=== PATIENT | female | born 1965 | race Caucasian/White ===

== ENCOUNTER 2022-11-15 10:13 | Outpatient (OUT) | payer BC, MEDICARE, SELFPAY ==
[2022-11-15 11:46] LABS: Estimated Average Glucose 151 mg/dL; Glycohemoglobin A1C 6.9 % (4.5-6.2)
[2022-11-15 11:50] LABS: Alanine Aminotransferase 53 U/L (14-59); Albumin Globulin Ratio 1.1; Albumin Level 3.9 g/dL (3.4-5.0); Alkaline Phosphatase 62 U/L (46-116); Anion Gap 14.8; Aspartate Amino Transferase 26 U/L (15-37); BUN Creatinine Ratio 15.7; Bilirubin Total 0.8 mg/dL (0.2-1.0); Calcium 9.6 mg/dL (8.5-10.1); Carbon Dioxide 29.6 mmol/L (21.0-32.0); Chloride 102 mmol/L (98-107); Estimated GFR (African America >60 (>=60); Estimated GFR (Non-African Ame 55 (>=60); Globulin 3.7 g/dL; Glucose 149 mg/dL (74-106); Potassium 4.4 mmol/L (3.5-5.1); Sodium 142 mmol/L (136-145); Total Protein 7.6 g/dL (6.4-8.2)
[2022-11-16 06:08] LABS: HIV Ab/p24 Ag Screen Non Reactive (Non Reactive)
== END 2022-11-15 10:14 ==
LOC: LAB 10:28
PROVIDERS: PCP Nurse Practitioner Primary Care; Visit Provider Nurse Practitioner Primary Care
DX: E11.9 Type 2 diabetes mellitus without complications (principal)
CPT/HCPCS: 36415; 80053; 83036; 87389

== ENCOUNTER 2022-12-21 13:48 | Outpatient (OUT) | payer BC, MEDICARE, SELFPAY ==
--- NOTE | 2022-12-21 14:04 | XR_ITS ---
The [address] [address] Patient Name: PATEL MEDINA MRN: [id number] date: 1965 Sex: F Assigned Patient Location: [facility] Current Patient Location: Accession/Order Number: [id number] Exam Date: 12/21/2022 14:04 Report Date: 12/22/2022 08:30 At the request of: BRETT MONAE Procedure: XR foot LAUREN min 3V EXAMINATION: XR foot LAUREN min 3V HISTORY: BILATERAL FOOT PAIN COMPARISON: No relevant comparison available. FINDINGS: RIGHT FINDINGS: BONES: Mild narrowing of the first metatarsophalangeal joint space and prominent periarticular osteophytes. Moderate sized calcaneal plantar spur. Mild flattening of the plantar arch. SOFT TISSUES: No visible soft tissue swelling. OTHER: Negative. LEFT FINDINGS: BONES: Mild narrowing of the first metatarsophalangeal joint space. Minimal flattening of the plantar arch. Minimal degenerative enthesopathic spurring of the calcaneus.. SOFT TISSUES: No visible soft tissue swelling. OTHER: Negative. XR/XR foot LAUREN min 3V IMPRESSION: RIGHT CONCLUSION: Moderate degenerative joint disease of the first metatarsophalangeal joint and mild pes planus. LEFT CONCLUSION: Mild degenerative changes of the first metatarsophalangeal joint. Electronically authenticated by: GAVIN ROJAS Date: 12/22/2022 08:30
== END 2022-12-21 13:49 | disposition home or self-care (01) ==
LOC: RAD 13:48
PROVIDERS: PCP Nurse Practitioner Primary Care; Visit Provider Physician Assistant
DX: M79.671 Pain in right foot (principal); M79.672 Pain in left foot; M19.072 Primary osteoarthritis, left ankle and foot; M19.071 Primary osteoarthritis, right ankle and foot; M21.41 Flat foot [pes planus] (acquired), right foot
CPT/HCPCS: 73630

== ENCOUNTER 2023-01-03 20:24 | Outpatient (REF) | payer BC, MEDICARE, SELFPAY ==
[2023-01-07 08:13] LABS: Age Gdln ACOG Testing Note (.); HPV Aptima Negative (Negative); IGP, Aptima HPV, rfx 16/18,45 Note (.)
== END 2023-01-03 20:25 | disposition home or self-care (01) ==
LOC: LAB 20:24
PROVIDERS: PCP Nurse Practitioner Primary Care; Visit Provider Physician Assistant
DX: Z01.419 Encounter for gynecological examination (general) (routine) without abnormal findings (principal); Z11.51 Encounter for screening for human papillomavirus (HPV); Z12.72 Encounter for screening for malignant neoplasm of vagina
CPT/HCPCS: 87624; G0145

== ENCOUNTER 2023-01-06 13:10 | Outpatient (OUT) | payer BC, MEDICARE, SELFPAY ==
[2023-01-06 13:56] LABS: Basophils Absolute Auto 0.1 10^3/uL (0.0-0.1); Eosinophils Absolute Auto 0.5 10^3/uL (0.0-0.7); Eosinophils Percent Auto 6.8 % (0.9-7.0); Hematocrit 38.8 % (36.0-48.0); Hemoglobin 12.6 g/dL (12.0-16.0); Immature Granulocytes Abs Auto 0.04 10^3/uL (0.00-0.03); Immature Granulocytes Pct Auto 0.6 % (0.0-0.5); Mean Corpuscular HGB Conc 32.5 g/dL (29.9-35.2); Mean Corpuscular Hemoglobin 28.4 pg (26.7-34.0); Mean Corpuscular Volume 87.4 fL (81.0-99.0); Mean Platelet Volume 12.2 fL (9.5-13.5); Monocytes Absolute Auto 0.6 10^3/uL (0.3-0.8); Monocytes Percent Auto 8.6 % (1.7-12.0); Neutrophils Absolute Auto 3.7 10^3/uL (1.4-6.5); Platelet Count 217 10^3/uL (150-450); Red Blood Count 4.44 10^6/uL (4.20-5.40); Red Cell Distribution Width 13.1 % (11.0-15.0); White Blood Count 6.9 10^3/uL (4.0-11.0)
[2023-01-06 14:42] LABS: HCG Quantitative 3 mIU/mL; Thyroid Stimulating Hormone 3.275 uIU/mL (0.358-3.740)
[2023-01-07 04:09] LABS: Prolactin 12.9 ng/mL (4.8-23.3)
== END 2023-01-06 13:11 | disposition home or self-care (01) ==
LOC: LAB 13:13
PROVIDERS: Physician Assistant; PCP Nurse Practitioner Primary Care
DX: N91.2 Amenorrhea, unspecified (principal)
CPT/HCPCS: 36415; 84146; 84443; 84702; 85025

== ENCOUNTER 2023-01-10 13:58 | Outpatient (OUT) | payer BC, MEDICARE, SELFPAY ==
--- NOTE | 2023-01-10 14:00 | US_ITS ---
[address] [address] Patient Name: PATEL MEDINA MRN: [id number] date: 1965 Sex: F Assigned Patient Location: [place] Current Patient Location: Accession/Order Number: [id number] Exam Date: 01/10/2023 14:01 Report Date: 01/10/2023 15:42 At the request of: WENCESLAO EMANUEL Procedure: US pelvis w/ transvaginal EXAMINATION: US pelvis w/ transvaginal HISTORY: AMENORRHEA COMPARISON: No relevant comparison available. TECHNIQUE: Transabdominal and/or transvaginal sonographic examination was performed as indicated by examination type. FINDINGS: UTERUS: Rounded heterogeneous masslike area within anterior-left fundal region, 4.8 x 4.0 x 2.5 cm. Uterus size: 7.7 x 5.3 x 7.4 cm ENDOMETRIUM: Thickened but homogeneous. Endometrial thickness: 7 mm RIGHT OVARY: Normal size and appearance. Duplex Doppler demonstrates normal waveform and flow; resistive index 0.6. Ovary size: 2.3 x 1.5 x 2.4 cm LEFT OVARY: Normal size and appearance. Duplex Doppler demonstrates normal waveform and flow; resistive index 0.6. Ovary size: 2.3 x 1.7 x 2.4 cm CUL-DE-SAC: Unremarkable. No significant free fluid. BLADDER: Unremarkable. OTHER: None. US/US pelvis w/ transvaginal IMPRESSION: 1. Uterine fundus 4.8 cm mass suspected represent a leiomyoma. 2. Mild endometrial thickening given the patient's age, 7 mm. 3. Unremarkable ovaries. Electronically authenticated by: GAVIN ROJAS Date: 01/10/2023 15:42
== END 2023-01-10 13:59 | disposition home or self-care (01) ==
LOC: US 13:59
PROVIDERS: PCP Nurse Practitioner Primary Care; Visit Provider Obstetrics & Gynecology
DX: N91.2 Amenorrhea, unspecified (principal)
CPT/HCPCS: 76830; 76856

== ENCOUNTER 2023-01-11 12:41 | Outpatient (OUT) | payer BC, MEDICARE, SELFPAY ==
--- NOTE | 2023-01-11 13:20 | XR_ITS ---
[address] [address] Patient Name: PATEL MEDINA MRN: [id number] date: 1965 Sex: F Assigned Patient Location: [facility] Current Patient Location: Accession/Order Number: [id number] Exam Date: 01/11/2023 12:55 Report Date: 01/11/2023 18:18 At the request of: ZACK CUEVAS Procedure: XR DEXA axial skeleton EXAMINATION: XR DEXA axial skeleton, 01/11/2023 12:55 PM EDT HISTORY: Osteoporosis screening Z13.820 COMPARISON: None. TECHNIQUE: Dual-energy X-ray absorptiometry (DEXA) bone density study performed for the axial skeleton. HISTORY: Osteoporosis screening Z13.820 FINDINGS: Bone mineral density AP spine L1-L4 measures 1.455 g/sq cm. T score 2.3. WHO classification: Normal. Lowest bone mineral density left femoral neck measures 1.219 g/sq cm. T score 1.3. WHO classification: Normal XR/XR DEXA axial skeleton IMPRESSION: Normal bone mineral density. Low fracture risk Electronically authenticated by: MISBAH SHANKS Date: 01/11/2023 18:18
--- NOTE | 2023-01-11 13:20 | MM_ITS ---
Patient: PATEL MEDINA Exam Date: 01/11/2023 : 1965 Gender:F Ordering : CECILIA Hurley . Admission #: [id number] Family : JANUSZ BAUTISTA Order #: [id number] CLICK HERE TO VIEW EXAM RADIOLOGY REPORT PROCEDURE: MM TOMOSYNTHESIS SCREENING BI COMPARISON: MG MAMM LT DIAG W CAD, 06/25/2020. MG MAMM LT DIAG FU, 08/08/2019. MM SCREENING MAMMO BI, 07/18/2019. INDICATIONS: Screening mammogram Z12.31 Calculator Name NCI Breast Cancer Risk Assessment Tool 5 Year Breast Cancer Risk 1.40% Lifetime Breast Cancer Risk 7.40% Personal Breast Cancer No Personal Ovarian Cancer No Treatments None Family Cancers Grandmother-maternal with lung cancer at age 78; Grandfather-paternal with leukemia cancer at age 87. LOCATION: [facility] BREAST COMPOSITION: Scattered areas fibroglandular density. FINDINGS: DIAGNOSTIC CATEGORY 2--BENIGN FINDING: RIGHT BREAST: No significant suspicious finding. Stable benign-appearing calcifications. No significant change has occurred. LEFT BREAST: No significant suspicious finding. Stable, chronic small asymmetries within posterior upper-outer quadrant. No significant change has occurred. RECOMMENDATIONS: ROUTINE MAMMOGRAM AND CLINICAL EVALUATION IN 12 MONTHS. PLEASE NOTE: A NORMAL MAMMOGRAM DOES NOT EXCLUDE THE POSSIBILITY OF BREAST CANCER. A CLINICALLY SUSPICIOUS PALPABLE LUMP SHOULD BE BIOPSIED. Dictated by: Carmelo Mcdowell M.D. on 01/19/2023 at 07:53 Approved by: Carmelo Mcdowell M.D. on 01/19/2023 at 07:57
== END 2023-01-11 12:42 | disposition home or self-care (01) ==
PROVIDERS: PCP Nurse Practitioner Primary Care; Visit Provider Physician Assistant
DX: Z13.820 Encounter for screening for osteoporosis (principal); Z12.31 Encounter for screening mammogram for malignant neoplasm of breast; Z80.1 Family history of malignant neoplasm of trachea, bronchus and lung; Z80.6 Family history of leukemia
CPT/HCPCS: 77063; 77067; 77080

== ENCOUNTER 2023-02-21 06:53 | Outpatient (OUT) | payer BC, MEDICARE, SELFPAY ==
[2023-02-21 07:51] LABS: Estimated Average Glucose 148 mg/dL; Glycohemoglobin A1C 6.8 % (4.5-6.2)
[2023-02-21 08:32] LABS: Alanine Aminotransferase 47 U/L (14-59); Albumin Globulin Ratio 1.1; Albumin Level 3.9 g/dL (3.4-5.0); Alkaline Phosphatase 63 U/L (46-116); Anion Gap 11.2; Aspartate Amino Transferase 24 U/L (15-37); BUN Creatinine Ratio 17.7; Bilirubin Total 0.6 mg/dL (0.2-1.0); Calcium 9.5 mg/dL (8.5-10.1); Carbon Dioxide 28.9 mmol/L (21.0-32.0); Chloride 102 mmol/L (98-107); Estimated GFR (African America 60 (>=60); Estimated GFR (Non-African Ame 49 (>=60); Globulin 3.5 g/dL; Glucose 128 mg/dL (74-106); Potassium 4.1 mmol/L (3.5-5.1); Sodium 138 mmol/L (136-145); Total Protein 7.4 g/dL (6.4-8.2)
== END 2023-02-21 06:54 | disposition home or self-care (01) ==
LOC: LAB 06:57
PROVIDERS: PCP Nurse Practitioner Primary Care; Visit Provider Nurse Practitioner Primary Care
DX: E11.22 Type 2 diabetes mellitus with diabetic chronic kidney disease (principal); N18.31 Chronic kidney disease, stage 3a
CPT/HCPCS: 36415; 80053; 83036

== ENCOUNTER 2023-03-17 07:52 | Outpatient (OUT) | payer BC, MEDICARE, SELFPAY ==
--- NOTE | 2023-03-17 08:00 | ECG_ITS ---
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
== END 2023-03-17 07:53 | disposition home or self-care (01) ==
LOC: PST 07:53
PROVIDERS: PCP Nurse Practitioner Primary Care; Visit Provider Obstetrics & Gynecology
DX: Z01.810 Encounter for preprocedural cardiovascular examination (principal); R10.2 Pelvic and perineal pain; N91.2 Amenorrhea, unspecified
CPT/HCPCS: 93005

== ENCOUNTER 2023-03-24 06:04 | Day surgery (SDC) | payer BC, MEDICARE, SELFPAY ==
[2023-03-17 08:45] VITALS: BP 133/77; PULSE 55; RESP 20; TEMP 36.2; O2SAT 98; BMI 36.9
[2023-03-24] VITALS (10 sets, daily range): BP systolic 86–125; BP diastolic 54–68; PULSE 56–70; RESP 12–20; TEMP 36–36.3; O2SAT 92–99; BMI 36.4
[2023-03-24 06:31] LABS: Basophils Absolute Auto 0.1 10^3/uL (0.0-0.1); Basophils Percent Auto 1.6 % (0.2-2.0); Eosinophils Absolute Auto 0.7 10^3/uL (0.0-0.7); Eosinophils Percent Auto 10.3 % (0.9-7.0); Hematocrit 36.6 % (36.0-48.0); Hemoglobin 11.7 g/dL (12.0-16.0); Immature Granulocytes Abs Auto 0.02 10^3/uL (0.00-0.03); Immature Granulocytes Pct Auto 0.3 % (0.0-0.5); Lymphocytes Absolute Auto 2.9 10^3/uL (1.2-3.8); Lymphocytes Percent Auto 41.5 % (20.5-60.0); Mean Corpuscular Hemoglobin 28.1 pg (26.7-34.0); Mean Corpuscular Volume 87.8 fL (81.0-99.0); Mean Platelet Volume 12.1 fL (9.5-13.5); Monocytes Absolute Auto 0.9 10^3/uL (0.3-0.8); Monocytes Percent Auto 13.1 % (1.7-12.0); Neutrophils Absolute Auto 2.3 10^3/uL (1.4-6.5); Neutrophils Percent Auto 33.2 % (43.0-75.0); Platelet Count 208 10^3/uL (150-450); Red Blood Count 4.17 10^6/uL (4.20-5.40); Red Cell Distribution Width 13.2 % (11.0-15.0); White Blood Count 6.9 10^3/uL (4.0-11.0)
[2023-03-24] MEDS: LACTATED RINGER'S SOLUTION 1,000 ML 50 ML IV (06:50)
[2023-03-24] MEDS: LACTATED RINGER'S SOLUTION 1,000 ML 150 ML IV (07:00)
[2023-03-24] MEDS: SCOPOLAMINE 1 MG/3 DAYS TRANSDERM PATCH 1 PATCH TD (07:02)
--- NOTE | 2023-03-24 08:09 | PM.ONB ---
Brief Operative Note Date of procedure: 03/24/23 Pre-op diagnosis: thickened endometrium Post-op diagnosis: same as pre-op Procedure: NAME OF PROCEDURE: [ D&c hysteroscopy with myosure with polypectomy] PROCEDURE: The patient was taken back to the Operating Room where she was prepped and draped in normal sterile fashion after being placed under general anesthesia without difficulty. She was also placed in the dorsal lithotomy position. A weighted speculum was placed in the patient?s vagina. The anterior lip of the cervix was identified and grasped with a single tooth tenaculum. The patient?s uterus was then sounded roughly to [? 8] cm. The patient was then gently dilated using Hegar dilators. The hysteroscope was passed through the patient?s cervix into the uterus. Both ostia were identified. fluffy appearing endometrium. No gross evidence of malignancy, no gross evidence of polyps or fibroids. The MyoSure was then placed through the scope into the uterus, endometrial sampling in all quadrants was then performed along with removal of uterine polyp. the myosure apparatus was removed along with the hysteroscope from the patient's uterus. At that point, gentle curettage was performed until a gritty texture was noted. The endometrial curettings were sent out to pathology. The single tooth tenaculum was then removed from the patient's anterior lip of the cervix where excellent hemostasis was noted. All instruments were removed from the patient?s vagina. The patient tolerated the procedure well. Sponge, lap and needle counts were correct times two. The patient was taken to the Recovery Room in stable condition.Room in stable condition. Anesthesia: GETA Surgeon: Percy Mariee Estimated blood loss (mL): 5 Pathology: other (endometrial curretting, endometrial polyp) Condition: stable Disposition: PACU
--- NOTE | 2023-03-24 14:58 | RESP.RT ---
done per nursing
== END 2023-03-24 09:31 | disposition home or self-care (01) ==
PROVIDERS: PCP Nurse Practitioner Primary Care; Visit Provider Obstetrics & Gynecology
PROC: (CPT 58558; principal; 2023-03-24 07:30)
DX: N91.2 Amenorrhea, unspecified (principal); R93.89 Abnormal findings on diagnostic imaging of other specified body structures; R10.2 Pelvic and perineal pain; E11.9 Type 2 diabetes mellitus without complications; Z79.84 Long term (current) use of oral hypoglycemic drugs; Z90.49 Acquired absence of other specified parts of digestive tract
CPT/HCPCS: 58558; 36415; 85025; 88305; 94667; J2704

== ENCOUNTER 2023-10-27 06:51 | Outpatient (OUT) | payer BC, MEDICARE, SELFPAY ==
[2023-10-27 07:27] LABS: Estimated Average Glucose 157 mg/dL; Glycohemoglobin A1C 7.1 % (4.5-6.2)
[2023-10-27 07:37] LABS: Basophils Absolute Auto 0.2 10^3/uL (0.0-0.1); Basophils Percent Auto 1.6 % (0.2-2.0); Eosinophils Absolute Auto 0.8 10^3/uL (0.0-0.7); Eosinophils Percent Auto 8.1 % (0.9-7.0); Hematocrit 40.3 % (36.0-48.0); Hemoglobin 13.1 g/dL (12.0-16.0); Immature Granulocytes Abs Auto 0.04 10^3/uL (0.00-0.03); Immature Granulocytes Pct Auto 0.4 % (0.0-0.5); Lymphocytes Absolute Auto 3.4 10^3/uL (1.2-3.8); Lymphocytes Percent Auto 36.4 % (20.5-60.0); Mean Corpuscular HGB Conc 32.5 g/dL (29.9-35.2); Mean Corpuscular Hemoglobin 28.6 pg (26.7-34.0); Mean Platelet Volume 12.7 fL (9.5-13.5); Monocytes Absolute Auto 0.8 10^3/uL (0.3-0.8); Monocytes Percent Auto 8.8 % (1.7-12.0); Neutrophils Absolute Auto 4.1 10^3/uL (1.4-6.5); Neutrophils Percent Auto 44.7 % (43.0-75.0); Platelet Count 231 10^3/uL (150-450); Red Blood Count 4.58 10^6/uL (4.20-5.40); Red Cell Distribution Width 12.9 % (11.0-15.0); White Blood Count 9.2 10^3/uL (4.0-11.0)
[2023-10-27 08:08] LABS: Alanine Aminotransferase 58 U/L (14-59); Albumin Globulin Ratio 1.1; Albumin Level 3.7 g/dL (3.4-5.0); Alkaline Phosphatase 85 U/L (46-116); Anion Gap 17.6; Aspartate Amino Transferase 37 U/L (15-37); BUN Creatinine Ratio 25.6; Bilirubin Total 0.6 mg/dL (0.2-1.0); Calcium 9.4 mg/dL (8.5-10.1); Carbon Dioxide 24.3 mmol/L (21.0-32.0); Chloride 102 mmol/L (98-107); Chol HDL Ratio 2.9; Cholesterol 155 mg/dL (<=200); Estimated GFR (African America 55 (>=60); Estimated GFR (Non-African Ame 45 (>=60); Globulin 3.5 g/dL; Glucose 161 mg/dL (74-106); HDL Cholesterol 53 mg/dL (40-60); Potassium 3.9 mmol/L (3.5-5.1); Sodium 140 mmol/L (136-145); TSH W/ REFLEX FT4 4.523 uIU/mL (0.358-3.740); Total Protein 7.2 g/dL (6.4-8.2); Triglycerides 355 mg/dL (<=150)
[2023-10-27 09:55] LABS: Free T4 0.81 ng/dL (0.76-1.46)
[2023-10-28 07:09] LABS: HCV Ab Non Reactive (Non Reactive); HIV Ab/p24 Ag Screen Non Reactive (Non Reactive)
== END 2023-10-27 06:52 | disposition home or self-care (01) ==
PROVIDERS: PCP Nurse Practitioner Primary Care; Visit Provider Nurse Practitioner Primary Care
DX: Z00.00 Encounter for general adult medical examination without abnormal findings (principal); Z11.59 Encounter for screening for other viral diseases; Z11.4 Encounter for screening for human immunodeficiency virus [HIV]; Z13.6 Encounter for screening for cardiovascular disorders; Z13.29 Encounter for screening for other suspected endocrine disorder; Z13.21 Encounter for screening for nutritional disorder
CPT/HCPCS: 36415; 80053; 80061; 82306; 83036; 84439; 84443; 85025; 86803; 87389

== ENCOUNTER 2024-01-05 17:54 | Outpatient (REF) | payer BC, MEDICARE, SELFPAY | END 2024-01-05 17:55 | disposition home or self-care (01) | LOC: LAB 17:54 | PROVIDERS: PCP Nurse Practitioner Primary Care; Visit Provider Physician Assistant | DX: Z01.419 Encounter for gynecological examination (general) (routine) without abnormal findings (principal) | CPT/HCPCS: 87624; 88175 ==

== ENCOUNTER 2024-01-31 09:32 | Outpatient (OUT) | payer BC, MEDICARE, SELFPAY ==
--- NOTE | 2024-01-31 09:37 | MM_ITS ---
Patient Name: PATEL MEDINA MR#: [id number] : 1965 Exam Date: 01/31/2024 Ordering Doctor: CECILIA Hurley . RADIOLOGY REPORT PROCEDURE: MM TOMOSYNTHESIS SCREENING BI COMPARISON: MG MAMM LT DIAG W CAD, 06/25/2020. MM TOMOSYNTHESIS SCREENING BI, 01/11/2023. INDICATIONS: Screening Calculator Name NCI Breast Cancer Risk Assessment Tool 5 Year Breast Cancer Risk 1.40% Lifetime Breast Cancer Risk 7.20% Personal Breast Cancer No Personal Ovarian Cancer No Treatments None Family Cancers Grandmother-maternal with lung cancer at age 78; Grandfather-paternal with leukemia cancer at age 87. LOCATION: [facility] BREAST COMPOSITION: There are scattered areas of fibroglandular density. FINDINGS: DIAGNOSTIC CATEGORY 2--BENIGN FINDING. NO CHANGE FROM COMPARISON. Scattered benign-appearing nodules are present. Scattered benign-appearing calcifications are present. Scattered benign-appearing lymph nodes are present. RIGHT BREAST: No significant suspicious finding. LEFT BREAST: No significant suspicious finding. RECOMMENDATIONS: ROUTINE MAMMOGRAM AND CLINICAL EVALUATION IN 12 MONTHS. PLEASE NOTE: A NORMAL MAMMOGRAM DOES NOT EXCLUDE THE POSSIBILITY OF BREAST CANCER. A CLINICALLY SUSPICIOUS PALPABLE LUMP SHOULD BE BIOPSIED. Dictated by: Jorge Luis Foster MD on 01/31/2024 at 12:12 Approved by: Jorge Luis Foster MD on 01/31/2024 at 12:26
--- OUTSIDE RECORDS SUMMARY | 2024-01-31 09:54 | XMS_ITS | CCD ---
Author Organization [facility] Care Team Providers Care Chart Picker Name Role Phone Jennie Garcia Unavailable SHAMMO, JANUSZ Admitting Unavailable SHAMMO, JANUSZ Attending Unavailable SHAMMO, JANUSZ Primary Care Unavailable SHAMMO, JANUSZ Consulting Unavailable MISC, DOCTOR Admitting Unavailable MISC, DOCTOR Attending Unavailable SHAMMO, JANUSZ Primary Care Unavailable MISC, DOCTOR Consulting Unavailable SHAMMO, JANUSZ Admitting Unavailable SHAMMO, JANUSZ Attending Unavailable SHAMMO, JANUSZ Primary Care Unavailable SHAMMO, JANUSZ Consulting Unavailable SHAMMO, JANUSZ Admitting Unavailable SHAMMO, JANUSZ Attending Unavailable SHAMMO, JANUSZ Primary Care Unavailable SHAMMO, JANUSZ Consulting Unavailable SHAMMO, JANUSZ Admitting Unavailable SHAMMO, JANUSZ Attending Unavailable SHAMMO, JANUSZ Primary Care Unavailable SHAMMO, JANUSZ Consulting Unavailable Alexis MILLER, Salome Ballesteros Referring Therese Izquierdo DPM, Demetri Aquino Attending Unavailab Caro Silver Primary Care Physician Caro Yu Unavailable Unavailable NO FAMILY PHYSICIAN, 837 Primary Care Unavail able WENCESLAO EMANUEL Attending Unavailable Allergies Allergy Classification Reported Allergen(s) Allergy Type Date of Onset Reaction(s) Facility (1 source) Glucosamine Drug Allergy [email or web address] Other (2 sources) Penicillin; Translations: [Penicillin] Drug Allergy [facility]ository (2 sources) predniSONE; Translations: [predniSONE] Drug Allergy [facility] (1 source) Sulfonamides (Antibiotic) Drug allergy (disorder) [facility] (2 sources) Tetracycline; Translations: [tetracycline] Drug Allergy [facility] (1 source) valdecoxib Drug Allergy [facility] (2 sources) NSAIDs; Translations: [NSAIDs] Propensity to adverse reactions to drug (disorder) [facility] Repository (1 source) Penicillins Allergy to substance (disorder) [facility] (1 source) Tetracyclines Allergy to substance (disorder) [facility] (1 source) Trenbolone; Translations: [prednisone] Drug Allergy [facility] Medications Current Medications Medication Drug Class(es) Dates Sig (Normalized) Sig (Original) lisinopril 20 mg oral tablet (1 source) Angiotensin Converting Enzyme Inhibitor Lisinopril 20 MG Oral for 90 Days Active Completed/Discontinued Medications Medication Drug Class(es) Dates Sig (Normalized) Sig (Original) atenolol 25 mg oral tablet (2 sources) beta-Adrenergic Pati take 1 tablet by mouth once daily atenolol 25 mg tablet take 1 tablet (25 mg) by oral route once daily atorvastatin 20 mg oral tablet (2 sources) HMG-CoA Reductase Inhibitor take 1 tablet by mouth once daily atorvastatin 20 mg tablet take 1 tablet (20 mg) by oral route once daily take 1 tablet by mouth once haseeb y Atorvastatin Calcium 10 MG TAKE 1 TABLET BY MOUTH EVERY DAY Oral for 90 Days Active Fish Oils (1 source) take 1 capsule by mouth once daily Fish Oil 360 mg-1,200 mg capsule take 1 capsule by oral route daily hydrOXYzine hydrochloride 25 mg oral tablet (1 source) Antihistamine take 1 tablet by mouth three times daily hydroxyzine HCl 25 mg tablet take 1 tablet (25 mg) by oral route 3 times per day losartan potassium 100 mg oral tablet (1 source) Angiotensin 2 Receptor Pati take 1 tablet by mouth once daily losartan 100 mg tablet take 1 tablet (100 mg) by oral route once daily magnesium gluconate 550 mg oral tablet (1 source) take 1 tablet by mouth once daily magnesium gluconate 30 mg (550 mg) tablet take 1 tablet by oral route daily melatonin 5 mg oral tablet (1 source) take 1 tablet by mouth once daily melatonin 5 mg tablet take 1 tablet by oral route daily metFORMIN hydrochloride 500 mg oral tablet (2 sources) Biguanide take 2 tablets by mouth twice daily at dinner metformin 500 mg tablet take 2 tablets (1,000 mg) by oral route 2 times per day with morning and evening meals metFORMIN HCl 50 0 MG Oral for 90 Days Active potassium gluconate 2.5 meq oral tablet (1 source) take 1 tablet by rita th once daily potassium gluconate 595 mg (99 mg) tablet take 1 tablet by oral route daily Problems Active Problems Problem Classification Problem Date Documented Da te Episodic/Chronic Diabetes mellitus without complication (4 sources) Type 2 diabetes mellitus without complications; Translations: [TYPE 2 DM WITHOUT COMPLICATIONS] Onset: 08-05-2022 Chronic Disorders of lipid metabolism (1 source) Mixed hyperlipidemia; Translations: [MIXED HYPERLIPIDEMIA] Onset: 08-09-2022 Chronic Other connective tissue disease (1 source) Pain in right leg Onset: 02-17-2023 Episodic Other connective tissue disease (1 source) Pain in left leg Onset: 02-17-2023 Episodic Other nervous system disorders (1 source) Other disturbances of skin sensation Onset: 02-17-2023 Episodic Other screening for suspected conditions (not mental disorders or infectious disease) (3 sources) Encounter for screening for nutritional disorder; Translations: [Encounter for screening for other suspected endocrine disorder] Onset: 05-01-2022 Episodic Other upper respiratory infections (4 sources) Acute pharyngitis, unspecified; Translations: [ACUTE PHARYNGITIS UNSPECIFIED] Onset: 09-08-2022 Episodic Past or Other Problems Problem Classification Problem Date Documented Date Episodic/Chronic Other connective tissue disease (1 source) Pain in left toe(s) Onset: 12-18-2021 Resolved: 12-18-2021 Episodic Other eye disorders (4 sources) Dermatochalasis of unspecified eye, unspecified eyelid; Translations: [DERMATOCHALASIS UNS EYE UNS EYELID] Onset: 05-18-2022 Episodic Superficial injury; contusion (1 source) Contusion of left lesser toe(s) without damage to nail, initial encounter Onset: 12-18-2021 Resolved: 12-18-2021 Episodic Results Test Name Value Interpretation Reference Range Facility SURGICAL PATH REPORTon 03-28 SURGICAL PATH REPORT [facility] Department of Pathology [address] [place] [address] [phone] Name: PATEL MEDINA : 1965 Financial [id number] Number: [facility] [place] MARBIN ABELINO : n: Admit 57 years Attending WENCESLAO EMANUEL Age: Provider: Ordering WENCESLAO EMANUEL Provider: Consulti Surgical Pathology Report ng: ACCESSION: COLLECTED DATE/TIME: RECEIVED DATE/TIME: PATHOLOGIST: [id number] 03/24/2023 08:06 EDT 03/24/2023 12:54 EDT ZULEMA SMITH, LINA MCCLELLAND Final Diagnosis Report for [facility] [place] ENDOMETRIUM, CURETTAGE: - MINUTE FRAGMENT OF INACTIVE ENDOMETRIUM. - NEGATIVE FOR MALIGNANCY OR HYPERPLASIA. COMMENT: The tissue is scanty. Multiple deeper sections have been examined. Clinical correlation is recommended. LINA POOLE PATHOLOGIST (Electronic Signature) Date Verified 03/28/2023 SB Clinical Data PRE-OP DIAGNOSIS: Not specified POST-OP DIAGNOSIS: Amenorrhea PROCEDURES: D and C, Hysteroscopy, MyoSure SPECIMEN: Endometrial curettings VISIT #[id number] / Surgical outpatient Gross Description Labeled endometrial curettings. Received in formalin on a plastic collection apparatus are multiple irregular pink white feathery segments of soft tissue. The specimen is filtered and has a filtrate aggregate dimension of 1.4 x 0.5 x 0.3 cm. The specimen is entirely submitted in one cassette. MP/glenn 03/24/2023 ____ ____ Print 03/28/2023 10:00 EDT Number: Date/Time: [facility] Department of Pathology [address] [place] [id number] Name: PATEL MEDINA : 1965 [facility] [id number] Number: [facility]: Admit 57 years Attending WENCESLAO EMANUEL Age: Provider: Ordering WENCESLAO EMANUEL Provider: Consulti Surgical Pathology Report ng: ACCESSION: COLLECTED DATE/TIME: RECEIVED DATE/TIME: PATHOLOGIST: [id number] 03/24/2023 08:06 EDT 03/24/2023 12:54 EDT ZULEMA SMITH, LINA MCCLELLAND Gross Description Tissue pathology report for: 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 Codes CPT CODE: 56084 ____ ____ Print 03/28/2023 10:00 EDT Number: Date/Time: Normal [facility] Comment on above: Performed By: #### [id number] #### [facility] Services [address] [place] [address] Treasury Accountant: Todd Xiong MD No Panel Informationon 02-17 Tobacco smoking status Former Smoker Invalid Interpretation Code [facility] Podiatry Office/Clinic Noteo n 01-13-2023 Podiatry Office/Clinic Note Chief Complaint F/U Mononeuropathies of LLE, Bilateral foot pain History of Present Illness Patient presents today complaining of bilateral painful left greater than right forefoot which is aching and throbbing in nature and sometimes stinging and burning in recent months. Patient relates that this is most troublesome in shoe gear wear and when ambulating and weightbearing although sometimes without shoe gear as well. Patient denies overt trauma to the area that they can remember. Patient relates that they have tried fgwn-kse-qoepaez pain relievers, padding, and modification of shoe gear as well as modification of activity levels to no avail. Relates that she feels like she is walking on a stone sometimes, gets numbness tingling and stabbing pain. Sometimes gets radiating pain from her arch into the ball of her foot. Denies prior trauma. Has been painful since about October. Was seeing Annmarie Espinoza At the [facility]. Was referred here for possible nerve entrapment. She also has diabetes mellitus. Former smoker. Also gets pain in the left heel and has a history of plantar fasciitis she relates. Patient presents today complaining of left heel pain which is located primarily on the inside and anterior portion of the heel. Patient relates intermittent radiating pain into the medial arch and to the rest of the heel pad and has been increasing in intensity recently. Patient relates that this is especially painful after waking in the morning when first arising, and after periods of sitting around. Patient relates that they have tried Lnik-oja-Gpglrfn pain relievers and shoe gear modification to no avail. Patient relates that this has begun to hinder their lifestyle and activity levels including those at work, and wishes to have something done about the problem. No trauma or incident remembered. Failed months of conservative modalities both provider directed and fyyw-owc-yclznqa. Review of Systems Constitutional Head Nose Mouth Throat Cardio/Respiratory Hematologic Chills: No Headache: No Shortness of Breath: No History of DVT: No Fever: No Sore Throat: No Chest Pain: No History of Claudication: No Ear Pain: No Palpitation: No History of Aneurysm: No History of Gangrene: No Genitourinary Musculoskeletal Psychiatric Vascular Burning: No Muscle Weakness: No Anxiety: Yes Blood Disorder: No Pain: No Joint Pain: Yes Depression: Yes Numbness: Yes Gastrointestinal Dermatology Rheumatologic Problems: No Rash: No History of Rheumatic Arthritis: No Pain: No Pruritus: No History of Gout: No History of Lupus: No Physical Exam Vitals & Measurements HR: 69 (Peripheral) BP: 136/81 HT: 165 cm WT: 99.6 kg WT: 99.6 kg (Dosing) BMI: 36.58 Orthopedic: Bony foot structure appears grossly rectus Extrinsic and intrinsic musculature of the foot are grossly normal with strengths of 5/5 all movers of the foot and ankle. Minimal pain to passive or active range of motion bilateral and free of overt joint crepitation. Positive silfverskiold test bilateral. Negative pain to palpation of the plantar aspect of MPJ's. Positive pain to deep palpation of left third and fourth intermetatarsal space. This is exacerbated with medial to lateral compression the metatarsal heads. Positive pain on Zhao squeeze test. Pain to palpation at the plantar medial tubercle Negative palpable tenderness to dorsal and plantar metatarsal shafts and heads Pain to palpation plantar medial tubercle of left calcaneus and with engagement of the windlass mechanism. Dermatologic: Skin is within normal limits Negative for overt rashes or irregular pigmented lesions. Skin turgor normal. Neurologic: Gross and epicritic sensation intact bilateral. Protective sensation intact as measured with Marcella Renzo monofilament. Gross motor intact bilateral. Positive Tinel to the left tibial nerve at the tarsal tunnel as well as the tibial nerve at the soleal sling. Negative straight leg raise test bilateral. Negative Tinel to the left common peroneal nerve, left superficial peroneal nerve, left saphenous nerve, left sural nerve. Negative Tinel to the right tibial nerve. Positive tingling, burning to associated toes when manually palpated and with squeeze test of the associated metatarsal heads as mentioned above. Vascular: Pedal Pulses weakly palpable at Dorsalis Pedis and Posterior Tibial Bilateral. Capillary fill time approximately 3 seconds bilateral at toes when leg elevated. Negative for significant edema in either lower extremity Skin temp warm to cool proximal to distal bilateral. Additional Vitals BP Position/Location: Sitting, Right arm Assessment/Plan 1. Plantar fasciitis, left 2. 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 Contracture of left Achilles tendon 4. Tarsal tunnel syndrome, left lower limb 5. 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 Diabetic pe (more content not included)... Normal [facility] Provider Letteron 01-13-2023 Provider Letter Salome Espinoza PA-C [address] [facility], [place] [address] Re: Patel Medina Date of Visit: 01/13/2023 Dear Salome Espinoza PA-C, [facility] [address] [place] [address], [phone] Fax: [phone] Date: 01/13/2023 13:08:23 Dear Alexis MILLER, Salome Ballesteros Thank you for referring Patel Medina who was seen on 01/13/2023 10:45:00. Please see attached note for further details and please call with any questions or concerns. _ Thank you, Demetri Izquierdo DPM Let me know if you have any questions or concerns. Sincerely, DELFINA Appiah Providers: The following document(s) were included in the letter: January 13, 2023 13:00:31 EDT - (01/13/2023) Office Visit Note Normal [facility] XR Foot 3 Views Bilateralon 01-13-2023 XR Foot 3 Views Bilateral 3 weightbearing views bilateral feet demonstrate: Left foot: Contracture of lesser digits noted. Increased lateral deviation angle of the fifth metatarsal noted. No foreign bodies noted. No acute fractures or dislocations noted. Decreased joint space and subchondral sclerosis noted at the first metatarsophalangeal joint. No increase in intermetatarsal 1?2 angle noted. No increase in hallux abductus angle noted. Increased intermetatarsal 4?5 angle noted. Dorsal spurring of the first metatarsal head noted. Decreased Meary's angle noted. Decreased calcaneal inclination angle noted. Spurring at the plantar calcaneus noted. No soft tissue calcifications noted. No increase in soft tissue volume, density, or edema noted. Accessory ossicle versus remote fracture at the plantar fifth metatarsal head. Right foot: Contracture of lesser digits noted. Increased lateral deviation angle of the fifth metatarsal noted. No foreign bodies noted. No acute fractures or dislocations noted. Decreased joint space and subchondral sclerosis noted at the first metatarsophalangeal joint. No increase in intermetatarsal 1?2 angle noted. No increase in hallux abductus angle noted. Increased intermetatarsal 4?5 angle noted. Dorsal spurring of the first metatarsal head noted. Decreased Meary's angle noted. Decreased calcaneal inclination angle noted. Spurring at the plantar calcaneus noted. No soft tissue calcifications noted. No increase in soft tissue volume, density, or edema noted. Accessory ossicle in between the fourth and fifth metatarsal heads. Final Signed by: Demetri Izquierdo DPM Signed (Electronic Signature): 01/13/2023 12:58 pm Transcribed DT/TM: 01/13/2023 12:58 (If Report Is Signed, Electronically Signed in Other Vendor System) Normal [facility] CULTURE THROATon 09-11-2022 CULTURE THROAT Isolate 1 Klebsiella oxytoca Light growth of ORGANISM 1 Klebsiella oxytoca ANTIBIOTIC M.I.C RX STATUS Ampicillin >=32 R F Ampicillin/Sulbactam 16 I F Piperacillin/Tazobacta m 8 S F Cefazolin <=4 S F Ceftazidime <=1 S F Ceftriaxone <=1 S F Ertapenem <=0.5 S F Imipenem <=0.25 S F Amikacin <=2 S F Gentamicin <=1 S F Tobramycin <=1 S F Ciprofloxacin <=0.25 S F Levofloxacin 0.25 S F Trimethoprim/Sulfameth oxazole <=20 S F Normal [facility] Comment on above: Performed By: #### T HRTCX #### [facility] [address] [place] [address] Dr. Augustine Blackwood RESPIRATORY PANEL PLUSon Adenovirus Not detected Normal NOT DETECTED [facility] Comment on above: Performed By: #### L IPID, CMP #### [facility] [address] [place] [address] Dr. Augustine Jeff. Parapertusis Not detected Normal NOT DETECTED [facility] Comment on above: Performed By: #### L IPID, CMP #### [facility] [address] [place] [address] Dr. Augustine Blackwood B. Pertussis Not detected Normal NOT DETECTED [facility] Comment on above: Performed By: #### L IPID, CMP #### [facility] [address] [place] [address] Dr. Augustine Blackwood Chlamydia Pneumoniae Not detected Normal NOT DETECTED [facility] Comment on above: Performed By: #### L IPID, CMP #### [facility] [address] [place] [address] Dr. Augustine Blackwood Coronavirus 229E Not detected Normal NOT DETECTED [facility] Comment on above: Performed By: #### L IPID, CMP #### [facility] [address] [place] [address] Dr. Augustine Blackwood Coronavirus HKU1 Not detected Normal NOT DETECTED [facility] Comment on above: Performed By: #### L IPID, CMP #### [facility] [address] [address] [address] Augustine Blackwood Coronavirus NL63 Not detected Normal NOT DETECTED [facility] Comment on above: Performed By: #### L IPID, CMP #### [facility] [address] [place] [address] Dr. Augustine Blackwood Coronavirus OC43 Not detected Normal NOT DETECTED [facility] Comment on above: Performed By: #### L IPID, CMP #### [facility] [address] [place] [address] Dr. Augustine Blackwood Influenza A H1 Not detected Normal NOT DETECTED [facility] Comment on above: Performed By: #### L IPID, CMP #### [facility] [address] [place] [address] Dr. Augustine Blackwood Influenza A H1 2009 Not detected Normal NOT DETECTED [facility] Comment on above: Performed By: #### L IPID, CMP #### [facility] [address] [place] [address] Dr. Augustine Blackwood Influenza A H3 Not detected Normal NOT DETECTED [facility] Comment on above: Performed By: #### L IPID, CMP #### [facility] [address] [place] [address] Dr. Augustine Blackwood Influenza B Not detected Normal NOT DETECTED [facility] Comment on above: Performed By: #### L IPID, CMP #### [facility] [address] [place] [address] Dr. Augustine Blackwood Metapneumovirus Not detected Normal NOT DETECTED [facility] Comment on above: Performed By: #### L IPID, CMP #### [facility] [address] [place] [address] Dr. Augustine Blackwood Mycoplas. Pneumoniae Not detected Normal NOT DETECTED [facility] Comment on above: Performed By: #### L IPID, CMP #### [facility] [address] [address] [address] Augustine Blackwood Parainfluenza 1 Not detected Normal NOT DETECTED [facility] Comment on above: Performed By: #### L IPID, CMP #### [facility] [address] [address] [address] Augustine Blackwood Parainfluenza 2 Not detected Normal NOT DETECTED [facility] Comment on above: Performed By: #### L IPID, CMP #### [facility] [address] [address] [address] Augustine Blackwood Parainfluenza 3 Not detected Normal NOT DETECTED [facility] Comment on above: Performed By: #### L IPID, CMP #### [facility] [address] [place] [address] Dr. Augustine Blackwood Parainfluenza 4 Not detected Normal NOT DETECTED [facility] Comment on above: Performed By: #### L IPID, CMP #### [facility] [address] [place] [address] Dr. Augustine Blackwood Rhino/Enterovirus Not detected Normal NOT DETECTED [facility] Comment on above: Performed By: #### L IPID, CMP #### [facility] [address] [place] [address] Dr. Augustine Blackwood RP2 Header 1 RESPIRATORY PANEL: VIRUSES Normal [facility] Comment on above: Performed By: #### L IPID, CMP #### [facility] [address] [place] [address] Dr. Augustine Blackwood RP2 Header 2 RESPIRATORY PANEL: BACTERIA Normal [facility] Comment on above: Performed By: #### L IPID, CMP #### [facility] [address] [place] [address] Dr. Augustine Blackwood RSV Not detected Normal NOT DETECTED [facility] Comment on above: Performed By: #### L IPID, CMP #### [facility] [address] [place] [address] Dr. Augustine Blackwood SARS-CoV-2 (COVID-19) RNA BETH+probe Ql (Unsp spec) Not detected Normal NOT DETECTED [facility] Comment on above: Performed By: #### L IPID, CMP #### [facility] [address] [place] [address] Dr. Augustine Blackwood GLYCOHEMOGLOBIN A1Con 2022 ADA RECOMMENDATION SEE BELOW Normal [facility] Comment on above: Result Comment: ADA RECOMMENDED LIMIT 4.0 - 6.0 ADA THERAPEUTIC TARGET < 7.0 ACTION SUGGESTED > 7.0 Performed By: #### L IPID, CMP #### [facility] [address] [place] [address] Dr. Augustine Blackwood Glucose [Mass/Vol] 146 mg/dL Normal [facility] Comment on above: Performed By: #### L IPID, CMP #### [facility] [address] [place] [address] Dr. Augustine Blackwood HbA1c (Bld) [Mass fraction] 6.7 % Critically high 4.5-6.2 [facility] Comment on above: Performed By: #### L IPID, CMP #### [facility] [address] [place] [address] Dr. Augustine Blackwood LIPID PROFILEon 08-05-2022 CHOL-HDL RATIO NORM SEE BELOW Normal [facility] Comment on above: Result Comment: 3.3 - 4.4 LOW RISK 4.4 - 7.1 AVERAGE RISK 7.1 - 11.0 MODERATE RISK >11.0 HIGH RISK Performed By: #### L IPID, CMP #### [facility] [address] [place] [address] Dr. Augustine Blackwood Cholesterol [Mass/Vol] 137 mg/dL Normal <=200 [facility] Comment on above: Performed By: #### L IPID, CMP #### [facility] [address] [place] [address] Dr. Augustine Blackwood Cholesterol in HDL [Mass/Vol] 48 mg/dL Normal 40-60 [facility] Comment on above: Performed By: #### L IPID, CMP #### [facility] [address] [address] [address] Augustine Blackwood Cholesterol in LDL [Mass/Vol] 55.4 mg/dL Normal [facility] Comment on above: Performed By: #### L IPID, CMP #### [facility] [address] [place] [address] Dr. Augustine Blackwood Cholesterol.total/C holesterol in HDL [Mass ratio] 2.9 {ratio} Normal [facility] Comment on above: Performed By: #### L IPID, CMP #### [facility] [address] [place] [address] Dr. Augustine Blackwood HDL NORMAL > or = 60 mg/dl - LO W CARDIOVASCULAR RISK <40 mg/dl - HIGH CARDIOVASCULAR RISK Normal [facility] Comment on above: Performed By: #### L IPID, CMP #### [facility] [address] [place] [address] Dr. Augustine Blackwood LDL CALC NORMAL SEE BELOW Normal [facility] Comment on above: Result Comment: <100 mg/dl OPTIMAL 100 - 129 mg/dl NEAR OR ABOVE OPTIMAL 130 - 159 mg/dl BORDERLINE HIGH 160 - 189 mg/dl HIGH >190 mg/dl VERY HIGH Performed By: #### L IPID, CMP #### [facility] [address] [place] [address] Dr. Augustine Blackwood Triglyceride [Mass/Vol] 168 mg/dL Critically high <=150 [facility] Comment on above: Performed By: #### L IPID, CMP #### [facility] [address] [place] [address] Dr. Augustine Blackwood VLDL CALC 33.6 mg/dL Normal [facility] Comment on above: Performed By: #### L IPID, CMP #### [facility] [address] [address] [address] Augustine Blackwood MICROALBUMIN, RAND URon - mALB 11.3 mg/L Normal <=30.0 [facility] Comment on above: Performed By: #### L IPID, CMP #### [facility] [address] [place] [address] Dr. Augustine Blackwood PROF 14(COMP METB)on 023 Albumin [Mass/Vol] 4.0 g/dL Normal 3.4-5.0 [facility] Comment on above: Performed By: #### L IPID, CMP #### [facility] [address] [place] [address] Dr. Augustine Blackwood Albumin/Globulin [Mass ratio] 1.3 {ratio} Normal [facility] Comment on above: Performed By: #### L IPID, CMP #### [facility] [address] [address] [address] Augustine Blackwood ALP [Catalytic activity/Vol] 57 U/L Normal 46-116 [facility] Comment on above: Performed By: #### L IPID, CMP #### [facility] [address] [place] [address] Dr. Augustine Blackwood ALT [Catalytic activity/Vol] 55 U/L Normal 14-59 [facility] Comment on above: Performed By: #### L IPID, CMP #### [facility] [address] [place] [address] Dr. Augustine Blackwood Anion gap [Moles/Vol] 12.3 mmol/L Normal [facility] Comment on above: Performed By: #### L IPID, CMP #### [facility] [address] [place] [address] Dr. Augustine Blackwood AST [Catalytic activity/Vol] 33 U/L Normal 15-37 [facility] Comment on above: Performed By: #### L IPID, CMP #### [facility] [address] [address] [address] Augustine Blackwood Bilirubin [Mass/Vol] 0.6 mg/dL Normal 0.2-1.0 [facility] Comment on above: Performed By: #### L IPID, CMP #### [facility] [address] [address] [address] Augustine Blackwood Calcium [Mass/Vol] 9.5 mg/dL Normal 8.5-10.1 [facility] Comment on above: Performed By: #### L IPID, CMP #### [facility] [address] [place], [place] [id number] Dr. Augustine Blackwood Chloride [Moles/Vol] 103 mmol/L Normal 98-107 [facility] Comment on above: Performed By: #### L IPID, CMP #### [facility] [address] [address] [address] Augustine Blcakwood CO2 [Moles/Vol] 27.0 mmol/L Normal 21.0-32.0 [facility] Comment on above: Performed By: #### L IPID, CMP #### [facility] [address] [address] [address] Augustine Blackwood Creatinine [Mass/Vol] 1.02 mg/dL Normal 0.55-1.02 [facility] Comment on above: Performed By: #### L IPID, CMP #### [facility] [address] [place] [address] Dr. Augustine Blackwood EGFR-AF CHILEAN >60 Normal >=60 [facility] Comment on above: Performed By: #### L IPID, CMP #### [facility] [address] [place] [address] Dr. Augustine Blackwood EGFR-NON AF CHILEAN 56 mL/min/1.73m2 Critically low >=60 [facility] Comment on above: Performed By: #### L IPID, CMP #### [facility] [address] [place] [address] Dr. Augustine Blackwood Globulin (S) [Mass/Vol] 3.2 g/dL Normal [facility] Comment on above: Performed By: #### L IPID, CMP #### [facility] [address] [address] [address] Augustine Blackwood Glucose [Mass/Vol] 130 mg/dL Critically high 74-106 [facility] Comment on above: Performed By: #### L IPID, CMP #### [facility] [address] [address] [address] Augustine Blackwood Potassium [Moles/Vol] 4.3 mmol/L Normal 3.5-5.1 [facility] Comment on above: Performed By: #### L IPID, CMP #### [facility] [address] [place] [address] Dr. Augustine Blackwood Protein [Mass/Vol] 7.2 g/dL Normal 6.4-8.2 [facility] Comment on above: Performed By: #### L IPID, CMP #### [facility] [address] [place] [address] Dr. Augustine Blackwood Sodium [Moles/Vol] 138 mmol/L Normal 136-145 [facility] Comment on above: Performed By: #### L IPID, CMP #### [facility] [address] [place] [address] Dr. Augustine Blackwood Urea nitrogen [Mass/Vol] 22.0 mg/dL Critically high 7.0-18.0 [facility] Comment on above: Performed By: #### L IPID, CMP #### [facility] [address] [place] [address] Dr. Augustine Blackwood Urea nitrogen/Creatinine [Mass ratio] 21.6 mg/mg Normal [facility] Comment on above: Performed By: #### L IPID, CMP #### [facility] [address] [place] [address] Dr. Augustine Blackwood HEMOGRAM AND PLATELon 2022 Hematocrit (Bld) [Volume fraction] 37.5 % Normal 36.0-48.0 [facility] Comment on above: Performed By: #### H H #### [facility] [address] [place] [address] Dr. Augustine Blackwood Hemoglobin (Bld) [Mass/Vol] 12.9 g/dL Normal 12.0-16.0 [facility] Comment on above: Performed By: #### H H #### [facility] [address] [place] [address] Dr. Augustine Blackwood MCH (RBC) [Entitic mass] 29.0 pg Normal 26.7-34.0 [facility] Comment on above: Performed By: #### H H #### [facility] [address] [place] [address] Dr. Augustine Blackwood MCHC (RBC) [Mass/Vol] 34.4 g/dL Normal 29.9-35.2 [facility] Comment on above: Performed By: #### H H #### [facility] [address] [place] [address] Dr. Augustine Blackwood MCV (RBC) [Entitic vol] 84.3 fL Normal 81.0-99.0 [facility] Comment on above: Performed By: #### H H #### [facility] [address] [place] [address] Dr. Augustine Blackwood PLT 190 103/ul Normal 150-450 [facility] Comment on above: Performed By: #### H H #### [facility] [address] [place] [address] Dr. Augustine Blackwood RBC 4.45 106/ul Normal 4.20-5.40 [facility] Comment on above: Performed By: #### H H #### [facility] [address] [place] [address] Dr. Augustine Blackwood WBC 7.3 103/ul Normal 4.0-11.0 [facility] Comment on above: Performed By: #### H H #### [facility] [address] [place] [address] Dr. Augustine Blackwood TSHon 07-05-2022 TSH 1.837 uIU/mL Normal 0.358-3.740 [facility] Comment on above: Performed By: #### L IPID, CMP #### [facility] [address] [place] [address] Dr. Augustine Blackwood VITAMIN B12on 07-05-2022 Cobalamin (Vitamin B12) [Mass/Vol] 877.0 pg/mL Normal 193.0-986.0 [facility] Comment on above: Performed By: #### V ITB12, VITAD #### [facility] [address] [place] [address] Dr. Augustine Blackwood VITAMIN D 25 OHon 07-05-2022 VIT D 25-OH 79.2 ng/mL Normal [facility] Comment on above: Performed By: #### V ITB12, VITAD #### [facility] [address] [place] [address] Dr. Augustine Blackwood VIT D RANGES SEE BELOW Normal [facility] Comment on above: Result Comment: <20 ng/mL Vit D deficient 20 - <30 ng/mL Vit D insufficient 30 - 100 ng/mL Vit D sufficient >100 ng/mL Potential Toxicity Performed By: #### V ITB12, VITAD #### [facility] [address] [place] [address] Dr. Augustine Blackwood CBC AUTO DIFFon 05-18-2022 BASO # 0.1 103/ul Normal 0.0-0.1 [facility] Comment on above: Performed By: #### C BC #### [facility] [address] [place] [address] Dr. Augustine Blackwood Basophils/100 WBC (Bld) 1.2 % Normal 0.2-2.0 [facility] Comment on above: Performed By: #### C BC #### [facility] [address] [place] [address] Dr. Augustine Blackwood EO # 0.4 103/ul Normal 0.0-0.7 [facility] Comment on above: Performed By: #### C BC #### [facility] [address] [place] [address] Dr. Augustine Blackwood Eosinophils/100 WBC (Bld) 5.2 % Normal 0.9-7.0 [facility] Comment on above: Performed By: #### C BC #### [facility] [address] [place] [address] Dr. Augustine Blackwood Erythrocyte distribution width (RBC) [Ratio] 13.3 % Normal 11.0-15.0 [facility] Comment on above: Performed By: #### C BC #### [facility] [address] [place] [address] Dr. Augustine Blackwood Hematocrit (Bld) [Volume fraction] 38.7 % Normal 36.0-48.0 [facility] Comment on above: Performed By: #### C BC #### [facility] [address] [place] [address] Dr. Augustine Blackwood Hemoglobin (Bld) [Mass/Vol] 12.9 g/dL Normal 12.0-16.0 [facility] Comment on above: Performed By: #### C BC #### [facility] [address] [place] [address] Dr. Augustine Blackwood IG # 0.02 10e3/ul Normal 0.00-0.03 [facility] Comment on above: Performed By: #### C BC #### [facility] [address] [place] [address] Dr. Augustine Blackwood IG % 0.2 % Normal 0.0-0.5 [facility] Comment on above: Performed By: #### C BC #### [facility] [address] [place] [address] Dr. Augustine Blackwood LYMPH # 2.8 103/ul Normal 1.2-3.8 [facility] Comment on above: Performed By: #### C BC #### [facility] [address] [place] [address] Dr. Augustine Blackwood Lymphocytes/100 WBC (Bld) 32.7 % Normal 20.5-60.0 [facility] Comment on above: Performed By: #### C BC #### [facility] [address] [place] [address] Dr. Augustine Blackwood MANUAL DIFF REQ NO Normal [facility] Comment on above: Performed By: #### C BC #### [facility] [address] [place] [address] Dr. Augustine Blackwood MCH (RBC) [Entitic mass] 28.7 pg Normal 26.7-34.0 [facility] Comment on above: Performed By: #### C BC #### [facility] [address] [place] [address] Dr. Augustine Blackwood MCHC (RBC) [Mass/Vol] 33.3 g/dL Normal 29.9-35.2 [facility] Comment on above: Performed By: #### C BC #### [facility] [address] [place] [address] Dr. Augustine Blackwood MCV (RBC) [Entitic vol] 86.2 fL Normal 81.0-99.0 [facility] Comment on above: Performed By: #### C BC #### [facility] [address] [place] [address] Dr. Augustine Blackwood MONO # 0.8 103/ul Normal 0.3-0.8 [facility] Comment on above: Performed By: #### C BC #### [facility] [address] [place] [address] Dr. Augustine Blackwood Monocytes/100 WBC (Bld) 8.9 % Normal 1.7-12.0 [facility] Comment on above: Performed By: #### C BC #### [facility] [address] [place] [address] Dr. Augustine Blackwood NEUT # 4.3 103/ul Normal 1.4-6.5 [facility] Comment on above: Performed By: #### C BC #### [facility] [address] [place] [address] Dr. Augustine Blackwood Neutrophils/100 WBC (Bld) 51.8 % Normal 43.0-75.0 [facility] Comment on above: Performed By: #### C BC #### [facility] [address] [place] [address] Dr. Augustine Blackwood Platelet mean volume (Bld) [Entitic vol] 11.8 fL Normal 9.5-13.5 [facility] Comment on above: Performed By: #### C BC #### [facility] [address] [place] [address] Dr. Augustine Blackwood PLT 217 103/ul Normal 150-450 [facility] Comment on above: Performed By: #### C BC #### [facility] [address] [place] [address] Dr. Augustine Blackwood RBC 4.49 106/ul Normal 4.20-5.40 [facility] Comment on above: Performed By: #### C BC #### [facility] [address] [place] [address] Dr. Augustine Blackwood WBC 8.4 103/ul Normal 4.0-11.0 [facility] Comment on above: Performed By: #### C BC #### [facility] [address] [place] [address] Dr. Augustine Blackwood GLYCOHEMOGLOBIN A1Con 2021 ADA RECOMMENDATION SEE BELOW Normal [facility] Comment on above: Result Comment: ADA RECOMMENDED LIMIT 4.0 - 6.0 ADA THERAPEUTIC TARGET < 7.0 ACTION SUGGESTED > 7.0 Performed By: #### A 1C #### [facility] [address] [place] [address] Dr. Augustine Blackwood Glucose [Mass/Vol] 154 mg/dL Normal [facility] Comment on above: Performed By: #### A 1C #### [facility] [address] [place] [address] Dr. Augustine Blackwood HbA1c (Bld) [Mass fraction] 7.0 % Critically high 4.5-6.2 [facility] Comment on above: Performed By: #### A 1C #### [facility] [address] [place] [address] Dr. Augustine Blackwood LIPID PROFILEon 04-28-2022 CHOL-HDL RATIO NORM SEE BELOW Normal [facility] Comment on above: Result Comment: 3.3 - 4.4 LOW RISK 4.4 - 7.1 AVERAGE RISK 7.1 - 11.0 MODERATE RISK >11.0 HIGH RISK Performed By: #### C MP, LIPID #### [facility] [address] [place] [address] Dr. Augustine Blackwood Cholesterol [Mass/Vol] 139 mg/dL Normal <=200 [facility] Comment on above: Performed By: #### C MP, LIPID #### [facility] [address] [place] [address] Dr. Augustine Blackwood Cholesterol in HDL [Mass/Vol] 56 mg/dL Normal 40-60 [facility] Comment on above: Performed By: #### C MP, LIPID #### [facility] [address] [place] [address] Dr. Augustine Blackwood Cholesterol in LDL [Mass/Vol] 56.2 mg/dL Normal [facility] Comment on above: Performed By: #### C MP, LIPID #### [facility] [address] [place] [address] Dr. Augustine Blackwood Cholesterol.total/C holesterol in HDL [Mass ratio] 2.5 {ratio} Normal [facility] Comment on above: Performed By: #### C MP, LIPID #### [facility] [address] [address] [address] Augustine Blackwood HDL NORMAL > or = 60 mg/dl - LO W CARDIOVASCULAR RISK <40 mg/dl - HIGH CARDIOVASCULAR RISK Normal [facility] Comment on above: Performed By: #### C MP, LIPID #### [facility] [address] [address] [address] Augustine Blackwood LDL CALC NORMAL SEE BELOW Normal [facility] Comment on above: Result Comment: <100 mg/dl OPTIMAL 100 - 129 mg/dl NEAR OR ABOVE OPTIMAL 130 - 159 mg/dl BORDERLINE HIGH 160 - 189 mg/dl HIGH >190 mg/dl VERY HIGH Performed By: #### C MP, LIPID #### [facility] [address] [address] [address] Auugstine Blackwood Triglyceride [Mass/Vol] 134 mg/dL Normal <=150 [facility] Comment on above: Performed By: #### C MP, LIPID #### [facility] [address] [address] [address] Augustine Blackwood VLDL CALC 26.8 mg/dL Normal [facility] Comment on above: Performed By: #### C MP, LIPID #### [facility] [address] [address] [address] Augustine Blackwood PROF 14(COMP METB)on 022 Albumin [Mass/Vol] 4.0 g/dL Normal 3.4-5.0 [facility] Comment on above: Performed By: #### C MP, LIPID #### [facility] [address] [address] [address] Augustine Blackwood Albumin/Globulin [Mass ratio] 1.1 {ratio} Normal [facility] Comment on above: Performed By: #### C MP, LIPID #### [facility] [address] [address] [address] Augustine Blackwood ALP [Catalytic activity/Vol] 55 U/L Normal 46-116 [facility] Comment on above: Performed By: #### C MP, LIPID #### [facility] [address] [address] [address] Augustine Blackwood ALT [Catalytic activity/Vol] 49 U/L Normal 14-59 [facility] Comment on above: Performed By: #### C MP, LIPID #### [facility] [address] [address] [address] Augustine Blackwood Anion gap [Moles/Vol] 10.9 mmol/L Normal [facility] Comment on above: Performed By: #### C MP, LIPID #### [facility] [address] [address] [address] Augustine Blackwood AST [Catalytic activity/Vol] 25 U/L Normal 15-37 [facility] Comment on above: Performed By: #### C MP, LIPID #### [facility] [address] [address] [address] Augustine Blackwood Bilirubin [Mass/Vol] 0.7 mg/dL Normal 0.2-1.0 [facility] Comment on above: Performed By: #### C MP, LIPID #### [facility] [address] [address] [address] Augustine Blackwood Calcium [Mass/Vol] 9.5 mg/dL Normal 8.5-10.1 [facility] Comment on above: Performed By: #### C MP, LIPID #### [facility] [address] [address] [address] Augustine Blackwood Chloride [Moles/Vol] 102 mmol/L Normal 98-107 [facility] Comment on above: Performed By: #### C MP, LIPID #### [facility] [address] [address] [address] Augustine Blackwood CO2 [Moles/Vol] 30.2 mmol/L Normal 21.0-32.0 [facility] Comment on above: Performed By: #### C MP, LIPID #### [facility] [address] [address] [address] Augustine Blackwood Creatinine [Mass/Vol] 1.02 mg/dL Normal 0.55-1.02 [facility] Comment on above: Performed By: #### C MP, LIPID #### [facility] [address] [address] [address] Augustine Blackwood EGFR-AF CHILEAN 60 mL/min/1.73m2 Normal >=60 [facility] Comment on above: Performed By: #### C MP, LIPID #### [facility] [address] [address] [address] Augustine Blackwood EGFR-NON AF CHILEAN 56 mL/min/1.73m2 Critically low >=60 [facility] Comment on above: Performed By: #### C MP, LIPID #### [facility] [address] [address] [address] Augustine Blackwood Globulin (S) [Mass/Vol] 3.5 g/dL Normal [facility] Comment on above: Performed By: #### C MP, LIPID #### [facility] [address] [address] [address] Augustine Blackwood Glucose [Mass/Vol] 143 mg/dL Critically high 74-106 [facility] Comment on above: Performed By: #### C MP, LIPID #### [facility] [address] [address] [address] Augustine Blackwood Potassium [Moles/Vol] 4.1 mmol/L Normal 3.5-5.1 [facility] Comment on above: Performed By: #### C MP, LIPID #### [facility] [address] [address] [address] Augustine Blackwood Protein [Mass/Vol] 7.5 g/dL Normal 6.4-8.2 [facility] Comment on above: Performed By: #### C MP, LIPID #### [facility] [address] [address] [address] Augustine Blackwood Sodium [Moles/Vol] 139 mmol/L Normal 136-145 [facility] Comment on above: Performed By: #### C MP, LIPID #### [facility] [address] [address] [address] Augustine Blackwood Urea nitrogen [Mass/Vol] 24.0 mg/dL Critically high 7.0-18.0 [facility] Comment on above: Performed By: #### C MP, LIPID #### [facility] [address] [address] [address] Augustine Blackwood Urea nitrogen/Creatinine [Mass ratio] 23.5 mg/mg Normal [facility] Comment on above: Performed By: #### C MP, LIPID #### [facility] [address] [place], [place] [address] Dr. 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 COMPARISON: None FINDINGS: Soft tissue swelling fourth digit. No radiopaque foreign body. No acute bony process. Minimal degenerative changes of the bony erosions. XR/XR toe LT 4th digit IMPRESSION: SOFT TISSUE SWELLING WITHOUT ACUTE BONY PROCESS. Impression dictated by: Prosper Choi Jr., D.OHiginio12/18/2021 12:14 PM Dictation Location: [place] [address] Transcribed By: [facility] 12/18/21 1214 Dictated By: Prosper Choi Jr, DO 12/18/21 1210 Signed By: 12/18/21 1214 [facility] XR toe LT 4th digit [facility] [employer] Other XR toe LT 4th digit [facility] [employer] Other XR toe LT 4th digit [address] [place] [address] [employer] Other XR toe LT 4th digit [place] [address] [employer] Other XR toe LT 4th digit XRay Report [employer] Other XR toe LT 4th digit Signed [employer] Other XR toe LT 4th digit Patient: Jorge Luis Medina in L MR#: [id number] [employer] Other XR toe LT 4th digit 061 [employer] Other XR toe LT 4th digit : 1965 Acct:[id number] [employer] Other XR toe LT 4th digit Age/Sex: 56 / F ADM Date: 12/18/21 [employer] Other XR toe LT 4th digit Loc: [facility] Room: Type: [facility] [employer] Other XR toe LT 4th digit Attending Dr: Jennie Garcia NP [employer] Other XR toe LT 4th digit Copies to: Alfreda Garcia NP [employer] Other XR toe LT 4th digit Ordering Provider: Jennie Garcia NP [employer] Other XR toe LT 4th digit Date of Service: 12/18/21 [employer] Other XR toe LT 4th digit XR/XR toe LT 4th digit: M79.675 [employer] Other XR toe LT 4th digit LEFT fourth TOE - - 3 views [employer] Other XR toe LT 4th digit CLINICAL HISTORY: Patient dropped can on to her left fourth toe one week ago now with pain and [employer] Other XR toe LT 4th digit swelling. [employer] Other XR toe LT 4th digit COMPARISON: None [employer] Other XR toe LT 4th digit FINDINGS: [employer] Other XR toe LT 4th digit Soft tissue swelling fourth digit. No radiopaque foreign body. No acute bony process. Minimal [employer] Other XR toe LT 4th digit degenerative changes of the bony erosions. [employer] Other XR toe LT 4th digit XR/XR toe LT 4th digit [employer] Other XR toe LT 4th digit IMPRESSION: [employer] Other XR toe LT 4th digit SOFT TISSUE SWELLING WITHOUT ACUTE BONY PROCESS. [employer] Other XR toe LT 4th digit Impression dictated by: Prosper Choi Jr., D.OHiginio12/18/2021 12:14 PM [employer] Other XR toe LT 4th digit Dictation Location: [place] [address] [employer] Other XR toe LT 4th digit Transcribed By: P[facility] 12/18/21 1214 [employer] Other XR toe LT 4th digit Dictated By: Prosper Choi Jr, DO 12/18/21 [facility] [employer] Other XR toe LT 4th digit Signed By: [employer] Other XR toe LT 4th digit 12/18/21 1214 No rt [employer] Other MAMM DIG DIAG [place] 06-25-19 21 MAMM DIG DIAG UNI DIAGNOSTIC LEFT DIGITAL MAMMOGRAM. Clinical Data: Delayed follow-up of left breast calcifications. Comparison: 08/08/2019, 07/18/2019. Mammographic findings: The breast tissue is almost entirely fat. There are stable punctate loosely grouped probably benign calcifications in the upper-outer quadrant at far posterior depth. They are quite faint; within this limitation, there is no definite evidence of pleomorphism, linear forms, or branching. The remainder of the left breast is unremarkable and unchanged. This examination was reviewed with the aid of CAD (computer-assisted detection). IMPRESSION AND RECOMMENDATION: Stable probably benign left breast calcifications. Continued six month follow-up left diagnostic mammogram with spot magnification views is recommended. Note, the patient's annual right mammogram will be due in July 2020. Category 3: Probably benign Electronically signed by: Jermaine Washington MD 06/25/2020 2:52 PM [employer] Workstation: [id number] Technologist: CD Dictated By: JERMAINE WASHINGTON MD Signed By: JERMAINE WASHINGTON MD Signed Out: 06/25/20 15:52:23 Normal [facility] ALBUMIN, RANDOM URINE W/CREA TININEon 04-18-2020 ALBUMIN, URINE 12.0 mg/dL Normal See Note: [facility] Comment on above: Result Comment: Refe rence Range: Reference Range Not established Performed By: #### 1 0231, 6399, 496, 6517, 7600 #### [facility], [address] [place] [address] Treasury Accountant: Rodo Fung MD ALBUMIN/CREATININE RATIO, RANDOM URINE 88 mcg/mg creat High <30 [facility] Comment on above: Result Comment: The ADA defines abnormalities in albumin excretion as follows: Category Result (mcg/mg creatinine) Normal <30 Microalbuminuria 30-299 Clinical albuminuria > OR = 300 The ADA recommends that at least two of three specimens collected within a 3-6 month period be abnormal before considering a patient to be within a diagnostic category. Performed By: #### 1 0231, 6399, 496, 6517, 7600 #### [facility]-[address], [address] [place] [address] Treasury Accountant: Rodo Fung MD Creatinine (U) [Mass/Vol] 136 mg/dL Normal 20-275 [facility] Comment on above: Performed By: #### 1 0231, 6399, 496, 6517, 7600 #### [facility]-[address], [address] [place] [address] Treasury Accountant: Rodo Fung MD CBC (INCLUDES DIFF/PLT)on Basophils (Bld) [#/Vol] 0.091 10*3/uL Normal 0-200 [facility] Comment on above: Performed By: #### 1 0231, 6399, 496, 6517, 7600 #### [facility] [address] [address] , [address] [place] [address] Treasury Accountant: Rodo Fung MD Basophils/100 WBC (Bld) 1.2 % Normal [facility] Comment on above: Performed By: #### 1 0231, 6399, 496, 6517, 7600 #### [facility] [address] [address] , [address] [place] [address] Treasury Accountant: Rodo Fung MD Eosinophils (Bld) [#/Vol] 0.395 10*3/uL Normal 15-500 [facility] Comment on above: Performed By: #### 1 0231, 6399, 496, 6517, 7600 #### [facility] [address] [address] , [address] [place] [address] Treasury Accountant: Rodo Fung MD Eosinophils/100 WBC (Bld) 5.2 % Normal [facility] Comment on above: Performed By: #### 1 0231, 6399, 496, 6517, 7600 #### [facility] [address] [address] , [address] [place] [address] Treasury Accountant: Rodo Fung MD Erythrocyte distribution width (RBC) [Ratio] 13.3 % Normal 11.0-15.0 [facility] Comment on above: Performed By: #### 1 0231, 6399, 496, 6517, 7600 #### [facility] [address] [address] , [address] [place] [address] Treasury Accountant: Rodo Fung MD Hematocrit (Bld) [Volume fraction] 40.0 % Normal 35.0-45.0 [facility] Comment on above: Performed By: #### 1 0231, 6399, 496, 6517, 7600 #### [facility] [address], [address] [place] [address] Treasury Accountant: Rodo Fung MD Hemoglobin (Bld) [Mass/Vol] 13.2 g/dL Normal 11.7-15.5 [facility] Comment on above: Performed By: #### 1 0231, 63, 496, 6517, 7600 #### [facility]-[address], [address] [place] [address] Treasury Accountant: Rodo Fung MD Lymphocytes (Bld) [#/Vol] 2.379 10*3/uL Normal 850-3900 [facility] Comment on above: Performed By: #### 1 0231, 63, 496, 6517, 7600 #### [facility]-[address], [address] [place] [address] Treasury Accountant: Rodo Fung MD Lymphocytes/100 WBC (Bld) 31.3 % Normal [facility] Comment on above: Performed By: #### 1 0231, 63, 496, 6517, 7600 #### [facility]-[address], [address] [place] [address] Treasury Accountant: Rodo Fung MD MCH (RBC) [Entitic mass] 29.3 pg Normal 27.0-33.0 [facility] Comment on above: Performed By: #### 1 0231, 63, 496, 6517, 7600 #### [facility], [address] [place] [address] Treasury Accountant: Rodo Fung MD MCHC (RBC) [Mass/Vol] 33.0 g/dL Normal 32.0-36.0 [facility] Comment on above: Performed By: #### 1 0231, 63, 496, 6517, 7600 #### [facility], [address] [place] [address] Treasury Accountant: Rodo Fung MD MCV (RBC) [Entitic vol] 88.9 fL Normal 80.0-100.0 [facility] Comment on above: Performed By: #### 1 0231, 6399, 496, 6517, 7600 #### [facility] [address] [address] , [address] [place] [address] Treasury Accountant: Rodo Fung MD Monocytes (Bld) [#/Vol] 0.654 10*3/uL Normal 200-950 [facility] Comment on above: Performed By: #### 1 0231, 6399, 496, 6517, 7600 #### [facility] [address] [address] , [address] [place] [address] Treasury Accountant: Rodo Fung MD Monocytes/100 WBC (Bld) 8.6 % Normal [facility] Comment on above: Performed By: #### 1 0231, 6399, 496, 6517, 7600 #### [facility] [address] [address] , [address] [place] [address] Treasury Accountant: Rodo Fung MD Neutrophils (Bld) [#/Vol] 4.081 10*3/uL Normal 6385-4031 [facility] Comment on above: Performed By: #### 1 0231, 6399, 496, 6517, 7600 #### [facility] [address] [address] , [address] [place] [address] Treasury Accountant: Rodo Fung MD Neutrophils/100 WBC (Bld) 53.7 % Normal [facility] Comment on above: Performed By: #### 1 0231, 6399, 496, 6517, 7600 #### [facility] [address] [address] , [address] [place] [address] Treasury Accountant: Rodo Fung MD Platelet mean volume (Bld) [Entitic vol] 12.8 fL High 7.5-12.5 [facility] Comment on above: Performed By: #### 1 0231, 6399, 496, 6517, 7600 #### [facility] [address] [address] , [address] [place] [address] Treasury Accountant: Rodo Fung MD Platelets (Bld) [#/Vol] 214 10*3/uL Normal 140-400 [facility] Comment on above: Performed By: #### 1 0231, 6399, 496, 6517, 7600 #### [facility] [address], [address] [place] [address] Treasury Accountant: Rodo Fung MD RBC (Bld) [#/Vol] 4.50 10*6/uL Normal 3.80-5.10 [facility] Comment on above: Performed By: #### 1 0231, 6399, 496, 6517, 7600 #### [facility]-[address], [address] [place] [address] Treasury Accountant: Rodo Fung MD WBC (Bld) [#/Vol] 7.6 10*3/uL Normal 3.8-10.8 [facility] Comment on above: Performed By: #### 1 0231, 6399, 496, 6517, 7600 #### [facility]-[address], [address] [place] [address] Treasury Accountant: Rodo Fung MD [facility] 04-18-2020 Albumin [Mass/Vol] 4.8 g/dL Normal 3.6-5.1 [facility] Comment on above: Performed By: #### 1 0231, 6399, 496, 6517, 7600 #### [facility]-[address], [address] [place] [address] Treasury Accountant: Rodo Fung MD Albumin/Globulin [Mass ratio] 1.8 (calc) Normal 1.0-2.5 [facility] Comment on above: Performed By: #### 1 0231, 6399, 496, 6517, 7600 #### [facility]-[address], [address] [place] [address] Treasury Accountant: Rodo Fung MD ALP [Catalytic activity/Vol] 54 U/L Normal 37-153 [facility] Comment on above: Performed By: #### 1 0231, 6399, 496, 6517, 7600 #### [facility]-[address], [address] [place] [address] Treasury Accountant: Rodo Fung MD ALT [Catalytic activity/Vol] 35 U/L High 6-29 [facility] Comment on above: Performed By: #### 1 0231, 6399, 496, 6517, 7600 #### [facility]-[address], [address] [place] [address] Treasury Accountant: Rodo Fung MD AST [Catalytic activity/Vol] 26 U/L Normal 10-35 [facility] Comment on above: Performed By: #### 1 0231, 6399, 496, 6517, 7600 #### [facility]-[address], [address] [place] [address] Treasury Accountant: Rodo Fung MD Bilirubin [Mass/Vol] 0.6 mg/dL Normal 0.2-1.2 [facility] Comment on above: Performed By: #### 1 0231, 63, 496, 6517, 7600 #### [facility]-[address], [address] [place] [address] Treasury Accountant: Rodo Fung MD Calcium [Mass/Vol] 10.0 mg/dL Normal 8.6-10.4 [facility] Comment on above: Performed By: #### 1 0231, 6399, 496, 6517, 7600 #### [facility]-[address], [address] [place] [address] Treasury Accountant: Rodo Fung MD Chloride [Moles/Vol] 105 mmol/L Normal 98-110 [facility] Comment on above: Performed By: #### 1 0231, 6399, 496, 6517, 7600 #### [facility] [address] Treasury Accountant: Rodo Fung MD CO2 [Moles/Vol] 26 mmol/L Normal 20-32 [facility] Comment on above: Performed By: #### 1 0231, 63, 496, 6517, 7600 #### [facility]-[address], [address] [place] [address] Treasury Accountant: Rodo Fung MD Creatinine [Mass/Vol] 1.06 mg/dL High 0.50-1.05 [facility] Comment on above: Result Comment: For patients >49 years of age, the reference limit for Creatinine is approximately 13% higher for people identified as -Emirati. Performed By: #### 1 0231, 6399, 496, 6517, 7600 #### [facility]-[address], [address] [place] [address] Treasury Accountant: Rodo Fung MD eGFR NON-AFR. CHILEAN 59 mL/min/1.73m2 Low > OR = 60 [facility] Comment on above: Performed By: #### 1 0231, 63, 496, 6517, 7600 #### [facility]-[address], [address] [place] [address] Treasury Accountant: Rodo Fung MD GFR/1.73 sq M predicted among blacks MDRD (S/P/Bld) [Vol rate/Area] 68 mL/min/{1.73_m2} Normal > OR = 60 [facility] Comment on above: Performed By: #### 1 0231, 63, 49, 6517, 7600 #### [facility]-[address], [address] [place] [address] Treasury Accountant: Rodo Fung MD Globulin (S) [Mass/Vol] 2.6 g/dL (calc) Normal 1.9-3.7 [facility] Comment on above: Performed By: #### 1 0231, 63, 49, 6517, 7600 #### [facility]-[address], [address] [place] [address] Treasury Accountant: Rodo Fung MD Glucose [Mass/Vol] 128 mg/dL High 65-99 [facility] Comment on above: Result Comment: Fasting reference interval For someone without known diabetes, a glucose value >125 mg/dL indicates that they may have diabetes and this should be confirmed with a follow-up test. Performed By: #### 1 0231, 63, 49, 6517, 7600 #### [facility]-[address], [address] [place] [address] Treasury Accountant: Rodo Fung MD Potassium [Moles/Vol] 4.5 mmol/L Normal 3.5-5.3 [facility] Comment on above: Performed By: #### 1 0231, 6399, 496, 6517, 7600 #### [facility]-[address], [address] [place] [address] Treasury Accountant: Rodo Fung MD Protein [Mass/Vol] 7.4 g/dL Normal 6.1-8.1 [facility] Comment on above: Performed By: #### 1 0231, 6399, 496, 6517, 7600 #### [facility]-[address], [address] [place] [address] Treasury Accountant: Rodo Fung MD Sodium [Moles/Vol] 140 mmol/L Normal 135-146 [facility] Comment on above: Performed By: #### 1 0231, 6399, 496, 6517, 7600 #### [facility]-[address], [address] [place] [address] Treasury Accountant: Rodo Fung MD Urea nitrogen [Mass/Vol] 24 mg/dL Normal 7-25 [facility] Comment on above: Performed By: #### 1 0231, 6399, 496, 6517, 7600 #### [facility]-[address], [address] [place] [address] Treasury Accountant: Rodo Fung MD Urea nitrogen/Creatinine [Mass ratio] 23 mg/mg High 6-22 [facility] Comment on above: Performed By: #### 1 0231, 6399, 496, 6517, 7600 #### [facility]-[address], [address] [place] [address] Treasury Accountant: Rodo Fung MD HEMOGLOBIN A1con 04-18-2020 HbA1c (Bld) [Mass fraction] 6.7 % of total Hgb High <5.7 [facility] Comment on above: Result Comment: For someone without known diabetes, a hemoglobin A1c value of 6.5% or greater indicates that they may have diabetes and this should be confirmed with a follow-up test. For someone with known diabetes, a value <7% indicates that their diabetes is well controlled and a value greater than or equal to 7% indicates suboptimal control. A1c targets should be individualized based on duration of diabetes, age, comorbid conditions, and other considerations. Currently, no consensus exists regarding use of hemoglobin A1c for diagnosis of diabetes for children. Performed By: #### 1 0231, 6399, 496, 6517, 7600 #### [facility]-[address], [address] [place] [address] Treasury Accountant: Rodo Fung MD LIPID PANEL, STANDARD Cholesterol [Mass/Vol] 141 mg/dL Normal <200 [facility] Comment on above: Performed By: #### 1 0231, 6399, 496, 6517, 7600 #### [facility]-[address], [address] [place] [address] Treasury Accountant: Rodo Fung MD Cholesterol in HDL [Mass/Vol] 53 mg/dL Normal > OR = 50 [facility] Comment on above: Performed By: #### 1 0231, 6399, 496, 6517, 7600 #### [facility]-[address], [address] [place] [address] Treasury Accountant: Rodo Fung MD Cholesterol in LDL [Mass/Vol] 62 mg/dL (calc) Normal [facility] Comment on above: Result Comment: Refe rence range: <100 Desirable range <100 mg/dL for primary prevention; <70 mg/dL for patients with CHD or diabetic patients with > or = 2 CHD risk factors. LDL-C is now calculated using the Phuong calculation, which is a validated novel method providing better accuracy than the Friedewald equation in the estimation of LDL-C. Todd SS et al. STACI. 2013;310(19): 0857-7751 (http://education.[employer]/faq/GZM688) Performed By: #### 1 0231, 6399, 496, 6517, 7600 #### [facility]-[address], [address] [place] [address] Treasury Accountant: Rodo Fung MD Cholesterol.total/C holesterol in HDL [Mass ratio] 2.7 (calc) Normal <5.0 [facility] Comment on above: Performed By: #### 1 0231, 6399, 496, 6517, 7600 #### [facility]-[address], [address] [place] [address] Treasury Accountant: Rodo Fung MD NON HDL CHOLESTEROL 88 mg/dL (calc) Normal <130 [facility] Comment on above: Result Comment: For patients with diabetes plus 1 major ASCVD risk factor, treating to a non-HDL-C goal of <100 mg/dL (LDL-C of <70 mg/dL) is considered a therapeutic option. Performed By: #### 1 1, 6399, 496, 6517, 7600 #### [facility]-[address], [address] [place] [address] Treasury Accountant: Rodo Fung MD Triglyceride [Mass/Vol] 182 mg/dL High <150 [facility] Comment on above: Performed By: #### 1 230, 6399, 496, 6517, 7600 #### [facility]-[address], [address] [place] [address] Treasury Accountant: Rodo Fung MD TSHon 04-18-2020 TSH Qn 2.17 m[IU]/L Normal 0.40-4.50 [facility] Comment on above: Performed By: #### 1 230, 6399, 496, 4217, 7860 #### [facility]-[address], [address] [place] [address] Treasury Accountant: Rodo Fung MD [facility] 03-20-2020 Albumin [Mass/Vol] 4.6 g/dL Normal 3.6-5.1 [facility] Comment on above: Performed By: #### 1 0231 #### [facility] [address] [employer] Accountant: Rodo Fung MD Albumin/Globulin [Mass ratio] 1.9 (calc) Normal 1.0-2.5 [facility] Comment on above: Performed By: #### 1 0231 #### [facility] [address] Treasury Accountant: Rodo Fung MD ALP [Catalytic activity/Vol] 63 U/L Normal 37-153 [facility] Comment on above: Performed By: #### 1 0231 #### [facility], [address] [place] [address] Treasury Accountant: Rodo Fung MD ALT [Catalytic activity/Vol] 36 U/L High 6-29 [facility] Comment on above: Performed By: #### 1 0231 #### [facility]-[address], [address] [place] [address] Treasury Accountant: Rodo Fung MD AST [Catalytic activity/Vol] 27 U/L Normal 10-35 [facility] Comment on above: Performed By: #### 1 0231 #### [facility], [address] [place] [address] Treasury Accountant: Rodo Fung MD Bilirubin [Mass/Vol] 0.6 mg/dL Normal 0.2-1.2 [facility] Comment on above: Performed By: #### 1 0231 #### [facility] [address] Treasury Accountant: Rodo Fung MD Calcium [Mass/Vol] 9.9 mg/dL Normal 8.6-10.4 [facility] Comment on above: Performed By: #### 1 0231 #### [facility] [address] Treasury Accountant: Rodo Fung MD Chloride [Moles/Vol] 104 mmol/L Normal 98-110 [facility] Comment on above: Performed By: #### 1 0231 #### [facility] [address] Treasury Accountant: Rodo Fung MD CO2 [Moles/Vol] 26 mmol/L Normal 20-32 [facility] Comment on above: Performed By: #### 1 0231 #### [facility] [address] Treasury Accountant: Rodo Fung MD Creatinine [Mass/Vol] 1.10 mg/dL High 0.50-1.05 [facility] Comment on above: Result Comment: For patients >49 years of age, the reference limit for Creatinine is approximately 13% higher for people identified as -Emirati. Performed By: #### 1 0231 #### [facility], [address] [place] [address] Treasury Accountant: Rodo Fung MD eGFR NON-AFR. CHILEAN 56 mL/min/1.73m2 Low > OR = 60 [facility] Comment on above: Performed By: #### 1 0231 #### [facility], [address] [place] [address] Treasury Accountant: Rodo Fung MD GFR/1.73 sq M predicted among blacks MDRD (S/P/Bld) [Vol rate/Area] 65 mL/min/{1.73_m2} Normal > OR = 60 [facility] Comment on above: Performed By: #### 1 0231 #### [facility]-[address], [address] [place] [address] Treasury Accountant: Rodo Fung MD Globulin (S) [Mass/Vol] 2.4 g/dL (calc) Normal 1.9-3.7 [facility] Comment on above: Performed By: #### 1 1 #### [facility], [address] [place] [address] Treasury Accountant: Rodo Fung MD Glucose [Mass/Vol] 197 mg/dL High 65-99 [facility] Comment on above: Result Comment: Fasting reference interval For someone without known diabetes, a glucose value >125 mg/dL indicates that they may have diabetes and this should be confirmed with a follow-up test. Performed By: #### 1 1 #### [facility]-[address], [address] [place] [address] Treasury Accountant: Rodo Fung MD Potassium [Moles/Vol] 4.1 mmol/L Normal 3.5-5.3 [facility] Comment on above: Performed By: #### 1 0231 #### [facility], [address] [place] [address] Treasury Accountant: Rodo Fung MD Protein [Mass/Vol] 7.0 g/dL Normal 6.1-8.1 [facility] Comment on above: Performed By: #### 1 1 #### [facility], [address] [place] [address] Treasury Accountant: Rodo Fung MD Sodium [Moles/Vol] 140 mmol/L Normal 135-146 [facility] Comment on above: Performed By: #### 1 0231 #### [facility], [address] [place] [address] Treasury Accountant: Rodo Fung MD Urea nitrogen [Mass/Vol] 26 mg/dL High 7-25 [facility] Comment on above: Performed By: #### 1 0231 #### [facility], [address] [place] [address] Treasury Accountant: Rodo Fung MD Urea nitrogen/Creatinine [Mass ratio] 24 mg/mg High 6-22 [facility] Comment on above: Performed By: #### 1 1 #### [facility] [address] Treasury Accountant: Rodo Fung MD [facility] 01-24-2020 Albumin [Mass/Vol] 4.6 g/dL Normal 3.6-5.1 [facility] Comment on above: Performed By: #### 4 96, 7600, 94267 #### [facility], [address] [place] [address] Treasury Accountant: Rodo Fung MD Albumin/Globulin [Mass ratio] 1.6 (calc) Normal 1.0-2.5 [facility] Comment on above: Performed By: #### 4 96, 7600, 96926 #### [facility], [address] [place] [address] Treasury Accountant: Rodo Fung MD ALP [Catalytic activity/Vol] 49 U/L Normal 37-153 [facility] Comment on above: Performed By: #### 4 96, 7600, 03787 #### [facility], [address] [place] [address] Treasury Accountant: Rodo Fung MD ALT [Catalytic activity/Vol] 48 U/L High 6-29 [facility] Comment on above: Performed By: #### 4 96, 7600, 96682 #### [facility], [address] [place] [address] Treasury Accountant: Rodo Fung MD AST [Catalytic activity/Vol] 44 U/L High 10-35 [facility] Comment on above: Performed By: #### 4 96, 7600, 90904 #### [facility], [address] [place] [address] Treasury Accountant: Rodo Fung MD Bilirubin [Mass/Vol] 0.7 mg/dL Normal 0.2-1.2 [facility] Comment on above: Performed By: #### 4 96, 7600, 29224 #### [facility], [address] [place] [address] Treasury Accountant: Rodo Fung MD Calcium [Mass/Vol] 10.0 mg/dL Normal 8.6-10.4 [facility] Comment on above: Performed By: #### 4 96, 7600, 49002 #### [facility], [address] [place] [address] Treasury Accountant: Rodo Fung MD Chloride [Moles/Vol] 105 mmol/L Normal 98-110 [facility] Comment on above: Performed By: #### 4 96, 0, 39209 #### [facility] [address] Treasury Accountant: Rodo Fung MD CO2 [Moles/Vol] 23 mmol/L Normal 20-32 [facility] Comment on above: Performed By: #### 4 96, 0, 58169 #### [facility] [address] Treasury Accountant: Rodo Fung MD Creatinine [Mass/Vol] 1.16 mg/dL High 0.50-1.05 [facility] Comment on above: Result Comment: For patients >49 years of age, the reference limit for Creatinine is approximately 13% higher for people identified as -Emirati. Performed By: #### 4 96, 7600, 06251 #### [facility], [address] [place] [address] Treasury Accountant: Rodo Fung MD eGFR NON-AFR. CHILEAN 53 mL/min/1.73m2 Low > OR = 60 [facility] Comment on above: Performed By: #### 4 96, 0, 29201 #### [facility], [address] [place] [address] Treasury Accountant: Rodo Fung MD GFR/1.73 sq M predicted among blacks MDRD (S/P/Bld) [Vol rate/Area] 61 mL/min/{1.73_m2} Normal > OR = 60 [facility] Comment on above: Performed By: #### 4 96, 0, 45955 #### [facility], [address] [place] [address] Treasury Accountant: Rodo Fung MD Globulin (S) [Mass/Vol] 2.8 g/dL (calc) Normal 1.9-3.7 [facility] Comment on above: Performed By: #### 4 96, 7599, 70244 #### [facility], [address] [place] [address] Treasury Accountant: Rodo Fung MD Glucose [Mass/Vol] 165 mg/dL High 65-99 [facility] Comment on above: Result Comment: Fasting reference interval For someone without known diabetes, a glucose value >125 mg/dL indicates that they may have diabetes and this should be confirmed with a follow-up test. Performed By: #### 4 , 0, 77436 #### [facility], [address] [place] [address] Treasury Accountant: Rodo Fung MD Potassium [Moles/Vol] 4.5 mmol/L Normal 3.5-5.3 [facility] Comment on above: Performed By: #### 4 96, 7600, 36746 #### [facility], [address] [place] [address] Treasury Accountant: Rodo Fung MD Protein [Mass/Vol] 7.4 g/dL Normal 6.1-8.1 [facility] Comment on above: Performed By: #### 4 96, 0, 55694 #### [facility] [address] [address] , [address] [place] [address] Treasury Accountant: Rodo Fung MD Sodium [Moles/Vol] 140 mmol/L Normal 135-146 [facility] Comment on above: Performed By: #### 4 96, 7600, 72620 #### [facility] , [address] [place] [address] Treasury Accountant: Rodo Fung MD Urea nitrogen [Mass/Vol] 24 mg/dL Normal 7-25 [facility] Comment on above: Performed By: #### 4 96, 7600, 86854 #### [facility], [address] [place] [address] Treasury Accountant: Rodo Fung MD Urea nitrogen/Creatinine [Mass ratio] 21 mg/mg Normal 6-22 [facility] Comment on above: Performed By: #### 4 96, 7600, 89015 #### [facility], [address] [place] [address] Treasury Accountant: Rodo Fung MD HEMOGLOBIN A1con 01-24-2020 HbA1c (Bld) [Mass fraction] 7.8 % of total Hgb High <5.7 [facility] Comment on above: Result Comment: For someone without known diabetes, a hemoglobin A1c value of 6.5% or greater indicates that they may have diabetes and this should be confirmed with a follow-up test. For someone with known diabetes, a value <7% indicates that their diabetes is well controlled and a value greater than or equal to 7% indicates suboptimal control. A1c targets should be individualized based on duration of diabetes, age, comorbid conditions, and other considerations. Currently, no consensus exists regarding use of hemoglobin A1c for diagnosis of diabetes for children. Performed By: #### 4 , 0, 96535 #### [facility] , [address] [place] [address] Treasury Accountant: Rodo Fung MD LIPID PANEL, STANDARDon 01-11 Cholesterol [Mass/Vol] 126 mg/dL Normal <200 [facility] Comment on above: Performed By: #### 4 96, 7600, 11634 #### [facility] , [address] [place] [address] Treasury Accountant: Rodo Fung MD Cholesterol in HDL [Mass/Vol] 44 mg/dL Low > OR = 50 [facility] Comment on above: Performed By: #### 4 , 7599, 78101 #### [facility]-[place] [address] Treasury Accountant: Rodo Fung MD Cholesterol in LDL [Mass/Vol] 56 mg/dL (calc) Normal [facility] Comment on above: Result Comment: Refe rence range: <100 Desirable range <100 mg/dL for primary prevention; <70 mg/dL for patients with CHD or diabetic patients with > or = 2 CHD risk factors. LDL-C is now calculated using the Phuong calculation, which is a validated novel method providing better accuracy than the Friedewald equation in the estimation of LDL-C. Todd STRONG et al. STACI. 2013;310(19): 7213-0864 (http://education.[employer]/faq/QOV473) Performed By: #### 4 , 7599, 83520 #### [facility] [address] Treasury Accountant: Rodo Fung MD Cholesterol.total/C holesterol in HDL [Mass ratio] 2.9 (calc) Normal <5.0 [facility] Comment on above: Performed By: #### 4 , 7599, 51756 #### [facility]-[address] Treasury Accountant: Rodo Fung MD NON HDL CHOLESTEROL 82 mg/dL (calc) Normal <130 [facility] Comment on above: Result Comment: For patients with diabetes plus 1 major ASCVD risk factor, treating to a non-HDL-C goal of <100 mg/dL (LDL-C of <70 mg/dL) is considered a therapeutic option. Performed By: #### 4 , 7599, 48716 #### [facility]-[address] Treasury Accountant: Rodo Fung MD Triglyceride [Mass/Vol] 190 mg/dL High <150 [facility] Comment on above: Performed By: #### 4 , 1120, 91386 #### [facility] [address], [address] [place] [address] Treasury Accountant: Rodo Fung MD Basic Metabolic Panlon 12-12 Anion gap [Moles/Vol] 14 mmol/L Normal 9-18 [facility] Comment on above: Performed By: #### S LACT #### [facility] [address] Calcium [Mass/Vol] 10.1 mg/dL Normal 8.5-10.2 [facility] Comment on above: Performed By: #### S LACT #### [facility] [address] [place] [address] Chloride [Moles/Vol] 102 mmol/L Normal 97-105 [facility] Comment on above: Performed By: #### S LACT #### [facility] [address] [place] [address] CO2 [Moles/Vol] 25 mmol/L Normal 22-30 [facility] Comment on above: Performed By: #### S LACT #### [facility] [address] [place] [id number] Creatinine [Mass/Vol] 1.02 mg/dL High 0.58-0.96 [facility] Comment on above: Performed By: #### S LACT #### [facility] [address] [place], [place] [id number] eGFR- Amer. >60 Normal [facility] Comment on above: Performed By: #### S LACT #### [facility] [address] [place], [place] [id number] GFR/1.73 sq M predicted among non-blacks MDRD (S/P/Bld) [Vol rate/Area] 56 . Normal [facility] Comment on above: Result Comment: eGFR (Estimated GFR) Units of measure: mL/min/1.73 meters squared eGFR is derived from the reexpressed MDRD Study equation using the following parameters: serum creatinine, age, gender and race. The creatinine assay has been calibrated to be traceable to IDMS. An eGFR <60 mL/min/1.73m2 for >3 months is consistent with chronic kidney disease. Refer to KDOQI guidelines for clinical interpretation. In patients with unstable renal function, e.g. those with acute kidney injury, the eGFR may not accurately reflect actual GFR. Performed By: #### S LACT #### [facility] [address] [place] [address] Glucose [Mass/Vol] 192 mg/dL High 74-99 [facility] Comment on above: Result Comment: The [place] Diabetes Association (ADA) provides guidance for cutoff values for fasting glucose and random glucose. The ADA defines fasting as no caloric intake for at least 8 hours. Fasting plasma glucose results between 100 to 125 mg/dL indicate increased risk for diabetes (prediabetes). Fasting plasma glucose results greater than or equal to 126 mg/dL meet the criteria for diagnosis of diabetes. In the absence of unequivocal hyperglycemia, results should be confirmed by repeat testing. In a patient with classic symptoms of hyperglycemia or hyperglycemic crisis, random plasma glucose results greater than or equal to 200 mg/dL meet the criteria for diagnosis of diabetes. Reference: Standards of Medical Care in Diabetes 2016, [place] Diabetes Association. Diabetes Care. 2016.39(Suppl 1). Performed By: #### S LACT #### [facility] [address] [place] [address] Potassium [Moles/Vol] 4.4 mmol/L Normal 3.7-5.1 [facility] Comment on above: Performed By: #### S LACT #### [facility] [address] [place] [address] Sodium [Moles/Vol] 141 mmol/L Normal 136-144 [facility] Comment on above: Performed By: #### S LACT #### [facility] [address] [place] [address] Urea nitrogen [Mass/Vol] 23 mg/dL High 7-21 [facility] Comment on above: Performed By: #### S LACT #### [facility] [address] [place] [address] CASE MANAGEMon 12-13-2019 CASE MANAGEM HNO ID: [id number] Author: Thais Zhagn) SAIDA Jacques Service: ? Author Type: Registered Nurse Type: Care Mgt Progress Note Filed: 12/13/2019 4:42 PM Note Text: CARE MANAGEMENT PROGRESS NOTE SERVICE DATE: 12/13/2019 SERVICE TIME: 4:41 PM LOS: 4 days Admission Date: 12/08/2019 DISCHARGE ARRANGEMENT (list agency and phone number) Provider Name: [facility] and pharm CAREGIVER ASSESSMENT: HANDOFF COMMUNICATION: Handoff to: Primary Care Physician Primary Care Physician Name/Phone: Amy Mcginnis APRN, JOHN [phone] TRANSPORTATION ARRANGEMENTS: Spouse transporting patient home. ADDITIONAL CONTACT RESOURCES: Discharge Information Row Name Admission (Current) from 12/08/2019 in [facility] Home care, Pharmacy Start of Care 12/14/19 SIGNATURE: Thais Jacques RN PATIENT NAME: Patel Medina DATE: December 13, 2019 TIME: 4:40 PM PAGER/CONTACT #: [phone] [facility] CASE MANAGEM HNO ID: [id number] Author: Fany Vargas (Sw) Service: Case Management Author Type: Personal Counselor Type: Care Mgt Progress Note Filed: 12/13/2019 4:25 PM Note Text: CARE MANAGEMENT PROGRESS NOTE SERVICE DATE: 12/13/2019 SERVICE TIME: 4:23 PM LOS: 4 days Needs Prior to Discharge: To Be Determined;Home Care Order CM spoke to patient bedside. Patient received her PICC line. Script sent over to [facility] and Pharmacy. They confirmed a SOC of tomorrow with delivery this evening. Patient and MD were notified. SIGNATURE: CRISTINO Ruiz PATIENT NAME: Patel Medina DATE: December 13, 2019 TIME: 4:22 PM PAGER/CONTACT #: [phone] Normal [facility] CBCon 12-13-2019 Absolute nRBC <0.01 Normal <0.01 [facility] ital Comment on above: Performed By: #### S LACT #### [facility] 1000 [facility] [phone] Erythrocyte distribution width (RBC) [Ratio] 13.3 % Normal 11.5-15.0 [facility] Comment on above: Performed By: #### S LACT #### [facility] 1000 [facility] [phone] Hematocrit (Bld) [Volume fraction] 37.1 % Normal 36.0-46.0 [facility] l Comment on above: Performed By: #### S LACT #### [facility] [address] [place] [address] Hemoglobin (Bld) [Mass/Vol] 11.7 g/dL Normal 11.5-15.5 [facility] Comment on above: Performed By: #### S LACT #### [facility] [address] [place] [address] MCH (RBC) [Entitic mass] 28.5 pG Normal 26.0-34.0 [facility] Comment on above: Performed By: #### S LACT #### [facility] [address] [place] [address] MCHC (RBC) [Mass/Vol] 31.5 g/dL Normal 30.5-36.0 [facility] Comment on above: Performed By: #### S LACT #### [facility] [address] [place] [address] MCV (RBC) [Entitic vol] 90.5 fL Normal 80.0-100.0 [facility] Comment on above: Performed By: #### S LACT #### [facility] [address] [place] [address] Platelet mean volume (Bld) [Entitic vol] 12.8 fL High 9.0-12.7 [facility] Comment on above: Performed By: #### S LACT #### [facility] [address] [place] [address] Platelets (Bld) [#/Vol] 236 10*3/uL Normal 150-400 [facility] Comment on above: Performed By: #### S LACT #### [facility] [address] [place] [address] RBC (Bld) [#/Vol] 4.10 10*6/uL Normal 3.90-5.20 [facility] Comment on above: Performed By: #### S LACT #### [facility] [address] [place] [address] WBC (Bld) [#/Vol] 8.98 10*3/uL Normal 3.70-11.00 [facility] Comment on above: Performed By: #### S LACT #### [facility] [address] [place] [address] CNCOon 12-13-2019 CNCO Letter Text Normal [facility] CONSULT PROGon 12-13-2019 CONSULT PROG HNO ID: [id number] Author: Skip English MD Service: Infectious Disease Author Type: Physician Type: Consult Progress Note Filed: 12/13/2019 10:19 AM Note Text: INFECTIOUS DISEASE PROGRESS NOTE Patient Name: Patel Medina INTERVAL HISTORY: She feels overall improved. No new complaints. Feels better. Denies any abdominal or back pain. No fevers or chills. ROS checked in details. All qs answered. Patient Active Hospital Problem List: Sepsis due to Escherichia coli (E. coli) ([facility]) (12/09/2019) CKD (chronic kidney disease) stage 3, GFR 30-59 ml/min ([facility]) (07/15/2016) Obstructive sleep apnea on CPAP (12/08/2019) Obesity, Class II, BMI 35-39.9 (12/09/2019) Complicated UTI (urinary tract infection) (12/10/2019) Migraine headache without aura (12/10/2019) ASSESSMENT: Complicated UTI? E coli Septicemia, vs GI source CKD (chronic kidney disease) stage 3, GFR 30-59 ml/min Severe sepsis Obstructive sleep apnea on CPAP Obesity, Class II, BMI 35-39.9 Hyponatremia Lactic acidosis PCN allergy- anaphylaxis Headache, ?migraine ? PLAN: Continue ertapenem The blood cultures now have 2 isolates for Escherichia coli, one of these has a ciprofloxacin CLARA of 1. It is still being read as susceptible on the report. Cipro is not likely to be efficacious in this situation. Discussed w patient regarding risk of crossreactivity. Wants to try ertapenem over ceftriaxone PICC line today Ertapenem x 2 weeks May need colonoscopy Cipro MICs rev w new CLSI standards at CLARA of 0.5 may be intermediate, the other Escherichia coli isolate is actually at 1. >30 min DILIP. CoPAT on chart MEDICATIONS: reviewed. Current Facility-Administered Medications Medication Dose Route Frequency - NaCl 0.9% 3-5 mL 3-5 mL INTRAVENOUS q 12 H - melatonin 3 mg tab(s) 3 mg ORAL HS PRN - traZODone 50 mg tab(s) (DESYREL) 50 mg ORAL HS PRN - ondansetron (PF) 4 mg injection (ZOFRAN) 4 mg INTRAVENOUS q 6 H PRN - polyethylene glycol 3350 17 g packet (MIRALAX, GLYCOLAX) 17 g ORAL DAILY PRN - senna-docusate 8.6-50 mg 1 tablet (SENNA-S) 1 tablet ORAL BID PRN - dextrose 40 % 15 g 15 g ORAL PRN Or - glucagon 1 mg injection (GLUCAGEN) 1 mg INTRAMUSCULAR PRN Or - dextrose 50% in water 25 mL syringe 12.5 g INTRAVENOUS PRN - insulin lispro injection (rapid acting) (HumaLOG) SUBCUTANEOUS w MEALS - insulin lispro injection (rapid acting) (HumaLOG) SUBCUTANEOUS AT BEDTIME - atorvastatin 10 mg tab(s) (LIPITOR) 10 mg ORAL DAILY - lisinopril 20 mg tab(s) (ZESTRIL, PRINIVIL) 20 mg ORAL DAILY - atenolol 25 mg tab(s) (TENORMIN) 25 mg ORAL DAILY - acetaminophen 325 mg-caffeine 40 mg-butalbital 50 mg 1 tablet (FIORICET) 1 tablet ORAL q 6 H PRN - acetaminophen 650 mg tab(s) (TYLENOL) 650 mg ORAL q 6 H PRN - ertapenem 1 g in NaCl 0.9% 100 mL MB+ (INVanz) 1 g INTRAVENOUS q 24 H - magnesium sulfate 1 g in D5W 100 mL 1 g INTRAVENOUS q 1 H PHYSICAL EXAM: Vital signs: BP 139/84 Pulse 60 Temp 36.7 ?C (98.1 ?F) (Oral) Resp 17 Ht 165.1 cm (5' 5 ) Wt 107.5 kg (236 lb 15.9 oz) SpO2 96% BMI 39.44 kg/m? Temp (48hrs), Av.8 ?C (98.2 ?F), Min:36.4 ?C (97.5 ?F), Max:37.2 ?C (99 ?F) General: alert, oriented, NAD Lungs: bilaterally clear to auscultation Heart: regular rate and rhythm Abdomen: soft, non tender, non distended, BS+ Extremities: no edema No rashes No joint inflammation Neck supple Lines ok No CVAT Labs: Recent Labs 12/13/19 0521 12/12/19 0612 12/11/19 0534 WBC 8.98 8.87 8.80 HB 11.7 11.0* 10.7* HCT 37.1 34.9* 34.5* PLT 236 213 182 NA 141 139 141 K 4.4 4.5 4.8 CHLOR 102 100 104 CO2 25 24 25 BUN 23* 20 16 CREAT 1.02* 1.00* 0.99* Microbiology data: reviewed Imaging data: reviewed Skip English MD [phone] 12/13/2019 10:13 AM [facility] Magnesiumon 12-13-2019 Magnesium [Mass/Vol] 1.4 mg/dL Low 1.7-2.3 [facility] Comment on above: Performed By: #### S LACT #### [facility] 1000 [facility] [phone] NURSING PROGon 12-13-2019 NURSING PROG HNO ID: [id number] Author: Tori Nguyễn Service: PICC Team Author Type: Registered Nurse Type: Nursing Progress Note Filed: 12/13/2019 3:07 PM Note Text: PATIENT EDUCATION TOPIC: PROCEDURE / SURGERY: Procedure/Surgery: peripherally inserted central catheter PATIENT NAME: Patel Medina PATIENT LOCATION: [place] [id number]- 2 READINESS TO LEARN COGNITIVE ABILITY: Alert and oriented MOTIVATION TO LEARN: Interested FAMILY SUPPORT: High - Very involved in pt care INSTRUCTION PROVIDED TO: Patient and Patient and family member PATIENT LEARNS BEST BY: Multiple Methods FACTORS AFFECTING LEARNING: None PHYSICAL LIMITATIONS AFFECTING LEARNING: None LEARNING RESPONSE DIAGNOSIS: ADULT: Bacteremia/uti PATIENT/FAMILY RESPONSE: Verbalizes understanding of: POST-PROCEDURE INSTRUCTIONS-Correct actions to take to reduce post procedure complications PRE-PROCEDURE INSTRUCTIONS-Correct action to take to follow pre-procedure instructions METHOD OF INSTRUCTION: Individual instruction FOLLOW-UP PLAN: Complete - No need for follow-up INSTRUCTIONAL AIDS USED: NA SUPPLEMENTAL MATERIAL PROVIDED TO PATIENT: None REFERRAL (RECOMMENDATION): None Electronically Signed By: Tori Nguyễn RN [facility] NUTRITIONon 12-13-2019 NUTRITION HNO ID: [id number] Author: Kathie Aguilera Service: Nutrition Therapy Author Type: Registered Dietitian Type: Nutrition Filed: 12/13/2019 12:07 PM Note Text: NUTRITION THERAPY NOTE SERVICE DATE: 12/13/2019 SERVICE TIME: 11:15 am Visit Type: Length of Stay;Diet Education Evaluation Goals Met: Met Plan of Care: Carb Controlled diet Nutrition education Monitor oral intake Nursing Admission Assessment Malnutrition Score: 0 No recent weight loss, Appetite and intake are good. Pt requests carb controlled diet and education, see education note. Nutrition Intake: Current Diet: DIET CARBOHYDRATE CONTROLLED Appetite: Good GI Symptoms: None Anthropometrics: Body mass index is 39.44 kg/m?. Loss of lean body mass/visual muscle wasting: No Weight Change: Stable SIGNATURE: Kathie Aguilera RD, RHYS PATIENT NAME: Patel Medina DATE: December 13, 2019 TIME: 12:06 PM PAGER: [facility] PROCEDUREon 12-13-2019 PROCEDURE HNO ID: [id number] Author: Tori Fletcher (Rn) Gopi Service: PICC Team Author Type: Registered Nurse Type: Procedures Filed: 12/13/2019 3:18 PM Note Text: PICC NURSE INSERTION NOTE DATE OF PROCEDURE: December 13, 2019 TIME OF PROCEDURE: 1500 ORDERING PHYSICIAN: Enedina English MD INFORMED CONSENT: Obtained per hospital policy. INDICATION FOR LINE PLACEMENT: COPAT CONDITION OF LINE PLACEMENT: Sterile PRIMARY PROCEDURALIST: Danelle Martinez RN [employer]ANT ENGINEER: Tori Nguyễn RN PRE-PROCEDURE REVIEW ALLERGIES Allergen Reactions - Advil [Ibuprofen] Swelling Eyes, and LAUREN leg/feet - Bextra [Valdecoxib] Swelling Swelling in hands and arms - Hctz [Thiazides] Other: See Comments Bruising and couldn't get out of bed. - Nsaids (Non-Steroid* Swelling - Penicillins Anaphylaxis - Prednisone Anaphylaxis - Salicylates Swelling - Sulfa (Sulfonamide * Unknown - Tetracycline Swelling Known History of Upper Venous Thrombosis: No Known History of Permanent Pacemaker or Automated Implanted Cardiac Device: NO Previous Breast Surgery of Lymph Node Dissection: unknown on Left side, pt has history of milk duct removal and states she is unsure if lymph nodes were removed as well. eGFR-All Other Races Date/Time Value Ref Range Status 12/13/2019 05:21 AM 56 . Final Comment: eGFR (Estimated GFR) Units of measure: mL/min/1.73 meters squared eGFR is derived from the reexpressed MDRD Study equation using the following parameters: serum creatinine, age, gender and race. The creatinine assay has been calibrated to be traceable to IDMS. An eGFR <60 mL/min/1.73m2 for >3 months is consistent with chronic kidney disease. Refer to KDOQI guidelines for clinical interpretation. In patients with unstable renal function, e.g. those with acute kidney injury, the eGFR may not accurately reflect actual GFR. eGFR- Date/Time Value Ref Range Status 12/13/2019 05:21 AM >60 Final History of Renal Disease: No Ultrasound Assessment Complete: Yes PROCEDURE NARRATIVE SAFE PRACTICE Hand Hygiene per Hospital Policy: Yes Skin Preparation Unit Dose Applicator Used: Chloraprep (CHG + alcohol), allowed to dry. Procedure Surface Cleansed with Antimicrobial Wipes: Yes Barriers Used by Proceduralist and all Assisting Personnel: Yes UNIVERSAL PROTOCOL / SAFETY CHECKLIST Procedure to be performed: picc Sign in Communication: Completed Time Out: Team Confirms the Correct Patient, Correct Procedure, Correct Site and Site Marking, Correct Position (if applicable), Prep and Dry Time (if applicable). Time: 1458 Affirmation of Time Out: N/A Sign Out Discussion: Completed Tori Nguyễn RN CATHETER PLACEMENT Brand: [employer] Lot: [id number] Number of Lumens: 1 Type of PICC: Power Injectable PICC Lumen Size: 4 Danish PLACEMENT TECHNIQUE Lidocaine: Yes, Lidocaine 1% Volume 2 mL Subcutaneous Modified Seldinger Technique Used to Place Line via the Right Basilic Ultrasound Guidance: Yes Number of Attempts at Insertion: 1 Ensured control of guidewire during all aspects of the procedure: Yes Accounted for entire guidewire upon removal: Yes Internal Length: 47 cm External Length: 2 cm Trim Length: 49 cm Mid-Arm Circumference: 36 centimeters Post Insertion Pain Level Related to Procedure: 0 Action Taken to Address Pain: None needed Verified Placement: Blood return and flushes with ease and Tip location system or device indicates the tip is located in the SVC/CAJ. Line was Flushed with 20 cc normal saline Line Secured with: Securement device Sterile Dressing Applied and Dated: Yes Sterile Caps on all Ports Prior to Leaving Procedure Area: Yes SPECIMENS: None COMPLICATIONS: None Patient Education Materials: Placed in chart [facility] Central Line Insertion checklist, attached to the Central Line-Associated Bloodstream Infection Prevention Policy, was utilized during this procedure. QUESTIONS or PROBLEMS: Call [phone] SIGNATURE: Tori Nguyễn RN PATIENT NAME: Patel Espinosacassi DATE: December 13, 2019 TIME: 3:08 PM PAGER/CONTACT PHONE: [facility] 12-11 Anion gap [Moles/Vol] 15 mmol/L Normal 9-18 [facility] Comment on above: Performed By: #### B SULEIMAN MG1, CBC ####[facility] [id number] [place] [address] Calcium [Mass/Vol] 9.9 mg/dL Normal 8.5-10.2 [facility] Comment on above: Performed By: #### B SULEIMAN MG1, CBC ####[facility] [id number] [place] [address] Chloride [Moles/Vol] 100 mmol/L Normal 97-105 [facility] Comment on above: Performed By: #### B SULEIMAN MG1, CBC ####[facility] [id number] [place] [address] CO2 [Moles/Vol] 24 mmol/L Normal 22-30 [facility] Comment on above: Performed By: #### B SULEIMAN MG1, CBC ####[facility] [id number] [place] [address] Creatinine [Mass/Vol] 1.00 mg/dL High 0.58-0.96 [facility] Comment on above: Performed By: #### B SULEIMAN MG1, CBC ####[facility] [id number] [place] [address] eGFR- Amer. >60 Normal [facility] Comment on above: Performed By: #### B SULEIMAN MG1, CBC ####[facility] [id number] [place] [address] GFR/1.73 sq M predicted among non-blacks MDRD (S/P/Bld) [Vol rate/Area] 57 . Normal [facility] Comment on above: Result Comment: eGFR (Estimated GFR) Units of measure: mL/min/1.73 meters squared eGFR is derived from the reexpressed MDRD Study equation using the following parameters: serum creatinine, age, gender and race. The creatinine assay has been calibrated to be traceable to IDMS. An eGFR <60 mL/min/1.73m2 for >3 months is consistent with chronic kidney disease. Refer to KDOQI guidelines for clinical interpretation. In patients with unstable renal function, e.g. those with acute kidney injury, the eGFR may not accurately reflect actual GFR. Performed By: #### B MP, MG1, CBC ####[facility] [id number] [place] [address] Glucose [Mass/Vol] 170 mg/dL High 74-99 [facility] Comment on above: Result Comment: The [place] Diabetes Association (ADA) provides guidance for cutoff values for fasting glucose and random glucose. The ADA defines fasting as no caloric intake for at least 8 hours. Fasting plasma glucose results between 100 to 125 mg/dL indicate increased risk for diabetes (prediabetes). Fasting plasma glucose results greater than or equal to 126 mg/dL meet the criteria for diagnosis of diabetes. In the absence of unequivocal hyperglycemia, results should be confirmed by repeat testing. In a patient with classic symptoms of hyperglycemia or hyperglycemic crisis, random plasma glucose results greater than or equal to 200 mg/dL meet the criteria for diagnosis of diabetes. Reference: Standards of Medical Care in Diabetes 2016, [place] [employer]. Diabetes Care. 2016.39(Suppl 1). Performed By: #### B SULEIMAN, MG1, CBC ####[facility] [address] [place] [address] Potassium [Moles/Vol] 4.5 mmol/L Normal 3.7-5.1 [facility] Comment on above: Performed By: #### B SULEIMAN, MG1, CBC ####[facility] [address] [place] [address] Sodium [Moles/Vol] 139 mmol/L Normal 136-144 [facility] Comment on above: Performed By: #### B MP, MG1, CBC ####[facility] [address]peiroc[address] [place] [address] Urea nitrogen [Mass/Vol] 20 mg/dL Normal 7-21 [facility] Comment on above: Performed By: #### B MP, MG1, CBC ####[facility] [address] [place] [address] CASE MANAGEMon 12-12-2019 CASE MANAGEM HNO ID: [id number] Author: Leonor Hathaway ([place]) Service: Care Management Author Type: Personal Counselor Type: Care Mgt Progress Note Filed: 12/12/2019 3:28 PM Note Text: CARE MANAGEMENT PROGRESS NOTE SERVICE DATE: 12/12/2019 SERVICE TIME: 1:30PM LOS: 3 days [place] of Choice Given: Yes Level of Care Discussed: Home Care Financial Disclosure Provided: Yes Provider List: Home Care;Home Care Pharmacy Provider list within the patient's requested geographic area shared with the patient/family: Yes within: 30 miles of zip code: [address] Quality and resource use metrics shared with the patient that are relevant to the patient's goals of care and treatment preferences:: Yes Metrics: Discharge to Community Patient will be having PICC placed and need home IV atb. Patient chose [facility] and [facility] Pharmacy. Referrals sent; awaiting responses. 3:20PM - [facility] Combo accepted referral. Patient informed. SIGNATURE: CRISTINO Patterson PATIENT NAME: Patel Medina DATE: December 12, 2019 TIME: 1:34 PM PAGER/CONTACT #: [phone] Normal [facility] CBCon 12-12-2019 Absolute nRBC <0.01 Normal <0.01 [facility] Comment on above: Performed By: #### B SULEIMAN MG1, CBC ####[facility] Syeetmewux4446 [address] Erythrocyte distribution width (RBC) [Ratio] 13.4 % Normal 11.5-15.0 [facility] Comment on above: Performed By: #### B SULEIMAN MG1, CBC ####[facility] Pmkzihjjae4619 [address] Hematocrit (Bld) [Volume fraction] 34.9 % Low 36.0-46.0 [facility] Comment on above: Performed By: #### B SULEIMAN MG1, CBC ####[facility] [address] [place] [phone] Hemoglobin (Bld) [Mass/Vol] 11.0 g/dL Low 11.5-15.5 [facility] Comment on above: Performed By: #### B SULEIMAN MG1, CBC ####[facility] [address] [place] [phone] MCH (RBC) [Entitic mass] 28.6 pG Normal 26.0-34.0 [facility] Comment on above: Performed By: #### B SULEIMAN MG1, CBC ####[facility] [address] [place] [address] MCHC (RBC) [Mass/Vol] 31.5 g/dL Normal 30.5-36.0 [facility] Comment on above: Performed By: #### B SULEIMAN MG1, CBC ####[facility] [address] [place] [address] MCV (RBC) [Entitic vol] 90.9 fL Normal 80.0-100.0 [facility] Comment on above: Performed By: #### B SULEIMAN MG1, CBC ####[facility] [address] [place] [address] Platelet mean volume (Bld) [Entitic vol] Unable to report Normal 9.0-12.7 [facility] Comment on above: Performed By: #### B SULEIMAN MG1, CBC ####[facility] [address] [place] [address] Platelets (Bld) [#/Vol] 213 10*3/uL Normal 150-400 [facility] Comment on above: Result Comment: No c lot detected. Performed By: #### B SULEIMAN MG1, CBC ####[facility] [address] [place] [address] RBC (Bld) [#/Vol] 3.84 10*6/uL Low 3.90-5.20 [facility] [place] [facility] Comment on above: Performed By: #### B SULEIMAN, MG1, CBC ####[facility] [address] [place] [address] WBC (Bld) [#/Vol] 8.87 10*3/uL Normal 3.70-11.00 [facility] [place] [facility] Comment on above: Performed By: #### B MP, MG1, CBC ####[facility] [address] [place] [address] CONSULT PROGon 12-12-2019 CONSULT PROG HNO ID: [id number] Author: Skip English MD Service: Infectious Disease Author Type: Physician Type: Consult Progress Note Filed: 12/12/2019 8:34 PM Note Text: INFECTIOUS DISEASE PROGRESS NOTE Patient Name: Patel Medina INTERVAL HISTORY: She feels overall improved. Going to take a shower again today. No fevers. Repeat BCx are positive, drawn quickly after cipro started, ?inadequate drug levels vs intermediate MICs. ROS checked in details. All qs answered. Patient Active Hospital Problem List: Sepsis due to Escherichia coli (E. coli) ([facility]) (12/09/2019) CKD (chronic kidney disease) stage 3, GFR 30-59 ml/min ([facility]) (07/15/2016) Obstructive sleep apnea on CPAP (12/08/2019) Obesity, Class II, BMI 35-39.9 (12/09/2019) Complicated UTI (urinary tract infection) (12/10/2019) Migraine headache without aura (12/10/2019) ASSESSMENT: Complicated UTI? E coli Septicemia, vs GI source CKD (chronic kidney disease) stage 3, GFR 30-59 ml/min Severe sepsis Obstructive sleep apnea on CPAP Obesity, Class II, BMI 35-39.9 Hyponatremia Lactic acidosis PCN allergy- anaphylaxis Headache, ?migraine ? PLAN: Stop cipro Start ertapenem Discussed w patient regarding risk of crossreactivity. Wants to try ertapenem over ceftriaxone PICC line once BCx are negative at 48 hrs Ertapenem x 2 weeks May need colonoscopy Continue Cipro, MICs rev w new CLSI standards at CLARA of 0.5 may be intermediate. Need to clarify patients allergies and prior use of cephalosporins, may be able to try ceftriaxone. Discussed w Dr Roberts MEDICATIONS: reviewed. Current Facility-Administered Medications Medication Dose Route Frequency - NaCl 0.9% 3-5 mL 3-5 mL INTRAVENOUS q 12 H - melatonin 3 mg tab(s) 3 mg ORAL HS PRN - traZODone 50 mg tab(s) (DESYREL) 50 mg ORAL HS PRN - ondansetron (PF) 4 mg injection (ZOFRAN) 4 mg INTRAVENOUS q 6 H PRN - polyethylene glycol 3350 17 g packet (MIRALAX, GLYCOLAX) 17 g ORAL DAILY PRN - senna-docusate 8.6-50 mg 1 tablet (SENNA-S) 1 tablet ORAL BID PRN - dextrose 40 % 15 g 15 g ORAL PRN Or - glucagon 1 mg injection (GLUCAGEN) 1 mg INTRAMUSCULAR PRN Or - dextrose 50% in water 25 mL syringe 12.5 g INTRAVENOUS PRN - insulin lispro injection (rapid acting) (HumaLOG) SUBCUTANEOUS w MEALS - insulin lispro injection (rapid acting) (HumaLOG) SUBCUTANEOUS AT BEDTIME - atorvastatin 10 mg tab(s) (LIPITOR) 10 mg ORAL DAILY - lisinopril 20 mg tab(s) (ZESTRIL, PRINIVIL) 20 mg ORAL DAILY - atenolol 25 mg tab(s) (TENORMIN) 25 mg ORAL DAILY - acetaminophen 325 mg-caffeine 40 mg-butalbital 50 mg 1 tablet (FIORICET) 1 tablet ORAL q 6 H PRN - acetaminophen 650 mg tab(s) (TYLENOL) 650 mg ORAL q 6 H PRN - ertapenem 1 g in NaCl 0.9% 100 mL MB+ (INVanz) 1 g INTRAVENOUS q 24 H PHYSICAL EXAM: Vital signs: BP 131/68 Pulse (!) 56 Temp 36.8 ?C (98.2 ?F) (Oral) Resp 18 Ht 165.1 cm (5' 5 ) Wt 107.5 kg (236 lb 15.9 oz) SpO2 96% BMI 39.44 kg/m? Temp (24hrs), Av.6 ?C (97.9 ?F), Min:36.4 ?C (97.5 ?F), Max:36.8 ?C (98.2 ?F) General: alert, oriented, NAD Lungs: bilaterally clear to auscultation Heart: regular rate and rhythm Abdomen: soft, non tender, non distended, BS+ Extremities: no edema No rashes No joint inflammation Neck supple Lines ok No CVAT Labs: Recent Labs 12/12/19 0612 12/11/19 0534 12/10/19 0521 WBC 8.87 8.80 8.95 HB 11.0* 10.7* 11.0* HCT 34.9* 34.5* 34.5* PLT 213 182 166 NA 139 141 139 K 4.5 4.8 4.1 CHLOR 100 104 105 CO2 24 25 22 BUN 20 16 19 CREAT 1.00* 0.99* 0.91 Microbiology data: reviewed Imaging data: reviewed Skip English MD [phone] Normal [facility] Magnesiumon 12-12-2019 Magnesium [Mass/Vol] 1.6 mg/dL Low 1.7-2.3 [facility] Comment on above: Performed By: #### B MP, MG1, CBC ####[place] [phone] PROGRESSon 12-12-2019 PROGRESS HNO ID: [id number] Author: Yogi Roberts Jr. Service: Hospital Medicine Author Type: Physician Type: Progress Notes Filed: 12/12/2019 2:08 PM Note Text: DEPARTMENT OF HOSPITAL MEDICINE PROGRESS NOTE SERVICE DATE: 12/12/2019 SERVICE TIME: 2:03 PM Hospital Medicine/Primary Attending: Yogi Roberts Jr., MD NIGHT AND WEEKEND COVERAGE: Nights: Please contact pager [phone]. Subjective INTERVAL HPI: Patient reports that she felt better yesterday. Feels off today. No focal complaints. Discussed culture results and change in antibiotics Current Facility-Administered Medications Medication Dose Route Frequency - NaCl 0.9% 3-5 mL 3-5 mL INTRAVENOUS q 12 H - melatonin 3 mg tab(s) 3 mg ORAL HS PRN - traZODone 50 mg tab(s) (DESYREL) 50 mg ORAL HS PRN - ondansetron (PF) 4 mg injection (ZOFRAN) 4 mg INTRAVENOUS q 6 H PRN - polyethylene glycol 3350 17 g packet (MIRALAX, GLYCOLAX) 17 g ORAL DAILY PRN - senna-docusate 8.6-50 mg 1 tablet (SENNA-S) 1 tablet ORAL BID PRN - dextrose 40 % 15 g 15 g ORAL PRN Or - glucagon 1 mg injection (GLUCAGEN) 1 mg INTRAMUSCULAR PRN Or - dextrose 50% in water 25 mL syringe 12.5 g INTRAVENOUS PRN - insulin lispro injection (rapid acting) (HumaLOG) SUBCUTANEOUS w MEALS - insulin lispro injection (rapid acting) (HumaLOG) SUBCUTANEOUS AT BEDTIME - atorvastatin 10 mg tab(s) (LIPITOR) 10 mg ORAL DAILY - lisinopril 20 mg tab(s) (ZESTRIL, PRINIVIL) 20 mg ORAL DAILY - atenolol 25 mg tab(s) (TENORMIN) 25 mg ORAL DAILY - acetaminophen 325 mg-caffeine 40 mg-butalbital 50 mg 1 tablet (FIORICET) 1 tablet ORAL q 6 H PRN - acetaminophen 650 mg tab(s) (TYLENOL) 650 mg ORAL q 6 H PRN - ertapenem 1 g in NaCl 0.9% 100 mL MB+ (INVanz) 1 g INTRAVENOUS q 24 H Objective PHYSICAL EXAM: BP 136/74 Pulse 60 Temp (Src) 97.5 (Oral) Resp 18 Ht 5' 5 (1.65m) Wt 236 lb 15.9 oz (107.5kg) SpO2 97% BMI 39.44 kg/(m2). O2 Therapy: Room Air Physical Exam Performed GENERAL: well appearing, in no acute distress EYES: PERRLA, EOMI, Conjunctiva clear MOUTH and THROAT: membranes moist; no lesions NECK: supple, no lymphadenopathy or masses HEART: regular rate and rhythm, S1 and S2, no murmur LUNGS: clear to auscultation; no rales or wheezes ABDOMEN: Soft, nontender, bowel sounds normal, no masses; obese EXTREMITY: no edema; no erythema NEURO: Alert and Oriented x3; Nonfocal PSYCH: Appropriate mood; Cooperative Lines, Drains, and Airways Line Peripheral 12/11/19 2300 Short Right Hand 20 Gauge less than 1 day DATA: Diagnostic tests reviewed for today's visit: Most recent labs and imaging results. Assessment/Plan HOSPITAL COURSE: This is a 54 yo F, with a PMH of HTN, RIK on CPAP, PTSD and Depression, who presented to the [place] ED on 12/08/19 with complaints of shakes, tremors, fever and chills for a couple of days. In the ED, temp 101.4F. Na 135, Cr 1.1, Mg 1.6, WBC 9.2. Lactate 5.74 - 2.68. UA showed negative leuks and nitrites. CXR showed NAD. The patient was transferred to [facility] for admission. She was given a dose of IV Levaquin and then changed to IV Cipro. ? 12/07 Blood Cultures x2 returned (+) for Ecoli. ID was consulted. CT of Abd/Pelvis showed marked fatty infiltration of the liver but source of infection. 12/07 Urine Culture then also returned (+) for Ecoli. 1 of 2 Blood Cultures from 12/08 was positive for Ecoli. 1 of 2 Blood Cultures from 12/09 were also (+) for GNB. Renal US was normal. Final results of Blood Cultures from 12/08/19 showed 2 colonies of Ecoli with different morphologies/resistanc e patterns. 12/10 Blood Cultures x2 were negative < 24 hours. ID changed IV Cipro to IV Ertapenem. Principal Problem: Sepsis due to Escherichia coli (E. coli) ([facility]) Active Problems: Complicated UTI (urinary tract infection) CKD (chronic kidney disease) stage 3, GFR 30-59 ml/min ([facility]) Obstructive sleep apnea on CPAP Migraine headache without aura Obesity, Class II, BMI 35-39.9 Resolved Problems: Hyponatremia Lactic acidosis Sepsis due to Ecoli Feels improved, fevers resolved Maintained BP 12/07 Blood Cx x2: Ecoli - 2 colonies with different morphologies and sensitivities 12/08 Blood Cx 1 of 2: Ecoli 12/09 Blood Cx 1 of 2: GNB 12/10 Blood Cx x2: negative < 24 hours IV Cipro changed to IV Ertapenem Follow-up on ID recommendations Complicated UTI UA was unremarkable from infection standpoint 12/07 Urine Cx: (+) Ecoli 12/10 Renal US was normal IV Ertapenem as above Migraine NUNES Continue Fioricet prn - good results with Excedrin in the past RIK Continue CPAP Medication and Non-Pharmacologic VTE Prophylaxis/Anticoagul ants 12/08/19 1430 pneumatic compression stockings (vt,ri) 12/08/19 1430 activity - mobilize [place] ([place]) VTE Prophylaxis: VTE prophylaxis appropriate Disposition: Home Plan of care discussed with: Patient and RN SIGNATURE: Yogi Roberts Jr., MD PATIENT NAME: Patel Medina DATE: December 12, 2019 TIME: 2:04 PM [facility] 12-11-2019 ALLIED HEALTH HNO ID: [id number] Author: Irma Preston (Rt) Service: ? Author Type: Frameman Type: Allied Health Filed: 12/11/2019 2:16 PM Note Text: Radiology Service Progress Note PATIENT NAME: Patel Medina DATE OF SERVICE: December 11, 2019 TIME: 2:15 PM PATIENT IDENTITY VERIFICATION COMPLETED USING TWO (2) IDENTIFIERS: Name and Date of confirmed by patient verbally and Name and Date of confirmed by identification band. FALL SCREENING: Has the patient had 2 falls in the last year or 1 fall with injury or currently using an Ambulatory Assistive Device (Walker, Cane, Wheelchair, Crutches, etc.)? Inpatient: Screened on floor PATIENT GENDER DATA: Female. status: : No status: NO. PATIENT RELEVANT IMPLANT DATA REVIEWED: Not Applicable RADIOLOGY DEPARTMENT: Ultrasound PERIPHERAL IV DATA: Not applicable SIGNED BY: Cecy Mcleod, RT December 11, 2019 2:15 PM Normal [facility] Basic Metabolic Panlon 12-10 Anion gap [Moles/Vol] 12 mmol/L Normal 9-18 [facility] Comment on above: Performed By: #### C BC, BMP, MG1 ####[facility] [address] [place] [address] Calcium [Mass/Vol] 9.2 mg/dL Normal 8.5-10.2 [facility] Comment on above: Performed By: #### C BC, BMP, MG1 ####[facility] [address] [place] [address] Chloride [Moles/Vol] 104 mmol/L Normal 97-105 [facility] Comment on above: Performed By: #### C BC, BMP, MG1 ####[facility] [address]fax[address] [place] [address] CO2 [Moles/Vol] 25 mmol/L Normal 22-30 [facility] Comment on above: Performed By: #### C BC, BMP, MG1 ####[facility] [address]cl[address]wkgwy[address] [place] [address] Creatinine [Mass/Vol] 0.99 mg/dL High 0.58-0.96 [facility] Comment on above: Performed By: #### C BC, BMP, MG1 ####[facility] [address]shjtjlog[address] [place] [address] eGFR- Amer. >60 Normal [facility] Comment on above: Performed By: #### An BC, BMP, MG1 ####[facility] [address]rm[address] [place] [address] GFR/1.73 sq M predicted among non-blacks MDRD (S/P/Bld) [Vol rate/Area] 58 . Normal [facility] Comment on above: Result Comment: eGFR (Estimated GFR) Units of measure: mL/min/1.73 meters squared eGFR is derived from the reexpressed MDRD Study equation using the following parameters: serum creatinine, age, gender and race. The creatinine assay has been calibrated to be traceable to IDMS. An eGFR <60 mL/min/1.73m2 for >3 months is consistent with chronic kidney disease. Refer to KDOQI guidelines for clinical interpretation. In patients with unstable renal function, e.g. those with acute kidney injury, the eGFR may not accurately reflect actual GFR. Performed By: #### C ATUL GIBSON MG1 ####[facility] [address] [place] [address] Glucose [Mass/Vol] 160 mg/dL High 74-99 [facility] Comment on above: Result Comment: The [place] [employer] (ADA) provides guidance for cutoff values for fasting glucose and random glucose. The ADA defines fasting as no caloric intake for at least 8 hours. Fasting plasma glucose results between 100 to 125 mg/dL indicate increased risk for diabetes (prediabetes). Fasting plasma glucose results greater than or equal to 126 mg/dL meet the criteria for diagnosis of diabetes. In the absence of unequivocal hyperglycemia, results should be confirmed by repeat testing. In a patient with classic symptoms of hyperglycemia or hyperglycemic crisis, random plasma glucose results greater than or equal to 200 mg/dL meet the criteria for diagnosis of diabetes. Reference: Standards of Medical Care in Diabetes 2016, [place] [employer]. Diabetes Care. 2016.39(Suppl 1). Performed By: #### C ATUL GIBSON MG1 ####[facility] [address] [place] [address] Potassium [Moles/Vol] 4.8 mmol/L Normal 3.7-5.1 [facility] Comment on above: Performed By: #### C ATUL GIBSON MG1 ####[facility] [address] [place] [address] Sodium [Moles/Vol] 141 mmol/L Normal 136-144 [facility] Comment on above: Performed By: #### ATUL GUZMAN, MG1 ####[facility] [address] [place] [address] Urea nitrogen [Mass/Vol] 16 mg/dL Normal 7-21 [facility] Comment on above: Performed By: #### C ATUL GIBSON MG1 ####[facility] [address] [place] [id number] Blood Cultureon 12-11-2019 Bacteria identified Cx Nom (Bld) Culture Result - No growth 5 days Normal [facility] Comment on above: Performed By: #### C ATUL GIBSON MG1 #### [facility] [address] [phone] #### PROCAL #### [place] [address] Bacteria identified Cx Nom (Bld) Culture Result - No growth 5 days Normal [facility] Comment on above: Performed By: #### C BC BMP, MG1 #### [facility] [address] [place] [phone] #### PROCAL #### [place] [address] CBCon 12-11-2019 Absolute nRBC <0.01 Normal <0.01 [facility] Comment on above: Performed By: #### C ARTHUR BMP, MG1 ####[facility] [address] [place], [place] [id number] Erythrocyte distribution width (RBC) [Ratio] 13.4 % Normal 11.5-15.0 [facility] Comment on above: Performed By: #### C ARTHUR BMP, MG1 ####[facility] [address] [place], [place] [id number] Hematocrit (Bld) [Volume fraction] 34.5 % Low 36.0-46.0 [facility] l Comment on above: Performed By: #### C ARTHUR BMP, MG1 ####[facility] [address] [place] [phone] Hemoglobin (Bld) [Mass/Vol] 10.7 g/dL Low 11.5-15.5 [facility] Comment on above: Performed By: #### C BC BMP, MG1 ####[facility] [address] [place] [address] MCH (RBC) [Entitic mass] 28.7 pG Normal 26.0-34.0 [facility] Comment on above: Performed By: #### C BC BMP, MG1 ####[facility] Gesgtvlmnd8289 [address] MCHC (RBC) [Mass/Vol] 31.0 g/dL Normal 30.5-36.0 [facility] Comment on above: Performed By: #### C BC BMP, MG1 ####[facility] Qmddrtwbnf1140 [address] MCV (RBC) [Entitic vol] 92.5 fL Normal 80.0-100.0 [facility] Comment on above: Performed By: #### C ATUL GIBSON, MG1 ####[facility] Fnyclmpxch8577 [address] Platelet mean volume (Bld) [Entitic vol] Unable to report Normal 9.0-12.7 [facility] Comment on above: Performed By: #### C ATUL GIBSON, MG1 ####[facility] [address] [place] [address] Platelets (Bld) [#/Vol] 182 10*3/uL Normal 150-400 [facility] Comment on above: Result Comment: No c lot detected. Performed By: #### C ARTHUR BMP, MG1 ####[facility] [address] [place] [id number] RBC (Bld) [#/Vol] 3.73 10*6/uL Low 3.90-5.20 [facility] [place] [facility] Comment on above: Performed By: #### C ARTHUR, ATUL, MG1 ####[facility] Mgfflmvzgw8067 [address] WBC (Bld) [#/Vol] 8.80 10*3/uL Normal 3.70-11.00 [facility] [place] [facility] Comment on above: Performed By: #### C ARTHUR, BMP, MG1 ####[facility] Lglrljklwn4517 [address] CONSULT PROGon 12-11-2019 CONSULT PROG HNO ID: [id number] Author: Skip English MD Service: Infectious Disease Author Type: Physician Type: Consult Progress Note Filed: 12/11/2019 8:00 PM Note Text: INFECTIOUS DISEASE PROGRESS NOTE Patient Name: Patel Medina INTERVAL HISTORY: She feels overall improved. Going to take a shower again today. No fevers. Repeat BCx are positive, drawn quickly after cipro started, ?inadequate drug levels. ROS checked in details. All qs answered. Patient Active Hospital Problem List: Sepsis due to Escherichia coli (E. coli) ([facility]) (12/09/2019) CKD (chronic kidney disease) stage 3, GFR 30-59 ml/min ([facility]) (07/15/2016) Obstructive sleep apnea on CPAP (12/08/2019) Obesity, Class II, BMI 35-39.9 (12/09/2019) Complicated UTI (urinary tract infection) (12/10/2019) Migraine headache without aura (12/10/2019) ASSESSMENT: Complicated UTI? E coli Septicemia, vs GI source CKD (chronic kidney disease) stage 3, GFR 30-59 ml/min Severe sepsis Obstructive sleep apnea on CPAP Obesity, Class II, BMI 35-39.9 Hyponatremia Lactic acidosis PCN allergy- anaphylaxis Headache, ?migraine ? PLAN: Check Repeat BCx x 2 as BCx positive from 12/07 as well one of [address] A/P rev. No s/o infection May need colonoscopy Continue Cipro, MICs rev w new CLSI standards at CLARA of 0.5 may be intermediate. Need to clarify patients allergies and prior use of cephalosporins, may be able to try ceftriaxone. May need CoPAT MEDICATIONS: reviewed. Current Facility-Administered Medications Medication Dose Route Frequency - NaCl 0.9% 3-5 mL 3-5 mL INTRAVENOUS q 12 H - melatonin 3 mg tab(s) 3 mg ORAL HS PRN - traZODone 50 mg tab(s) (DESYREL) 50 mg ORAL HS PRN - ondansetron (PF) 4 mg injection (ZOFRAN) 4 mg INTRAVENOUS q 6 H PRN - polyethylene glycol 3350 17 g packet (MIRALAX, GLYCOLAX) 17 g ORAL DAILY PRN - senna-docusate 8.6-50 mg 1 tablet (SENNA-S) 1 tablet ORAL BID PRN - dextrose 40 % 15 g 15 g ORAL PRN Or - glucagon 1 mg injection (GLUCAGEN) 1 mg INTRAMUSCULAR PRN Or - dextrose 50% in water 25 mL syringe 12.5 g INTRAVENOUS PRN - insulin lispro injection (rapid acting) (HumaLOG) SUBCUTANEOUS w MEALS - insulin lispro injection (rapid acting) (HumaLOG) SUBCUTANEOUS AT BEDTIME - atorvastatin 10 mg tab(s) (LIPITOR) 10 mg ORAL DAILY - lisinopril 20 mg tab(s) (ZESTRIL, PRINIVIL) 20 mg ORAL DAILY - atenolol 25 mg tab(s) (TENORMIN) 25 mg ORAL DAILY - ciprofloxacin iv piggyback 400 mg in D5W 200 mL (CIPRO) 400 mg INTRAVENOUS q 12 H - acetaminophen 325 mg-caffeine 40 mg-butalbital 50 mg 1 tablet (FIORICET) 1 tablet ORAL q 6 H PRN - acetaminophen 650 mg tab(s) (TYLENOL) 650 mg ORAL q 6 H PRN PHYSICAL EXAM: Vital signs: BP 137/72 Pulse 61 Temp 37.2 ?C (99 ?F) (Oral) Resp 18 Ht 165.1 cm (5' 5 ) Wt 107.5 kg (236 lb 15.9 oz) SpO2 98% BMI 39.44 kg/m? Temp (24hrs), Av.9 ?C (98.5 ?F), Min:36.7 ?C (98.1 ?F), Max:37.2 ?C (99 ?F) General: alert, oriented, NAD Lungs: bilaterally clear to auscultation Heart: regular rate and rhythm Abdomen: soft, non tender, non distended, BS+ Extremities: no edema No rashes No joint inflammation Neck supple Lines ok No CVAT Labs: Recent Labs 12/11/19 0534 12/10/19 0521 12/09/19 0638 WBC 8.80 8.95 9.58 HB 10.7* 11.0* 12.5 HCT 34.5* 34.5* 40.4 PLT 182 166 167 NA 141 139 137 K 4.8 4.1 4.1 CHLOR 104 105 100 CO2 25 22 22 BUN 16 19 19 CREAT 0.99* 0.91 1.00* Microbiology data: reviewed Imaging data: reviewed Skip English MD [phone] 12/11/2019 8:00 PM Normal [facility] Magnesiumon 12-11-2019 Magnesium [Mass/Vol] 1.8 mg/dL Normal 1.7-2.3 [facility] Comment on above: Performed By: #### C BC, BMP, MG1 ####[facility] [address] [place], [place] [phone] PROGRESSon 12-11-2019 PROGRESS HNO ID: [id number] Author: Yogi Roberts Jr. Service: Hospital Medicine Author Type: Physician Type: Progress Notes Filed: 12/11/2019 4:54 PM Note Text: DEPARTMENT OF HOSPITAL MEDICINE PROGRESS NOTE SERVICE DATE: 12/11/2019 SERVICE TIME: 4:49 PM Hospital Medicine/Primary Attending: Yogi Roberts Jr., MD NIGHT AND WEEKEND COVERAGE: Nights: Please contact pager [phone]. Subjective INTERVAL HPI: Patient has no complaints today. Continues to feel improved. No fever or chills. No urinary symptoms. Current Facility-Administered Medications Medication Dose Route Frequency - NaCl 0.9% 3-5 mL 3-5 mL INTRAVENOUS q 12 H - melatonin 3 mg tab(s) 3 mg ORAL HS PRN - traZODone 50 mg tab(s) (DESYREL) 50 mg ORAL HS PRN - ondansetron (PF) 4 mg injection (ZOFRAN) 4 mg INTRAVENOUS q 6 H PRN - polyethylene glycol 3350 17 g packet (MIRALAX, GLYCOLAX) 17 g ORAL DAILY PRN - senna-docusate 8.6-50 mg 1 tablet (SENNA-S) 1 tablet ORAL BID PRN - dextrose 40 % 15 g 15 g ORAL PRN Or - glucagon 1 mg injection (GLUCAGEN) 1 mg INTRAMUSCULAR PRN Or - dextrose 50% in water 25 mL syringe 12.5 g INTRAVENOUS PRN - insulin lispro injection (rapid acting) (HumaLOG) SUBCUTANEOUS w MEALS - insulin lispro injection (rapid acting) (HumaLOG) SUBCUTANEOUS AT BEDTIME - atorvastatin 10 mg tab(s) (LIPITOR) 10 mg ORAL DAILY - lisinopril 20 mg tab(s) (ZESTRIL, PRINIVIL) 20 mg ORAL DAILY - atenolol 25 mg tab(s) (TENORMIN) 25 mg ORAL DAILY - ciprofloxacin iv piggyback 400 mg in D5W 200 mL (CIPRO) 400 mg INTRAVENOUS q 12 H - acetaminophen 325 mg-caffeine 40 mg-butalbital 50 mg 1 tablet (FIORICET) 1 tablet ORAL q 6 H PRN - acetaminophen 650 mg tab(s) (TYLENOL) 650 mg ORAL q 6 H PRN Objective PHYSICAL EXAM: BP 137/72 Pulse 61 Temp (Src) 99 (Oral) Resp 18 Ht 5' 5 (1.65m) Wt 236 lb 15.9 oz (107.5kg) SpO2 98% BMI 39.44 kg/(m2). O2 Therapy: Room Air Physical Exam Performed GENERAL: well appearing, in no acute distress EYES: PERRLA, EOMI, Conjunctiva clear MOUTH and THROAT: membranes moist; no lesions NECK: supple, no lymphadenopathy or masses HEART: regular rate and rhythm, S1 and S2, no murmur LUNGS: clear to auscultation; no rales or wheezes ABDOMEN: Soft, nontender, bowel sounds normal, no masses; obese EXTREMITY: no edema; no erythema NEURO: Alert and Oriented x3; Nonfocal PSYCH: Appropriate mood; Cooperative Lines, Drains, and Airways Line Peripheral 12/08/19 1443 Short Left Hand 22 Gauge 3 days DATA: Diagnostic tests reviewed for today's visit: Most recent labs and imaging results. Assessment/Plan HOSPITAL COURSE: This is a 54 yo F, with a PMH of HTN, RIK on CPAP, PTSD and Depression, who presented to the [place] ED on 12/08/19 with complaints of shakes, tremors, fever and chills for a couple of days. In the ED, temp 101.4F. Na 135, Cr 1.1, Mg 1.6, WBC 9.2. Lactate 5.74 - 2.68. UA showed negative leuks and nitrites. CXR showed NAD. The patient was transferred to [facility] for admission. She was given a dose of IV Levaquin and then changed to IV Cipro. ? 12/07 Blood Cultures x2 returned (+) for Ecoli. ID was consulted. CT of Abd/Pelvis showed marked fatty infiltration of the liver but source of infection. 12/07 Urine Culture then also returned (+) for Ecoli. 1 of 2 Blood Cultures from 12/08 was positive for Ecoli. 1 of 2 Blood Cultures from 12/09 were also (+) for GNB. Renal US was normal. Repeat cultures ordered on 12/10. Principal Problem: Sepsis due to Escherichia coli (E. coli) ([facility]) Active Problems: Complicated UTI (urinary tract infection) CKD (chronic kidney disease) stage 3, GFR 30-59 ml/min ([facility]) Obstructive sleep apnea on CPAP Migraine headache without aura Obesity, Class II, BMI 35-39.9 Resolved Problems: Hyponatremia Lactic acidosis Sepsis due to Ecoli Feels improved, fevers resolved Maintained BP 12/07 Blood Cx x2: Ecoli 12/08 Blood Cx 1 of 2: Ecoli 12/09 Blood Cx 1 of 2: GNB 12/10 Blood Cx x2: ordered IV Cipro Discussed with ID Complicated UTI UA was unremarkable from infection standpoint 12/07 Urine Cx: (+) Ecoli 12/10 Renal US was normal IV Cipro as above Migraine NUNES Continue Fioricet prn - good results with Excedrin in the past RIK Continue CPAP Medication and Non-Pharmacologic VTE Prophylaxis/Anticoagul ants 12/08/19 1430 pneumatic compression stockings (vt,oh) 12/08/19 1430 activity - mobilize patient (vt,ri) VTE Prophylaxis: VTE prophylaxis appropriate Disposition: Home Plan of care discussed with: Patient, RN and ID SIGNATURE: Yogi Roberts Jr., MD PATIENT NAME: Patel Medina DATE: December 10, 2019 TIME: 3:08 PM [facility] US KIDNEY/BLADDERon 12-11-19 US KIDNEY/BLADDER * * *Final Report* * * DATE OF EXAM: Dec 11 2019 2:14PM ELI 1055 - US KIDNEY/BLADDER / PROCEDURE REASON: Sepsis * * * * Physician Interpretation * * * * EXAMINATION: RENAL ULTRASOUND CLINICAL HISTORY: UTI, uncomplicated. Sepsis TECHNIQUE: Sonography of the kidneys and urinary bladder was performed. Images were obtained and stored in a permanent archive. MQ: UR_1 COMPARISON: None RESULT: Right Kidney: -Renal length: 11.6 cm -Parenchyma: Normal parenchymal echogenicity. Normal parenchymal thickness. -Collecting system: No hydronephrosis. -Calculus: No echogenic, shadowing calculus. -Lesion: None. Left Kidney: -Renal length: 11.9 cm -Parenchyma: Normal parenchymal echogenicity. Normal parenchymal thickness. -Collecting system: No hydronephrosis. -Calculus: No echogenic, shadowing calculus. -Lesion: None. Bladder: Normal sonographic appearance. Increased hepatic echogenicity consistent with fatty change IMPRESSION: NORMAL SONOGRAPHIC APPEARANCE OF KIDNEYS AND BLADDER. Hepatic steatosis Ux Developer Designer: PSCB Transcribe Date/Time: Dec 11 2019 2:20P Dictated by : ERNST BLANKENSHIP MD This examination was interpreted and the report reviewed and electronically signed by: ERNST BLANKENSHIP MD on Dec 11 2019 2:21PM EST [id number] Normal [facility] Basic Metabolic Panlon 12-09 Anion gap [Moles/Vol] 12 mmol/L Normal -18 [facility] Comment on above: Performed By: #### C BC BMP, MG1 ####[facility] [address] [place] [id number] Calcium [Mass/Vol] 8.3 mg/dL Low 8.5-10.2 [facility] Comment on above: Performed By: #### C BC, BMP, MG1 ####[facility] [address] [place] [address] Chloride [Moles/Vol] 105 mmol/L Normal 97-105 [facility] Comment on above: Performed By: #### C BC, BMP, MG1 ####[facility] [address] [place] [address] CO2 [Moles/Vol] 22 mmol/L Normal 22-30 [facility] Comment on above: Performed By: #### C BC, BMP, MG1 ####[facility] [address] [place] [address] Creatinine [Mass/Vol] 0.91 mg/dL Normal 0.58-0.96 [facility] Comment on above: Performed By: #### C BC, BMP, MG1 ####[facility] [address] [place] [address] eGFR- Amer. >60 Normal [facility] Comment on above: Performed By: #### C ARTHUR BMP, MG1 ####[facility] [address] [place] [id number] GFR/1.73 sq M predicted among non-blacks MDRD (S/P/Bld) [Vol rate/Area] mL/min/{1.73_m2} Normal [facility] Comment on above: Result Comment: eGFR (Estimated GFR) Units of measure: mL/min/1.73 meters squared eGFR is derived from the reexpressed MDRD Study equation using the following parameters: serum creatinine, age, gender and race. The creatinine assay has been calibrated to be traceable to IDMS. An eGFR <60 mL/min/1.73m2 for >3 months is consistent with chronic kidney disease. Refer to KDOQI guidelines for clinical interpretation. In patients with unstable renal function, e.g. those with acute kidney injury, the eGFR may not accurately reflect actual GFR. Performed By: #### C BC BMP, MG1 ####[facility] [address] [place] [address] Glucose [Mass/Vol] 188 mg/dL High 74-99 [facility] Comment on above: Result Comment: The [place] Diabetes Association (ADA) provides guidance for cutoff values for fasting glucose and random glucose. The ADA defines fasting as no caloric intake for at least 8 hours. Fasting plasma glucose results between 100 to 125 mg/dL indicate increased risk for diabetes (prediabetes). Fasting plasma glucose results greater than or equal to 126 mg/dL meet the criteria for diagnosis of diabetes. In the absence of unequivocal hyperglycemia, results should be confirmed by repeat testing. In a patient with classic symptoms of hyperglycemia or hyperglycemic crisis, random plasma glucose results greater than or equal to 200 mg/dL meet the criteria for diagnosis of diabetes. Reference: Standards of Medical Care in Diabetes 2016, [place] Diabetes Association. Diabetes Care. 2016.39(Suppl 1). Performed By: #### C BC, BMP, MG1 ####[facility] [address] [place] [address] Potassium [Moles/Vol] 4.1 mmol/L Normal 3.7-5.1 [facility] Comment on above: Performed By: #### C BC, BMP, MG1 ####[facility] [address] [place] [address] Sodium [Moles/Vol] 139 mmol/L Normal 136-144 [facility] Comment on above: Performed By: #### C BC, BMP, MG1 ####[facility] [address] [place] [address] Urea nitrogen [Mass/Vol] 19 mg/dL Normal 7-21 [facility] Comment on above: Performed By: #### C BC, BMP, MG1 ####[facility] [address] [place] [address] Blood Cultureon 12-10-2019 Bacteria identified Cx Nom (Bld) Culture Result - No growth 5 days Normal [facility] Comment on above: Performed By: #### C BC, BMP, MG1 #### [facility] [address] [place] [phone] #### PROCAL #### [facility] [address] [place] [address] Bacteria identified Cx Nom (Bld) Culture Result - Escherichia coli Refer to specimen collected on 12/09/2019 AT 0638 ([id number]) (NOTE) Positive result called to and read back by: Kina CINTRON [address] 12/11/19 Joseline0 Ariela Critically abnormal [facility] Comment on above: Performed By: #### S LACT #### [facility] [address] [facility] [phone] CASE MGT INIT ASSESon 2019 CASE MGT INIT [facility] HNO ID: [id number] Author: Leonor Hathaway (Sw) Service: Care Management Author Type: Personal Counselor Type: Care Mgt Initial Assessment Filed: 12/10/2019 11:32 AM Note Text: CARE MANAGEMENT: ASSESSMENT AND DISCHARGE PLAN SERVICE DATE: December 10, 2019 SERVICE TIME: 11:00AM PRIMARY CARE PHYSICIAN: Amy Lunsford NP ADMISSION STATUS: Inpatient MEDICAL: BLUE CARD PPO 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 Last discharge within 30 days: No Advance Directive: Current Advance Directive: None Grain Roaster Attempted to Assist with AD Completion: Yes Action: Education Provided Health LiteracyHow often do you need to have someone help you when you read instructions, pamphlets, or other written material from your doctor or pharmacy? : 1 - Never How confident are you filling out medical forms by yourself?: 1 - Extremely Baseline Mental Status Prior to this Illness what was the patient's Baseline Mental Status?: Alert AND Oriented Prior to this illness, has anyone described the patient having any of the following behaviors?: Not Applicable Relationship of the informant to the patient:: Self Functional Status: Independent Does Patient Currently Receive Any Community Services or Home Care?: None Equipment Prior to Admission: Bi-level Positive Airway Pressure/Continuous Positive Airway Pressure SOCIAL: Living Arrangements: Home Lives With: Spouse;Other: See Comment(2 granddaughters (ages 9AND11))Primary Contact: Extended Emergency Contact Information Primary Emergency Contact: Yessler,Amado Address: [address] [place] [address] Mobile Relation: None Supportive Patient Contact:: Yes Contact Resources: Family Family Name/Phone: Amado Baez [phone] Social Needs Food insecurity Worry: Not on file Inability: Not on file Resources Needed: . Social Needs Financial resource strain: Not on file Social Needs Transportation needs Medical: Not on file Non-medical: Not on file Caregiver AssessmentCaregiver is ready, willing and able to meet the patient's needs as recommended by the inter-professional team:: No Caregiver needed Does the patient have an acute stroke diagnosis, or has the patient had a stroke during this admission?: No Patient's transition needs and plan for meeting these needs: TBD Patient's perception of need for this admission: Sepsis Medication Adherance I am convinced of the importance of my prescription medication: 0 - Agree Completely I worry that my prescription medication will do more harm than good to me : 0 - Disagree Completely I feel financially burdened by my vnq-ws-ytnook expenses for my prescription medication:: 0 - Disagree Completely Risk Score: 0 Patient is categorized as: Low risk < 2 Are you interested in bedside delivery of your medications? No Is Patient Psychosocially Complex?: No ASSESSMENT AND PLAN: Medical Needs: Psychosocial Needs: Psychosocial Needs: None FREEDOM OF CHOICE EXPLAINED: [place] of Choice Given: No Reason Not Given: Unable to complete with this assessment - revisit POTENTIAL TRANSITION PLANS Home;Home Care;Home Care Pharmacy Patient IPTA. Lives with spouse and 2 granddaughters, ages 9 AND 11. Currently on IV atb. CM to continue to monitor for any needs at d/c. SIGNATURE: CRISTINO Patterson PATIENT NAME: Patel Medina DATE: December 10, 2019 TIME: 11:24 AM PAGER/CONTACT #: [phone] Normal [facility] CBCon 12-10-2019 Absolute nRBC <0.01 Normal <0.01 [facility] ital Comment on above: Performed By: #### C BC, BMP, MG1 ####[facility] [address] [place], [place] [phone] Erythrocyte distribution width (RBC) [Ratio] 13.6 % Normal 11.5-15.0 [facility] Comment on above: Performed By: #### C BC BMP, MG1 ####[facility] [address] [place] [address] Hematocrit (Bld) [Volume fraction] 34.5 % Low 36.0-46.0 [facility] Comment on above: Performed By: #### C BC, BMP, MG1 ####[facility] [address] [place] [address] Hemoglobin (Bld) [Mass/Vol] 11.0 g/dL Low 11.5-15.5 [facility] Comment on above: Performed By: #### C BC, BMP, MG1 ####[facility] [address] [place] [address] MCH (RBC) [Entitic mass] 28.9 pG Normal 26.0-34.0 [facility] Comment on above: Performed By: #### C BC BMP, MG1 ####[facility] [address] [place] [address] MCHC (RBC) [Mass/Vol] 31.9 g/dL Normal 30.5-36.0 [facility] Comment on above: Performed By: #### C ARTHUR, BMP, MG1 ####[facility] [address] [place] [address] MCV (RBC) [Entitic vol] 90.6 fL Normal 80.0-100.0 [facility] Comment on above: Performed By: #### C BC, BMP, MG1 ####[facility] [address] [place] [address] Platelet mean volume (Bld) [Entitic vol] Unable to report Normal 9.0-12.7 [facility] Comment on above: Performed By: #### C BC, BMP, MG1 ####[facility] [address] [place] [address] Platelets (Bld) [#/Vol] 166 10*3/uL Normal 150-400 [facility] Comment on above: Result Comment: No c lot detected. Performed By: #### C BC, BMP, MG1 ####[facility] [address] [place] [address] RBC (Bld) [#/Vol] 3.81 10*6/uL Low 3.90-5.20 [facility] [place] [facility] Comment on above: Performed By: #### C ATUL GIBSON, MG1 ####[facility] [address] [place] [phone] WBC (Bld) [#/Vol] 8.95 10*3/uL Normal 3.70-11.00 [facility] [place] [facility] Comment on above: Performed By: #### C ATUL GIBSON, MG1 ####[facility] [address] [place] [phone] CONSULT PROGon 12-10-2019 CONSULT PROG HNO ID: [id number] Author: Skip English MD Service: Infectious Disease Author Type: Physician Type: Consult Progress Note Filed: 12/10/2019 5:33 PM Note Text: INFECTIOUS DISEASE PROGRESS NOTE Patient Name: Patel Medina INTERVAL HISTORY: She feels overall improved. Still w headache for the past 3 weeks, ?migraine. ROS checked in details. All qs answered. Patient Active Hospital Problem List: Sepsis due to Escherichia coli (E. coli) ([facility]) (12/09/2019) CKD (chronic kidney disease) stage 3, GFR 30-59 ml/min ([facility]) (07/15/2016) Obstructive sleep apnea on CPAP (12/08/2019) Obesity, Class II, BMI 35-39.9 (12/09/2019) Complicated UTI (urinary tract infection) (12/10/2019) Migraine headache without aura (12/10/2019) ASSESSMENT: Complicated UTI? E coli Septicemia, vs GI source CKD (chronic kidney disease) stage 3, GFR 30-59 ml/min Severe sepsis Obstructive sleep apnea on CPAP Obesity, Class II, BMI 35-39.9 Hyponatremia Lactic acidosis PCN allergy- anaphylaxis Headache, ?migraine ? PLAN: Check Repeat BCx x 2 as BCx positive from 12/07 as well one of [address] A/P rev. No s/o infection May need colonoscopy Continue Cipro, MICs are favorable. MEDICATIONS: reviewed. Current Facility-Administered Medications Medication Dose Route Frequency - NaCl 0.9% 3-5 mL 3-5 mL INTRAVENOUS q 12 H - melatonin 3 mg tab(s) 3 mg ORAL HS PRN - traZODone 50 mg tab(s) (DESYREL) 50 mg ORAL HS PRN - ondansetron (PF) 4 mg injection (ZOFRAN) 4 mg INTRAVENOUS q 6 H PRN - polyethylene glycol 3350 17 g packet (MIRALAX, GLYCOLAX) 17 g ORAL DAILY PRN - senna-docusate 8.6-50 mg 1 tablet (SENNA-S) 1 tablet ORAL BID PRN - dextrose 40 % 15 g 15 g ORAL PRN Or - glucagon 1 mg injection (GLUCAGEN) 1 mg INTRAMUSCULAR PRN Or - dextrose 50% in water 25 mL syringe 12.5 g INTRAVENOUS PRN - insulin lispro injection (rapid acting) (HumaLOG) SUBCUTANEOUS w MEALS - insulin lispro injection (rapid acting) (HumaLOG) SUBCUTANEOUS AT BEDTIME - atorvastatin 10 mg tab(s) (LIPITOR) 10 mg ORAL DAILY - lisinopril 20 mg tab(s) (ZESTRIL, PRINIVIL) 20 mg ORAL DAILY - atenolol 25 mg tab(s) (TENORMIN) 25 mg ORAL DAILY - ciprofloxacin iv piggyback 400 mg in D5W 200 mL (CIPRO) 400 mg INTRAVENOUS q 12 H - acetaminophen 325 mg-caffeine 40 mg-butalbital 50 mg 1 tablet (FIORICET) 1 tablet ORAL q 6 H PRN - acetaminophen 650 mg tab(s) (TYLENOL) 650 mg ORAL q 6 H PRN PHYSICAL EXAM: Vital signs: BP 152/83 Pulse 65 Temp 37 ?C (98.6 ?F) (Oral) Resp 18 Ht 165.1 cm (5' 5 ) Wt 107.5 kg (236 lb 15.9 oz) SpO2 97% BMI 39.44 kg/m? Temp (24hrs), Av.8 ?C (98.3 ?F), Min:36.6 ?C (97.8 ?F), Max:37 ?C (98.6 ?F) General: alert, oriented, NAD Lungs: bilaterally clear to auscultation Heart: regular rate and rhythm Abdomen: soft, non tender, non distended, BS+ Extremities: no edema No rashes No joint inflammation Neck supple Lines ok No CVAT Labs: Recent Labs 12/10/19 0521 12/09/19 0638 12/08/19 0822 WBC 8.95 9.58 9.15 HB 11.0* 12.5 12.8 HCT 34.5* 40.4 39.6 PLT 166 167 187 INR -- -- 1.1 APTT -- -- 26.4 NA 139 137 135* K 4.1 4.1 4.0 CHLOR 105 100 97 CO2 22 22 20* BUN 19 19 18 CREAT 0.91 1.00* 1.10* Microbiology data: reviewed Imaging data: reviewed Skip English MD Pager: Date of service: 12/10/2019 Time of service: 5:15 PM This note is not final until Authenticated by responsible provider. Normal [facility] Magnesiumon 12-10-2019 Magnesium [Mass/Vol] 2.2 mg/dL Normal 1.7-2.3 [facility] Comment on above: Performed By: #### C BC, BMP, MG1 ####[facility] [address] [place] [phone] NURSING PROGon 12-10-2019 NURSING PROG HNO ID: [id number] Author: Charmaine (Rn) SAIDA Baires Service: Nursing Author Type: Registered Nurse Type: Nursing Progress Note Filed: 12/10/2019 9:26 AM Note Text: Nursing Progress Note Patient Name: Patel Medina Patient Location: [place] [address]/[facility]- 2 __ Daily Note: 0923: Lab called with blood culture results from site 1 in right hand taken on 12/09/19 @0638. Positive for Gram - bacilli. Paged hospitalist. This note was completed by: Charmaine Baires RN [facility] PROGRESSon 12-10-2019 PROGRESS HNO ID: [id number] Author: Yogi Roberts Jr. Service: Hospital Medicine Author Type: Physician Type: Progress Notes Filed: 12/10/2019 3:14 PM Note Text: DEPARTMENT OF HOSPITAL MEDICINE PROGRESS NOTE SERVICE DATE: 12/10/2019 SERVICE TIME: 3:10 PM Hospital Medicine/Primary Attending: Yogi Roberts Jr., MD NIGHT AND WEEKEND COVERAGE: Nights: Please contact pager [phone]. Subjective INTERVAL HPI: Patient reports that she feels overall improved, but has a persistent right-sided frontal-temporal headache. She stated it had been present for 3 weeks but worse over the past 4-5 days. She noted occasional throbbing and photophobia. Nausea had resolved. Usually took Excedrin at home. Allergy to NSAIDS. No fever or chills. Current Facility-Administered Medications Medication Dose Route Frequency - NaCl 0.9% 3-5 mL 3-5 mL INTRAVENOUS q 12 H - melatonin 3 mg tab(s) 3 mg ORAL HS PRN - traZODone 50 mg tab(s) (DESYREL) 50 mg ORAL HS PRN - ondansetron (PF) 4 mg injection (ZOFRAN) 4 mg INTRAVENOUS q 6 H PRN - prochlorperazine 10 mg injection (COMPAZINE) 10 mg INTRAVENOUS q 6 H PRN - calcium carbonate 1,000 mg chewable tab(s) (TUMS) 1,000 mg ORAL TID PRN - polyethylene glycol 3350 17 g packet (MIRALAX, GLYCOLAX) 17 g ORAL DAILY PRN - benzocaine-menthol 1 Lozenge (CEPACOL) 1 Lozenge MUCOUS MEMBRANE (TOPICAL MOUTH AND THROAT) q 2 H PRN - benzonatate 100 mg cap(s) (TESSALON PERLE) 100 mg ORAL TID PRN - senna-docusate 8.6-50 mg 1 tablet (SENNA-S) 1 tablet ORAL BID PRN - metoprolol tartrate (short acting) 25 mg tab(s) (LOPRESSOR) 25 mg ORAL q 6 H PRN - hydrALAZINE 50 mg tab(s) (APRESOLINE) 50 mg ORAL TID PRN - dextrose 40 % 15 g 15 g ORAL PRN Or - glucagon 1 mg injection (GLUCAGEN) 1 mg INTRAMUSCULAR PRN Or - dextrose 50% in water 25 mL syringe 12.5 g INTRAVENOUS PRN - insulin lispro injection (rapid acting) (HumaLOG) SUBCUTANEOUS w MEALS - insulin lispro injection (rapid acting) (HumaLOG) SUBCUTANEOUS AT BEDTIME - atorvastatin 10 mg tab(s) (LIPITOR) 10 mg ORAL DAILY - lisinopril 20 mg tab(s) (ZESTRIL, PRINIVIL) 20 mg ORAL DAILY - atenolol 25 mg tab(s) (TENORMIN) 25 mg ORAL DAILY - ciprofloxacin iv piggyback 400 mg in D5W 200 mL (CIPRO) 400 mg INTRAVENOUS q 12 H - acetaminophen 325 mg-caffeine 40 mg-butalbital 50 mg 1 tablet (FIORICET) 1 tablet ORAL q 6 H PRN - acetaminophen 650 mg tab(s) (TYLENOL) 650 mg ORAL q 6 H PRN Objective PHYSICAL EXAM: BP 146/75 Pulse 66 Temp (Src) 98.6 (Oral) Resp 18 Ht 5' 5 (1.65m) Wt 236 lb 15.9 oz (107.5kg) SpO2 95% BMI 39.44 kg/(m2). O2 Therapy: Room Air Physical Exam Performed GENERAL: well appearing, in no acute distress EYES: PERRLA, EOMI, Conjunctiva clear MOUTH and THROAT: membranes moist; no lesions NECK: supple, no lymphadenopathy or masses HEART: regular rate and rhythm, S1 and S2, no murmur LUNGS: clear to auscultation; no rales or wheezes ABDOMEN: Soft, nontender, bowel sounds normal, no masses; obese EXTREMITY: no edema; no erythema NEURO: Alert and Oriented x3; Nonfocal PSYCH: Appropriate mood; Cooperative Lines, Drains, and Airways Line Peripheral 12/08/19 1443 Short Left Hand 22 Gauge 2 days DATA: Diagnostic tests reviewed for today's visit: Most recent labs and imaging results. Assessment/Plan HOSPITAL COURSE: This is a 54 yo F, with a PMH of HTN, RIK on CPAP, PTSD and Depression, who presented to the [place] ED on 12/08/19 with complaints of shakes, tremors, fever and chills for a couple of days. In the ED, temp 101.4F. Na 135, Cr 1.1, Mg 1.6, WBC 9.2. Lactate 5.74 - 2.68. UA showed negative leuks and nitrites. CXR showed NAD. The patient was transferred to [facility] for admission. She was given a dose of IV Levaquin and then changed to IV Cipro. ? 12/07 Blood Cultures x2 returned (+) for Ecoli. ID was consulted. CT of Abd/Pelvis showed marked fatty infiltration of the liver but source of infection. 12/07 Urine Culture then also returned (+) for Ecoli. 1 of 2 Blood Cultures from 12/08 was positive for GNR. Principal Problem: Sepsis due to Escherichia coli (E. coli) ([facility]) Active Problems: Complicated UTI (urinary tract infection) CKD (chronic kidney disease) stage 3, GFR 30-59 ml/min ([facility]) Obstructive sleep apnea on CPAP Migraine headache without aura Obesity, Class II, BMI 35-39.9 Resolved Problems: Hyponatremia Lactic acidosis Sepsis due to Ecoli Feels improved, fevers resolved Maintained BP 12/07 Blood Cx x2: Ecoli 12/08 Blood Cx 1 of 2: GNR 12/09 Blood Cx x2: pending IV Cipro Follow up in ID recommendations Complicated UTI UA was unremarkable from infection standpoint 12/07 Urine Cx: (+) Ecoli IV Cipro as above Migraine NUNES Fioricet prn ordered - good results with Excedrin in the past RIK Continue CPAP Medication and Non-Pharmacologic VTE Prophylaxis/Anticoagul ants 12/08/19 1430 pneumatic compression stockings [place] 12/08/19 1430 activity - mobilize [place] VTE Prophylaxis: VTE prophylaxis appropriate Disposition: Home Plan of care discussed with: Patient and RN SIGNATURE: Yogi Roberts Jr., MD PATIENT NAME: Patel Medina DATE: December 10, 2019 TIME: 3:08 PM Normal [facility] Basic Metabolic Panlon 12-08 Anion gap [Moles/Vol] 15 mmol/L Normal 9-18 [facility] Comment on above: Performed By: #### C ATUL GIBSON, MG1 #### [facility] [address] [place], [place] [phone] #### PROCAL #### [facility] [employer] [address] [place] [address] Calcium [Mass/Vol] 8.5 mg/dL Normal 8.5-10.2 [facility] Comment on above: Performed By: #### C ATUL GIBSON, MG1 #### [facility] [address] [place] [address] #### PROCAL #### [facility] [address] [place] [address] Chloride [Moles/Vol] 100 mmol/L Normal 97-105 [facility] Comment on above: Performed By: #### An BC BMP, MG1 #### [facility] [address] [place] [address] #### PROCAL #### [place] [address] [place] [phone] CO2 [Moles/Vol] 22 mmol/L Normal 22-30 [facility] Comment on above: Performed By: #### An BC BMP, MG1 #### [facility] [address] [place] [address] #### PROCAL #### [place] [address] Creatinine [Mass/Vol] 1.00 mg/dL High 0.58-0.96 [facility] Comment on above: Performed By: #### An BC BMP, MG1 #### [facility] [address] [place] [address] #### PROCAL #### [place] [address] eGFR- Amer. >60 Normal [facility] Comment on above: Performed By: #### An BC BMP, MG1 #### [facility] [address] [place] [address] #### PROCAL #### [place] [address] GFR/1.73 sq M predicted among non-blacks MDRD (S/P/Bld) [Vol rate/Area] 57 . Normal [facility] Comment on above: Result Comment: eGFR (Estimated GFR) Units of measure: mL/min/1.73 meters squared eGFR is derived from the reexpressed MDRD Study equation using the following parameters: serum creatinine, age, gender and race. The creatinine assay has been calibrated to be traceable to IDMS. An eGFR <60 mL/min/1.73m2 for >3 months is consistent with chronic kidney disease. Refer to KDOQI guidelines for clinical interpretation. In patients with unstable renal function, e.g. those with acute kidney injury, the eGFR may not accurately reflect actual GFR. Performed By: #### C ARTHUR BMP, MG1 #### [facility] [address] [place] [address] #### PROCAL #### [place] [phone] Glucose [Mass/Vol] 172 mg/dL High 74-99 [facility] Comment on above: Result Comment: The [place] [employer] (ADA) provides guidance for cutoff values for fasting glucose and random glucose. The ADA defines fasting as no caloric intake for at least 8 hours. Fasting plasma glucose results between 100 to 125 mg/dL indicate increased risk for diabetes (prediabetes). Fasting plasma glucose results greater than or equal to 126 mg/dL meet the criteria for diagnosis of diabetes. In the absence of unequivocal hyperglycemia, results should be confirmed by repeat testing. In a patient with classic symptoms of hyperglycemia or hyperglycemic crisis, random plasma glucose results greater than or equal to 200 mg/dL meet the criteria for diagnosis of diabetes. Reference: Standards of Medical Care in Diabetes 2016, [place] [employer] Association. Diabetes Care. 2016.39(Suppl 1). Performed By: #### C ARTHUR BMP, MG1 #### [facility] [address] [place] [address] #### PROCAL #### [place] [phone] Potassium [Moles/Vol] 4.1 mmol/L Normal 3.7-5.1 [facility] Comment on above: Performed By: #### An GIBSON BMP, MG1 #### [facility] [address] [place] [address] #### PROCAL #### [facility] [place] [address] Sodium [Moles/Vol] 137 mmol/L Normal 136-144 [facility] Comment on above: Performed By: #### An BC, BMP, MG1 #### [facility] [address] [place] [address] #### PROCAL #### [place] [phone] Urea nitrogen [Mass/Vol] 19 mg/dL Normal 7-21 [facility] Comment on above: Performed By: #### C BC, BMP, MG1 #### [facility] [address] [place] [address] #### PROCAL #### [facility] [address] [place], [place] [phone] Blood Cultureon 12-09-2019 Bacteria identified Cx Nom (Bld) Sp. Request/Comment: - 13.5CC Additional Testing - Escherichia coli detected by microarray. Confirmation and susceptibility testing to follow. Negative for Acinetobacter spp. and Pseudomonas aeruginosa by microarray. --> ABNORMAL ALERT Culture Result - Escherichia coli (NOTE) Positive result called to and read back by: Fabian Baires RN [address] 12/10/19 0919 Lianna López ORGANISM: Escherichia coli METHOD: Minimum inhibitory concentration([employer]) Antibiotic Interp CLARA Status Ampicillin RESISTANT >=32 F Gentamicin SUSCEPTIBLE <=1 F Trimeth sulfameth SUSCEPTIBLE <=20 F Cefazolin RESISTANT F Ciprofloxacin SUSCEPTIBLE 1 F Cefepime SUSCEPTIBLE <=1 F Piperacillin/Tazobac SUSCEPTIBLE 8 F Ampicillin Sulbact RESISTANT >=32 F Ceftriaxone SUSCEPTIBLE <=1 F Meropenem SUSCEPTIBLE <=0.25 F Ertapenem SUSCEPTIBLE <=0.5 F Critically abnormal [facility] Comment on above: Performed By: #### S LACT #### [facility] [address] [place] [address] Bacteria identified Cx Nom (Bld) Sp. Request/Comment: - 17.0CC Culture Result - No growth 5 days Normal [facility] Comment on above: Performed By: #### C BC, BMP, MG1 #### [facility] [address] [place] [address] #### PROCAL #### [facility] [address] [place] [address] CBCon 12-09-2019 Absolute nRBC <0.01 Normal <0.01 [facility] Comment on above: Performed By: #### C BC, BMP, MG1 #### [facility] [address] [place] [address] #### PROCAL #### [facility] [address] [place] [phone] Erythrocyte distribution width (RBC) [Ratio] 13.5 % Normal 11.5-15.0 [facility] Comment on above: Performed By: #### ATUL GUZMAN, MG1 #### [facility] [address] [place] [address] #### PROCAL #### [place] [address] [place] [phone] Hematocrit (Bld) [Volume fraction] 40.4 % Normal 36.0-46.0 [facility] Comment on above: Performed By: #### C ATUL GIBSON, MG1 #### [facility] [address] [place] [address] #### PROCAL #### [place] [phone] Hemoglobin (Bld) [Mass/Vol] 12.5 g/dL Normal 11.5-15.5 [facility] Comment on above: Performed By: #### C ARTHUR BMP, MG1 #### [facility] [address] [place] [address] #### PROCAL #### [place] [phone] MCH (RBC) [Entitic mass] 28.5 pG Normal 26.0-34.0 [facility] Comment on above: Performed By: #### ATUL GUZMAN, MG1 #### [facility] [address] [place] [address] #### PROCAL #### [place] [phone] MCHC (RBC) [Mass/Vol] 30.9 g/dL Normal 30.5-36.0 [facility] Comment on above: Performed By: #### An GIBSON, BMP, MG1 #### [facility] [address] [place] [address] #### PROCAL #### [place] [phone] MCV (RBC) [Entitic vol] 92.0 fL Normal 80.0-100.0 [facility] Comment on above: Performed By: #### C BC BMP, MG1 #### [facility] [address] [place] [address] #### PROCAL #### [facility] [address] [place] [address] Platelet mean volume (Bld) [Entitic vol] Unable to report Normal 9.0-12.7 [facility] Comment on above: Performed By: #### C BC, BMP, MG1 #### [facility] [address] [place] [address] #### PROCAL #### [place] [phone] Platelets (Bld) [#/Vol] 167 10*3/uL Normal 150-400 [facility] Comment on above: Result Comment: No c lot detected. Performed By: #### C BC, BMP, MG1 #### [facility] [address] [place] [address] #### PROCAL #### [place] [phone] RBC (Bld) [#/Vol] 4.39 10*6/uL Normal 3.90-5.20 [facility] Comment on above: Performed By: #### C BC, BMP, MG1 #### [facility] [address] [place] [address] #### PROCAL #### [place] [address] [place] [phone] WBC (Bld) [#/Vol] 9.58 10*3/uL Normal 3.70-11.00 [facility] Comment on above: Performed By: #### C BC, BMP, MG1 #### [facility] [address] [place] [address] #### PROCAL #### [facility] [employer] [address] [place] [phone] CONSULTon 12-09-2019 CONSULT HNO ID: [id number] Author: Skip English MD Service: Infectious Disease Author Type: Physician Type: Consults Filed: 12/09/2019 1:46 PM Note Text: INFECTIOUS DISEASE INITIAL CONSULT SERVICE DATE: 12/09/2019 SERVICE TIME: 1:38 PM REASON FOR CONSULT: E coli septicemia Subjective Patient is seen at the request of Dr Walker. My final recommendations will be communicated back to the requesting physician by way of copy of this note or shared electronic medical record. HPI: Patel Medina who is a 54 year old female with hx of HTN, PTSD depression, sleep apnea on cpap, presenting with several days of progressive flulike symptoms including fevers chills nausea vomiting diarrhea body aches fatigue without sputum, urinary symptoms or abdominal pain. Covid test 2 weeks ago was negative at outside ED when she presented with similar symptoms that abated before current symptoms. No known exposure. Symptoms constant without exacerbating factors. Urine and BCx w GNR PAST MEDICAL HISTORY Diagnosis Date - Arthritis of left knee 04/22/2016 Worker's comp issue - Arthritis of left knee 04/22/2016 Worker's comp issue - Carpal tunnel syndrome, bilateral 04/22/2016 - Carpal tunnel syndrome, bilateral 04/22/2016 - Cervical vertebral fusion 09/21/2017 - Chronic pain 04/22/[address] 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 Saucedo's office (worker's comp). PAST SURGICAL HISTORY Procedure Laterality Date - CHOLECYSTECTOMY 1990 - ORTHOPEDICS SURGERY HX - PAST SURGICAL HISTORY OF 09/26/2003 right total knee replacement. - PAST SURGICAL HISTORY OF 2006 c6 herniated disk, c7 shattered bone graft - PAST SURGICAL HISTORY OF 1991 Milk duct removal on the left. - TUBAL LIGATION HX Social History Tobacco Use - Smoking status: Former Smoker - Smokeless tobacco: Never Used Substance Use Topics - Alcohol use: Yes Comment: rare (3-4 times a year) - Drug use: No FAMILY HISTORY Problem Relation Age of Onset - Heart Mother chf - Heart Father chf d 65 in 2001 - Cancer Maternal Grandmother lung - other (leukemia [Other]) Paternal Grandfather - Diabetes Mother - Diabetes Father - Hypertension Mother - Hypertension Father Immunization History Administered Date(s) Administered Influenza Seasonal Inj Quadrivalent Age 3+ 04/22/2016 Current Facility-Administered Medications Medication Dose Route Frequency - NaCl 0.9% 3-5 mL 3-5 mL INTRAVENOUS q 12 H - melatonin 3 mg tab(s) 3 mg ORAL HS PRN - traZODone 50 mg tab(s) (DESYREL) 50 mg ORAL HS PRN - ondansetron (PF) 4 mg injection (ZOFRAN) 4 mg INTRAVENOUS q 6 H PRN - prochlorperazine 10 mg injection (COMPAZINE) 10 mg INTRAVENOUS q 6 H PRN - acetaminophen 1,000 mg tab(s) (TYLENOL) 1,000 mg ORAL q 6 H PRN - calcium carbonate 1,000 mg chewable tab(s) (TUMS) 1,000 mg ORAL TID PRN - polyethylene glycol 3350 17 g packet (MIRALAX, GLYCOLAX) 17 g ORAL DAILY PRN - benzocaine-menthol 1 Lozenge (CEPACOL) 1 Lozenge MUCOUS MEMBRANE (TOPICAL MOUTH AND THROAT) q 2 H PRN - benzonatate 100 mg cap(s) (TESSALON PERLE) 100 mg ORAL TID PRN - senna-docusate 8.6-50 mg 1 tablet (SENNA-S) 1 tablet ORAL BID PRN - metoprolol tartrate (short acting) 25 mg tab(s) (LOPRESSOR) 25 mg ORAL q 6 H PRN - hydrALAZINE 50 mg tab(s) (APRESOLINE) 50 mg ORAL TID PRN - dextrose 40 % 15 g 15 g ORAL PRN Or - glucagon 1 mg injection (GLUCAGEN) 1 mg INTRAMUSCULAR PRN Or - dextrose 50% in water 25 mL syringe 12.5 g INTRAVENOUS PRN - insulin lispro injection (rapid acting) (HumaLOG) SUBCUTANEOUS w MEALS - insulin lispro injection (rapid acting) (HumaLOG) SUBCUTANEOUS AT BEDTIME - atorvastatin 10 mg tab(s) (LIPITOR) 10 mg ORAL DAILY - lisinopril 20 mg tab(s) (ZESTRIL, PRINIVIL) 20 mg ORAL DAILY - atenolol 25 mg tab(s) (TENORMIN) 25 mg ORAL DAILY ALLERGIES Allergen Reactions - Advil [Ibuprofen] Swelling Eyes, and LAUREN leg/feet - Bextra [Valdecoxib] Swelling Swelling in hands and arms - Hctz [Thiazides] Other: See Comments Bruising and couldn't get out of bed. - Nsaids (Non-Steroid* Swelling - Penicillins Anaphylaxis - Prednisone Anaphylaxis - Salicylates Swelling - Sulfa (Sulfonamide * Unknown - Tetracycline Swelling REVIEW OF SYSTEMS: ROS checked in details x 10 systems and is negative except as noted in the HPI. All qs answered. Objective PHYSICAL EXAM: Temp (24hrs), Av ?C (98.6 ?F), Min:36.6 ?C (97.9 ?F), Max:37.5 ?C (99.5 ?F) BP 121/67 Pulse 64 Temp 36.6 ?C (97.9 ?F) (Oral) Resp 18 Ht 165.1 cm (5' 5 ) Wt 107.6 kg (237 lb 3.4 oz) SpO2 98% BMI 39.47 kg/m? GENERAL APPEARANCE: Alert, NAD SKIN: No rashes NECK: Supple BACK: no CVAT. LUNGS: Clear HEART: Regular rate/rhythm, normal heart sounds, and no murmurs. ABDOMEN: Soft, non tender, no palpable masses, normal bowel sounds. EXTREMITIES: No edema or tenderness: NEURO: Awake, alert and oriented x3, cranial nerves II-XII grossly intact, reflexes symetrical, normal gait, no involuntary motions. DATA: Diagnostic tests reviewed for today's visit: Labs: Recent Labs 12/09/19 0638 12/08/19 0822 WBC 9.58 9.15 HB 12.5 12.8 HCT 40.4 39.6 PLT 167 187 INR -- 1.1 APTT -- 26.4 NA 137 135* K 4.1 4.0 CHLOR 100 97 CO2 22 20* BUN 19 18 CREAT 1.00* 1.10* UA: No results found for: PH, SPGR, UGLUC, UBILI, UKET, UHB, UPROT, UROBIL, UWBC, SSA WSR: No results found for: WSR Impression/Recommendat ions Complicated UTI? E coli Septicemia, vs GI source CKD (chronic kidney disease) stage 3, GFR 30-59 ml/min Severe sepsis Obstructive sleep apnea on CPAP Obesity, Class II, BMI 35-39.9 Hyponatremia Lactic acidosis PCN allergy- anaphylaxis PLAN: Repeat BCx x [address] A/P May need colonoscopy Continue Cipro Await pending MICs for the E coli Follow UCx Thank you very much for having us involved in the care of this patient. We will follow with you. SIGNATURE: Skip English MD PATIENT NAME: Patel Medina DATE: December 09, 2019 TIME: 1:38 PM PAGER/CONTACT #: [phone] [facility] CT ABD/PEL WO IVCONon 2019 CT ABD/PEL WO IVCON * * *Final Report* * * DATE OF EXAM: Dec 09 2019 1:19PM [facility] 0531 - CT ABD/PEL WO IVCON / PROCEDURE REASON: Infection, abdomen-pelvis * * * * Physician Interpretation * * * * EXAMINATION: CT ABDOMEN AND PELVIS WITHOUT IV CONTRAST CLINICAL HISTORY: E. Coli bacteremia with normal CXR and urine without signs of UTI. Source identi fication BACTEREMIA TECHNIQUE: Non-IV contrast imaging of the abdomen and pelvis was performed using standard technique, scanning from just above the dome of the diaphragm to the symphysis pubis. Unenhanced imaging is limited for the evaluation of some intra-abdominal and pelvic pathology. MQ: [id number]_3 Contrast: IV: None : ml of CT Radiation dose: Integrated Dose-length product (DLP) for this visit = 757 mGy*cm. CT Dose Reduction Employed: Automated exposure control (AEC) COMPARISON: 01/04/2016 RESULT: Abdomen / Pelvis: Liver: Marked hepatic steatosis Biliary: S/p cholecystectomy. Spleen: No splenomegaly. Pancreas: Unremarkable. Adrenals: No mass. Kidneys: No calculus, hydronephrosis or finding to suggest a cyst or mass in the unenhanced kidney. GI Tract: No bowel dilation. Normal appendix. Lymph Nodes: No lymphadenopathy. Mesentery/peritoneum: No ascites. Retroperitoneum: No mass. Vasculature: Arterial atherosclerotic disease without aneurysm. Pelvis: No mass or ascites. Bones/Soft Tissues: No acute abnormality. Lower thorax: Unremarkable. Solar Mechanical Engineer (topogram) images: Unremarkable. IMPRESSION: Marked hepatic steatosis. Otherwise unremarkable CT of the abdomen/pelvis without intra-abdominal source of infection identified. Ux Developer Designer: SUSAN Transcribe Date/Time: Dec 09 2019 1:47P Dictated by : RAMBO HERNÁNDEZ MD This examination was interpreted and the report reviewed and electronically signed by: RAMBO HERNÁNDEZ MD on Dec 09 2019 2:04PM EST [id number] [facility] Magnesiumon 12-09-2019 Magnesium [Mass/Vol] 2.0 mg/dL Normal 1.7-2.3 [facility] Comment on above: Performed By: #### C BC, BMP, MG1 #### [facility] [address] [facility] [phone] #### PROCAL #### [place] [address] NURSING PROGon 12-09-2019 NURSING PROG HNO ID: [id number] Author: Salome ZarateRn) SAIDA Gee Service: ? Author Type: Registered Nurse Type: Nursing Progress Note Filed: 12/09/2019 5:24 AM Note Text: Nursing Progress Note Patient Name: Patel Medina Patient [place] [facility] [id number] [id number]- 1 __ 0523 Rcvd blood culture results; sent page to hospitalist. This note was completed by: Salome Gee RN [facility] PLAN OF CAREon 12-09-2019 PLAN OF CARE HNO ID: [id number] Author: Noemy Hebert Service: Hospital Medicine Author Type: Nurse Practitioner Type: Plan of Care Filed: 12/09/2019 5:39 AM Note Text: 12/09/2019 0520 Page in regards to positive blood cultures received. 2 bottles prelim resulted gram negative bacilli. No clear source (CXR and UA negative). Afebrile overnight and VSS. PLAN: Start Empiric antibiotics (Levaquin due to PCN allergy) Check lactate Repeat blood cx Follow AM labs Noemy Hebert APRN.PACK PRESS OPERATOR 12/09/2019 5:37 AM Normal [facility] PROGRESSon 12-09-2019 PROGRESS HNO ID: [id number] Author: Gibson Walker Service: Hospital Medicine Author Type: Physician Type: Progress Notes Filed: 12/09/2019 9:16 AM Note Text: DEPARTMENT OF HOSPITAL MEDICINE PROGRESS NOTE Date: 12/09/19 CC: F/u sepsis HPI: still has same constitutional symptoms. No urinary symptoms RUQ pain. No coughing or sputum. No diarrhea or bloody bm's Exam: BP 132/65 Pulse 81 Temp 37.5 ?C (99.5 ?F) (Oral) Resp 16 Ht 165.1 cm (5' 5 ) Wt 107.6 kg (237 lb 3.4 oz) SpO2 96% BMI 39.47 kg/m? Physical Exam Constitutional: General: She is not in acute distress. Appearance: She is not diaphoretic. HENT: Head: Normocephalic. Cardiovascular: Rate and Rhythm: Normal rate. Pulmonary: Effort: Pulmonary effort is normal. Abdominal: General: There is no distension. Palpations: Abdomen is soft. Skin: General: Skin is warm. Neurological: Mental Status: She is alert. DATA: Diagnostic tests reviewed for today's visit: Most recent labs and imaging Assessment: 54 yo woman with hx of HTN, PTSD depression, sleep apnea on cpap, presenting with several days of progressive flulike symptoms and found to have bacteremic sepsis from E.coli (negative covid). CXR clear, urinalysis benign. Will do CT abd pelvis as next step in source identification while following cultures for clearance. Given abx allergies, will use quinolones ID consult. Check cultures tomorrow after given abx today. If CT abd pelvis unrevealing, consider echocardiogram if bacteremia persistent. Plan: Active Hospital Problems Diagnosis Date Noted - Bacteremia due to Escherichia coli 12/09/2019 Assessment AND Plan Note: Quinolone. Check cultures tomorrow. Likely 2 weeks of oral quinolone unless deeper infection found requiring longer abx course - Severe sepsis (HCC) 12/08/2019 Assessment AND Plan Note: Lactic acid >4 on admission. E. Coli bacteremia. improving - Obstructive sleep apnea on CPAP 12/08/2019 Assessment AND Plan Note: Patient reported blue lips upon awakening the am of admission - doing well on CPAP here without difficulty. Likely was sepsis related hypoperfusion. Patient instructed to have her CPAP machine officially checked by the supply company upon discharge - CKD (chronic kidney disease) stage 3, GFR 30-59 ml/min ([facility]) 07/15/2016 Assessment AND Plan Note: stable VTE Prophylaxis: SCD Plan of Care visit Complete: yes SIGNATURE: Gibson Walker MD Normal [facility] Procalcitoninon 12-09-2019 Procalcitonin 7.58 ng/mL High <0.09 [facility] Comment on above: Result Comment: For a guided interpretation of test results, please visit the Change in Procalcitonin Calculator, [email or web address]. Performed By: #### C BC, BMP, MG1 #### [facility] [address] [phone] #### PROCAL #### [facility] [address] [place] [address] Sepsis Lactateon 12-09-2019 Sepsis Lactate 1.7 mmol/L Normal 0.5-2.0 [facility] Comment on above: Performed By: #### S LACT #### [facility] [address] [phone] HISTORY PHYSICALon 0 HISTORY PHYSICAL HNO ID: [id number] Author: Gibson Walker Service: Hospital Medicine Author Type: Physician Type: HANDP Filed: 12/08/2019 3:56 PM Note Text: HISTORY AND PHYSICAL EXAMINATION SERVICE DATE: 12/08/2019 SERVICE TIME: 3:47 PM PRIMARY CARE PHYSICIAN: Amy Lunsford NP CC: fever chills HPI: 54 yo woman with hx of HTN, PTSD depression, sleep apnea on cpap, presenting with several days of progressive flulike symptoms including fevers chills nausea vomiting diarrhea body aches fatigue without sputum urinary symptoms or abdominal pain. Covid test 2 weeks ago was negative at outside ED when she presented with similar symptoms that abated before current symptoms. No known exposure. Symptoms constant without exacerbating factors. Of note, this am, patient awoke with rigors and reports that patient appeared to have blue lips. Has hx of severe sleep apnea. Patient's O2 was normal in ED but the blue lips occurred upon waking up today. PAST MEDICAL HISTORY Diagnosis Date - Arthritis of left knee 04/22/2016 [employer] comp issue - Arthritis of left knee 04/22/2016 [employer] comp issue - Carpal tunnel syndrome, bilateral 04/22/2016 - Carpal tunnel syndrome, bilateral 04/22/2016 - Cervical vertebral fusion 09/21/2017 - Chronic pain 04/22/[address] Kimbrough ([employer] bilateral knee issues) - Essential hypertension 04/22/2016 - Hypertension - Obstructive sleep apnea syndrome 04/22/2016 - Psychiatric disorder - PTSD (post-traumatic stress disorder) 04/22/2016 - Severe episode of recurrent major depressive disorder, without psychotic features (HCC) 04/22/[address] Saucedo's office ([email or web address]). PAST SURGICAL HISTORY Procedure Laterality Date - CHOLECYSTECTOMY 1990 - ORTHOPEDICS SURGERY HX - PAST SURGICAL HISTORY OF 09/26/2003 right total knee replacement. - PAST SURGICAL HISTORY OF 2006 c6 herniated disk, c7 shattered bone graft - PAST SURGICAL HISTORY OF 1991 Milk duct removal on the left. - TUBAL LIGATION HX FAMILY HISTORY Problem Relation Age of Onset - Heart Mother chf - Heart Father chf d 65 in 2001 - Cancer Maternal Grandmother lung - other (leukemia [Other]) Paternal Grandfather - Diabetes Mother - Diabetes Father - Hypertension Mother - Hypertension Father Social History Tobacco Use - Smoking status: Former Smoker - Smokeless tobacco: Never Used Substance Use Topics - Alcohol use: Yes Comment: rare (3-4 times a year) - Drug use: No atenolol (TENORMIN) 25 mg tablet, Take 25 mg by mouth once daily., Disp: , Rfl: , 12/07/2019 at 2100 metFORMIN (GLUCOPHAGE) 500 mg tablet, Take 500 mg by mouth once daily., Disp: , Rfl: , 12/08/2019 at Unknown time cholecalciferol (VITAMIN D) 1,000 unit tab tablet, Take 1,000 Units by mouth once daily., Disp: , Rfl: , 12/07/2019 at Unknown time vitamin B complex (B COMPLEX 1 ORAL), Take by mouth., Disp: , Rfl: , 12/07/2019 at Unknown time Pivpv-1-QXS-EPA-Fish Oil (FISH OIL) 1,000 mg (120 mg-180 mg) cap, Take 2 g by mouth twice daily., Disp: , Rfl: , 12/07/2019 at Unknown time MULTI-VITAMIN ORAL, Take by mouth., Disp: , Rfl: ascorbic acid, vitamin C, (VITAMIN C) 500 mg tablet, Take 500 mg by mouth once daily., Disp: , Rfl: , 12/07/2019 at Unknown time calcium/mag/vitamin D2/Zn/min (GLENN-MAG ZINC II ORAL), Take by mouth., Disp: , Rfl: , 12/07/2019 at Unknown time atorvastatin (LIPITOR) 10 mg tablet, Take 10 mg by mouth once daily., Disp: , Rfl: , 12/07/2019 at Unknown time MAGNESIUM OXIDE/MAGNESIUM (MAGNESIUM, OXIDE/AA CHELATE, ORAL), Take by mouth., Disp: , Rfl: , 12/07/2019 at Unknown time lisinopril (ZESTRIL, PRINIVIL) 20 mg tablet, Take 1 tablet by mouth once daily., Disp: 30 tablet, Rfl: 5, 12/07/2019 at 2100 Potassium 99 mg tab, Take 1 capsule by mouth once daily. , Disp: , Rfl: , 12/07/2019 at Unknown time Aspirin-Acetaminophen- Caffeine (EXCEDRIN MIGRAINE) 250-250-65 mg per tablet, Take 3 tablets by mouth every 8 hours as needed. , Disp: , Rfl: ALLERGIES Allergen Reactions - Advil [Ibuprofen] Swelling Eyes, and LAUREN leg/feet - Bextra [Valdecoxib] Swelling Swelling in hands and arms - Hctz [Thiazides] Other: See Comments Bruising and couldn't get out of bed. - Nsaids (Non-Steroid* Swelling - Penicillins Anaphylaxis - Prednisone Anaphylaxis - Salicylates Swelling - Sulfa (Sulfonamide * Unknown - Tetracycline Swelling COMPLETE REVIEW OF SYSTEMS: Review of Systems Constitutional: Positive for chills, fever, malaise/fatigue and weight loss. HENT: Negative for sore throat. Eyes: Negative for pain. Respiratory: Negative for shortness of breath. Cardiovascular: Negative for chest pain. Gastrointestinal: Positive for diarrhea, nausea and vomiting. Negative for abdominal pain. Genitourinary: Negative for dysuria. Musculoskeletal: Negative for myalgias. Skin: Negative for rash. Neurological: Negative for sensory change. Psychiatric/Behavioral : Negative for substance abuse. PHYSICAL EXAM: BP 124/67 Pulse 70 Temp 36.9 ?C (98.4 ?F) (Oral) Resp 18 Ht 165.1 cm (5' 5 ) Wt 107.6 kg (237 lb 3.4 oz) SpO2 96% BMI 39.47 kg/m? Body mass index is 39.47 kg/m?. Physical Exam Constitutional: Appearance: Normal appearance. HENT: Head: Normocephalic and atraumatic. Nose: Congestion present. No rhinorrhea. Mouth/Throat: Mouth: Mucous membranes are moist. Pharynx: No oropharyngeal exudate. Eyes: General: No scleral icterus. Extraocular Movements: Extraocular movements intact. Cardiovascular: Rate and Rhythm: Normal rate and regular rhythm. Pulmonary: Effort: Pulmonary effort is normal. Breath sounds: Normal breath sounds. Abdominal: General: There is no distension. Palpations: Abdomen is soft. Tenderness: There is no abdominal tenderness. Musculoskeletal: General: No swelling or tenderness. Skin: General: Skin is warm. Coloration: Skin is not jaundiced. Neurological: General: No focal deficit present. Mental Status: She is alert and oriented to person, place, and time. Psychiatric: Mood and Affect: Mood normal. Behavior: Behavior normal. DATA: Diagnostic tests reviewed for today's visit: Labs and imaging reports reviewed Prior records reviewed and summarized - saw [facility] PCP 07/2016. Patient treated for sinusitis and also was noted to have depression and following with psychiatry Assessment: 54 yo woman with hx of HTN, PTSD depression, sleep apnea on cpap, presenting with several days of progressive flulike symptoms and found to have lactic acidosis but with other vitals WNL and no hypoxia. Will test for covid and give IVF. Patient reports poor appetite and also takes metformin which can explain lactic acidosis. Regardless if COVID19 positive, if feels ready for discharge tomorrow, patient can have remote follow up on blood culture results if nothing grows in 24 hrs. Of note, regarding the am hypoxia this morning - will monitor for similar event on our CPAP machine on continuous pulse ox. If no hypoxic events, patient should call CPAP company to have the machine evaluated. Plan: Active Hospital Problems Diagnosis Date Noted - Flu-like symptoms 12/08/2019 Assessment AND Plan Note: covid test - Hyponatremia 12/08/2019 Assessment AND Plan Note: IV saline - Lactic acidosis 12/08/2019 Assessment AND Plan Note: CXR and urinalysis without sign of infection. If blood cultures clear for 48 hrs, then this was likely from metformin usage while sick. Already given fluids with improvement - Obstructive sleep apnea on CPAP 12/08/2019 Assessment AND Plan Note: Blue lips upon awakening this am may have been RIK related If no hypoxic events, patient should call CPAP company to have the machine evaluated. Doesn't use o2 with cpap machine, per her report - CKD (chronic kidney disease) stage 3, GFR 30-59 ml/min ([facility]) 07/15/2016 Assessment AND Plan Note: stable DVT prophylaxis: scd VTE calculator used: yes Code status: full Added to signout: yes Plan of Care visit Complete: yes SIGNATURE: Gibson Walker MD PATIENT NAME: Patel Medina DATE: December 08, 2019 TIME: 3:47 PM PAGER/CONTACT #: [phone] [facility] SARS CoV 2 RNA(COVID 19), [facility] 11-23-2019 SARS CoV 2 RNA NOT DETECTED Normal NOT DETECTED [facility] Comment on above: Result Comment: A Not Detected (negative) test result for this test means that SARS- CoV-2 RNA was not present in the specimen above the limit of detection. A negative result does not rule out the possibility of COVID-19 and should not be used as the sole basis for treatment or patient management decisions. If COVID-19 is still suspected, based on exposure history together with other clinical findings, re-testing should be considered in consultation with public health authorities. Laboratory test results should always be considered in the context of clinical observations and epidemiological data in making a final diagnosis and patient management decisions. Please review the Fact Sheets and FDA authorized labeling available for health care providers and patients using the following websites: https://www.[employer].com/home/Covid-19/HCP/NAAT/fact-sheet 2 https://www.[employer]/home/Covid-19/Patients/NAAT/ fact-sheet2 This test has been authorized by the FDA under an Emergency Use Authorization (EUA) for use by authorized laboratories. Due to the current public health emergency, [facility] is receiving a high volume of samples from a wide variety of swabs and media for COVID-19 testing. In order to serve patients during this public health crisis, samples from appropriate clinical sources are being tested. Negative test results derived from specimens received in non-commercially manufactured viral collection and transport media, or in media and sample collection kits not yet authorized by FDA for COVID-19 testing should be cautiously evaluated and the patient potentially subjected to extra precautions such as additional clinical monitoring, including collection of an additional specimen. Methodology: Nucleic Acid Amplification Test (NAAT) includes PCR or TMA Additional information about COVID-19 can be found at the [facility] website: www.[employer]/Covid19. Performed By: #### 4 [id number], [id number], 16284 #### [facility]-[address], [address] [place] [phone] Treasury Accountant: Rodo Fung MD MAMM DIG DIAG UNIon 08-09-19 20 MAMM DIG DIAG UNI DIAGNOSTIC ADDITIONA L VIEWS LEFT BREAST. Clinical data: The patient's screening mammogram dated 07/18/2019 demonstrated left breast calcifications. MAMMOGRAPHIC FINDINGS: In the upper-outer quadrant at far posterior depth, there are punctate loosely grouped calcifications. There is no evidence of pleomorphism, linear forms, or branching. They are probably benign. This study was interpreted with the aid of CAD. IMPRESSION: Probably benign left breast calcifications. As a precaution, 6 month followup left diagnostic mammogram with spot magnification CC and 90 views are recommended. Category 3: Probably benign Electronically signed by: Jermaine Washington MD 08/08/2019 12:19 PM [employer] Technologist: CD Dictated By: JERMAINE WASHINGTON MD Signed By: JERMAINE WASHINGTON MD Signed Out: 08/09/19 08:37:57 Normal [facility] MAMM DIGITAL SCRN BILATERALo n 07-27-2019 MAMM DIGITAL SCRN BILATERAL ADDENDUM #1 The correct impression and recommendation should read as follows: IMPRESSION AND RECOMMENDATION: 1. LEFT breast calcifications. Additional spot magnification views of the left breast are recommended. 2. No mammographic evidence of malignancy in the right breast. Category 0 : Need Additional Imaging Evaluation and/or Prior Mammograms For Comparison Electronically signed by: Jermaine Washington MD 07/27/2019 10:53 AM [employer] P[employer]ER ORIGINAL REPORT SCREENING BILATERAL DIGITAL MAMMOGRAM Clinical Data: Screening. Comparison: None available Mammographic findings: The breast tissue is almost entirely fat. In the left breast, there are suspected faint calcifications in the upper-outer quadrant at posterior depth. No suspicious masses or suspicious calcifications are identified in the right breast. This examination was reviewed with the aid of CAD (computer assisted detection). IMPRESSION AND RECOMMENDATION: 1. Right breast calcifications. Additional spot magnification views are recommended. 2. No mammographic evidence of malignancy in the left breast. Category 0 : Need Additional Imaging Evaluation and/or Prior Mammograms For Comparison Electronically signed by: Jermaine Washington MD 07/20/2019 9:11 AM PROOF P[employer]ER Technologist: LW Dictated By: JERMAINE WASHINGTON MD Signed By: JERMAINE WASHINGTON MD Signed Out: 07/27/19 11:53:22 SCREENING BILATERAL DIGITAL MAMMOGRAM Clinical Data: Screening. Comparison: None available Mammographic findings: The breast tissue is almost entirely fat. In the left breast, there are suspected faint calcifications in the upper-outer quadrant at posterior depth. No suspicious masses or suspicious calcifications are identified in the right breast. This examination was reviewed with the aid of CAD (computer assisted detection). IMPRESSION AND RECOMMENDATION: 1. Right breast calcifications. Additional spot magnification views are recommended. 2. No mammographic evidence of malignancy in the left breast. Category 0 : Need Additional Imaging Evaluation and/or Prior Mammograms For Comparison Electronically signed by: Jermaine Washington MD 07/20/2019 9:11 AM PROOF PASSER Technologist: LW Dictated By: JERMAINE WASHINGTON MD Signed By: JERMAINE WASHINGTON MD Signed Out: 07/21/19 11:00:08 Normal [facility] Vital Signs Date Time Vital Sign Value Performing Clinician Facility 02-17-2023 11:29-0400 Body height 165.1 cm [facility] 02-17-2023 11:29-0400 Body mass index (BMI) [Ratio] 36.53 kg/m2 [facility] 02-17-2023 11:29-0400 Body surface area Derived from formula 2.14 m2 Richard Pauer - 3P [facility] 02-17-2023 11:29-0400 Body weight 99.57 kg [facility] 02-17-2023 11:29-0400 Diastolic blood pressure 80 mm[Hg] [facility] 02-17-2023 11:29-0400 Heart rate 72 /min [facility] 02-17-2023 11:29-0400 Systolic blood pressure 128 mm[Hg] [facility] 12-18-2021 11:55-0400 Body height 165.1 cm Jennie Garcia Other [facility] Other 12-18-2021 11:55-0400 Body mass index (BMI) [Ratio] 38.27 kg/m2 Jennie Garcia Other [facility] Other 12-18-2021 11:55-0400 Body temperature 96.8 [degF] Jennie Garcia Other [facility] Other 12-18-2021 11:55-0400 Body weight 104.33 kg Jennie Garcia Other [facility] Other 12-18-2021 11:55-0400 Diastolic blood pressure 77 mm[Hg] Jennie Garcia Other [facility] Other 12-18-2021 11:55-0400 Respiratory rate 16 /min Jennie Garcia Other [facility] Other 12-18-2021 11:55-0400 SaO2% (BldA) [Mass fraction] 99 % Jennie Garcia Other [facility] Other 12-18-2021 11:42-2919 Systolic blood pressure 121 mm[Hg] Jennie Garcia Other [facility] Other Encounters Encounter Date Encounter Type Care Provider Facility Start: 03-24-2023 End: 03-25-2023 ambulatory [id number] NO FAMILY PHYSICIAN Facility:[facility] Start: 02-17-2023 [facility] Caro Alves rne Other [facility] Start: 01-13-2023 End: 01-14-2023 ambulatory Salome Espinoza PA-C Facility:[facility] Start: 09-08-2022 End: 09-08-2022 ambulatory JANUSZ SHAMMO Facility:[facility] Start: 08-05-2022 End: 08-06-2022 ambulatory JANUSZ SHAMMO Facility:[facility] Start: 07-07-2022 Encounter for genera l adult medical examination without abnormal findings JANUSZ SHAMMO [facility] Start: 07-05-2022 End: 07-06-2022 ambulatory JANUSZ SHAMMO Facility:[facility] Start: 07-05-2022 End: 07-06-2022 Encounter for general adult medical examination without abnormal findings JANUSZ SHAMMO Facility:[facility] Start: 05-18-2022 End: 05-19-[address] DOCTOR COLE Facility:[facility] Start: 04-28-2022 End: 04-29-2022 ambulatory JANUSZ SHAMMO Facility:[facility] Start: 12-18-2021 End: 12-18-2021 ambulatory Jennie Garcia Other [facility] Other Start: 12-18-2021 Office outpatient ne w 20 minutes Jennie Garcia [facility] Procedures Date Procedure Procedure Detail Performing Clinician Start: 02-17-2023 Nerve conduction laure dies 7-8 studies Caro Patel Payers Date Payer Category Payer Medicare 2022 Unknown 1965 Unknown [id number] 2.16.84 [id number] 1965 Unknown [id number] 2.16.84 [id number] 1965 Unknown [id number] 2.16.84 [id number] 1965 Unknown [id number] 2.16.84 [id number] 1963 Unknown [id number] 2.16.84 [id number] 1965 Unknown [id number] 2.16. [id number] 1965 Unknown [id number] 2.16.8 [id number] 1961 [facility] [id number] Medicare [id number] 2.1 [id number] Social History Date Type Detail Facility Unknown if ever smoked [facility] Other Sex Assigned At Sex Assigned At Bir th [facility] Other Evaluation note 12-18-2021 Note Date & Type Note Facility 12-18-2021 Evaluation note Encounter Date Diagnosis Assessment Notes Dec, Pain of toe of left foot (ICD-10 - M79.675) Foot pain home care material was printed Dec, Contusion of lesser toe of left foot without damage to nail, initial encounter (ICD-10 - S90.122A) XR done, no acute bony abnormality, discussed final report c pt while in clinic. advised RICE therapy. otc tylenol prn for pain as patient is allergic to ibuprofen and steroids. ice/warm compresses as directed. immediate eval if warning symptoms of intractable pain or new or worsening motor/sensory deficit. otherwise follow up with PCP in 1 week if no improvement of symptoms despite treatment. [facility] Other Summary Purpose Family History No Family History Records FoundNo Family History Records FoundNo Family History Records FoundNo Family History Records FoundNo Family History Records FoundNo Family History Records FoundNo Family History Records Found Advance Directives No Advanced Directives Records FoundNo Advanced Directives Records FoundNo Advanced Directives Records FoundNo Advanced Directives Records FoundNo Advanced Directives Records FoundNo Advanced Directives Records FoundNo Advanced Directives Records Found Hospital Course Note HNO ID: [id number] Author: Randee Roberts Jr. Service: Hospital Medicine Author Type: Physician Type: Discharge Summary Filed: 12/13/2019 4:37 PM Note Text: DISCHARGE SUMMARY PATIENT NAME: Patel Medina ADMISSION DATE: 12/08/2019 DISCHARGE DATE: 12/13/2019 ATTENDING PHYSICIAN: Yogi Roberts Jr. Code Status: Full Code Highest Readmission Risk Score: 14 The 30 day readmissions risk score is derived from an internally validated risk model which evaluates patient level characteristics, utilization history, medication orders and lab results up until the day of discharge. Patients with a score of 40 or above are considered highest risk for readmission. Specific patient level drivers will be listed at the bottom of the summary. CONSULTING TEAMS DURING HOSPITALIZATION: Infectious Disease: Dr. English REASON FOR HOSPITALIZATION: Fevers, Sepsis, UTI DIAGNOSIS: Principal Problem: Sepsis due to Escherichia coli (E. coli) ([facility]) Active Problems: Complicated UTI (urinary tract infe (more content not included)... Additional Source Comments INFORMATION SOURCE (unrecogn ized section and content) DATE CREATED AUTHOR 01/03/2020 [facility] DATE CREATED AUTHOR AUTHOR'S ORGANIZ ATION 04/18/2020 [facility] DATE CREATED AUTHOR AUTHOR'S ORGANIZ ATION 07/03/2020 [facility] DATE CREATED AUTHOR AUTHOR'S ORGANIZ ATION 01/01/2022 [facility] DATE CREATED AUTHOR AUTHOR'S ORGANIZ ATION 09/13/2022 [facility] DATE CREATED AUTHOR AUTHOR'S ORGANIZ ATION 01/14/[address] [facility] DATE CREATED AUTHOR AUTHOR'S ORGANIZ ATION 03/29/2023 [facility] REASON FOR VISIT (unrecogniz ed section and content) LEFT 4TH TOE INJURY FOR RECORDS PERTAINING TO PATIENTS WHO ARE OR HAVE BEEN ENROLLED IN A CHEMICAL DEPENDENCY/SUBSTANCEABUSE PROGRAM, SOME INFORMATION MAY BE OMITTED. This clinical summary was aggregated from multiple sources. Caution should be exercised in using it in the provision of clinical care. This summary normalizes information from multiple sources, and as a consequence, information in this document may materially change the coding, format and clinical context of patient data. In addition, data may be omitted in some cases. CLINICAL DECISIONS SHOULD BE BASED ON THE PRIMARY CLINICAL RECORDS. [facility]. provides no warranty or guarantee of the accuracy or completeness of information in this document.
== END 2024-01-31 09:33 | disposition home or self-care (01) ==
LOC: MAMMO 09:32
PROVIDERS: Visit Provider Physician Assistant
DX: Z12.31 Encounter for screening mammogram for malignant neoplasm of breast (principal); Z80.1 Family history of malignant neoplasm of trachea, bronchus and lung; Z80.6 Family history of leukemia
CPT/HCPCS: 77063; 77067

== ENCOUNTER 2024-02-01 06:57 | Outpatient (OUT) | payer BC, MEDICARE, SELFPAY ==
--- OUTSIDE RECORDS SUMMARY | 2024-02-01 07:02 | XMS_ITS | CCD ---
Author Organization [facility] Care Team Providers Care [employer] Math Tutor Name Role Phone Jennie Garcia Unavailable SHAMMO, [...] Reaction(s) Facility (1 source) Glucosamine Drug Allergy [facility] Other (2 sources) Penicillin; Translations: [Penicillin] Drug Allergy [facility] Repository (2 sources) predniSONE; Translations: [predniSONE] Drug Allergy [facility] (1 source) Sulfonamides (Antibiotic) Drug allergy (disorder) [facility] (2 sources) Tetracycline; Translations: [tetracycline] Drug Allergy [facility] (1 source) valdecoxib Drug Allergy [facility] (2 sources) NSAIDs; Translations: [NSAIDs] Propensity to adverse reactions to drug (disorder) [facility] Repository (1 source) Penicillins Allergy to substance (disorder) [facility] (1 source) Tetracyclines Allergy to substance (disorder) [facility] (1 source) Trenbolone; Translations: [prednisone] Drug Allergy [facility] Medications Current Medications Medication Drug Class(es) Dates [...] SURGICAL PATH REPORTon 03-28 SURGICAL PATH REPORT [facility] Department of Pathology [address] [place] [address] [phone] Name: PATEL MEDINA : 1965 Financial [id number] Number: Gender [facility] : n: Admit 57 years Attending WENCESLAO EMANUEL Age: Provider: Ordering WENCESLAO EMANUEL Provider: Consulti Surgical Pathology Report ng: ACCESSION: COLLECTED DATE/TIME: RECEIVED DATE/TIME: PATHOLOGIST: [id number] 03/24/2023 08:06 EDT 03/24/2023 12:54 EDT ZULEMA SMITH, LINA MCCLELLAND Final Diagnosis Report for [facility] [place] [place] [facility], CURETTAGE: - MINUTE FRAGMENT OF INACTIVE ENDOMETRIUM. - NEGATIVE FOR MALIGNANCY OR HYPERPLASIA. COMMENT: The tissue is scanty. Multiple deeper sections have been examined. Clinical correlation is recommended. LINA POOLE PATHOLOGIST (Electronic Signature) Date Verified 03/28/2023 SB Clinical Data PRE-OP DIAGNOSIS: Not specified POST-OP DIAGNOSIS: Amenorrhea PROCEDURES: D and C, Hysteroscopy, My[facility]Sure SPECIMEN: Endometrial curettings VISIT #[id number] / Surgical outpatient Gross Description Labeled endometrial curettings. Received in formalin on a plastic collection apparatus are multiple irregular pink white feathery segments of soft tissue. The specimen is filtered and has a filtrate aggregate dimension of 1.4 x 0.5 x 0.3 cm. The specimen is entirely submitted in one cassette. MP/glenn 03/24/2023 ____ ____ Print 03/28/2023 10:00 EDT Number: Date/Time: [facility] Department of Pathology [address] [place] [id number] Name: PATEL MEDINA : 1965 [facility] [id number] Number: [facility] n: Admit 57 years Attending WENCESLAO EMANUEL Age: Provider: Ordering WENCESLAO EMANUEL Provider: Consulti Surgical Pathology Report ng: ACCESSION: COLLECTED DATE/TIME: RECEIVED DATE/TIME: PATHOLOGIST: [id number] 03/24/2023 08:06 EDT 03/24/2023 12:54 EDT ZULEMA SMITH, LINA MCCLELLAND Gross Description Tissue pathology report for: [facility], [address] [place] [address]; PATHOLOGY SERVICES PROVIDED BY [employer] (CLIA #[id number]) in cooperation with [facility] at [address] [place] [address] (CLIA #[id number]) Microscopic Diagnosis The final diagnosis is based on a microscopic exam of pharmacy sales representative sections. Codes CPT CODE: 64230 ____ ____ Print 03/28/2023 10:00 EDT Number: Date/Time: Normal [facility] Comment on above: Performed By: #### [id number] #### [facility] Laboratory Services [address] [place] [address] Business Professor: Todd Xiong MD No Panel Informationon 02-17 Tobacco smoking status Former Smoker Invalid Interpretation Code [facility] Podiatry Office/Clinic Noteo n 01-13-2023 Podiatry Office/Clinic [...] remember. Patient relates that they have tried [id number] pain relievers, padding, and modification of shoe [...] October. Was seeing Annmarie Espinoza At the [facility]. Was referred here for possible nerve entrapment. [...] around. Patient relates that they have tried Xayz-ahi-Rkeexwu pain relievers and shoe gear modification to no avail. Patient relates that this has begun to hinder their lifestyle and activity levels including those at work, and wishes to have something done about the problem. No trauma or incident remembered. Failed months of conservative modalities both provider directed and [id number]. Review of Systems Constitutional Head Nose Mouth [...] bilateral. Protective sensation intact as measured with [place] monofilament. Gross motor intact bilateral. Positive [...] Diabetic pe (more content not included)... Normal [facility] Provider Letteron 01-13-2023 Provider Letter Salome Espinoza PA-C [address] [facility], [place] [address] Re: Patel Medina Date of Visit: 01/13/2023 Dear Salome Espinoza PA-C, [facility] [address] [place] [address], [phone] Fax: [phone] Date: 01/13/2023 13:08:23 Dear Alexis MILLER, Salome [...] EDT - (01/13/2023) Office Visit Note Normal [facility] XR Foot 3 Views Bilateralon 01-13-2023 [...] Electronically Signed in Other Vendor System) Normal [facility] CULTURE THROATon 09-11-2022 CULTURE THROAT Isolate [...] Trimethoprim/Sulfameth oxazole <=20 S F Normal [facility] Comment on above: Performed By: #### T HRTCX #### [facility] [address] [place] [address] Dr. Augustine Blackwood RESPIRATORY PANEL PLUSon Adenovirus Not detected Normal NOT DETECTED [facility] Comment on above: Performed By: #### L IPID, CMP #### [facility] [address] [place] [address] Dr. Augustine Jeff. Parapertusis Not detected Normal NOT DETECTED [facility] Comment on above: Performed By: #### L IPID, CMP #### [facility] [address] [place] [address] Dr. Augustine Blackwood B. Pertussis Not detected Normal NOT DETECTED [facility] Comment on above: Performed By: #### L IPID, CMP #### [facility] [address] [place] [address] Dr. Augustine Blackwood Chlamydia Pneumoniae Not detected Normal NOT DETECTED [facility] Comment on above: Performed By: #### L IPID, CMP #### [facility] [address] [place] [address] Dr. Augustine Blackwood Coronavirus 229E Not detected Normal NOT DETECTED [facility] Comment on above: Performed By: #### L IPID, CMP #### [facility] [address] [place] [address] Dr. Augustine Blackwood Coronavirus HKU1 Not detected Normal NOT DETECTED [facility] Comment on above: Performed By: #### L IPID, CMP #### [facility] [address] [address] [address] Augustine Blackwood Coronavirus NL63 Not detected Normal NOT DETECTED [facility] Comment on above: Performed By: #### L IPID, CMP #### [facility] [address] [place] [address] Dr. Augustine Blackwood Coronavirus OC43 Not detected Normal NOT DETECTED [facility] Comment on above: Performed By: #### L IPID, CMP #### [facility] [address] [place] [address] Dr. Augustine Blackwood Influenza A H1 Not detected Normal NOT DETECTED [facility] Comment on above: Performed By: #### L IPID, CMP #### [facility] [address] [place] [address] Dr. Augustine Blackwood Influenza A H1 2009 Not detected Normal NOT DETECTED [facility] Comment on above: Performed By: #### L IPID, CMP #### [facility] [address] [place] [address] Dr. Augustine Blackwood Influenza A H3 Not detected Normal NOT DETECTED [facility] Comment on above: Performed By: #### L IPID, CMP #### [facility] [address] [place] [address] Dr. Augustine Blackwood Influenza B Not detected Normal NOT DETECTED The [facility] Comment on above: Performed By: #### L IPID, CMP #### [facility] [address] [place] [address] Dr. Augustine Blackwood Metapneumovirus Not detected Normal NOT DETECTED [facility] Comment on above: Performed By: #### L IPID, CMP #### [facility] [address] [place] [address] Dr. Augustine Blackwood Mycoplas. Pneumoniae Not detected Normal NOT DETECTED [facility] Comment on above: Performed By: #### L IPID, CMP #### [facility] [address] [address] [address] Augustine Blackwood Parainfluenza 1 Not detected Normal NOT DETECTED [facility] Comment on above: Performed By: #### L IPID, CMP #### [facility] [address] [address] [address] Augustine Blackwood Parainfluenza 2 Not detected Normal NOT DETECTED [facility] Comment on above: Performed By: #### L IPID, CMP #### [facility] [address] [address] [address] Augustine Blackwood Parainfluenza 3 Not detected Normal NOT DETECTED [facility] Comment on above: Performed By: #### L IPID, CMP #### [facility] [address] [place] [address] Dr. Augustine Blackwood Parainfluenza 4 Not detected Normal NOT DETECTED [facility] Comment on above: Performed By: #### L IPID, CMP #### [facility] [address] [place] [address] Dr. Augustine Blackwood Rhino/Enterovirus Not detected Normal NOT DETECTED [facility] Comment on above: Performed By: #### L IPID, CMP #### [facility] [address] [place] [address] Dr. Augustine Blackwood RP2 Header 1 RESPIRATORY PANEL: VIRUSES Normal [facility] Comment on above: Performed By: #### L IPID, CMP #### [facility] [address] [place] [address] Dr. Augustine Blackwood RP2 Header 2 RESPIRATORY PANEL: BACTERIA Normal [facility] Comment on above: Performed By: #### L IPID, CMP #### [facility] [address] [place] [address] Dr. Augustine Blackwood RSV Not detected Normal NOT DETECTED [facility] Comment on above: Performed By: #### L IPID, CMP #### [facility] [address] [place] [address] Dr. Augustine Blackwood SARS-CoV-2 (COVID-19) RNA BETH+probe Ql (Unsp spec) Not detected Normal NOT DETECTED [facility] Comment on above: Performed By: #### L IPID, CMP #### [facility] [address] [place] [address] Dr. Augustine Blackwood GLYCOHEMOGLOBIN A1Con 2022 ADA RECOMMENDATION SEE BELOW Normal [facility] Comment on above: Result Comment: ADA RECOMMENDED LIMIT 4.0 - 6.0 ADA THERAPEUTIC TARGET < 7.0 ACTION SUGGESTED > 7.0 Performed By: #### L IPID, CMP #### [facility] [address] [place] [address] Dr. Augustine Blackwood Glucose [Mass/Vol] 146 mg/dL Normal [facility] Comment on above: Performed By: #### L IPID, CMP #### [facility] [address] [place] [address] Dr. Augustine Blackwood HbA1c (Bld) [Mass fraction] 6.7 % Critically high 4.5-6.2 [facility] Comment on above: Performed By: #### L IPID, CMP #### [facility] [address] [place] [address] Dr. Augustine Blackwood LIPID PROFILEon 08-05-2022 CHOL-HDL RATIO NORM SEE BELOW Normal [facility] Comment on above: Result Comment: 3.3 - 4.4 LOW RISK 4.4 - 7.1 AVERAGE RISK 7.1 - 11.0 MODERATE RISK >11.0 HIGH RISK Performed By: #### L IPID, CMP #### [facility] [address] [place] [address] Dr. Augustine Blackwood Cholesterol [Mass/Vol] 137 mg/dL Normal <=200 [facility] Comment on above: Performed By: #### L IPID, CMP #### [facility] [address] [place] [address] Dr. Augustine Blackwood Cholesterol in HDL [Mass/Vol] 48 mg/dL Normal 40-60 [facility] Comment on above: Performed By: #### L IPID, CMP #### [facility] [address] [address] [address] Augustine Blackwood Cholesterol in LDL [Mass/Vol] 55.4 mg/dL Normal [facility] Comment on above: Performed By: #### L IPID, CMP #### [facility] [address] [place] [address] Dr. Augustine Blackwood Cholesterol.total/C holesterol in HDL [Mass ratio] 2.9 {ratio} Normal [facility] Comment on above: Performed By: #### L IPID, CMP #### [facility] [address] [place] [address] Dr. Augustine Blackwood HDL NORMAL > or = 60 mg/dl - LO W CARDIOVASCULAR RISK <40 mg/dl - HIGH CARDIOVASCULAR RISK Normal [facility] Comment on above: Performed By: #### L IPID, CMP #### [facility] [address] [place] [address] Dr. Augustine Blackwood LDL CALC NORMAL SEE BELOW Normal [facility] Comment on above: Result Comment: <100 mg/dl OPTIMAL 100 - 129 mg/dl NEAR OR ABOVE OPTIMAL 130 - 159 mg/dl BORDERLINE HIGH 160 - 189 mg/dl HIGH >190 mg/dl VERY HIGH Performed By: #### L IPID, CMP #### [facility] [address] [place] [address] Dr. Augustine Blackwood Triglyceride [Mass/Vol] 168 mg/dL Critically high <=150 [facility] Comment on above: Performed By: #### L IPID, CMP #### [facility] [address] [place] [address] Dr. Augustine Blackwood VLDL CALC 33.6 mg/dL Normal [facility] Comment on above: Performed By: #### L IPID, CMP #### [facility] [address] [address] [address] Augustine Blackwood MICROALBUMIN, RAND URon - mALB 11.3 mg/L Normal <=30.0 [facility] Comment on above: Performed By: #### L IPID, CMP #### [facility] [address] [place] [address] Dr. Augustine Blackwood PROF 14(COMP METB)on 023 Albumin [Mass/Vol] 4.0 g/dL Normal 3.4-5.0 [facility] Comment on above: Performed By: #### L IPID, CMP #### [facility] [address] [place] [address] Dr. Augustine Blackwood Albumin/Globulin [Mass ratio] 1.3 {ratio} Normal [facility] Comment on above: Performed By: #### L IPID, CMP #### [facility] [address] [address] [address] Augustine Blackwood ALP [Catalytic activity/Vol] 57 U/L Normal 46-116 [facility] Comment on above: Performed By: #### L IPID, CMP #### [facility] [address] [place] [address] Dr. Augustine Blackwood ALT [Catalytic activity/Vol] 55 U/L Normal 14-59 [facility] Comment on above: Performed By: #### L IPID, CMP #### [facility] [address] [place] [address] Dr. Augustine Blackwood Anion gap [Moles/Vol] 12.3 mmol/L Normal [facility] Comment on above: Performed By: #### L IPID, CMP #### [facility] [address] [place] [address] Dr. Augustine Blackwood AST [Catalytic activity/Vol] 33 U/L Normal 15-37 [facility] Comment on above: Performed By: #### L IPID, CMP #### [facility] [address] [address] [address] Augustine Blackwood Bilirubin [Mass/Vol] 0.6 mg/dL Normal 0.2-1.0 [facility] Comment on above: Performed By: #### L IPID, CMP #### [facility] [address] [address] [address] Augustine Blackwood Calcium [Mass/Vol] 9.5 mg/dL Normal 8.5-10.1 [facility] Comment on above: Performed By: #### L IPID, CMP #### [facility] [address] [place], [place] [id number] Dr. Augustine Blackwood Chloride [Moles/Vol] 103 mmol/L Normal 98-107 [facility] Comment on above: Performed By: #### L IPID, CMP #### [facility] [address] [address] [address] Augustine Blackwood CO2 [Moles/Vol] 27.0 mmol/L Normal 21.0-32.0 [facility] Comment on above: Performed By: #### L IPID, CMP #### [facility] [address] [address] [address] Augustine Blackwood Creatinine [Mass/Vol] 1.02 mg/dL Normal 0.55-1.02 [facility] Comment on above: Performed By: #### L IPID, CMP #### [facility] [address] [place] [address] Dr. Augustine Blackwood EGFR-AF CAMBODIAN >60 Normal >=60 [facility] Comment on above: Performed By: #### L IPID, CMP #### [facility] [address] [place] [address] Dr. Augustine Blackwood EGFR-NON AF CAMBODIAN 56 mL/min/1.73m2 Critically low >=60 [facility] Comment on above: Performed By: #### L IPID, CMP #### [facility] [address] [place] [address] Dr. Augustine Blackwood Globulin (S) [Mass/Vol] 3.2 g/dL Normal [facility] Comment on above: Performed By: #### L IPID, CMP #### [facility] [address] [address] [address] Augustine Blackwood Glucose [Mass/Vol] 130 mg/dL Critically high 74-[address] [facility] Comment on above: Performed By: #### L IPID, CMP #### [facility] [address] [address] [address] Augustine Blackwood Potassium [Moles/Vol] 4.3 mmol/L Normal 3.5-5.1 [facility] Comment on above: Performed By: #### L IPID, CMP #### [facility] [address] [place] [address] Dr. Augustine Blackwood Protein [Mass/Vol] 7.2 g/dL Normal 6.4-8.2 [facility] Comment on above: Performed By: #### L IPID, CMP #### [facility] [address] [place] [address] Dr. Augustine Blackwood Sodium [Moles/Vol] 138 mmol/L Normal 136-145 [facility] Comment on above: Performed By: #### L IPID, CMP #### [facility] [address] [place] [address] Dr. Augustine Blackwood Urea nitrogen [Mass/Vol] 22.0 mg/dL Critically high 7.0-18.0 [facility] Comment on above: Performed By: #### L IPID, CMP #### [facility] [address] [place] [address] Dr. Augustine Blackwood Urea nitrogen/Creatinine [Mass ratio] 21.6 mg/mg Normal [facility] Comment on above: Performed By: #### L IPID, CMP #### [facility] [address] [place] [address] Dr. Augustine Blackwood HEMOGRAM AND PLATELon 2022 Hematocrit (Bld) [Volume fraction] 37.5 % Normal 36.0-48.0 [facility] Comment on above: Performed By: #### H H #### [facility] [address] [place] [address] Dr. Augustine Blackwood Hemoglobin (Bld) [Mass/Vol] 12.9 g/dL Normal 12.0-16.0 [facility] Comment on above: Performed By: #### H H #### [facility] [address] [place] [address] Dr. Augustine Blackwood MCH (RBC) [Entitic mass] 29.0 pg Normal 26.7-34.0 [facility] Comment on above: Performed By: #### H H #### [facility] [address] [place] [address] Dr. Augustine Blackwood MCHC (RBC) [Mass/Vol] 34.4 g/dL Normal 29.9-35.2 [facility] Comment on above: Performed By: #### H H #### [facility] [address] [place] [address] Dr. Augustine Blackwood MCV (RBC) [Entitic vol] 84.3 fL Normal 81.0-99.0 [facility] Comment on above: Performed By: #### H H #### [facility] [address] [place] [address] Dr. Augustine Blackwood PLT 190 103/ul Normal 150-450 [facility] Comment on above: Performed By: #### H H #### [facility] [address] [place] [address] Dr. Augustine Blackwood RBC 4.45 106/ul Normal 4.20-5.40 [facility] Comment on above: Performed By: #### H H #### [facility] [address] [place] [address] Dr. Augustine Blackwood WBC 7.3 103/ul Normal 4.0-11.0 [facility] Comment on above: Performed By: #### H H #### [facility] [address] [place] [address] Dr. Augustine Blackwood TSHon 07-05-2022 TSH 1.837 uIU/mL Normal 0.358-3.740 [facility] Comment on above: Performed By: #### L IPID, CMP #### [facility] [address] [place] [address] Dr. Augustine Blackwood VITAMIN B12on 07-05-2022 Cobalamin (Vitamin B12) [Mass/Vol] 877.0 pg/mL Normal 193.0-986.0 [facility] Comment on above: Performed By: #### V ITB12, VITAD #### [facility] [address] [place] [address] Dr. Augustine Blackwood VITAMIN D 25 OHon 07-05-2022 VIT D 25-OH 79.2 ng/mL Normal [facility] Comment on above: Performed By: #### V ITB12, VITAD #### [facility] [address] [place] [address] Dr. Augustine Blackwood VIT D RANGES SEE BELOW Normal [facility] Comment on above: Result Comment: <20 ng/mL Vit D deficient 20 - <30 ng/mL Vit D insufficient 30 - 100 ng/mL Vit D sufficient >100 ng/mL Potential Toxicity Performed By: #### V ITB12, VITAD #### [facility] [address] [place] [address] Dr. Augustine Blackwood CBC AUTO DIFFon 05-18-2022 BASO # 0.1 103/ul Normal 0.0-0.1 [facility] Comment on above: Performed By: #### C BC #### [facility] [address] [place] [address] Dr. Augustine Blackwood Basophils/100 WBC (Bld) 1.2 % Normal 0.2-2.0 [facility] Comment on above: Performed By: #### C BC #### [facility] [address] [place] [address] Dr. Augustine Blackwood EO # 0.4 103/ul Normal 0.0-0.7 [facility] Comment on above: Performed By: #### C BC #### [facility] [address] [place] [address] Dr. Augustine Blackwood Eosinophils/100 WBC (Bld) 5.2 % Normal 0.9-7.0 [facility] Comment on above: Performed By: #### C BC #### [facility] [address] [place] [address] Dr. Augustine Blackwood Erythrocyte distribution width (RBC) [Ratio] 13.3 % Normal 11.0-15.0 [facility] Comment on above: Performed By: #### C BC #### [facility] [address] [place] [address] Dr. Augustine Blackwood Hematocrit (Bld) [Volume fraction] 38.7 % Normal 36.0-48.0 [facility] Comment on above: Performed By: #### C BC #### [facility] [address] [place] [address] Dr. Augustine Blackwood Hemoglobin (Bld) [Mass/Vol] 12.9 g/dL Normal 12.0-16.0 [facility] Comment on above: Performed By: #### C BC #### [facility] [address] [place] [address] Dr. Augustine Blackwood IG # 0.02 10e3/ul Normal 0.00-0.03 [facility] Comment on above: Performed By: #### C BC #### [facility] [address] [place] [address] Dr. Augustine Blackwood IG % 0.2 % Normal 0.0-0.5 [facility] Comment on above: Performed By: #### C BC #### [facility] [address] [place] [address] Dr. Augustine Blackwood LYMPH # 2.8 103/ul Normal 1.2-3.8 [facility] Comment on above: Performed By: #### C BC #### [facility] [address] [place] [address] Dr. Augustine Blackwood Lymphocytes/100 WBC (Bld) 32.7 % Normal 20.5-60.0 [facility] Comment on above: Performed By: #### C BC #### [facility] [address] [place] [address] Dr. Augustine Blackwood MANUAL DIFF REQ NO Normal [facility] Comment on above: Performed By: #### C BC #### [facility] [address] [place] [address] Dr. Augustine Blackwood MCH (RBC) [Entitic mass] 28.7 pg Normal 26.7-34.0 [facility] Comment on above: Performed By: #### C BC #### [facility] [address] [place] [address] Dr. Augustine Blackwood MCHC (RBC) [Mass/Vol] 33.3 g/dL Normal 29.9-35.2 [facility] Comment on above: Performed By: #### C BC #### [facility] [address] [place] [address] Dr. Augustine Blackwood MCV (RBC) [Entitic vol] 86.2 fL Normal 81.0-99.0 [facility] Comment on above: Performed By: #### C BC #### [facility] [address] [place] [address] Dr. Augustine Blackwood MONO # 0.8 103/ul Normal 0.3-0.8 [facility] Comment on above: Performed By: #### C BC #### [facility] [address] [place] [address] Dr. Augustine Blackwood Monocytes/100 WBC (Bld) 8.9 % Normal 1.7-12.0 [facility] Comment on above: Performed By: #### C BC #### [facility] [address] [place] [address] Dr. Augustine Blackwood NEUT # 4.3 103/ul Normal 1.4-6.5 [facility] Comment on above: Performed By: #### C BC #### [facility] [address] [place] [address] Dr. Augustine Blackwood Neutrophils/100 WBC (Bld) 51.8 % Normal 43.0-75.0 [facility] Comment on above: Performed By: #### C BC #### [facility] [address] [place] [address] Dr. Augustine Blackwood Platelet mean volume (Bld) [Entitic vol] 11.8 fL Normal 9.5-13.5 [facility] Comment on above: Performed By: #### C BC #### [facility] [address] [place] [address] Dr. Augustine Blackwood PLT 217 103/ul Normal 150-450 [facility] Comment on above: Performed By: #### C BC #### [facility] [address] [place] [address] Dr. Augustine Blackwood RBC 4.49 106/ul Normal 4.20-5.40 [facility] Comment on above: Performed By: #### C BC #### [facility] [address] [place] [address] Dr. Augustine Blackwood WBC 8.4 103/ul Normal 4.0-11.0 [facility] Comment on above: Performed By: #### C BC #### [facility] [address] [place] [address] Dr. Augustine Blackwood GLYCOHEMOGLOBIN A1Con 2021 ADA RECOMMENDATION SEE BELOW Normal [facility] Comment on above: Result Comment: ADA RECOMMENDED LIMIT 4.0 - 6.0 ADA THERAPEUTIC TARGET < 7.0 ACTION SUGGESTED > 7.0 Performed By: #### A 1C #### [facility] [address] [place] [address] Dr. Augustine Blackwood Glucose [Mass/Vol] 154 mg/dL Normal [facility] Comment on above: Performed By: #### A 1C #### [facility] [address] [place] [address] Dr. Augustine Blackwood HbA1c (Bld) [Mass fraction] 7.0 % Critically high 4.5-6.2 [facility] Comment on above: Performed By: #### A 1C #### [facility] [address] [place] [address] Dr. Augustine Blackwood LIPID PROFILEon 04-28-2022 CHOL-HDL RATIO NORM SEE BELOW Normal [facility] Comment on above: Result Comment: 3.3 - 4.4 LOW RISK 4.4 - 7.1 AVERAGE RISK 7.1 - 11.0 MODERATE RISK >11.0 HIGH RISK Performed By: #### C MP, LIPID #### [facility] [address] [place] [address] Dr. Augustine Blackwood Cholesterol [Mass/Vol] 139 mg/dL Normal <=200 [facility] Comment on above: Performed By: #### C MP, LIPID #### [facility] [address] [place] [address] Dr. Augustine Blackwood Cholesterol in HDL [Mass/Vol] 56 mg/dL Normal 40-60 [facility] Comment on above: Performed By: #### C MP, LIPID #### [facility] [address] [place] [address] Dr. Augustine Blackwood Cholesterol in LDL [Mass/Vol] 56.2 mg/dL Normal [facility] Comment on above: Performed By: #### C MP, LIPID #### [facility] [address] [place] [address] Dr. Augustine Blackwood Cholesterol.total/C holesterol in HDL [Mass ratio] 2.5 {ratio} Normal [facility] Comment on above: Performed By: #### C MP, LIPID #### [facility] [address] [address] [address] Augustine Blackwood HDL NORMAL > or = 60 mg/dl - LO W CARDIOVASCULAR RISK <40 mg/dl - HIGH CARDIOVASCULAR RISK Normal [facility] Comment on above: Performed By: #### C MP, LIPID #### [facility] [address] [address] [address] Augustine Blackwood LDL CALC NORMAL SEE BELOW Normal [facility] Comment on above: Result Comment: <100 mg/dl OPTIMAL 100 - 129 mg/dl NEAR OR ABOVE OPTIMAL 130 - 159 mg/dl BORDERLINE HIGH 160 - 189 mg/dl HIGH >190 mg/dl VERY HIGH Performed By: #### C MP, LIPID #### [facility] [address] [address] [address] Augustine Blackwood Triglyceride [Mass/Vol] 134 mg/dL Normal <=150 [facility] Comment on above: Performed By: #### C MP, LIPID #### [facility] [address] [address] [address] Augustine Blackwood VLDL CALC 26.8 mg/dL Normal [facility] Comment on above: Performed By: #### C MP, LIPID #### [facility] [address] [address] [address] Augustine Blackwood PROF 14(COMP METB)on 022 Albumin [Mass/Vol] 4.0 g/dL Normal 3.4-5.0 [facility] Comment on above: Performed By: #### C MP, LIPID #### [facility] [address] [address] [address] Augustine Blackwood Albumin/Globulin [Mass ratio] 1.1 {ratio} Normal [facility] Comment on above: Performed By: #### C MP, LIPID #### [facility] [address] [address] [address] Augustine Blackwood ALP [Catalytic activity/Vol] 55 U/L Normal 46-116 [facility] Comment on above: Performed By: #### C MP, LIPID #### [facility] [address] [address] [address] Augustine Blackwood ALT [Catalytic activity/Vol] 49 U/L Normal 14-59 [facility] Comment on above: Performed By: #### C MP, LIPID #### [facility] [address] [address] [address] Augustine Blackwood Anion gap [Moles/Vol] 10.9 mmol/L Normal [facility] Comment on above: Performed By: #### C MP, LIPID #### [facility] [address] [address] [address] Augustine Blackwood AST [Catalytic activity/Vol] 25 U/L Normal 15-37 [facility] Comment on above: Performed By: #### C MP, LIPID #### [facility] [address] [address] [address] Augustine Blackwood Bilirubin [Mass/Vol] 0.7 mg/dL Normal 0.2-1.0 [facility] Comment on above: Performed By: #### C MP, LIPID #### [facility] [address] [address] [address] Augustine Blackwood Calcium [Mass/Vol] 9.5 mg/dL Normal 8.5-10.1 [facility] Comment on above: Performed By: #### C MP, LIPID #### [facility] [address] [address] [address] Augustine Blackwood Chloride [Moles/Vol] 102 mmol/L Normal 98-107 [facility] Comment on above: Performed By: #### C MP, LIPID #### [facility] [address] [address] [address] Augustine Blackwood CO2 [Moles/Vol] 30.2 mmol/L Normal 21.0-32.0 [facility] Comment on above: Performed By: #### C MP, LIPID #### [facility] [address] [address] [address] Augustine Blackwood Creatinine [Mass/Vol] 1.02 mg/dL Normal 0.55-1.02 [facility] Comment on above: Performed By: #### C MP, LIPID #### [facility] [address] [address] [address] Augustine Blackwood EGFR-AF CAMBODIAN 60 mL/min/1.73m2 Normal >=60 [facility] Comment on above: Performed By: #### C MP, LIPID #### [facility] [address] [address] [address] Augustine Blackwood EGFR-NON AF CAMBODIAN 56 mL/min/1.73m2 Critically low >=60 [facility] Comment on above: Performed By: #### C MP, LIPID #### [facility] [address] [address] [address] Augustine Blackwood Globulin (S) [Mass/Vol] 3.5 g/dL Normal [facility] Comment on above: Performed By: #### C MP, LIPID #### [facility] [address] [address] [address] Augustine Blackwood Glucose [Mass/Vol] 143 mg/dL Critically high 74-106 [facility] Comment on above: Performed By: #### C MP, LIPID #### [facility] [address] [address] [address] Augustine Blackwood Potassium [Moles/Vol] 4.1 mmol/L Normal 3.5-5.1 [facility] Comment on above: Performed By: #### C MP, LIPID #### [facility] [address] [address] [address] Augustine Blackwood Protein [Mass/Vol] 7.5 g/dL Normal 6.4-8.2 [facility] Comment on above: Performed By: #### C MP, LIPID #### [facility] [address] [address] [address] Augustine Blackwood Sodium [Moles/Vol] 139 mmol/L Normal 136-145 [facility] Comment on above: Performed By: #### C MP, LIPID #### [facility] [address] [address] [address] Augustine Blackwood Urea nitrogen [Mass/Vol] 24.0 mg/dL Critically high 7.0-18.0 [facility] Comment on above: Performed By: #### C MP, LIPID #### [facility] [address] [address] [address] Augustine Blackwood Urea nitrogen/Creatinine [Mass ratio] 23.5 mg/mg Normal [facility] Comment on above: Performed By: #### C MP, LIPID #### [facility] [address] [place], [place] [address] Dr. Augustine Blackwood XR toe LT 4th digiton 2021 XR toe LT 4th digit [facility] [address] [place] [address] XRay Report Signed Patient: Patel Medina MR#: [id number] : 1965 Acct:[id number] Age/Sex: 56 / F ADM Date: 12/18/21 [facility] Type[facility] Attending Dr: Jennie Garcia DIRECTOR OPERATIONS Copies to: Jennie Garcia NP Ordering Provider: [...] Choi Jr., D.OHiginio12/18/2021 12:14 PM Dictation Location: [place] [address] Transcribed By: [facility] 12/18/21 1214 Dictated By: Prosper Choi Jr, DO 12/18/21 1210 Signed By: 12/18/21 1214 [facility] XR toe LT 4th digit [facility] [employer] Other XR toe LT 4th digit [facility] [employer] Other XR toe LT 4th digit [address] [place] [address] [employer] Other XR toe LT 4th digit [place] [address] [employer] Other XR toe LT 4th digit XRay Report [employer] Other XR toe LT 4th digit Signed [employer] Other XR toe LT 4th digit Patient: Jorge Luis Medina in L MR#: [id number] [employer] Other XR toe LT 4th digit 061 [employer] Other XR toe LT 4th digit : 1965 Acct:[id number] [employer] Other XR toe LT 4th digit Age/Sex: 56 / F ADM Date: 12/18/21 [employer] Other XR toe LT 4th digit Loc: [facility] Room: Type: [facility] [employer] Other XR toe LT 4th digit Attending Dr: Jennie Garcia NP [employer] Other XR toe LT 4th digit Copies to: Alfreda Garcia NP [employer] Other XR toe LT 4th digit Ordering Provider: Jennie Garcia NP [employer] Other XR toe LT 4th digit Date of Service: 12/18/21 [employer] Other XR toe LT 4th digit XR/XR toe LT 4th digit: M79.675 [employer] Other XR toe LT 4th digit LEFT fourth TOE - - 3 views [employer] Other XR toe LT 4th digit CLINICAL HISTORY: Patient dropped can on to her left fourth toe one week ago now with pain and [employer] Other XR toe LT 4th digit swelling. [employer] Other XR toe LT 4th digit COMPARISON: None [employer] Other XR toe LT 4th digit FINDINGS: [employer] Other XR toe LT 4th digit Soft tissue swelling fourth digit. No radiopaque foreign body. No acute bony process. Minimal [employer] Other XR toe LT 4th digit degenerative changes of the bony erosions. [employer] Other XR toe LT 4th digit XR/XR toe LT 4th digit [employer] Other XR toe LT 4th digit IMPRESSION: [employer] Other XR toe LT 4th digit SOFT TISSUE SWELLING WITHOUT ACUTE BONY PROCESS. [employer] Other XR toe LT 4th digit Impression dictated by: Prosper Choi Jr., D.OHiginio12/18/2021 12:14 PM [employer] Other XR toe LT 4th digit Dictation Location: [place] [address] [employer] Other XR toe LT 4th digit Transcribed By: PWS 12/18/21 1214 [employer] Other XR toe LT 4th digit Dictated By: Prosper Choi Jr, DO 12/18/21 [facility]0 [employer] Other XR toe LT 4th digit Signed By: [employer] Other XR toe LT 4th digit 12/18/21 1214 No rt [employer] Other MAMM DIG DIAG [place] 06-25-19 21 MAMM DIG DIAG UNI DIAGNOSTIC [...] by: Jermaine Washington MD 06/25/2020 2:52 PM PHONE SPECIALIST Workstation: [id number] Technologist: CD Dictated By: JERMAINE WASHINGTON MD Signed By: JERMAINE WASHINGTON MD Signed Out: 06/25/20 15:52:23 Normal [facility] ALBUMIN, RANDOM URINE W/CREA TININEon 04-18-2020 ALBUMIN, URINE 12.0 mg/dL Normal See Note: [facility] Comment on above: Result Comment: Refe rence Range: Reference Range Not established Performed By: #### 1 0231, 6399, 496, 6517, 7600 #### [facility]-[address], [address] [place] [address] Business Professor: Rodo Fung MD ALBUMIN/CREATININE RATIO, RANDOM URINE [...] 0231, 6399, 496, 6517, 7600 #### [facility]-[address], [address] [place] [address] Business Professor: Rodo Fung MD Creatinine (U) [Mass/Vol] 136 mg/dL Normal 20-275 [facility] Comment on above: Performed By: #### 1 0231, 6399, 496, 6517, 7600 #### [facility]-[address], [address] [place] [address] Business Professor: Rodo Fung MD CBC (INCLUDES DIFF/PLT)on Basophils (Bld) [#/Vol] 0.091 10*3/uL Normal 0-200 [facility] Comment on above: Performed By: #### 1 0231, 6399, 496, 6517, 7600 #### [facility] [address] [place] , [address] [place] [address] Business Professor: Rodo Fung MD Basophils/100 WBC (Bld) 1.2 % Normal [facility] Comment on above: Performed By: #### 1 0231, 6399, 496, 6517, 7600 #### [facility] [address] [place] , [address] [place] [address] Business Professor: Rodo Fung MD Eosinophils (Bld) [#/Vol] 0.395 10*3/uL Normal 15-500 [facility] Comment on above: Performed By: #### 1 0231, 6399, 496, 6517, 7600 #### [facility] [address] [place] , [address] [place] [address] Business Professor: Rodo Fung MD Eosinophils/100 WBC (Bld) 5.2 % Normal [facility] Comment on above: Performed By: #### 1 0231, 6399, 496, 6517, 7600 #### [facility] [address] [place] , [address] [place] [address] Business Professor: Rodo Fung MD Erythrocyte distribution width (RBC) [Ratio] 13.3 % Normal 11.0-15.0 [facility] Comment on above: Performed By: #### 1 0231, 6399, 496, 6517, 7600 #### [facility] [address] [place] , [address] [place] [address] Business Professor: Rodo Fung MD Hematocrit (Bld) [Volume fraction] 40.0 % Normal 35.0-45.0 [facility] Comment on above: Performed By: #### 1 0231, 6399, 496, 6517, 7600 #### [facility] [address], [address] [place] [address] Business Professor: Rodo Fung MD Hemoglobin (Bld) [Mass/Vol] 13.2 g/dL Normal 11.7-15.5 [facility] Comment on above: Performed By: #### 1 0231, 63, 496, 6517, 7600 #### [facility]-[address], [address] [place] [address] Business Professor: Rodo Fung MD Lymphocytes (Bld) [#/Vol] 2.379 10*3/uL Normal 850-3900 [facility] Comment on above: Performed By: #### 1 0231, 63, 496, 6517, 7600 #### [facility]-[address], [address] [place] [address] Business Professor: Rodo Fung MD Lymphocytes/100 WBC (Bld) 31.3 % Normal [facility] Comment on above: Performed By: #### 1 0231, 63, 496, 6517, 7600 #### [facility]-[address], [address] [place] [address] Business Professor: Rodo Fung MD MCH (RBC) [Entitic mass] 29.3 pg Normal 27.0-33.0 [facility] Comment on above: Performed By: #### 1 0231, 63, 496, 6517, 7600 #### [facility]-[address], [address] [place] [address] Business Professor: Rdoo Fung MD MCHC (RBC) [Mass/Vol] 33.0 g/dL Normal 32.0-36.0 [facility] Comment on above: Performed By: #### 1 0231, 63, 496, 6517, 7600 #### [facility]-[address], [address] [place] [address] Business Professor: Rodo Fung MD MCV (RBC) [Entitic vol] 88.9 fL Normal 80.0-100.0 [facility] Comment on above: Performed By: #### 1 0231, 6399, 496, 6517, 7600 #### [facility] [address] [place] , [address] [place] [address] Business Professor: Rodo Fung MD Monocytes (Bld) [#/Vol] 0.654 10*3/uL Normal 200-950 [facility] Comment on above: Performed By: #### 1 0231, 6399, 496, 6517, 7600 #### [facility] [address] [place] , [address] [place] [address] Business Professor: Rodo Fung MD Monocytes/100 WBC (Bld) 8.6 % Normal [facility] Comment on above: Performed By: #### 1 0231, 6399, 496, 6517, 7600 #### [facility] [address] [place] , [address] [place] [address] Business Professor: Rodo Fung MD Neutrophils (Bld) [#/Vol] 4.081 10*3/uL Normal 3884-3646 [facility] Comment on above: Performed By: #### 1 0231, 6399, 496, 6517, 7600 #### [facility] [address] [place] , [address] [place] [address] Business Professor: Rodo Fung MD Neutrophils/100 WBC (Bld) 53.7 % Normal [facility] Comment on above: Performed By: #### 1 0231, 6399, 496, 6517, 7600 #### [facility] [address] [place] , [address] [place] [address] Business Professor: Rodo Fung MD Platelet mean volume (Bld) [Entitic vol] 12.8 fL High 7.5-12.5 [facility] Comment on above: Performed By: #### 1 0231, 6399, 496, 6517, 7600 #### [facility] [address] [place] , [address] [place] [address] Business Professor: Rodo Fung MD Platelets (Bld) [#/Vol] 214 10*3/uL Normal 140-400 [facility] Comment on above: Performed By: #### 1 0231, 6399, 496, 6517, 7600 #### [facility] [address], [address] [place] [address] Business Professor: Rodo Fung MD RBC (Bld) [#/Vol] 4.50 10*6/uL Normal 3.80-5.10 [facility] Comment on above: Performed By: #### 1 0231, 6399, 496, 6517, 7600 #### [facility]-[address], [address] [place] [address] Business Professor: Rodo Fung MD WBC (Bld) [#/Vol] 7.6 10*3/uL Normal 3.8-10.8 [facility] Comment on above: Performed By: #### 1 0231, 6399, 496, 6517, 7600 #### [facility]-[address], [address] [place] [address] Business Professor: Rodo Fung MD [facility] 04-18-2020 Albumin [Mass/Vol] 4.8 g/dL Normal 3.6-5.1 [facility] Comment on above: Performed By: #### 1 0231, 6399, 496, 6517, 7600 #### [facility]-[address], [address] [place] [address] Business Professor: Rodo Fung MD Albumin/Globulin [Mass ratio] 1.8 (calc) Normal 1.0-2.5 [facility] Comment on above: Performed By: #### 1 0231, 6399, 496, 6517, 7600 #### [facility]-[address], [address] [place] [address] Business Professor: Rodo Fung MD ALP [Catalytic activity/Vol] 54 U/L Normal 37-153 [facility] Comment on above: Performed By: #### 1 0231, 6399, 496, 6517, 7600 #### [facility]-[address], [address] [place] [address] Business Professor: Rodo Fung MD ALT [Catalytic activity/Vol] 35 U/L High 6-29 [facility] Comment on above: Performed By: #### 1 0231, 6399, 496, 6517, 7600 #### [facility]-[address], [address] [place] [address] Business Professor: Rodo Fung MD AST [Catalytic activity/Vol] 26 U/L Normal 10-35 [facility] Comment on above: Performed By: #### 1 0231, 6399, 496, 6517, 7600 #### [facility]-[address], [address] [place] [address] Business Professor: Rodo Fung MD Bilirubin [Mass/Vol] 0.6 mg/dL Normal 0.2-1.2 [facility] Comment on above: Performed By: #### 1 0231, 63, 496, 6517, 7600 #### [facility]-[address], [address] [place] [address] Business Professor: Rodo Fung MD Calcium [Mass/Vol] 10.0 mg/dL Normal 8.6-10.4 [facility] Comment on above: Performed By: #### 1 0231, 6399, 496, 6517, 7600 #### [facility]-[address], [address] [place] [address] Business Professor: Rodo Fung MD Chloride [Moles/Vol] 105 mmol/L Normal 98-110 [facility] Comment on above: Performed By: #### 1 0231, 6399, 496, 6517, 7600 #### [facility] [address] Business Professor: Rodo Fung MD CO2 [Moles/Vol] 26 mmol/L Normal 20-32 [facility] Comment on above: Performed By: #### 1 0231, 63, 496, 6517, 7600 #### [facility]-[address], [address] [place] [address] Business Professor: Rodo Fung MD Creatinine [Mass/Vol] 1.06 mg/dL High 0.50-1.05 [facility] Comment on above: Result Comment: For patients >49 years of age, the reference limit for Creatinine is approximately 13% higher for people identified as -Kittitian. Performed By: #### 1 0231, 6399, 496, 6517, 7600 #### [facility]-[address], [address] [place] [address] Business Professor: Rodo Fung MD eGFR NON-AFR. CAMBODIAN 59 mL/min/1.73m2 Low > OR = 60 [facility] Comment on above: Performed By: #### 1 0231, 63, 496, 6517, 7600 #### [facility]-[address], [address] [place] [address] Business Professor: Rodo Fung MD GFR/1.73 sq M predicted among blacks MDRD (S/P/Bld) [Vol rate/Area] 68 mL/min/{1.73_m2} Normal > OR = 60 [facility] Comment on above: Performed By: #### 1 0231, 63, 49, 6517, 7600 #### [facility]-[address], [address] [place] [address] Business Professor: Rodo Fung MD Globulin (S) [Mass/Vol] 2.6 g/dL (calc) Normal 1.9-3.7 [facility] Comment on above: Performed By: #### 1 0231, 63, 49, 6517, 7600 #### [facility]-[address], [address] [place] [address] Business Professor: Rodo Fung MD Glucose [Mass/Vol] 128 mg/dL High 65-99 [facility] Comment on above: Result Comment: Fasting reference interval For someone without known diabetes, a glucose value >125 mg/dL indicates that they may have diabetes and this should be confirmed with a follow-up test. Performed By: #### 1 0231, 63, 49, 6517, 7600 #### [facility]-[address], [address] [place] [address] Business Professor: Rodo Fung MD Potassium [Moles/Vol] 4.5 mmol/L Normal 3.5-5.3 [facility] Comment on above: Performed By: #### 1 0231, 6399, 496, 6517, 7600 #### [facility]-[address], [address] [place] [address] Business Professor: Rodo Fung MD Protein [Mass/Vol] 7.4 g/dL Normal 6.1-8.1 [facility] Comment on above: Performed By: #### 1 0231, 6399, 496, 6517, 7600 #### [facility]-[address], [address] [place] [address] Business Professor: Rodo Fung MD Sodium [Moles/Vol] 140 mmol/L Normal 135-146 [facility] Comment on above: Performed By: #### 1 0231, 6399, 496, 6517, 7600 #### [facility]-[address], [address] [place] [address] Business Professor: Rodo Fung MD Urea nitrogen [Mass/Vol] 24 mg/dL Normal 7-25 [facility] Comment on above: Performed By: #### 1 0231, 6399, 496, 6517, 7600 #### [facility]-[address], [address] [place] [address] Business Professor: Rodo Fung MD Urea nitrogen/Creatinine [Mass ratio] 23 mg/mg High 6-22 [facility] Comment on above: Performed By: #### 1 0231, 6399, 496, 6517, 7600 #### [facility]-[address], [address] [place] [address] Business Professor: Rodo Fung MD HEMOGLOBIN A1con 04-18-2020 HbA1c [...] 0231, 6399, 496, 6517, 7600 #### [facility]-[address], [address] [place] [address] Business Professor: Rodo Fung MD LIPID PANEL, STANDARD Cholesterol [Mass/Vol] 141 mg/dL Normal <200 [facility] Comment on above: Performed By: #### 1 0231, 6399, 496, 6517, 7600 #### [facility]-[address], [address] [place] [address] Business Professor: Rodo Fung MD Cholesterol in HDL [Mass/Vol] 53 mg/dL Normal > OR = 50 [facility] Comment on above: Performed By: #### 1 0231, 6399, 496, 6517, 7600 #### [facility]-[address], [address] [place] [address] Business Professor: Rodo Fung MD Cholesterol in LDL [Mass/Vol] [...] LDL-C. Todd SS et al. STACI. 2013;310(19): 4013-6938 (http://[email or web address]/faq/ZKH166) Performed By: #### 1 0231, 6399, 496, 6517, 7600 #### [facility]-[address], [address] [place] [address] Business Professor: Rodo Fung MD Cholesterol.total/C holesterol in HDL [Mass ratio] 2.7 (calc) Normal <5.0 [facility] Comment on above: Performed By: #### 1 0231, 6399, 496, 6517, 7600 #### [facility]-[address], [address] [place] [address] Business Professor: Rodo Fung MD NON HDL CHOLESTEROL 88 mg/dL (calc) Normal <130 [facility] Comment on above: Result Comment: For patients with diabetes plus 1 major ASCVD risk factor, treating to a non-HDL-C goal of <100 mg/dL (LDL-C of <70 mg/dL) is considered a therapeutic option. Performed By: #### 1 1, 6399, 496, 6517, 7600 #### [facility], [address] [place] [address] Business Professor: Rodo Fung MD Triglyceride [Mass/Vol] 182 mg/dL High <150 [facility] Comment on above: Performed By: #### 1 230, 6399, 496, 6517, 7600 #### [facility], [address] [place] [address] Business Professor: Rodo Fung MD TSHon 04-18-2020 TSH Qn 2.17 m[IU]/L Normal 0.40-4.50 [facility] Comment on above: Performed By: #### 1 230, 6399, 496, 7317, 7130 #### [facility], [address] [place] [address] Business Professor: Rodo Fung MD [facility] 03-20-2020 Albumin [Mass/Vol] 4.6 g/dL Normal 3.6-5.1 [facility] Comment on above: Performed By: #### 1 0231 #### [facility] [address] Business Professor: Rodo Fung MD Albumin/Globulin [Mass ratio] 1.9 (calc) Normal 1.0-2.5 [facility] Comment on above: Performed By: #### 1 0231 #### [facility] [address] Business Professor: Rodo Fung MD ALP [Catalytic activity/Vol] 63 U/L Normal 37-153 [facility] Comment on above: Performed By: #### 1 0231 #### [facility], [address] [place] [address] Business Professor: Rodo Fung MD ALT [Catalytic activity/Vol] 36 U/L High 6-29 [facility] Comment on above: Performed By: #### 1 0231 #### [facility], [address] [place] [address] Business Professor: Rodo Fung MD AST [Catalytic activity/Vol] 27 U/L Normal 10-35 [facility] Comment on above: Performed By: #### 1 0231 #### [facility], [address] [place] [address] Business Professor: Rodo Fung MD Bilirubin [Mass/Vol] 0.6 mg/dL Normal 0.2-1.2 [facility] Comment on above: Performed By: #### 1 0231 #### [facility] [address] Business Professor: Rodo Fung MD Calcium [Mass/Vol] 9.9 mg/dL Normal 8.6-10.4 [facility] Comment on above: Performed By: #### 1 0231 #### [facility] [address] Business Professor: Rodo Fung MD Chloride [Moles/Vol] 104 mmol/L Normal 98-110 [facility] Comment on above: Performed By: #### 1 0231 #### [facility] [address] Business Professor: Rodo Fung MD CO2 [Moles/Vol] 26 mmol/L Normal 20-32 [facility] Comment on above: Performed By: #### 1 0231 #### [facility] [address] Business Professor: Rodo Fung MD Creatinine [Mass/Vol] 1.10 mg/dL High 0.50-1.05 [facility] Comment on above: Result Comment: For patients >49 years of age, the reference limit for Creatinine is approximately 13% higher for people identified as -Kittitian. Performed By: #### 1 0231 #### [facility], [address] [place] [address] Business Professor: Rodo Fung MD eGFR NON-AFR. CAMBODIAN 56 mL/min/1.73m2 Low > OR = 60 [facility] Comment on above: Performed By: #### 1 0231 #### [facility], [address] [place] [address] Business Professor: Rodo Fung MD GFR/1.73 sq M predicted among blacks MDRD (S/P/Bld) [Vol rate/Area] 65 mL/min/{1.73_m2} Normal > OR = 60 [facility] Comment on above: Performed By: #### 1 0231 #### [facility], [address] [place] [address] Business Professor: Rodo Fung MD Globulin (S) [Mass/Vol] 2.4 g/dL (calc) Normal 1.9-3.7 [facility] Comment on above: Performed By: #### 1 1 #### [facility], [address] [place] [address] Business Professor: Rodo Fung MD Glucose [Mass/Vol] 197 mg/dL High 65-99 [facility] Comment on above: Result Comment: Fasting reference interval For someone without known diabetes, a glucose value >125 mg/dL indicates that they may have diabetes and this should be confirmed with a follow-up test. Performed By: #### 1 1 #### [facility], [address] [place] [address] Business Professor: Rodo Fung MD Potassium [Moles/Vol] 4.1 mmol/L Normal 3.5-5.3 [facility] Comment on above: Performed By: #### 1 0231 #### [facility], [address] [place] [address] Business Professor: Rodo Fung MD Protein [Mass/Vol] 7.0 g/dL Normal 6.1-8.1 [facility] Comment on above: Performed By: #### 1 1 #### [facility], [address] [place] [address] Business Professor: Rodo Fung MD Sodium [Moles/Vol] 140 mmol/L Normal 135-146 [facility] Comment on above: Performed By: #### 1 0231 #### [facility], [address] [place] [address] Business Professor: Rodo Fung MD Urea nitrogen [Mass/Vol] 26 mg/dL High 7-25 [facility] Comment on above: Performed By: #### 1 0231 #### [facility], [address] [place] [address] Business Professor: Rodo Fung MD Urea nitrogen/Creatinine [Mass ratio] 24 mg/mg High 6-22 [facility] Comment on above: Performed By: #### 1 1 #### [facility] [address] Business Professor: Rodo Fung MD [facility] 01-24-2020 Albumin [Mass/Vol] 4.6 g/dL Normal 3.6-5.1 [facility] Comment on above: Performed By: #### 4 96, 7600, 55998 #### [facility], [address] [place] [address] Business Professor: Rodo Fung MD Albumin/Globulin [Mass ratio] 1.6 (calc) Normal 1.0-2.5 [facility] Comment on above: Performed By: #### 4 96, 7600, 27517 #### [facility], [address] [place] [address] Business Professor: Rodo Fung MD ALP [Catalytic activity/Vol] 49 U/L Normal 37-153 [facility] Comment on above: Performed By: #### 4 96, 7600, 65580 #### [facility], [address] [place] [address] Business Professor: Rodo Fung MD ALT [Catalytic activity/Vol] 48 U/L High 6-29 [facility] Comment on above: Performed By: #### 4 96, 7600, 59203 #### [facility], [address] [place] [address] Business Professor: Rodo Fung MD AST [Catalytic activity/Vol] 44 U/L High 10-35 [facility] Comment on above: Performed By: #### 4 96, 7600, 51776 #### [facility], [address] [place] [address] Business Professor: Rodo Fung MD Bilirubin [Mass/Vol] 0.7 mg/dL Normal 0.2-1.2 [facility] Comment on above: Performed By: #### 4 96, 7600, 31814 #### [facility], [address] [place] [address] Business Professor: Rodo Fung MD Calcium [Mass/Vol] 10.0 mg/dL Normal 8.6-10.4 [facility] Comment on above: Performed By: #### 4 96, 7600, 01683 #### [facility], [address] [place] [address] Business Professor: Rodo Fung MD Chloride [Moles/Vol] 105 mmol/L Normal 98-110 [facility] Comment on above: Performed By: #### 4 96, 0, 95433 #### [facility] [address] Business Professor: Rodo Fung MD CO2 [Moles/Vol] 23 mmol/L Normal 20-32 [facility] Comment on above: Performed By: #### 4 96, 0, 67460 #### [facility] [address] Business Professor: Rodo Fung MD Creatinine [Mass/Vol] 1.16 mg/dL High 0.50-1.05 [facility] Comment on above: Result Comment: For patients >49 years of age, the reference limit for Creatinine is approximately 13% higher for people identified as -Kittitian. Performed By: #### 4 96, 7600, 41062 #### [facility], [address] [place] [address] Business Professor: Rodo Fung MD eGFR NON-AFR. CAMBODIAN 53 mL/min/1.73m2 Low > OR = 60 [facility] Comment on above: Performed By: #### 4 96, 0, 25166 #### [facility], [address] [place] [address] Business Professor: Rodo Fung MD GFR/1.73 sq M predicted among blacks MDRD (S/P/Bld) [Vol rate/Area] 61 mL/min/{1.73_m2} Normal > OR = 60 [facility] Comment on above: Performed By: #### 4 96, 0, 56315 #### [facility], [address] [place] [address] Business Professor: Rodo Fung MD Globulin (S) [Mass/Vol] 2.8 g/dL (calc) Normal 1.9-3.7 [facility] Comment on above: Performed By: #### 4 96, 7599, 68555 #### [facility], [address] [place] [address] Business Professor: Rodo Fung MD Glucose [Mass/Vol] 165 mg/dL High 65-99 [facility] Comment on above: Result Comment: Fasting reference interval For someone without known diabetes, a glucose value >125 mg/dL indicates that they may have diabetes and this should be confirmed with a follow-up test. Performed By: #### 4 , 0, 76485 #### [facility], [address] [place] [address] Business Professor: Rodo Fung MD Potassium [Moles/Vol] 4.5 mmol/L Normal 3.5-5.3 [facility] Comment on above: Performed By: #### 4 96, 7600, 73422 #### [facility], [address] [place] [address] Business Professor: Rodo Fung MD Protein [Mass/Vol] 7.4 g/dL Normal 6.1-8.1 [facility] Comment on above: Performed By: #### 4 96, 0, 99201 #### [facility] [address] [place] , [address] [place] [address] Business Professor: Rodo Fung MD Sodium [Moles/Vol] 140 mmol/L Normal 135-146 [facility] Comment on above: Performed By: #### 4 96, 7600, 20645 #### [facility] , [address] [place] [address] Business Professor: Rodo Fung MD Urea nitrogen [Mass/Vol] 24 mg/dL Normal 7-25 [facility] Comment on above: Performed By: #### 4 96, 7600, 48714 #### [facility], [address] [place] [address] Business Professor: Rodo Fung MD Urea nitrogen/Creatinine [Mass ratio] 21 mg/mg Normal 6-22 [facility] Comment on above: Performed By: #### 4 96, 7600, 25425 #### [facility], [address] [place] [address] Business Professor: Rodo Fung MD HEMOGLOBIN A1con 01-24-2020 HbA1c [...] children. Performed By: #### 4 , 0, 41263 #### [facility] , [address] [place] [address] Business Professor: Rodo Fung MD LIPID PANEL, STANDARDon 01-11 Cholesterol [Mass/Vol] 126 mg/dL Normal <200 [facility] Comment on above: Performed By: #### 4 96, 7600, 87361 #### [facility] , [address] [place] [address] Business Professor: Rodo Fung MD Cholesterol in HDL [Mass/Vol] 44 mg/dL Low > OR = 50 [facility] Comment on above: Performed By: #### 4 , 7599, 79321 #### [facility] [address] Business Professor: Rodo Fung MD Cholesterol in LDL [Mass/Vol] [...] LDL-C. Todd STRONG et al. STACI. 2013;310(19): 5144-2930 (http://education.[employer]/faq/CAY726) Performed By: #### 4 , 7599, 37234 #### [facility] [address] Business Professor: Rodo Fung MD Cholesterol.total/C holesterol in HDL [Mass ratio] 2.9 (calc) Normal <5.0 [facility] Comment on above: Performed By: #### 4 , 7599, 24684 #### [facility] Business Professor: Rodo Fung MD NON HDL CHOLESTEROL 82 mg/dL (calc) Normal <130 [facility] Comment on above: Result Comment: For patients with diabetes plus 1 major ASCVD risk factor, treating to a non-HDL-C goal of <100 mg/dL (LDL-C of <70 mg/dL) is considered a therapeutic option. Performed By: #### 4 , 7599, 10323 #### [facility] Business Professor: Rodo Fung MD Triglyceride [Mass/Vol] 190 mg/dL High <150 [facility] Comment on above: Performed By: #### 4 , 2470, 81683 #### [facility] [address], [address] [place] [address] Business Professor: Rodo Fung MD Basic Metabolic Panlon 12-12 Anion gap [Moles/Vol] 14 mmol/L Normal 9-18 [facility] Comment on above: Performed By: #### S LACT #### [facility] [address] Calcium [Mass/Vol] 10.1 mg/dL Normal 8.5-10.2 [facility] Comment on above: Performed By: #### S LACT #### [facility] [address] [place] [address] Chloride [Moles/Vol] 102 mmol/L Normal 97-105 [facility] Comment on above: Performed By: #### S LACT #### [facility] [address] [place] [address] CO2 [Moles/Vol] 25 mmol/L Normal 22-30 [facility] spital Comment on above: Performed By: #### S LACT #### [facility] [address] [place] [id number] Creatinine [Mass/Vol] 1.02 mg/dL High 0.58-0.96 [facility] Comment on above: Performed By: #### S LACT #### [facility] [address] [place], [place] [id number] eGFR- Amer. >60 Normal [facility] Comment on above: Performed By: #### S LACT #### [facility] [address] [place], [place] [id number] GFR/1.73 sq M predicted among non-blacks MDRD (S/P/Bld) [Vol rate/Area] 56 . Normal [facility] Comment on above: Result Comment: eGFR (Estimated [...] GFR. Performed By: #### S LACT #### [facility] [address] [place] [address] Glucose [Mass/Vol] 192 mg/dL High 74-99 [facility] Comment on above: Result Comment: The [place] Diabetes Association (ADA) provides guidance for cutoff [...] Standards of Medical Care in Diabetes 2016, [place] Diabetes Association. Diabetes Care. 2016.39(Suppl 1). Performed By: #### S LACT #### [facility] [address] [place] [address] Potassium [Moles/Vol] 4.4 mmol/L Normal 3.7-5.1 [facility] Comment on above: Performed By: #### S LACT #### [facility] [address] [place] [address] Sodium [Moles/Vol] 141 mmol/L Normal 136-144 [facility] Comment on above: Performed By: #### S LACT #### [facility] [address] [place] [address] Urea nitrogen [Mass/Vol] 23 mg/dL High 7-21 [facility] Comment on above: Performed By: #### S LACT #### [facility] [address] [place] [address] CASE MANAGEMon 12-13-2019 CASE MANAGEM HNO ID: [id number] Author: Thais Zhang) SAIDA Jacques Service: ? Author Type: Registered Nurse Type: Care Mgt Progress Note Filed: 12/13/2019 4:42 PM Note Text: CARE MANAGEMENT PROGRESS NOTE SERVICE DATE: 12/13/2019 SERVICE TIME: 4:41 PM LOS: 4 days Admission Date: 12/08/2019 DISCHARGE ARRANGEMENT (list agency and phone number) Provider Name: [facility] and pharm CAREGIVER ASSESSMENT: HANDOFF COMMUNICATION: Handoff to: Primary Care Physician Primary Care Physician Name/Phone: Amy Mcginnis APRN, JOHN [phone] TRANSPORTATION ARRANGEMENTS: Spouse transporting patient home. ADDITIONAL CONTACT RESOURCES: Discharge Information Row Name Admission (Current) from 12/08/2019 in [facility] Home care, Pharmacy Start of Care 12/14/19 SIGNATURE: Thais Jacques RN PATIENT NAME: Patel Medina DATE: December 13, 2019 TIME: 4:40 PM PAGER/CONTACT #: [phone] [facility] CASE MANAGEM HNO ID: [id number] Author: Fany Vargas (Sw) Service: Case Management Author Type: Bun Machine Operator Type: Care Mgt Progress Note Filed: 12/13/2019 4:25 PM Note Text: CARE MANAGEMENT PROGRESS NOTE SERVICE DATE: 12/13/2019 SERVICE TIME: 4:23 PM LOS: 4 days Needs Prior to Discharge: To Be Determined;Home Care Order CM spoke to patient bedside. Patient received her PICC line. Script sent over to [facility] and Pharmacy. They confirmed a SOC of tomorrow with delivery this evening. Patient and MD were notified. SIGNATURE: CRISTINO Ruiz PATIENT NAME: Patel Medina DATE: December 13, 2019 TIME: 4:22 PM PAGER/CONTACT #: [phone] Normal [facility] CBCon 12-13-2019 Absolute nRBC <0.01 Normal <0.01 [facility] ital Comment on above: Performed By: #### S LACT #### [facility] 1000 [facility] [phone] Erythrocyte distribution width (RBC) [Ratio] 13.3 % Normal 11.5-15.0 [facility] Comment on above: Performed By: #### S LACT #### [facility] 1000 [facility] [phone] Hematocrit (Bld) [Volume fraction] 37.1 % Normal 36.0-46.0 [facility] l Comment on above: Performed By: #### S LACT #### [facility] [address] [place] [address] Hemoglobin (Bld) [Mass/Vol] 11.7 g/dL Normal 11.5-15.5 [facility] Comment on above: Performed By: #### S LACT #### [facility] [address] [place] [address] MCH (RBC) [Entitic mass] 28.5 pG Normal 26.0-34.0 [facility] Comment on above: Performed By: #### S LACT #### [facility] [address] [place] [address] MCHC (RBC) [Mass/Vol] 31.5 g/dL Normal 30.5-36.0 [facility] Comment on above: Performed By: #### S LACT #### [facility] [address] [place] [address] MCV (RBC) [Entitic vol] 90.5 fL Normal 80.0-100.0 [facility] Comment on above: Performed By: #### S LACT #### [facility] [address] [place] [address] Platelet mean volume (Bld) [Entitic vol] 12.8 fL High 9.0-12.7 [facility] Comment on above: Performed By: #### S LACT #### [facility] [address] [place] [address] Platelets (Bld) [#/Vol] 236 10*3/uL Normal 150-400 [facility] Comment on above: Performed By: #### S LACT #### [facility] [address] [place] [address] RBC (Bld) [#/Vol] 4.10 10*6/uL Normal 3.90-5.20 [facility] Comment on above: Performed By: #### S LACT #### [facility] [address] [place] [address] WBC (Bld) [#/Vol] 8.98 10*3/uL Normal 3.70-11.00 [facility] Comment on above: Performed By: #### S LACT #### [facility] [address] [place] [address] CNCOon 12-13-2019 CNCO Letter Text Normal [facility] CONSULT PROGon 12-13-2019 CONSULT PROG HNO ID: [id number] Author: Skip English MD Service: Infectious Disease [...] Sepsis due to Escherichia coli (E. coli) ([facility]) (12/09/2019) CKD (chronic kidney disease) stage 3, GFR 30-59 ml/min ([facility]) (07/15/2016) Obstructive sleep apnea on [...] reviewed Imaging data: reviewed Skip English MD [phone] 12/13/2019 10:13 AM [facility] Magnesiumon 12-13-2019 Magnesium [Mass/Vol] 1.4 mg/dL Low 1.7-2.3 [facility] Comment on above: Performed By: #### S LACT #### [facility] [address] [facility] [phone] NURSING PROGon 12-13-2019 NURSING PROG HNO ID: [id number] Author: Tori Nguyễn Service: PICC Team Author Type: Registered Nurse Type: Nursing Progress Note Filed: 12/13/2019 3:07 PM Note Text: PATIENT EDUCATION TOPIC: PROCEDURE / SURGERY: Procedure/Surgery: peripherally inserted central catheter PATIENT NAME: Patel Medina PATIENT LOCATION: [place] [id number]- 2 READINESS TO LEARN COGNITIVE ABILITY: [...] None REFERRAL (RECOMMENDATION): None Electronically Signed By: oTri Nguyễn RN [facility] NUTRITIONon 12-13-2019 NUTRITION HNO ID: [id number] Author: Kathie Aguilera Service: Nutrition Therapy Author [...] December 13, 2019 TIME: 12:06 PM PAGER: [facility] PROCEDUREon 12-13-2019 PROCEDURE HNO ID: [id number] Author: Tori Fletcher (Rn) Gopi Service: PICC Team Author Type: Registered Nurse Type: Procedures Filed: 12/13/2019 3:18 PM Note Text: PICC NURSE INSERTION NOTE DATE OF PROCEDURE: December 13, 2019 TIME OF PROCEDURE: 1500 ORDERING PHYSICIAN: Enedina English MD INFORMED CONSENT: Obtained per hospital policy. INDICATION FOR LINE PLACEMENT: COPAT CONDITION OF LINE PLACEMENT: Sterile PRIMARY PROCEDURALIST: Danelle Martinez RN KARATE TEACHER: Tori Nguyễn RN PRE-PROCEDURE REVIEW ALLERGIES Allergen [...] Completed Tori Nguyễn RN CATHETER PLACEMENT Brand: DoctorC Lot: [id number] Number of Lumens: 1 Type of PICC: Power Injectable PICC Lumen Size: 4 Jamaican PLACEMENT TECHNIQUE Lidocaine: Yes, Lidocaine 1% Volume [...] Patient Education Materials: Placed in chart [facility] Central Line Insertion checklist, attached to the Central Line-Associated Bloodstream Infection Prevention Policy, was utilized during this procedure. QUESTIONS or PROBLEMS: Call [phone] SIGNATURE: Tori Nguyễn RN PATIENT NAME: Patel Espinosacassi DATE: December 13, 2019 TIME: 3:08 PM [facility] Anion gap [Moles/Vol] 15 mmol/L Normal 9-18 [facility] Comment on above: Performed By: #### B SULEIMAN MG1, CBC ####[facility] [address] [place] [address] Calcium [Mass/Vol] 9.9 mg/dL Normal 8.5-10.2 [facility] Comment on above: Performed By: #### B SULEIMAN MG1, CBC ####[facility] [address] [place] [address] Chloride [Moles/Vol] 100 mmol/L Normal 97-105 [facility] Comment on above: Performed By: #### B SULEIMAN MG1, CBC ####[facility] [address] [place] [address] CO2 [Moles/Vol] 24 mmol/L Normal 22-30 [facility] spital Comment on above: Performed By: #### B SULEIMAN MG1, CBC ####[facility] [address] [place] [address] Creatinine [Mass/Vol] 1.00 mg/dL High 0.58-0.96 [facility] Comment on above: Performed By: #### B SULEIMAN MG1, CBC ####[facility] [address] [place] [address] eGFR- Amer. >60 Normal [facility] Comment on above: Performed By: #### B SULEIMAN MG1, CBC ####[facility] [address] [place] [address] GFR/1.73 sq M predicted among non-blacks MDRD (S/P/Bld) [Vol rate/Area] 57 . Normal [facility] Comment on above: Result Comment: eGFR (Estimated [...] Performed By: #### B MP, MG1, CBC ####[facility] [address] [place] [address] Glucose [Mass/Vol] 170 mg/dL High 74-99 [facility] Comment on above: Result Comment: The [place] Diabetes Association (ADA) provides guidance for cutoff [...] Standards of Medical Care in Diabetes 2016, [place] [employer]. Diabetes Care. 2016.39(Suppl 1). Performed By: #### B SULEIMAN, MG1, CBC ####[facility] [address] [place] [address] Potassium [Moles/Vol] 4.5 mmol/L Normal 3.7-5.1 [facility] Comment on above: Performed By: #### B SULEIMAN, MG1, CBC ####[facility] [address] [place] [address] Sodium [Moles/Vol] 139 mmol/L Normal 136-144 [facility] Comment on above: Performed By: #### B MP, MG1, CBC ####[facility] [address] [place] [address] Urea nitrogen [Mass/Vol] 20 mg/dL Normal 7-21 [facility] Comment on above: Performed By: #### B MP, MG1, CBC ####[facility] [address] [place] [address] CASE MANAGEMon 12-12-2019 CASE MANAGEM HNO ID: [id number] Author: Leonor Hathaway (Sw) Service: Care Management Author Type: Bun Machine Operator Type: Care Mgt Progress Note Filed: 12/12/2019 3:28 PM Note Text: CARE MANAGEMENT PROGRESS NOTE SERVICE DATE: 12/12/2019 SERVICE TIME: 1:30PM LOS: 3 days [place] of Choice Given: Yes Level of Care Discussed: Home Care Financial Disclosure Provided: Yes Provider List: Home Care;Home Care Pharmacy Provider list within the patient's requested geographic area shared with the patient/family: Yes within: 30 miles of zip code: [address] Quality and resource use metrics shared with the patient that are relevant to the patient's goals of care and treatment preferences:: Yes Metrics: Discharge to Community Patient will be having PICC placed and need home IV atb. Patient [facility]. Referrals sent; awaiting responses. 3:20PM - [facility] Combo accepted referral. Patient informed. SIGNATURE: CRISTINO Patterson PATIENT NAME: Patel Medina DATE: December 12, 2019 TIME: 1:34 PM PAGER/CONTACT #: [phone] Normal [facility] CBCon 12-12-2019 Absolute nRBC <0.01 Normal <0.01 [facility] Comment on above: Performed By: #### B SULEIMAN MG1, CBC ####[facility] Yzpvouexmx1070 [address] Erythrocyte distribution width (RBC) [Ratio] 13.4 % Normal 11.5-15.0 [facility] Comment on above: Performed By: #### B SULEIMAN MG1, CBC ####[facility] Trwnsyvixn6330 [address] Hematocrit (Bld) [Volume fraction] 34.9 % Low 36.0-46.0 [facility] Comment on above: Performed By: #### B SULEIMAN MG1, CBC ####[facility] [address] [place] [phone] Hemoglobin (Bld) [Mass/Vol] 11.0 g/dL Low 11.5-15.5 [facility] Comment on above: Performed By: #### B SULEIMAN MG1, CBC ####[facility] [address] [place] [address] MCH (RBC) [Entitic mass] 28.6 pG Normal 26.0-34.0 [facility] Comment on above: Performed By: #### B SULEIMAN MG1, CBC ####[facility] [address] [place] [address] MCHC (RBC) [Mass/Vol] 31.5 g/dL Normal 30.5-36.0 [facility] Comment on above: Performed By: #### B SULEIMAN MG1, CBC ####[facility] Towux[address] [place] [address] MCV (RBC) [Entitic vol] 90.9 fL Normal 80.0-100.0 [facility] Comment on above: Performed By: #### B SULEIMAN MG1, CBC ####[facility] Igyuxfzafe1366 [place] [address] Platelet mean volume (Bld) [Entitic vol] Unable to report Normal 9.0-12.7 [facility] Comment on above: Performed By: #### B SULEIMAN MG1, CBC ####[facility] Xwuofwrtrq7818 [place] [address] Platelets (Bld) [#/Vol] 213 10*3/uL Normal 150-400 [facility] Comment on above: Result Comment: No c lot detected. Performed By: #### B SULEIMAN MG1, CBC ####[facility] Yiszmtbkbb7558 [place] [address] RBC (Bld) [#/Vol] 3.84 10*6/uL Low 3.90-5.20 [facility] Comment on above: Performed By: #### B SULEIMAN, MG1, CBC ####[facility] Ntn[address]egqh9427 [place] [address] WBC (Bld) [#/Vol] 8.87 10*3/uL Normal 3.70-11.00 [facility] Comment on above: Performed By: #### B MP, MG1, CBC ####[facility] Swsm[address]fznn4480 [place] [address] CONSULT PROGon 12-12-2019 CONSULT PROG HNO ID: [id number] Author: Skip English MD Service: Infectious Disease [...] Sepsis due to Escherichia coli (E. coli) ([facility]) (12/09/2019) CKD (chronic kidney disease) stage 3, GFR 30-59 ml/min ([facility]) (07/15/2016) Obstructive sleep apnea on [...] reviewed Imaging data: reviewed Skip English MD [phone] Normal [facility] Magnesiumon 12-12-2019 Magnesium [Mass/Vol] 1.6 mg/dL Low 1.7-2.3 [facility] Comment on above: Performed By: #### B MP, MG1, CBC ####[place] [phone] PROGRESSon 12-12-2019 PROGRESS HNO ID: [id number] Author: Yogi Roberts Jr. Service: Hospital Medicine Author Type: Physician Type: Progress Notes Filed: 12/12/2019 2:08 PM Note Text: DEPARTMENT OF HOSPITAL MEDICINE PROGRESS NOTE SERVICE DATE: 12/12/2019 SERVICE TIME: 2:03 PM Hospital Medicine/Primary Attending: Yogi Roberts Jr., MD NIGHT AND WEEKEND COVERAGE: Nights: Please contact pager [phone]. Subjective INTERVAL HPI: Patient reports that she [...] PTSD and Depression, who presented to the [place] ED on 12/08/19 with complaints of shakes, tremors, fever and chills for a couple of days. In the ED, temp 101.4F. Na 135, Cr 1.1, Mg 1.6, WBC 9.2. Lactate 5.74 - 2.68. UA showed negative leuks and nitrites. CXR showed NAD. The patient was transferred to [facility] for admission. She was given a dose [...] Sepsis due to Escherichia coli (E. coli) ([facility]) Active Problems: Complicated UTI (urinary tract infection) CKD (chronic kidney disease) stage 3, GFR 30-59 ml/min ([facility]) Obstructive sleep apnea on CPAP [...] Prophylaxis/Anticoagul ants 12/08/19 1430 pneumatic compression stockings ([place]) 12/08/19 1430 activity - mobilize patient ([place]) VTE Prophylaxis: VTE prophylaxis appropriate Disposition: Home Plan of care discussed with: Patient and RN SIGNATURE: Yogi Roberts Jr., MD PATIENT NAME: Patel Medina DATE: December 12, 2019 TIME: 2:04 PM [facility] 12-11-2019 ALLIED HEALTH HNO ID: [id number] Author: Irma Preston (Rt) Service: ? Author Type: Collar Trimmer Type: Allied Health Filed: 12/11/2019 2:16 PM [...] RT December 11, 2019 2:15 PM Normal [facility] Basic Metabolic Panlon 12-10 Anion gap [Moles/Vol] 12 mmol/L Normal 9-18 [facility] Comment on above: Performed By: #### C BC, BMP, MG1 ####[facility] [address] [place] [address] Calcium [Mass/Vol] 9.2 mg/dL Normal 8.5-10.2 [facility] Comment on above: Performed By: #### C BC, BMP, MG1 ####[facility] [address]jurddm7535 [place] [address] Chloride [Moles/Vol] 104 mmol/L Normal 97-105 [facility] Comment on above: Performed By: #### C BC, BMP, MG1 ####[facility] Ylrzdeqmlk2333 [place] [address] CO2 [Moles/Vol] 25 mmol/L Normal 22-30 [facility] spital Comment on above: Performed By: #### C BC, BMP, MG1 ####[facility] [address]aukbvqikn8030 [place] [address] Creatinine [Mass/Vol] 0.99 mg/dL High 0.58-0.96 [facility] Comment on above: Performed By: #### C BC, BMP, MG1 ####[facility] Ojmtyxlgpe3331 [place] [address] eGFR- Amer. >60 Normal [facility] Comment on above: Performed By: #### An BC, BMP, MG1 ####[facility] Komcxpsmgx2815 [place] [address] GFR/1.73 sq M predicted among non-blacks MDRD (S/P/Bld) [Vol rate/Area] 58 . Normal [facility] Comment on above: Result Comment: eGFR (Estimated [...] Performed By: #### C ATUL GIBSON MG1 ####[facility] [address]fqeaztz40[address] [place] [address] Glucose [Mass/Vol] 160 mg/dL High 74-99 [facility] Comment on above: Result Comment: The [place] Diabetes Association (ADA) provides guidance for cutoff [...] Standards of Medical Care in Diabetes 2016, [place] [employer]. Diabetes Care. 2016.39(Suppl 1). Performed By: #### C ATUL GIBSON MG1 ####[facility] [address] [place] [address] Potassium [Moles/Vol] 4.8 mmol/L Normal 3.7-5.1 [facility] Comment on above: Performed By: #### C ATUL GIBSON MG1 ####[facility] [address] [place] [address] Sodium [Moles/Vol] 141 mmol/L Normal 136-144 [facility] Comment on above: Performed By: #### ATUL GUZMAN, MG1 ####[facility] Ufocxcmzjz7374 [place] [address] Urea nitrogen [Mass/Vol] 16 mg/dL Normal 7-21 [facility] Comment on above: Performed By: #### C ATUL GIBSON MG1 ####[facility] Vkh[address]mjgqa7742 [place] [phone] Blood Cultureon 12-11-2019 Bacteria identified Cx Nom (Bld) Culture Result - No growth 5 days Normal [facility] Comment on above: Performed By: #### C ATUL GIBSON MG1 #### [facility] Laboratory [address] [place] [address] #### PROCAL #### [place] [address] Bacteria identified Cx Nom (Bld) Culture Result - No growth 5 days Normal [facility] Comment on above: Performed By: #### C BC BMP, MG1 #### [facility] [address] [place] [address] #### PROCAL #### [place] [address] CBCon 12-11-2019 Absolute nRBC <0.01 Normal <0.01 [facility] Comment on above: Performed By: #### C ARTHUR BMP, MG1 ####[facility] [address] [place], [place] [phone] Erythrocyte distribution width (RBC) [Ratio] 13.4 % Normal 11.5-15.0 [facility] Comment on above: Performed By: #### C ARTHUR BMP, MG1 ####[facility] [address] [place], [place] [phone] Hematocrit (Bld) [Volume fraction] 34.5 % Low 36.0-46.0 [facility] Comment on above: Performed By: #### C ARTHUR BMP, MG1 ####[facility] [address] [place] [phone] Hemoglobin (Bld) [Mass/Vol] 10.7 g/dL Low 11.5-15.5 [facility] Comment on above: Performed By: #### C BC BMP, MG1 ####[facility] [address] [place] [address] MCH (RBC) [Entitic mass] 28.7 pG Normal 26.0-34.0 [facility] Comment on above: Performed By: #### C BC BMP, MG1 ####[facility] Uuhtononri1842 [address] MCHC (RBC) [Mass/Vol] 31.0 g/dL Normal 30.5-36.0 [facility] Comment on above: Performed By: #### C BC BMP, MG1 ####[facility] Xbsohwokia4524 [address] MCV (RBC) [Entitic vol] 92.5 fL Normal 80.0-100.0 [facility] Comment on above: Performed By: #### C ATUL GIBSON, MG1 ####[facility] Jdklwahmex0641 [address] Platelet mean volume (Bld) [Entitic vol] Unable to report Normal 9.0-12.7 [facility] Comment on above: Performed By: #### C ATUL GIBSON, MG1 ####[facility] Orxhouykbj1736 [place] [address] Platelets (Bld) [#/Vol] 182 10*3/uL Normal 150-400 [facility] Comment on above: Result Comment: No c lot detected. Performed By: #### C ARTHUR BMP, MG1 ####[facility] [address]lch[address]pvet8447 [place] [phone] RBC (Bld) [#/Vol] 3.73 10*6/uL Low 3.90-5.20 [facility] Comment on above: Performed By: #### C ARTHUR, ATUL, MG1 ####[facility] Rrnnnvjsya8628 [address] WBC (Bld) [#/Vol] 8.80 10*3/uL Normal 3.70-11.00 [facility] Comment on above: Performed By: #### C ARTHUR, BMP, MG1 ####[facility] Ovhcwzwxmf5059 [address] CONSULT PROGon 12-11-2019 CONSULT PROG HNO ID: [id number] Author: Skip English MD Service: Infectious Disease [...] Sepsis due to Escherichia coli (E. coli) ([facility]) (12/09/2019) CKD (chronic kidney disease) stage 3, GFR 30-59 ml/min ([facility]) (07/15/2016) Obstructive sleep apnea on [...] reviewed Imaging data: reviewed Skip English MD [phone] 12/11/2019 8:00 PM Normal [facility] Magnesiumon 12-11-2019 Magnesium [Mass/Vol] 1.8 mg/dL Normal 1.7-2.3 [facility] Comment on above: Performed By: #### C BC, BMP, MG1 ####[facility] [address] [place], [place] [phone] PROGRESSon 12-11-2019 PROGRESS HNO ID: [id number] Author: Yogi Roberts Jr. Service: Hospital Medicine Author Type: Physician Type: Progress Notes Filed: 12/11/2019 4:54 PM Note Text: DEPARTMENT OF HOSPITAL MEDICINE PROGRESS NOTE SERVICE DATE: 12/11/2019 SERVICE TIME: 4:49 PM Hospital Medicine/Primary Attending: Yogi Roberts Jr., MD NIGHT AND WEEKEND COVERAGE: Nights: Please contact pager [phone]. Subjective INTERVAL HPI: Patient has no complaints [...] PTSD and Depression, who presented to the [place] ED on 12/08/19 with complaints of shakes, tremors, fever and chills for a couple of days. In the ED, temp 101.4F. Na 135, Cr 1.1, Mg 1.6, WBC 9.2. Lactate 5.74 - 2.68. UA showed negative leuks and nitrites. CXR showed NAD. The patient was transferred to [facility] for admission. She was given a dose [...] Sepsis due to Escherichia coli (E. coli) ([facility]) Active Problems: Complicated UTI (urinary tract infection) CKD (chronic kidney disease) stage 3, GFR 30-59 ml/min ([facility]) Obstructive sleep apnea on CPAP [...] Prophylaxis/Anticoagul ants 12/08/19 1430 pneumatic compression stockings ([place]) 12/08/19 1430 activity - mobilize patient ([place]) VTE Prophylaxis: VTE prophylaxis appropriate Disposition: Home Plan of care discussed with: Patient, RN and ID SIGNATURE: Yogi Roberts Jr., MD PATIENT NAME: Patel Medina DATE: December 10, 2019 TIME: 3:08 PM [facility] US KIDNEY/BLADDERon 12-11-19 US KIDNEY/BLADDER * [...] APPEARANCE OF KIDNEYS AND BLADDER. 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[employer] Transcribe Date/Time: Dec 11 2019 2:20P Dictated by : ERNST BLANKENSHIP MD This examination was interpreted and the report reviewed and electronically signed by: ERNST BLANKENSHIP MD on Dec 11 2019 2:21PM EST [id number] Normal [facility] Basic Metabolic Panlon 12-09 Anion gap [Moles/Vol] 12 mmol/L Normal -18 [facility] Comment on above: Performed By: #### C BC BMP, MG1 ####[facility] [address]ew9[address] [place] [id number] Calcium [Mass/Vol] 8.3 mg/dL Low 8.5-10.2 [facility] Comment on above: Performed By: #### C BC, BMP, MG1 ####[facility] Dsbavvrwbk0659 [place] [address] Chloride [Moles/Vol] 105 mmol/L Normal 97-105 [facility] Comment on above: Performed By: #### C BC, BMP, MG1 ####[facility] Vguqpxyqms4447 [place] [address] CO2 [Moles/Vol] 22 mmol/L Normal 22-30 [facility] Comment on above: Performed By: #### C BC, BMP, MG1 ####[facility] Nwzztkosqa9891 [place] [address] Creatinine [Mass/Vol] 0.91 mg/dL Normal 0.58-0.96 [facility] Comment on above: Performed By: #### C BC, BMP, MG1 ####[facility] Rwtjqtggtb7457 [place] [address] eGFR- Amer. >60 Normal [facility] Comment on above: Performed By: #### C ARTHUR BMP, MG1 ####[facility] Ylfpbqkcld5574 [place] [phone] GFR/1.73 sq M predicted among non-blacks MDRD (S/P/Bld) [Vol rate/Area] mL/min/{1.73_m2} Normal [facility] Comment on above: Result Comment: eGFR (Estimated [...] Performed By: #### C BC BMP, MG1 ####[facility] Kx[address]tsyerc9032 [place] [address] Glucose [Mass/Vol] 188 mg/dL High 74-99 [facility] Comment on above: Result Comment: The [place] Diabetes [employer] (ADA) provides guidance for cutoff [...] Standards of Medical Care in Diabetes 2016, [place] [employer]. Diabetes Care. 2016.39(Suppl 1). Performed By: #### C BC, BMP, MG1 ####[facility] [address] [place] [address] Potassium [Moles/Vol] 4.1 mmol/L Normal 3.7-5.1 [facility] Comment on above: Performed By: #### C BC, BMP, MG1 ####[facility] [address] [place] [address] Sodium [Moles/Vol] 139 mmol/L Normal 136-144 [facility] Comment on above: Performed By: #### C BC, BMP, MG1 ####[facility] [address] [place] [address] Urea nitrogen [Mass/Vol] 19 mg/dL Normal 7-21 [facility] Comment on above: Performed By: #### C BC, BMP, MG1 ####[facility] [address]frvz[address] [place] [address] Blood Cultureon 12-10-2019 Bacteria identified Cx Nom (Bld) Culture Result - No growth 5 days Normal [facility] Comment on above: Performed By: #### C BC, BMP, MG1 #### [facility] Laboratory [address] [place] [phone] #### PROCAL #### [facility] [address] [place] [address] Bacteria identified Cx Nom (Bld) Culture Result - Escherichia coli Refer to specimen collected on 12/09/2019 AT 0638 ([id number]) (NOTE) Positive result called to and read back by: Kina CINTRON [address] 12/11/19 Joseline0 Ariela Critically abnormal [facility] Comment on above: Performed By: #### S LACT #### [facility] [address] [facility] [phone] CASE MGT INIT ASSESon 2019 CASE MGT [facility]IT [facility] HNO ID: [id number] Author: Leonor Hathaway (Sw) Service: Care Management Author Type: Bun Machine Operator Type: Care Mgt Initial Assessment Filed: 12/10/2019 11:32 AM Note Text: CARE MANAGEMENT: ASSESSMENT AND DISCHARGE PLAN SERVICE DATE: December 10, 2019 SERVICE TIME: 11:00AM PRIMARY CARE PHYSICIAN: Amy Lunsford NP ADMISSION STATUS: Inpatient MEDICAL: BLUE CARD PPO Patient/Fern Cutter Stated Goals: To have reduction in symptoms;To be cured/healed;To return home to life as it was Health Insurance: [employer] Health Issues Impacting Discharge Plan: Newly diagnosed;Chronic Newly Diagnosed: Severe sepsis Chronic: PTSD, depression, HTN, sleep apnea Last Discharge Date: 12/08/19 Is this Within the Past 30 days? 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 No Is Patient Psychosocially Complex?: No ASSESSMENT AND PLAN: Medical Needs: Psychosocial Needs: Psychosocial Needs: None FREEDOM OF CHOICE EXPLAINED: [place] of Choice Given: No Reason Not Given: [...] 10, 2019 TIME: 11:24 AM PAGER/CONTACT #: [phone] Normal [facility] CBCon 12-10-2019 Absolute nRBC <0.01 Normal <0.01 [facility] ital Comment on above: Performed By: #### C BC, BMP, MG1 ####[facility] [address] [place], [place] [phone] Erythrocyte distribution width (RBC) [Ratio] 13.6 % Normal 11.5-15.0 [facility] Comment on above: Performed By: #### C BC BMP, MG1 ####[facility] Nazxfduvmo7825 [place] [address] Hematocrit (Bld) [Volume fraction] 34.5 % Low 36.0-46.0 [facility] Comment on above: Performed By: #### C BC, BMP, MG1 ####[facility] Xbqhrgpxyq8226 [place] [address] Hemoglobin (Bld) [Mass/Vol] 11.0 g/dL Low 11.5-15.5 [facility] Comment on above: Performed By: #### C BC, BMP, MG1 ####[facility] [address] [place] [address] MCH (RBC) [Entitic mass] 28.9 pG Normal 26.0-34.0 [facility] Comment on above: Performed By: #### C BC BMP, MG1 ####[facility] [address] [place] [address] MCHC (RBC) [Mass/Vol] 31.9 g/dL Normal 30.5-36.0 [facility] Comment on above: Performed By: #### C ARTHUR, BMP, MG1 ####[facility] [address] [place] [address] MCV (RBC) [Entitic vol] 90.6 fL Normal 80.0-100.0 [facility] Comment on above: Performed By: #### C BC, BMP, MG1 ####[facility] [address] [place] [address] Platelet mean volume (Bld) [Entitic vol] Unable to report Normal 9.0-12.7 [facility] Comment on above: Performed By: #### C BC, BMP, MG1 ####[facility] [address] [place] [address] Platelets (Bld) [#/Vol] 166 10*3/uL Normal 150-400 [facility] Comment on above: Result Comment: No c lot detected. Performed By: #### C BC, BMP, MG1 ####[facility] [address] [place] [address] RBC (Bld) [#/Vol] 3.81 10*6/uL Low 3.90-5.20 [facility] Comment on above: Performed By: #### C ATUL GIBSON, MG1 ####[facility] [address]750[address] [place] [phone] WBC (Bld) [#/Vol] 8.95 10*3/uL Normal 3.70-11.00 [facility] Comment on above: Performed By: #### C ATUL GIBSON, MG1 ####[facility] [address] [place] [phone] CONSULT PROGon 12-10-2019 CONSULT PROG HNO ID: [id number] Author: Skip English MD Service: Infectious Disease Author Type: Physician Type: Consult Progress Note Filed: 12/10/2019 5:33 PM Note Text: INFECTIOUS DISEASE PROGRESS NOTE Patient Name: Patel Medina INTERVAL HISTORY: She feels overall improved. Still w headache for the past 3 weeks, ?migraine. ROS checked in details. All qs answered. Patient Active Hospital Problem List: Sepsis due to Escherichia coli (E. coli) ([facility]) (12/09/2019) CKD (chronic kidney disease) stage 3, GFR 30-59 ml/min ([facility]) (07/15/2016) Obstructive sleep apnea on [...] final until Authenticated by responsible provider. Normal [facility] Magnesiumon 12-10-2019 Magnesium [Mass/Vol] 2.2 mg/dL Normal 1.7-2.3 [facility] Comment on above: Performed By: #### C BC, BMP, MG1 ####[facility] [address] [place] [phone] NURSING PROGon 12-10-2019 NURSING PROG HNO ID: [id number] Author: Charmaine (Rn) SAIDA Baires Service: Nursing Author Type: Registered Nurse Type: Nursing Progress Note Filed: 12/10/2019 9:26 AM Note Text: Nursing Progress Note Patient Name: Patel Medina Patient Location: [place] [address]/[facility] __ Daily Note: 0923: Lab called with blood culture results from site 1 in right hand taken on 12/09/19 @0638. Positive for Gram - bacilli. Paged hospitalist. This note was completed by: Charmaine Baires RN [facility] PROGRESSon 12-10-2019 PROGRESS HNO ID: [id number] Author: Yogi Roberts Jr. Service: Hospital Medicine Author Type: Physician Type: Progress Notes Filed: 12/10/2019 3:14 PM Note Text: DEPARTMENT OF HOSPITAL MEDICINE PROGRESS NOTE SERVICE DATE: 12/10/2019 SERVICE TIME: 3:10 PM Hospital Medicine/Primary Attending: Yogi Roberts Jr., MD NIGHT AND WEEKEND COVERAGE: Nights: Please contact pager [phone]. Subjective INTERVAL HPI: Patient reports that she [...] PTSD and Depression, who presented to the [place] ED on 12/08/19 with complaints of shakes, tremors, fever and chills for a couple of days. In the ED, temp 101.4F. Na 135, Cr 1.1, Mg 1.6, WBC 9.2. Lactate 5.74 - 2.68. UA showed negative leuks and nitrites. CXR showed NAD. The patient was transferred to [facility] for admission. She was given a dose [...] Sepsis due to Escherichia coli (E. coli) ([facility]) Active Problems: Complicated UTI (urinary tract infection) CKD (chronic kidney disease) stage 3, GFR 30-59 ml/min ([facility]) Obstructive sleep apnea on CPAP [...] Prophylaxis/Anticoagul ants 12/08/19 1430 pneumatic compression stockings ([place], [place]) 12/08/19 1430 activity - mobilize patient ([place]) VTE Prophylaxis: VTE prophylaxis appropriate Disposition: Home Plan of care discussed with: Patient and RN SIGNATURE: Yogi Roberts Jr., MD PATIENT NAME: Patel Medina DATE: December 10, 2019 TIME: 3:08 PM Normal [facility] Basic Metabolic Panlon 12-08 Anion gap [Moles/Vol] 15 mmol/L Normal 9-18 [facility] Comment on above: Performed By: #### C ATUL GIBSON, MG1 #### [facility] [address] [place], [place] [phone] #### PROCAL #### [facility] [address] [place] [address] Calcium [Mass/Vol] 8.5 mg/dL Normal 8.5-10.2 [facility] Comment on above: Performed By: #### C ATUL GIBSON, MG1 #### [facility] [address] [place] [phone] #### PROCAL #### [facility] [address] [place] [address] Chloride [Moles/Vol] 100 mmol/L Normal 97-105 [facility] Comment on above: Performed By: #### An BC BMP, MG1 #### [facility] [address] [place] [address] #### PROCAL #### [place] [id number] [place] [phone] CO2 [Moles/Vol] 22 mmol/L Normal 22-30 [facility] Comment on above: Performed By: #### An BC BMP, MG1 #### [facility] [address] [place] [address] #### PROCAL #### [place] [address] Creatinine [Mass/Vol] 1.00 mg/dL High 0.58-0.96 [facility] Comment on above: Performed By: #### An BC BMP, MG1 #### [facility] [address] [place] [address] #### PROCAL #### [place] [address] eGFR- Amer. >60 Normal [facility] Comment on above: Performed By: #### An BC BMP, MG1 #### [facility] [address] [place] [address] #### PROCAL #### [place] [address] GFR/1.73 sq M predicted among non-blacks MDRD (S/P/Bld) [Vol rate/Area] 57 . Normal [facility] Comment on above: Result Comment: eGFR (Estimated [...] By: #### C ARTHUR BMP, MG1 #### [facility] [address] [place] [address] #### PROCAL #### [place] [phone] Glucose [Mass/Vol] 172 mg/dL High 74-99 [facility] Comment on above: Result Comment: The [place] Diabetes Association (ADA) provides guidance for cutoff [...] Standards of Medical Care in Diabetes 2016, [place] [employer]. Diabetes Care. 2016.39(Suppl 1). Performed By: #### C ARTHUR BMP, MG1 #### [facility] [address] [place] [address] #### PROCAL #### [place] [phone] Potassium [Moles/Vol] 4.1 mmol/L Normal 3.7-5.1 [facility] Comment on above: Performed By: #### An GIBSON BMP, MG1 #### [facility] [address] [place] [address] #### PROCAL #### [facility] [place] [address] Sodium [Moles/Vol] 137 mmol/L Normal 136-144 [facility] Comment on above: Performed By: #### An BC, BMP, MG1 #### [facility] [address] [place] [address] #### PROCAL #### [place] [phone] Urea nitrogen [Mass/Vol] 19 mg/dL Normal 7-21 [facility] Comment on above: Performed By: #### C BC, BMP, MG1 #### [facility] [address] [place] [address] #### PROCAL #### [facility] [address] [place], [place] [phone] Blood Cultureon 12-09-2019 Bacteria identified Cx Nom (Bld) Sp. Request/Comment: - 13.5CC Additional Testing - Escherichia coli detected by microarray. Confirmation and susceptibility testing to follow. Negative for Acinetobacter spp. and Pseudomonas aeruginosa by microarray. --> ABNORMAL ALERT Culture Result - Escherichia coli (NOTE) Positive result called to and read back by: Fabian Baires RN [address] 12/10/19 0919 Lianna López ORGANISM: Escherichia coli METHOD: Minimum inhibitory concentration(Vitek) Antibiotic Interp CLARA Status Ampicillin RESISTANT >=32 F Gentamicin SUSCEPTIBLE <=1 F Trimeth sulfameth SUSCEPTIBLE <=20 F Cefazolin RESISTANT F Ciprofloxacin SUSCEPTIBLE 1 F Cefepime SUSCEPTIBLE <=1 F Piperacillin/Tazobac SUSCEPTIBLE 8 F Ampicillin Sulbact RESISTANT >=32 F Ceftriaxone SUSCEPTIBLE <=1 F Meropenem SUSCEPTIBLE <=0.25 F Ertapenem SUSCEPTIBLE <=0.5 F Critically abnormal [facility] Comment on above: Performed By: #### S LACT #### [facility] [address] [place] [address] Bacteria identified Cx Nom (Bld) Sp. Request/Comment: - 17.0CC Culture Result - No growth 5 days Normal [facility] Comment on above: Performed By: #### C BC, BMP, MG1 #### [facility] [address] [place] [address] #### PROCAL #### [facility] [address] [place] [address] CBCon 12-09-2019 Absolute nRBC <0.01 Normal <0.01 [facility] Comment on above: Performed By: #### C BC, BMP, MG1 #### [facility] [address] [place] [address] #### PROCAL #### [facility] [address] [place] [phone] Erythrocyte distribution width (RBC) [Ratio] 13.5 % Normal 11.5-15.0 [facility] Comment on above: Performed By: #### ATUL GUZMAN, MG1 #### [facility] [address] [place] [address] #### PROCAL #### [place] [address] [place] [phone] Hematocrit (Bld) [Volume fraction] 40.4 % Normal 36.0-46.0 [facility] Comment on above: Performed By: #### C ATUL GIBSON, MG1 #### [facility] [address] [place] [address] #### PROCAL #### [place] [phone] Hemoglobin (Bld) [Mass/Vol] 12.5 g/dL Normal 11.5-15.5 [facility] Comment on above: Performed By: #### C ARTHUR BMP, MG1 #### [facility] [address] [place] [address] #### PROCAL #### [place] [phone] MCH (RBC) [Entitic mass] 28.5 pG Normal 26.0-34.0 [facility] Comment on above: Performed By: #### ATUL GUZMAN, MG1 #### [facility] [address] [place] [address] #### PROCAL #### [place] [phone] MCHC (RBC) [Mass/Vol] 30.9 g/dL Normal 30.5-36.0 [facility] Comment on above: Performed By: #### An GIBSON, BMP, MG1 #### [facility] [address] [place] [address] #### PROCAL #### [place] [phone] MCV (RBC) [Entitic vol] 92.0 fL Normal 80.0-100.0 [facility] Comment on above: Performed By: #### C BC BMP, MG1 #### [facility] [address] [place] [address] #### PROCAL #### [facility] [address] [place] [address] Platelet mean volume (Bld) [Entitic vol] Unable to report Normal 9.0-12.7 [facility] Comment on above: Performed By: #### C BC, BMP, MG1 #### [facility] [address] [place] [address] #### PROCAL #### [place] [phone] Platelets (Bld) [#/Vol] 167 10*3/uL Normal 150-400 [facility] Comment on above: Result Comment: No c lot detected. Performed By: #### C BC, BMP, MG1 #### [facility] [address] [place] [address] #### PROCAL #### [place] [phone] RBC (Bld) [#/Vol] 4.39 10*6/uL Normal 3.90-5.20 [facility] Comment on above: Performed By: #### C BC, BMP, MG1 #### [facility] [address] [place] [address] #### PROCAL #### [place] [address] [place] [phone] WBC (Bld) [#/Vol] 9.58 10*3/uL Normal 3.70-11.00 [facility] Comment on above: Performed By: #### C BC, BMP, MG1 #### [facility] [address] [place] [address] #### PROCAL #### [facility] [address] [place] [phone] CONSULTon 12-09-2019 CONSULT HNO ID: [id number] Author: Skip English MD Service: Infectious Disease [...] - Chronic pain 04/22/[address] Kimbrough ([employer] comp bilateral knee issues) - Essential hypertension [...] 09, 2019 TIME: 1:38 PM PAGER/CONTACT #: [phone] [facility] CT ABD/PEL WO IVCONon 2019 CT ABD/PEL WO IVCON * * *Final Report* * * DATE OF EXAM: Dec 09 2019 1:19PM [facility] [place]/PEL WO IVCON / [...] Tissues: No acute abnormality. Lower thorax: Unremarkable. Rotary Drum Dyer (topogram) images: Unremarkable. IMPRESSION: Marked hepatic steatosis. Otherwise unremarkable CT of the abdomen/pelvis without intra-abdominal source of infection identified. 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 Transcribe Date/Time: Dec 09 2019 1:47P Dictated by : RAMBO HERNÁNDEZ MD This examination was interpreted and the report reviewed and electronically signed by: RAMBO HERNÁNDEZ MD on Dec 09 2019 2:04PM EST [id number] [facility] Magnesiumon 12-09-2019 Magnesium [Mass/Vol] 2.0 mg/dL Normal 1.7-2.3 [facility] Comment on above: Performed By: #### C BC, BMP, MG1 #### [facility] [address] [facility] [phone] #### PROCAL #### [place] [address] NURSING PROGon 12-09-2019 NURSING PROG HNO ID: [id number] Author: Salome ZarateRn) SAIDA Gee Service: ? Author Type: Registered Nurse Type: Nursing Progress Note Filed: 12/09/2019 5:24 AM Note Text: Nursing Progress Note Patient Name: Patel Medina Patient Location: [facility] [place] [place] [id number]- 1 __ 0523 Rcvd blood culture results; sent page to hospitalist. This note was completed by: Salome Gee RN [facility] PLAN OF CAREon 12-09-2019 PLAN OF CARE HNO ID: [id number] Author: Noemy Hebert Service: Hospital Medicine Author [...] blood cx Follow AM labs Noemy Hebert APRN.KOSHER BUTCHER 12/09/2019 5:37 AM Normal [facility] PROGRESSon 12-09-2019 PROGRESS HNO ID: [id number] Author: Gibson Walker Service: Hospital Medicine Author [...] kidney disease) stage 3, GFR 30-59 ml/min ([facility]) 07/15/2016 Assessment AND Plan Note: stable VTE Prophylaxis: SCD Plan of Care visit Complete: yes SIGNATURE: Gibson Walker MD Normal [facility] Procalcitoninon 12-09-2019 Procalcitonin 7.58 ng/mL High <0.09 [facility] Comment on above: Result Comment: For a guided interpretation of test results, please visit the Change in Procalcitonin Calculator, [email or web address]-IJX-[email or web address]. Performed By: #### C BC, BMP, MG1 #### [facility] [address] [place] [phone] #### PROCAL #### [facility] [address] [place] [address] Sepsis Lactateon 12-09-2019 Sepsis Lactate 1.7 mmol/L Normal 0.5-2.0 [facility] Comment on above: Performed By: #### S LACT #### [facility] [address] [place] [phone] HISTORY PHYSICALon 0 HISTORY PHYSICAL HNO ID: [id number] Author: Gibson Walker Service: Hospital Medicine Author [...] Date - Arthritis of left knee 04/22/2016 [employer] comp issue - Arthritis of left knee 04/22/2016 [employer] comp issue - Carpal tunnel syndrome, bilateral 04/22/2016 - Carpal tunnel syndrome, bilateral 04/22/2016 - Cervical vertebral fusion 09/21/2017 - Chronic pain 04/22/[address] Kimbrough ([employer] bilateral knee issues) - Essential hypertension 04/22/2016 - Hypertension - Obstructive sleep apnea syndrome 04/22/2016 - Psychiatric disorder - PTSD (post-traumatic stress disorder) 04/22/2016 - Severe episode of recurrent major depressive disorder, without psychotic features (HCC) 04/22/[address] Saucedo's office ([employer]). PAST SURGICAL HISTORY Procedure Laterality Date - [...] , Rfl: , 12/07/2019 at Unknown time Gmemo-6-JUB-EPA-Fish Oil (FISH OIL) 1,000 mg (120 mg-180 [...] kidney disease) stage 3, GFR 30-59 ml/min ([facility]) 07/15/2016 Assessment AND Plan Note: stable DVT prophylaxis: scd VTE calculator used: yes Code status: full Added to signout: yes Plan of Care visit Complete: yes SIGNATURE: Gibson Walker MD PATIENT NAME: Patel Medina DATE: December 08, 2019 TIME: 3:47 PM PAGER/CONTACT #: [phone] [facility] SARS CoV 2 RNA(COVID 19), [facility] 11-23-2019 SARS CoV 2 RNA NOT DETECTED Normal NOT DETECTED [facility] Comment on above: Result Comment: A Not [...] providers and patients using the following websites: https://www.[facility].com/home/Covid-19/HCP/NAAT/fact-sheet 2 https://www.[facility].[employer]/home/Covid-19/Patients/NAAT/ fact-sheet2 This test has been authorized by the FDA under an Emergency Use Authorization (EUA) for use by authorized laboratories. Due to the current public health emergency, [facility] is receiving a high volume of samples [...] about COVID-19 can be found at the [facility] website: www.[employer]/Covid19. Performed By: #### 4 [phone], [phone] #### [facility]-[address], [address] [place] [phone] Business Professor: Rodo Fung MD MAMM DIG DIAG UNIon [...] by: Jermaine Washington MD 08/08/2019 12:19 PM PHONE SPECIALIST Technologist: CD Dictated By: JERMAINE WASHINGTON MD Signed By: JERMAINE WASHINGTON MD Signed Out: 08/09/19 08:37:57 Normal [facility] MAMM DIGITAL SCRN BILATERALo n 07-27-2019 MAMM [...] by: Jermaine Washington MD 07/27/2019 10:53 AM PHONE SPECIALIST ORIGINAL REPORT SCREENING BILATERAL DIGITAL MAMMOGRAM Clinical [...] by: Jermaine Washington MD 07/20/2019 9:11 AM PHONE SPECIALIST Technologist: LW Dictated By: JERMAINE WASHINGTON MD [...] by: Jermaine Washington MD 07/20/2019 9:11 AM PHONE SPECIALIST Technologist: LW Dictated By: JERMAINE WASHINGTON MD Signed By: JERMAINE WASHINGTON MD Signed Out: 07/21/19 11:00:08 Normal [facility] Vital Signs Date Time Vital Sign Value Performing Clinician Facility 02-17-2023 11:29-0400 Body height 165.1 cm [facility] 02-17-2023 11:29-0400 Body mass index (BMI) [Ratio] 36.53 kg/m2 [facility] 02-17-2023 11:29-0400 Body surface area Derived from formula 2.14 m2 [facility] 02-17-2023 11:29-0400 Body weight 99.57 kg [facility] 02-17-2023 11:29-0400 Diastolic blood pressure 80 mm[Hg] [facility] 02-17-2023 11:29-0400 Heart rate 72 /min [facility] 02-17-2023 11:29-0400 Systolic blood pressure 128 mm[Hg] [facility] 12-18-2021 11:55-0400 Body height 165.1 cm Jennie Garcia Other [facility] 12-18-2021 11:55-0400 Body mass index (BMI) [Ratio] 38.27 kg/m2 Jennie Garcia Other [facility] Other 12-18-2021 11:55-0400 Body temperature 96.8 [degF] Jennie Garcia Other [facility] Other 12-18-2021 11:55-0400 Body weight 104.33 kg Jennie Garcia Other [facility] Other 12-18-2021 11:55-0400 Diastolic blood pressure 77 mm[Hg] Jennie Garcia Other [facility] Other 12-18-2021 11:55-0400 Respiratory rate 16 /min Jennie Gacria Other [facility] Other 12-18-2021 11:55-0400 SaO2% (BldA) [Mass fraction] 99 % Jennie Garcia Other [facility] Other 12-18-2021 11:36-9099 Systolic blood pressure 121 mm[Hg] Jennie Garcia Other [facility] Other Encounters Encounter Date Encounter Type Care Provider Facility Start: 03-24-2023 End: 03-25-2023 ambulatory 837 NO FAMILY PHYSICIAN Facility:[facility] Start: 02-17-2023 [facility] Caro Alves rne Other [facility] Start: 01-13-2023 End: 01-14-2023 ambulatory Salome Espinoza PA-C Facility:[facility] Start: 09-08-2022 End: 09-08-2022 ambulatory JANUSZ SHAMMO Facility:[facility] Start: 08-05-2022 End: 08-06-2022 ambulatory JANUSZ SHAMMO Facility:[facility] Start: 07-07-2022 Encounter for genera l adult medical examination without abnormal findings JANUSZ SHAMMO [facility] Start: 07-05-2022 End: 07-06-2022 ambulatory JANUSZ SHAMMO Facility:[facility] Start: 07-05-2022 End: 07-06-2022 Encounter for general adult medical examination without abnormal findings JANUSZ SHAMMO Facility:[facility] Start: 05-18-2022 End: 05-19-[address] DOCTOR COLE Facility:[facility] Start: 04-28-2022 End: 04-29-2022 ambulatory JANUSZ SHAMMO Facility:[facility] Start: 12-18-2021 End: 12-18-2021 ambulatory Jennie Garcia Other [facility] Other Start: 12-18-2021 Office outpatient ne w 20 minutes Jennie Garcia [facility] Procedures Date Procedure Procedure Detail Performing Clinician Start: 02-17-2023 Nerve conduction laure dies 7-8 studies Caro Patel Payers Date Payer Category Payer Medicare 2022 Unknown 1965 Unknown [id number] 2.16.84 [id number] 1965 Unknown [id number] 2.16.84 [id number] 1965 Unknown [id number] 2.16.84 [id number] 1965 Unknown [id number] 2.16.84 [id number] 1965 Unknown [id number] 2.16.84 [id number] 1965 Unknown [id number] 2.16. [id number] 1965 Unknown [id number] 2.16.8 [id number] 1961 [facility] [id number] Medicare [id number] 2.1 [id number] Social History Date Type Detail Facility Unknown if ever smoked [facility] Other Sex Assigned At Sex Assigned At Bir th [facility] Other Evaluation note 12-18-2021 Note Date & [...] if no improvement of symptoms despite treatment. [facility] Other Summary Purpose Family History No Family [...] Records Found Hospital Course Note HNO ID: [id number] Author: Randee Roberts Jr. Service: Hospital Medicine [...] Sepsis due to Escherichia coli (E. coli) ([facility]) Active Problems: Complicated UTI (urinary tract infe (more content not included)... Additional Source Comments INFORMATION SOURCE (unrecogn ized section and content) DATE CREATED AUTHOR 01/03/2020 [facility] DATE CREATED AUTHOR AUTHOR'S ORGANIZ ATION 04/18/2020 [facility] DATE CREATED AUTHOR AUTHOR'S ORGANIZ ATION 07/03/2020 [facility] DATE CREATED AUTHOR AUTHOR'S ORGANIZ ATION 01/01/2022 [facility] DATE CREATED AUTHOR AUTHOR'S ORGANIZ ATION 09/13/2022 [facility] DATE CREATED AUTHOR AUTHOR'S ORGANIZ ATION 01/14/2023 [facility] DATE CREATED AUTHOR AUTHOR'S ORGANIZ ATION 03/29/2023 [facility] REASON FOR VISIT (unrecogniz ed section and [...] BE BASED ON THE PRIMARY CLINICAL RECORDS. [facility]. [facility]. provides no warranty or guarantee of the accuracy or completeness of information in this document.
[2024-02-01 07:11] LABS: Hematocrit 37.8 % (36.0-48.0); Hemoglobin 12.4 g/dL (12.0-16.0); Mean Corpuscular HGB Conc 32.8 g/dL (29.9-35.2); Mean Corpuscular Hemoglobin 29.1 pg (26.7-34.0); Mean Corpuscular Volume 88.7 fL (81.0-99.0); Mean Platelet Volume 12.2 fL (9.5-13.5); Platelet Count 204 10^3/uL (150-450); Red Blood Count 4.26 10^6/uL (4.20-5.40); Red Cell Distribution Width 13.1 % (11.0-15.0); White Blood Count 8.3 10^3/uL (4.0-11.0)
[2024-02-01 07:33] LABS: Alanine Aminotransferase 60 U/L (14-59); Albumin Globulin Ratio 1.2; Albumin Level 3.7 g/dL (3.4-5.0); Alkaline Phosphatase 67 U/L (46-116); Aspartate Amino Transferase 32 U/L (15-37); Bilirubin Total 0.9 mg/dL (0.2-1.0); Calcium 9.3 mg/dL (8.5-10.1); Chloride 105 mmol/L (98-107); Chol HDL Ratio 2.2; Cholesterol 127 mg/dL (<=200); Estimated GFR (African America >60 (>=60); Estimated GFR (Non-African Ame 50 (>=60); Glucose 128 mg/dL (74-106); HDL Cholesterol 59 mg/dL (40-60); LDL Cholesterol Calculated 40.2 mg/dL; Sodium 141 mmol/L (136-145); Total Protein 6.7 g/dL (6.4-8.2); Triglycerides 139 mg/dL (<=150); VLDL CHOLESTEROL 27.8 mg/dL
[2024-02-01 08:23] LABS: Estimated Average Glucose 146 mg/dL; Glycohemoglobin A1C 6.7 % (4.5-6.2)
== END 2024-02-01 06:58 | disposition home or self-care (01) ==
LOC: LAB 06:59
PROVIDERS: PCP Nurse Practitioner; Visit Provider Nurse Practitioner
DX: E11.649 Type 2 diabetes mellitus with hypoglycemia without coma (principal); E78.2 Mixed hyperlipidemia
CPT/HCPCS: 36415; 80053; 80061; 83036; 85027

== ENCOUNTER 2024-02-07 11:06 | Outpatient (OUT) | payer BC, MEDICARE, SELFPAY ==
--- NOTE | 2024-02-07 11:15 | XR_ITS ---
The [address] [address] Patient Name: PATEL MEDINA MRN: [id number] date: 1965 Sex: F Assigned Patient Location: [facility] Current Patient Location: Accession/Order Number: [id number] Exam Date: 02/07/2024 11:18 Report Date: 02/08/2024 06:18 At the request of: DANIKA CANELA Procedure: XR knee LT 4V PROCEDURE: XR knee LT 4V HISTORY: Chronic Left Knee Pain COMPARISON: None. FINDINGS: BONES:Marked narrowing of the anterior joint space. Mild-moderate narrowing of the medial compartment. Tricompartmental periarticular degenerative osteophytes. No fracture or dislocation. SOFT TISSUES:No visible soft tissue swelling. EFFUSION:None visible. OTHER: Negative. XR/XR knee LT 4V IMPRESSION: 1. Marked degenerative joint disease. Electronically authenticated by: GAVIN ROJAS Date: 02/08/2024 06:18
--- OUTSIDE RECORDS SUMMARY | 2024-02-07 11:19 | XMS_ITS | CCD ---
Author Organization [facility] Care Team Providers Care Technical Adjuster Name Role Phone Jennie Garcia Unavailable SHAMMO, [...] FAMILY PHYSICIAN, 8[address] Primary Care Unavail able WECNESLAO EMANUEL Attending Unavailable Allergies Allergy Classification Reported Allergen(s) Allergy Type Date of Onset Reaction(s) Facility (1 source) Glucosamine Drug Allergy [facility] [employer] Other (2 sources) Penicillin; Translations: [Penicillin] Drug Allergy [facility] Repository (2 sources) predniSONE; Translations: [predniSONE] Drug Allergy [facility] Repository (1 source) Sulfonamides (Antibiotic) Drug allergy (disorder) [facility] (2 sources) Tetracycline; Translations: [tetracycline] Drug Allergy [facility]ository (1 source) valdecoxib Drug Allergy [facility]ository (2 sources) NSAIDs; Translations: [NSAIDs] Propensity to adverse reactions to drug (disorder) [facility] Repository (1 source) Penicillins Allergy to substance (disorder) [facility] (1 source) Tetracyclines Allergy to substance (disorder) [facility] (1 source) Trenbolone; Translations: [prednisone] Drug Allergy [facility] Medications Current Medications Medication Drug Class(es) [...] SURGICAL PATH REPORTon 03-28 SURGICAL PATH REPORT [facility] Department of Pathology [address] [place] [address] Name: PATEL MEDINA : 1965 [employer] [id number] Number: Gender [facility] MARBIN ABELINO : n: Admit 57 years Attending WENCESLAO EMANUEL Age: Provider: Ordering WENCESLAO EMANUEL Provider: Consulti Surgical Pathology Report ng: ACCESSION: COLLECTED DATE/TIME: RECEIVED DATE/TIME: PATHOLOGIST: [id number] 03/24/2023 08:06 EDT 03/24/2023 12:54 EDT ZULEMA SMITH, LINA MCCLELLAND Final Diagnosis Report for [facility] [place] [facility], CURETTAGE: - MINUTE FRAGMENT OF INACTIVE ENDOMETRIUM. - NEGATIVE FOR MALIGNANCY OR HYPERPLASIA. COMMENT: The tissue is scanty. Multiple deeper sections have been examined. Clinical correlation is recommended. LINA POOLE PATHOLOGIST (Electronic Signature) Date Verified 03/28/2023 SB Clinical Data PRE-OP DIAGNOSIS: Not specified POST-OP DIAGNOSIS: Amenorrhea PROCEDURES: D and C, Hysteroscopy, MyoSure SPECIMEN: Endometrial curettings VISIT #[id number] / Surgical outpatient Gross Description Labeled endometrial curettings. Received in formalin on a plastic collection apparatus are multiple irregular pink white feathery segments of soft tissue. The specimen is filtered and has a filtrate aggregate dimension of 1.4 x 0.5 x 0.3 cm. The specimen is entirely submitted in one cassette. MP/glenn 03/24/2023 ____ ____ Print 03/28/2023 10:00 EDT Number: Date/Time: [facility] Department of Pathology [address] [place] [id number] Name: PATEL MEDINA : 1965 [facility] [id number] Number: Gender Female [facility] : n: Admit 57 years Attending WENCESLAO EMANUEL Age: Provider: Ordering WENCESLAO EMANUEL Provider: Consulti Surgical Pathology Report ng: ACCESSION: COLLECTED DATE/TIME: RECEIVED DATE/TIME: PATHOLOGIST: [id number] 03/24/2023 08:06 EDT 03/24/2023 12:54 EDT ZULEMA SMITH, LINA MCCLELLAND Gross Description Tissue pathology report for: [facility], [address] [place] [address]; PATHOLOGY SERVICES PROVIDED BY [employer] (CLIA #[id number]) in cooperation with [facility] at [address] [place] [address] (CLIA #[id number]) Microscopic Diagnosis The final diagnosis is based on a microscopic exam of sales representative livestock sections. Codes CPT CODE: 79171 ____ ____ Print 03/28/2023 10:00 EDT Number: Date/Time: Normal [facility] Comment on above: Performed By: #### [id number] #### [facility] [address] [place] [address] Inserter Promotional Item: Todd Xiong MD No Panel Informationon 02-17 Tobacco smoking status Former Smoker Invalid Interpretation Code [facility] Podiatry Office/Clinic Noteo n 01-13-2023 Podiatry [...] remember. Patient relates that they have tried klrz-jhc-tnevrkr pain relievers, padding, and modification of shoe [...] October. Was seeing Annmarie Espinoza At the [facility]. Was referred here for possible nerve entrapment. [...] around. Patient relates that they have tried Rtrg-rqr-Yyghlme pain relievers and shoe gear modification to no avail. Patient relates that this has begun to hinder their lifestyle and activity levels including those at work, and wishes to have something done about the problem. No trauma or incident remembered. Failed months of conservative modalities both provider directed and wlka-cjo-cqfnurw. Review of Systems Constitutional Head Nose Mouth [...] bilateral. Protective sensation intact as measured with [place] Renzo monofilament. Gross motor intact bilateral. Positive [...] Diabetic pe (more content not included)... Normal [facility] Provider Letteron 01-13-2023 Provider Letter Salome Espinoza PA-C [address] [facility], [place] [address] Re: Patel Medina Date of Visit: 01/13/2023 Dear Salome Espinoza PA-C, [facility] [address] [place] [address], [phone] Fax: [phone] Date: 01/13/2023 13:08:23 Dear Alexis MILLER, Salome [...] EDT - (01/13/2023) Office Visit Note Normal [facility] XR Foot 3 Views Bilateralon [...] Electronically Signed in Other Vendor System) Normal [facility] CULTURE THROATon 09-11-2022 CULTURE THROAT [...] Trimethoprim/Sulfameth oxazole <=20 S F Normal [facility] Comment on above: Performed By: #### T HRTCX #### [facility] [address] [place] [address] Dr. Augustine Blackwood RESPIRATORY PANEL PLUSon Adenovirus Not detected Normal NOT DETECTED [facility] Comment on above: Performed By: #### L IPID, CMP #### [facility] [address] [place] [address] Dr. Augustine Jeff. Parapertusis Not detected Normal NOT DETECTED [facility] Comment on above: Performed By: #### L IPID, CMP #### [facility] [address] [place] [address] Dr. Augustine Blackwood B. Pertussis Not detected Normal NOT DETECTED [facility] Comment on above: Performed By: #### L IPID, CMP #### [facility] [address] [place] [address] Dr. Augustine Blackwood Chlamydia Pneumoniae Not detected Normal NOT DETECTED [facility] Comment on above: Performed By: #### L IPID, CMP #### [facility] [address] [place] [address] Dr. Augustine Blackwood Coronavirus 229E Not detected Normal NOT DETECTED [facility] Comment on above: Performed By: #### L IPID, CMP #### [facility] [address] [place] [address] Dr. Augustine Blackwood Coronavirus HKU1 Not detected Normal NOT DETECTED [facility] Comment on above: Performed By: #### L IPID, CMP #### [facility] [address] [address] [address] Augustine Blackwood Coronavirus NL63 Not detected Normal NOT DETECTED [facility] Comment on above: Performed By: #### L IPID, CMP #### [facility] [address] [place] [address] Dr. Augustine Blackwood Coronavirus OC43 Not detected Normal NOT DETECTED [facility] Comment on above: Performed By: #### L IPID, CMP #### [facility] [address] [place] [address] Dr. Augustine Blackwood Influenza A H1 Not detected Normal NOT DETECTED [facility] Comment on above: Performed By: #### L IPID, CMP #### [facility] [address] [place] [address] Dr. Augustine Blackwood Influenza A H1 2009 Not detected Normal NOT DETECTED [facility] Comment on above: Performed By: #### L IPID, CMP #### [facility] [address] [place] [address] Dr. Augustine Blackwood Influenza A H3 Not detected Normal NOT DETECTED [facility] Comment on above: Performed By: #### L IPID, CMP #### [facility] [address] [place] [address] Dr. Augustine Blackwood Influenza B Not detected Normal NOT DETECTED [facility] Comment on above: Performed By: #### L IPID, CMP #### [facility] [address] [place] [address] Dr. Augustine Blackwood Metapneumovirus Not detected Normal NOT DETECTED [facility] Comment on above: Performed By: #### L IPID, CMP #### [facility] [address] [place] [address] Dr. Augustine Blackwood Mycoplas. Pneumoniae Not detected Normal NOT DETECTED [facility] Comment on above: Performed By: #### L IPID, CMP #### [facility] [address] [address] [address] Augustine Blackwood Parainfluenza 1 Not detected Normal NOT DETECTED [facility] Comment on above: Performed By: #### L IPID, CMP #### [facility] [address] [address] [address] Augustine Blackwood Parainfluenza 2 Not detected Normal NOT DETECTED [facility] Comment on above: Performed By: #### L IPID, CMP #### [facility] [address] [address] [address] Augustine Blackwood Parainfluenza 3 Not detected Normal NOT DETECTED [facility] Comment on above: Performed By: #### L IPID, CMP #### [facility] [address] [place] [address] Dr. Augustine Blackwood Parainfluenza 4 Not detected Normal NOT DETECTED [facility] Comment on above: Performed By: #### L IPID, CMP #### [facility] [address] [place] [address] Dr. Augustine Blackwood Rhino/Enterovirus Not detected Normal NOT DETECTED [facility] Comment on above: Performed By: #### L IPID, CMP #### [facility] [address] [place] [address] Dr. Augustine Blackwood RP2 Header 1 RESPIRATORY PANEL: VIRUSES Normal [facility] Comment on above: Performed By: #### L IPID, CMP #### [facility] [address] [place] [address] Dr. Augustine Blackwood RP2 Header 2 RESPIRATORY PANEL: BACTERIA Normal [facility] Comment on above: Performed By: #### L IPID, CMP #### [facility] [address] [place] [address] Dr. Augustine Blackwood RSV Not detected Normal NOT DETECTED [facility] Comment on above: Performed By: #### L IPID, CMP #### [facility] [address] [place] [address] Dr. Augustine Blackwood SARS-CoV-2 (COVID-19) RNA BETH+probe Ql (Unsp spec) Not detected Normal NOT DETECTED [facility] Comment on above: Performed By: #### L IPID, CMP #### [facility] [address] [place] [address] Dr. Augustine Blackwood GLYCOHEMOGLOBIN A1Con 2022 ADA RECOMMENDATION SEE BELOW Normal [facility] Comment on above: Result Comment: ADA RECOMMENDED LIMIT 4.0 - 6.0 ADA THERAPEUTIC TARGET < 7.0 ACTION SUGGESTED > 7.0 Performed By: #### L IPID, CMP #### [facility] [address] [place] [address] Dr. Augustine Blackwood Glucose [Mass/Vol] 146 mg/dL Normal [facility] Comment on above: Performed By: #### L IPID, CMP #### [facility] [address] [place] [address] Dr. Augustine Blackowod HbA1c (Bld) [Mass fraction] 6.7 % Critically high 4.5-6.2 [facility] Comment on above: Performed By: #### L IPID, CMP #### [facility] [address] [place] [address] Dr. Augustine Blackwood LIPID PROFILEon 08-05-2022 CHOL-HDL RATIO NORM SEE BELOW Normal [facility] Comment on above: Result Comment: 3.3 - 4.4 LOW RISK 4.4 - 7.1 AVERAGE RISK 7.1 - 11.0 MODERATE RISK >11.0 HIGH RISK Performed By: #### L IPID, CMP #### [facility] [address] [place] [address] Dr. Augustine Blackwood Cholesterol [Mass/Vol] 137 mg/dL Normal <=200 [facility] Comment on above: Performed By: #### L IPID, CMP #### [facility] [address] [place] [address] Dr. Augustine Blackwood Cholesterol in HDL [Mass/Vol] 48 mg/dL Normal 40-60 [facility] Comment on above: Performed By: #### L IPID, CMP #### [facility] [address] [address] [address] Augustine Blackwood Cholesterol in LDL [Mass/Vol] 55.4 mg/dL Normal [facility] Comment on above: Performed By: #### L IPID, CMP #### [facility] [address] [place] [address] Dr. Augustine Blackwood Cholesterol.total/C holesterol in HDL [Mass ratio] 2.9 {ratio} Normal [facility] Comment on above: Performed By: #### L IPID, CMP #### [facility] [address] [place] [address] Dr. Augustine Blackwood HDL NORMAL > or = 60 mg/dl - LO W CARDIOVASCULAR RISK <40 mg/dl - HIGH CARDIOVASCULAR RISK Normal [facility] Comment on above: Performed By: #### L IPID, CMP #### [facility] [address] [place] [address] Dr. Augustine Blackwood LDL CALC NORMAL SEE BELOW Normal [facility] Comment on above: Result Comment: <100 mg/dl OPTIMAL 100 - 129 mg/dl NEAR OR ABOVE OPTIMAL 130 - 159 mg/dl BORDERLINE HIGH 160 - 189 mg/dl HIGH >190 mg/dl VERY HIGH Performed By: #### L IPID, CMP #### [facility] [address] [place] [address] Dr. Augustine Blackwood Triglyceride [Mass/Vol] 168 mg/dL Critically high <=150 [facility] Comment on above: Performed By: #### L IPID, CMP #### [facility] [address] [place] [address] Dr. Augustine Blackwood VLDL CALC 33.6 mg/dL Normal [facility] Comment on above: Performed By: #### L IPID, CMP #### [facility] [address] [address] [address] Augustine Blackwood MICROALBUMIN, RAND URon - mALB 11.3 mg/L Normal <=30.0 [facility] Comment on above: Performed By: #### L IPID, CMP #### [facility] [address] [place] [address] Dr. Augustine Blackwood PROF 14(COMP METB)on 023 Albumin [Mass/Vol] 4.0 g/dL Normal 3.4-5.0 [facility] Comment on above: Performed By: #### L IPID, CMP #### [facility] [address] [place] [address] Dr. Augustine Blackwood Albumin/Globulin [Mass ratio] 1.3 {ratio} Normal [facility] Comment on above: Performed By: #### L IPID, CMP #### [facility] [address] [address] [address] Augustine Blackwood ALP [Catalytic activity/Vol] 57 U/L Normal 46-116 [facility] Comment on above: Performed By: #### L IPID, CMP #### [facility] [address] [place] [address] Dr. Augustine Blackwood ALT [Catalytic activity/Vol] 55 U/L Normal 14-59 [facility] Comment on above: Performed By: #### L IPID, CMP #### [facility] [address] [place] [address] Dr. Augustine Blackwood Anion gap [Moles/Vol] 12.3 mmol/L Normal [facility] Comment on above: Performed By: #### L IPID, CMP #### [facility] [address] [place] [address] Dr. Augustine Blackwood AST [Catalytic activity/Vol] 33 U/L Normal 15-37 [facility] Comment on above: Performed By: #### L IPID, CMP #### [facility] [address] [address] [address] Augustine Blackwood Bilirubin [Mass/Vol] 0.6 mg/dL Normal 0.2-1.0 [facility] Comment on above: Performed By: #### L IPID, CMP #### [facility] [address] [address] [address] Augustine Blackwood Calcium [Mass/Vol] 9.5 mg/dL Normal 8.5-10.1 [facility] Comment on above: Performed By: #### L IPID, CMP #### [facility] [address] [place], [place] [address] Dr. Augustine Blackwood Chloride [Moles/Vol] 103 mmol/L Normal 98-107 [facility] Comment on above: Performed By: #### L IPID, CMP #### [facility] [address] [address] [address] Augustine Blackwood CO2 [Moles/Vol] 27.0 mmol/L Normal 21.0-32.0 [facility] Comment on above: Performed By: #### L IPID, CMP #### [facility] [address] [address] [address] Augustine Blackwood Creatinine [Mass/Vol] 1.02 mg/dL Normal 0.55-1.02 [facility] Comment on above: Performed By: #### L IPID, CMP #### [facility] [address] [place] [address] Dr. Augustine Blackwood EGFR-AF HONG KONGER >60 Normal >=60 [facility] Comment on above: Performed By: #### L IPID, CMP #### [facility] [address] [place] [address] Dr. Augustine Blackwood EGFR-NON AF [place]ONG [place]ER 56 mL/min/1.73m2 Critically low >=60 [facility] Comment on above: Performed By: #### L IPID, CMP #### [facility] [address] [place] [address] Dr. Augustine Blackwood Globulin (S) [Mass/Vol] 3.2 g/dL Normal [facility] Comment on above: Performed By: #### L IPID, CMP #### [facility] [address] [address] [address] Augustine Blackwood Glucose [Mass/Vol] 130 mg/dL Critically high 74-106 [facility] Comment on above: Performed By: #### L IPID, CMP #### [facility] [address] [address] [address] Augustine Blackwood Potassium [Moles/Vol] 4.3 mmol/L Normal 3.5-5.1 [facility] Comment on above: Performed By: #### L IPID, CMP #### [facility] [address] [place] [address] Dr. Augustine Blackwood Protein [Mass/Vol] 7.2 g/dL Normal 6.4-8.2 [facility] Comment on above: Performed By: #### L IPID, CMP #### [facility] [address] [place] [address] Dr. Augustine Blackwood Sodium [Moles/Vol] 138 mmol/L Normal 136-145 [facility] Comment on above: Performed By: #### L IPID, CMP #### [facility] [address] [place] [address] Dr. Auugstine Blackwood Urea nitrogen [Mass/Vol] 22.0 mg/dL Critically high 7.0-18.0 [facility] Comment on above: Performed By: #### L IPID, CMP #### [facility] [address] [place] [address] Dr. Augustine Blackwood Urea nitrogen/Creatinine [Mass ratio] 21.6 mg/mg Normal [facility] Comment on above: Performed By: #### L IPID, CMP #### [facility] [address] [place] [address] Dr. Augustine Blackwood HEMOGRAM AND PLATELon 2022 Hematocrit (Bld) [Volume fraction] 37.5 % Normal 36.0-48.0 [facility] Comment on above: Performed By: #### H H #### [facility] [address] [place] [address] Dr. Augustine Blackwood Hemoglobin (Bld) [Mass/Vol] 12.9 g/dL Normal 12.0-16.0 [facility] Comment on above: Performed By: #### H H #### [facility] [address] [place] [address] Dr. Augustine Blackwood MCH (RBC) [Entitic mass] 29.0 pg Normal 26.7-34.0 [facility] Comment on above: Performed By: #### H H #### [facility] [address] [place] [address] Dr. Augustine Blackwood MCHC (RBC) [Mass/Vol] 34.4 g/dL Normal 29.9-35.2 [facility] Comment on above: Performed By: #### H H #### [facility] [address] [place] [address] Dr. Augustine Blackwood MCV (RBC) [Entitic vol] 84.3 fL Normal 81.0-99.0 [facility] Comment on above: Performed By: #### H H #### [facility] [address] [place] [address] Dr. Augustine Blackwood PLT 190 103/ul Normal 150-450 [facility] Comment on above: Performed By: #### H H #### [facility] [address] [place] [address] Dr. Augustine Blackwood RBC 4.45 106/ul Normal 4.20-5.40 [facility] Comment on above: Performed By: #### H H #### [facility] [address] [place] [address] Dr. Augustine Blackwood WBC 7.3 103/ul Normal 4.0-11.0 [facility] Comment on above: Performed By: #### H H #### [facility] [address] [place] [address] Dr. Augustine Blackwood TSHon 07-05-2022 TSH 1.837 uIU/mL Normal 0.358-3.740 [facility] Comment on above: Performed By: #### L IPID, CMP #### [facility] [address] [place] [address] Dr. Augustine Blackwood VITAMIN B12on 07-05-2022 Cobalamin (Vitamin B12) [Mass/Vol] 877.0 pg/mL Normal 193.0-986.0 [facility] Comment on above: Performed By: #### V ITB12, VITAD #### [facility] [address] [place] [address] Dr. Augustine Blackwood VITAMIN D 25 OHon 07-05-2022 VIT D 25-OH 79.2 ng/mL Normal [facility] Comment on above: Performed By: #### V ITB12, VITAD #### [facility] [address] [place] [address] Dr. Augustine Blackwood VIT D RANGES SEE BELOW Normal [facility] Comment on above: Result Comment: <20 ng/mL Vit D deficient 20 - <30 ng/mL Vit D insufficient 30 - 100 ng/mL Vit D sufficient >100 ng/mL Potential Toxicity Performed By: #### V ITB12, VITAD #### [facility] [address] [place] [address] Dr. Augustine Blackwood CBC AUTO DIFFon 05-18-2022 BASO # 0.1 103/ul Normal 0.0-0.1 [facility] Comment on above: Performed By: #### C BC #### [facility] [address] [place] [address] Dr. Augustine Blackwood Basophils/100 WBC (Bld) 1.2 % Normal 0.2-2.0 [facility] Comment on above: Performed By: #### C BC #### [facility] [address] [place] [address] Dr. Augustine Blackwood EO # 0.4 103/ul Normal 0.0-0.7 [facility] Comment on above: Performed By: #### C BC #### [facility] [address] [place] [address] Dr. Augustine Blackwood Eosinophils/100 WBC (Bld) 5.2 % Normal 0.9-7.0 [facility] Comment on above: Performed By: #### C BC #### [facility] [address] [place] [address] Dr. Augustine Blackwood Erythrocyte distribution width (RBC) [Ratio] 13.3 % Normal 11.0-15.0 [facility] Comment on above: Performed By: #### C BC #### [facility] [address] [place] [address] Dr. Augustine Blackwood Hematocrit (Bld) [Volume fraction] 38.7 % Normal 36.0-48.0 [facility] Comment on above: Performed By: #### C BC #### [facility] [address] [place] [address] Dr. Augustine Blackwood Hemoglobin (Bld) [Mass/Vol] 12.9 g/dL Normal 12.0-16.0 [facility] Comment on above: Performed By: #### C BC #### [facility] [address] [place] [address] Dr. Augustine Blackwood IG # 0.02 10e3/ul Normal 0.00-0.03 [facility] Comment on above: Performed By: #### C BC #### [facility] [address] [place] [address] Dr. Augustine Blackwood IG % 0.2 % Normal 0.0-0.5 [facility] Comment on above: Performed By: #### C BC #### [facility] [address] [place] [address] Dr. Augustine Blackwood LYMPH # 2.8 103/ul Normal 1.2-3.8 [facility] Comment on above: Performed By: #### C BC #### [facility] [address] [place] [address] Dr. Augustine Blackwood Lymphocytes/100 WBC (Bld) 32.7 % Normal 20.5-60.0 [facility] Comment on above: Performed By: #### C BC #### [facility] [address] [place] [address] Dr. Augustine Blackwood MANUAL DIFF REQ NO Normal [facility] Comment on above: Performed By: #### C BC #### [facility] [address] [place] [address] Dr. Augustine Blackwood MCH (RBC) [Entitic mass] 28.7 pg Normal 26.7-34.0 [facility] Comment on above: Performed By: #### C BC #### [facility] [address] [place] [place] [address] Dr. Augustine Blackwood MCHC (RBC) [Mass/Vol] 33.3 g/dL Normal 29.9-35.2 [facility] Comment on above: Performed By: #### C BC #### [facility] [address] [place] [address] Dr. Augustine Blackwood MCV (RBC) [Entitic vol] 86.2 fL Normal 81.0-99.0 [facility] Comment on above: Performed By: #### C BC #### [facility] [address] [place] [address] Dr. Augustine Blackwood MONO # 0.8 103/ul Normal 0.3-0.8 [facility] Comment on above: Performed By: #### C BC #### [facility] [address] [place] [address] Dr. Augustine Blackwood Monocytes/100 WBC (Bld) 8.9 % Normal 1.7-12.0 [facility] Comment on above: Performed By: #### C BC #### [facility] [address] [place] [address] Dr. Augustine Blackwood NEUT # 4.3 103/ul Normal 1.4-6.5 [facility] Comment on above: Performed By: #### C BC #### [facility] [address] [place] [address] Dr. Augustine Blackwood Neutrophils/100 WBC (Bld) 51.8 % Normal 43.0-75.0 [facility] Comment on above: Performed By: #### C BC #### [facility] [address] [place] [address] Dr. Augustine Blackwood Platelet mean volume (Bld) [Entitic vol] 11.8 fL Normal 9.5-13.5 [facility] Comment on above: Performed By: #### C BC #### [facility] [address] [place] [address] Dr. Augustine Blackwood PLT 217 103/ul Normal 150-450 [facility] Comment on above: Performed By: #### C BC #### [facility] [address] [place] [address] Dr. Augustine Blackwood RBC 4.49 106/ul Normal 4.20-5.40 [facility] Comment on above: Performed By: #### C BC #### [facility] [address] [place] [address] Dr. Augustine Blackwood WBC 8.4 103/ul Normal 4.0-11.0 [facility] Comment on above: Performed By: #### C BC #### [facility] [address] [place] [address] Dr. Augustine Blackwood GLYCOHEMOGLOBIN A1Con 2021 ADA RECOMMENDATION SEE BELOW Normal [facility] Comment on above: Result Comment: ADA RECOMMENDED LIMIT 4.0 - 6.0 ADA THERAPEUTIC TARGET < 7.0 ACTION SUGGESTED > 7.0 Performed By: #### A 1C #### [facility] [address] [place] [address] Dr. Augustine Blackwood Glucose [Mass/Vol] 154 mg/dL Normal [facility] Comment on above: Performed By: #### A 1C #### [facility] [address] [place] [address] Dr. Augustine Blackwood HbA1c (Bld) [Mass fraction] 7.0 % Critically high 4.5-6.2 [facility] Comment on above: Performed By: #### A 1C #### [facility] [address] [place] [address] Dr. Augustine Blackwood LIPID PROFILEon 04-28-2022 CHOL-HDL RATIO NORM SEE BELOW Normal [facility] Comment on above: Result Comment: 3.3 - 4.4 LOW RISK 4.4 - 7.1 AVERAGE RISK 7.1 - 11.0 MODERATE RISK >11.0 HIGH RISK Performed By: #### C MP, LIPID #### [facility] [address] [place] [address] Dr. Augustine Blackwood Cholesterol [Mass/Vol] 139 mg/dL Normal <=200 [facility] Comment on above: Performed By: #### C MP, LIPID #### [facility] [address] [place] [address] Dr. Augustine Blackwood Cholesterol in HDL [Mass/Vol] 56 mg/dL Normal 40-60 [facility] Comment on above: Performed By: #### C MP, LIPID #### [facility] [address] [place] [address] Dr. Augustine Blackwood Cholesterol in LDL [Mass/Vol] 56.2 mg/dL Normal [facility] Comment on above: Performed By: #### C MP, LIPID #### [facility] [address] [place] [address] Dr. Augustine Blackwood Cholesterol.total/C holesterol in HDL [Mass ratio] 2.5 {ratio} Normal [facility] Comment on above: Performed By: #### C MP, LIPID #### [facility] [address] [address] [address] Augustine Blackwood HDL NORMAL > or = 60 mg/dl - LO W CARDIOVASCULAR RISK <40 mg/dl - HIGH CARDIOVASCULAR RISK Normal [facility] Comment on above: Performed By: #### C MP, LIPID #### [facility] [address] [address] [address] Augustine Blackwood LDL CALC NORMAL SEE BELOW Normal [facility] Comment on above: Result Comment: <100 mg/dl OPTIMAL 100 - 129 mg/dl NEAR OR ABOVE OPTIMAL 130 - 159 mg/dl BORDERLINE HIGH 160 - 189 mg/dl HIGH >190 mg/dl VERY HIGH Performed By: #### C MP, LIPID #### [facility] [address] [address] [address] Augustine Blackwood Triglyceride [Mass/Vol] 134 mg/dL Normal <=150 [facility] Comment on above: Performed By: #### C MP, LIPID #### [facility] [address] [address] [address] Augustine Blackwood VLDL CALC 26.8 mg/dL Normal [facility] Comment on above: Performed By: #### C MP, LIPID #### [facility] [address] [address] [address] Augustine Blackwood PROF 14(COMP METB)on 022 Albumin [Mass/Vol] 4.0 g/dL Normal 3.4-5.0 [facility] Comment on above: Performed By: #### C MP, LIPID #### [facility] [address] [address] [address] Auugstine Blackwood Albumin/Globulin [Mass ratio] 1.1 {ratio} Normal [facility] Comment on above: Performed By: #### C MP, LIPID #### [facility] [address] [address] [address] Augustine Blackwood ALP [Catalytic activity/Vol] 55 U/L Normal 46-116 [facility] Comment on above: Performed By: #### C MP, LIPID #### [facility] [address] [address] [address] Augustine Blackwood ALT [Catalytic activity/Vol] 49 U/L Normal 14-59 [facility] Comment on above: Performed By: #### C MP, LIPID #### [facility] [address] [address] [address] Augustine Blackwood Anion gap [Moles/Vol] 10.9 mmol/L Normal [facility] Comment on above: Performed By: #### C MP, LIPID #### [facility] [address] [address] [address] Augustine Blackwood AST [Catalytic activity/Vol] 25 U/L Normal 15-37 [facility] Comment on above: Performed By: #### C MP, LIPID #### [facility] [address] [address] [address] Augustine Blackwood Bilirubin [Mass/Vol] 0.7 mg/dL Normal 0.2-1.0 [facility] Comment on above: Performed By: #### C MP, LIPID #### [facility] [address] [address] [address] Augustine Blackwood Calcium [Mass/Vol] 9.5 mg/dL Normal 8.5-10.1 [facility] Comment on above: Performed By: #### C MP, LIPID #### [facility] [address] [address] [address] Augustine Blackwood Chloride [Moles/Vol] 102 mmol/L Normal 98-107 [facility] Comment on above: Performed By: #### C MP, LIPID #### [facility] [address] [address] [address] Augustine Blackwood CO2 [Moles/Vol] 30.2 mmol/L Normal 21.0-32.0 [facility] Comment on above: Performed By: #### C MP, LIPID #### [facility] [address] [address] [address] Augustine Blackwood Creatinine [Mass/Vol] 1.02 mg/dL Normal 0.55-1.02 [facility] Comment on above: Performed By: #### C MP, LIPID #### [facility] [address] [address] [address] Augustine Blackwood EGFR-AF [place]ER 60 mL/min/1.73m2 Normal >=60 [facility] Comment on above: Performed By: #### C MP, LIPID #### [facility] [address] [address] [address] Augustine Blackwood EGFR-NON AF [place] 56 mL/min/1.73m2 Critically low >=60 [facility] Comment on above: Performed By: #### C MP, LIPID #### [facility] [address] [address] [address] Augustine Blackwood Globulin (S) [Mass/Vol] 3.5 g/dL Normal [facility] Comment on above: Performed By: #### C MP, LIPID #### [facility] [address] [address] [address] Augustine Blackwood Glucose [Mass/Vol] 143 mg/dL Critically high 74-106 [facility] Comment on above: Performed By: #### C MP, LIPID #### [facility] [address] [address] [address] Augustine Blackwood Potassium [Moles/Vol] 4.1 mmol/L Normal 3.5-5.1 [facility] Comment on above: Performed By: #### C MP, LIPID #### [facility] [address] [address] [address] Augustine Blackwood Protein [Mass/Vol] 7.5 g/dL Normal 6.4-8.2 [facility] Comment on above: Performed By: #### C MP, LIPID #### [facility] [address] [address] [address] Augustine Blackwood Sodium [Moles/Vol] 139 mmol/L Normal 136-145 [facility] Comment on above: Performed By: #### C MP, LIPID #### [facility] [address] [address] [address] Augustine Blackwood Urea nitrogen [Mass/Vol] 24.0 mg/dL Critically high 7.0-18.0 [facility] Comment on above: Performed By: #### C MP, LIPID #### [facility] [address] [address] [address] Augustine Blackwood Urea nitrogen/Creatinine [Mass ratio] 23.5 mg/mg Normal [facility] Comment on above: Performed By: #### C MP, LIPID #### [facility] [address] [place], [place] [address] Dr. Augustine Blackwood XR toe LT 4th digiton 2021 XR toe LT 4th digit [facility] [address] [place] [address] XRay Report Signed Patient: Patel Medina MR#: [id number] : 1965 Acct:[id number] Age/Sex: 56 / F ADM Date: 12/18/21 [facility] Room: Type: [facility] Attending Dr: Jennie Garcia [employer] Copies to: Jennie Garcia NP Ordering Provider: [...] Choi Jr., D.OHiginio12/18/2021 12:14 PM Dictation Location: [place] [address] Transcribed By: [facility] 12/18/21 1214 Dictated By: Prosper Choi Jr, DO 12/18/21 1210 Signed By: 12/18/21 1214 [facility] XR toe LT 4th digit [facility] [employer] Other XR toe LT 4th digit [facility] [employer] Other XR toe LT 4th digit [address] [place] [address] [employer] Other XR toe LT 4th digit [place] [address] [employer] Other XR toe LT 4th digit XRay Report [employer] Other XR toe LT 4th digit Signed [employer] Other XR toe LT 4th digit Patient: Jorge Luis Medina in L MR#: [id number] [employer] Other XR toe LT 4th digit 061 [employer] Other XR toe LT 4th digit : 1965 Acct:[id number] [employer] Other XR toe LT 4th digit Age/Sex: 56 / F ADM Date: 12/18/21 [employer] Other XR toe LT 4th digit Loc: [facility] Room: Type: [facility] [employer] Other XR toe LT 4th digit Attending Dr: Jennie Garcia NP [employer] Other XR toe LT 4th digit Copies to: Alfreda Garcia NP [employer] Other XR toe LT 4th digit Ordering Provider: Jennie Garcia NP [employer] Other XR toe LT 4th digit Date of Service: 12/18/21 [employer] Other XR toe LT 4th digit XR/XR toe LT 4th digit: M79.675 [employer] Other XR toe LT 4th digit LEFT fourth TOE - - 3 views [employer] Other XR toe LT 4th digit CLINICAL HISTORY: Patient dropped can on to her left fourth toe one week ago now with pain and [employer] Other XR toe LT 4th digit swelling. [employer] Other XR toe LT 4th digit COMPARISON: None [employer] Other XR toe LT 4th digit FINDINGS: [employer] Other XR toe LT 4th digit Soft tissue swelling fourth digit. No radiopaque foreign body. No acute bony process. Minimal [employer] Other XR toe LT 4th digit degenerative changes of the bony erosions. [employer] Other XR toe LT 4th digit XR/XR toe LT 4th digit [employer] Other XR toe LT 4th digit IMPRESSION: [employer] Other XR toe LT 4th digit SOFT TISSUE SWELLING WITHOUT ACUTE BONY PROCESS. 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: [id number] Technologist: CD Dictated By: JERMAINE WASHINGTON MD Signed By: JERMAINE WASHINGTON MD Signed Out: 06/25/20 15:52:23 Normal [facility] ALBUMIN, RANDOM URINE W/CREA TININEon 04-18-2020 ALBUMIN, URINE 12.0 mg/dL Normal See Note: [facility] Comment on above: Result Comment: Refe rence Range: Reference Range Not established Performed By: #### 1 0231, 6399, 496, 6517, 7600 #### [facility], [address] [place] [address] Inserter Promotional Item: Rodo Fung MD ALBUMIN/CREATININE RATIO, RANDOM URINE [...] 0231, 6399, 496, 6517, 7600 #### [facility], [address] [place] [address] Inserter Promotional Item: Rodo Fung MD Creatinine (U) [Mass/Vol] 136 mg/dL Normal 20-275 [facility] Comment on above: Performed By: #### 1 0231, 6399, 496, 6517, 7600 #### [facility], [address] [place] [address] [employer] Promotional Item: Rodo Fung MD CBC (INCLUDES DIFF/PLT)on Basophils (Bld) [#/Vol] 0.091 10*3/uL Normal 0-200 [facility] Comment on above: Performed By: #### 1 0231, 6399, 496, 6517, 7600 #### [facility] [address] [place] , [address] [place] [address] Inserter Promotional Item: Rodo Fung MD Basophils/100 WBC (Bld) 1.2 % Normal [facility] Comment on above: Performed By: #### 1 0231, 6399, 496, 6517, 7600 #### [facility] [address] [place] , [address] [place] [address] Inserter Promotional Item: Rodo Fung MD Eosinophils (Bld) [#/Vol] 0.395 10*3/uL Normal 15-500 [facility] Comment on above: Performed By: #### 1 0231, 6399, 496, 6517, 7600 #### [facility] [address] [place] , [address] [place] [address] Inserter Promotional Item: Rodo Fung MD Eosinophils/100 WBC (Bld) 5.2 % Normal [facility] Comment on above: Performed By: #### 1 0231, 6399, 496, 6517, 7600 #### [facility] [address] [place] , [address] [place] [address] Inserter Promotional Item: Rodo Fung MD Erythrocyte distribution width (RBC) [Ratio] 13.3 % Normal 11.0-15.0 [facility] Comment on above: Performed By: #### 1 0231, 6399, 496, 6517, 7600 #### [facility] [address] [place] , [address] [place] [address] Inserter Promotional Item: Rodo Fung MD Hematocrit (Bld) [Volume fraction] 40.0 % Normal 35.0-45.0 [facility] Comment on above: Performed By: #### 1 0231, 6399, 496, 6517, 7600 #### [facility] [address], [address] [place] [address] Inserter Promotional Item: Rodo Fung MD Hemoglobin (Bld) [Mass/Vol] 13.2 g/dL Normal 11.7-15.5 [facility] Comment on above: Performed By: #### 1 0231, 63, 496, 6517, 7600 #### [facility], [address] [place] [address] Inserter Promotional Item: Rodo Fung MD Lymphocytes (Bld) [#/Vol] 2.379 10*3/uL Normal 850-3900 [facility] Comment on above: Performed By: #### 1 0231, 63, 496, 6517, 7600 #### [facility], [address] [place] [address] Inserter Promotional Item: Rodo Fung MD Lymphocytes/100 WBC (Bld) 31.3 % Normal [facility] Comment on above: Performed By: #### 1 0231, 63, 496, 6517, 7600 #### [facility], [address] [place] [address] Inserter Promotional Item: Rodo Fung MD MCH (RBC) [Entitic mass] 29.3 pg Normal 27.0-33.0 [facility] Comment on above: Performed By: #### 1 0231, 63, 496, 6517, 7600 #### [facility], [address] [place] [address] Inserter Promotional Item: Rodo Fung MD MCHC (RBC) [Mass/Vol] 33.0 g/dL Normal 32.0-36.0 [facility] Comment on above: Performed By: #### 1 0231, 63, 496, 6517, 7600 #### [facility], [address] [place] [address] Inserter Promotional Item: Rodo Fung MD MCV (RBC) [Entitic vol] 88.9 fL Normal 80.0-100.0 [facility] Comment on above: Performed By: #### 1 0231, 6399, 496, 6517, 7600 #### [facility] [address] [place] , [address] [place] [address] Inserter Promotional Item: Rodo Fung MD Monocytes (Bld) [#/Vol] 0.654 10*3/uL Normal 200-950 [facility] Comment on above: Performed By: #### 1 0231, 6399, 496, 6517, 7600 #### [facility] [address] [place] , [address] [place] [address] Inserter Promotional Item: Rodo Fung MD Monocytes/100 WBC (Bld) 8.6 % Normal [facility] Comment on above: Performed By: #### 1 0231, 6399, 496, 6517, 7600 #### [facility] [address] [place] , [address] [place] [address] Inserter Promotional Item: Rodo Fung MD Neutrophils (Bld) [#/Vol] 4.081 10*3/uL Normal 3943-2121 [facility] Comment on above: Performed By: #### 1 0231, 6399, 496, 6517, 7600 #### [facility] [address] [place] , [address] [place] [address] Inserter Promotional Item: Rodo Fung MD Neutrophils/100 WBC (Bld) 53.7 % Normal [facility] Comment on above: Performed By: #### 1 0231, 6399, 496, 6517, 7600 #### [facility] [address] [place] , [address] [place] [address] Inserter Promotional Item: Rodo Fung MD Platelet mean volume (Bld) [Entitic vol] 12.8 fL High 7.5-12.5 [facility] Comment on above: Performed By: #### 1 0231, 6399, 496, 6517, 7600 #### [facility] [address] [place] , [address] [place] [address] Inserter Promotional Item: Rodo Fung MD Platelets (Bld) [#/Vol] 214 10*3/uL Normal 140-400 [facility] Comment on above: Performed By: #### 1 0231, 6399, 496, 6517, 7600 #### [facility] [address], [address] [place] [address] Inserter Promotional Item: Rodo Fung MD RBC (Bld) [#/Vol] 4.50 10*6/uL Normal 3.80-5.10 [facility] Comment on above: Performed By: #### 1 0231, 6399, 496, 6517, 7600 #### [facility], [address] [place] [address] Inserter Promotional Item: Rodo Fung MD WBC (Bld) [#/Vol] 7.6 10*3/uL Normal 3.8-10.8 [facility] Comment on above: Performed By: #### 1 0231, 6399, 496, 6517, 7600 #### [facility], [address] [place] [address] Inserter Promotional Item: Rodo Fung MD [facility] METABOLIC [facility] 04-18-2020 Albumin [Mass/Vol] 4.8 g/dL Normal 3.6-5.1 [facility] Comment on above: Performed By: #### 1 0231, 6399, 496, 6517, 7600 #### [facility], [address] [place] [address] Inserter Promotional Item: Rodo Fung MD Albumin/Globulin [Mass ratio] 1.8 (calc) Normal 1.0-2.5 [facility] Comment on above: Performed By: #### 1 0231, 6399, 496, 6517, 7600 #### [facility], [address] [place] [address] Inserter Promotional Item: Rodo Fung MD ALP [Catalytic activity/Vol] 54 U/L Normal 37-153 [facility] Comment on above: Performed By: #### 1 0231, 6399, 496, 6517, 7600 #### [facility], [address] [place] [address] Inserter Promotional Item: Rodo Fung MD ALT [Catalytic activity/Vol] 35 U/L High 6-29 [facility] Comment on above: Performed By: #### 1 0231, 6399, 496, 6517, 7600 #### [facility], [address] [place] [address] Inserter Promotional Item: Rodo Fung MD AST [Catalytic activity/Vol] 26 U/L Normal 10-35 [facility] Comment on above: Performed By: #### 1 0231, 6399, 496, 6517, 7600 #### [facility], [address] [place] [address] Inserter Promotional Item: Rodo Fung MD Bilirubin [Mass/Vol] 0.6 mg/dL Normal 0.2-1.2 [facility] Comment on above: Performed By: #### 1 0231, 63, 496, 6517, 7600 #### [facility], [address] [place] [address] Inserter Promotional Item: Rodo Fung MD Calcium [Mass/Vol] 10.0 mg/dL Normal 8.6-10.4 [facility] Comment on above: Performed By: #### 1 0231, 6399, 496, 6517, 7600 #### [facility], [address] [place] [address] Inserter Promotional Item: Rodo Fung MD Chloride [Moles/Vol] 105 mmol/L Normal 98-110 [facility] Comment on above: Performed By: #### 1 0231, 6399, 496, 6517, 7600 #### [facility] [address] Inserter Promotional Item: Rodo Fung MD CO2 [Moles/Vol] 26 mmol/L Normal 20-32 [facility] Comment on above: Performed By: #### 1 0231, 63, 496, 6517, 7600 #### [facility], [address] [place] [address] Inserter Promotional Item: Rodo Fung MD Creatinine [Mass/Vol] 1.06 mg/dL High 0.50-1.05 [facility] Comment on above: Result Comment: For patients >49 years of age, the reference limit for Creatinine is approximately 13% higher for people identified as -Estonian. Performed By: #### 1 0231, 6399, 496, 6517, 7600 #### [facility], [address] [place] [address] Inserter Promotional Item: Rodo Fung MD eGFR NON-AFR. [place]ER 59 mL/min/1.73m2 Low > OR = 60 [facility] Comment on above: Performed By: #### 1 0231, 63, 496, 6517, 7600 #### [facility], [address] [place] [address] Inserter Promotional Item: Rodo Fung MD GFR/1.73 sq M predicted among blacks MDRD (S/P/Bld) [Vol rate/Area] 68 mL/min/{1.73_m2} Normal > OR = 60 [facility] Comment on above: Performed By: #### 1 0231, 63, 49, 6517, 7600 #### [facility], [address] [place] [address] Inserter Promotional Item: Rodo Fung MD Globulin (S) [Mass/Vol] 2.6 g/dL (calc) Normal 1.9-3.7 [facility] Comment on above: Performed By: #### 1 0231, 63, 49, 6517, 7600 #### [facility], [address] [place] [address] Inserter Promotional Item: Rodo Fung MD Glucose [Mass/Vol] 128 mg/dL High 65-99 [facility] Comment on above: Result Comment: Fasting reference interval For someone without known diabetes, a glucose value >125 mg/dL indicates that they may have diabetes and this should be confirmed with a follow-up test. Performed By: #### 1 0231, 63, 49, 6517, 7600 #### [facility], [address] [place] [address] Inserter Promotional Item: Rodo Fung MD Potassium [Moles/Vol] 4.5 mmol/L Normal 3.5-5.3 [facility] Comment on above: Performed By: #### 1 0231, 6399, 496, 6517, 7600 #### [facility], [address] [place] [address] Inserter Promotional Item: Rodo Fung MD Protein [Mass/Vol] 7.4 g/dL Normal 6.1-8.1 [facility] Comment on above: Performed By: #### 1 0231, 6399, 496, 6517, 7600 #### [facility], [address] [place] [address] Inserter Promotional Item: Rodo Fung MD Sodium [Moles/Vol] 140 mmol/L Normal 135-146 [facility] Comment on above: Performed By: #### 1 0231, 6399, 496, 6517, 7600 #### [facility], [address] [place] [address] Inserter Promotional Item: Rodo Fung MD Urea nitrogen [Mass/Vol] 24 mg/dL Normal 7-25 [facility] Comment on above: Performed By: #### 1 0231, 6399, 496, 6517, 7600 #### [facility], [address] [place] [address] Inserter Promotional Item: Rodo Fung MD Urea nitrogen/Creatinine [Mass ratio] 23 mg/mg High 6-22 [facility] Comment on above: Performed By: #### 1 0231, 6399, 496, 6517, 7600 #### [facility], [address] [place] [address] Inserter Promotional Item: Rodo Fung MD HEMOGLOBIN A1con 04-18-2020 HbA1c [...] 0231, 6399, 496, 6517, 7600 #### [facility], [address] [place] [address] Inserter Promotional Item: Rodo Fung MD LIPID PANEL, STANDARD Cholesterol [Mass/Vol] 141 mg/dL Normal <200 [facility] Comment on above: Performed By: #### 1 0231, 6399, 496, 6517, 7600 #### [facility], [address] [place], [place] [address] Inserter Promotional Item: Rodo Fung MD Cholesterol in HDL [Mass/Vol] 53 mg/dL Normal > OR = 50 [facility] Comment on above: Performed By: #### 1 0231, 6399, 496, 6517, 7600 #### [facility]-[address], [address] [place] [address] Inserter Promotional Item: Rodo Fung MD Cholesterol in LDL [Mass/Vol] [...] LDL-C. Todd SS et al. STACI. 2013;310(19): 9930-1309 (http://education.[employer]yx.[employer]faq/JNJ685) Performed By: #### 1 0231, 6399, 496, 6517, 7600 #### [facility]-[address], [address] [place] [address] Inserter Promotional Item: Rodo Fung MD Cholesterol.total/C holesterol in HDL [Mass ratio] 2.7 (calc) Normal <5.0 [facility] Comment on above: Performed By: #### 1 0231, 6399, 496, 6517, 7600 #### [facility], [address] [place] [address] Inserter Promotional Item: Rodo Fung MD NON HDL CHOLESTEROL 88 mg/dL (calc) Normal <130 [facility] Comment on above: Result Comment: For patients with diabetes plus 1 major ASCVD risk factor, treating to a non-HDL-C goal of <100 mg/dL (LDL-C of <70 mg/dL) is considered a therapeutic option. Performed By: #### 1 1, 6399, 496, 6517, 7600 #### [facility], [address] [place] [address] Inserter Promotional Item: Rodo Fung MD Triglyceride [Mass/Vol] 182 mg/dL High <150 [facility] Comment on above: Performed By: #### 1 230, 6399, 496, 6517, 7600 #### [facility], [address] [place] [address] Inserter Promotional Item: Rodo Fung MD TSHon 04-18-2020 TSH Qn 2.17 m[IU]/L Normal 0.40-4.50 [facility] Comment on above: Performed By: #### 1 230, 6399, 496, 9517, 4750 #### [facility], [address] [place] [address] Inserter Promotional Item: Rodo Fung MD [facility] 03-20-2020 Albumin [Mass/Vol] 4.6 g/dL Normal 3.6-5.1 [facility] Comment on above: Performed By: #### 1 0231 #### [facility] [address] Inserter Promotional Item: Rodo Fung MD Albumin/Globulin [Mass ratio] 1.9 (calc) Normal 1.0-2.5 [facility] Comment on above: Performed By: #### 1 0231 #### [facility] [address] Inserter Promotional Item: Rodo Fung MD ALP [Catalytic activity/Vol] 63 U/L Normal 37-153 [facility] Comment on above: Performed By: #### 1 0231 #### [facility], [address] [place] [address] Inserter Promotional Item: Rodo Fung MD ALT [Catalytic activity/Vol] 36 U/L High 6-29 [facility] Comment on above: Performed By: #### 1 0231 #### [facility], [address] [place] [address] Inserter Promotional Item: Rodo Fung MD AST [Catalytic activity/Vol] 27 U/L Normal 10-35 [facility] Comment on above: Performed By: #### 1 0231 #### [facility], [address] [place] [address] Inserter Promotional Item: Rodo Fung MD Bilirubin [Mass/Vol] 0.6 mg/dL Normal 0.2-1.2 [facility] Comment on above: Performed By: #### 1 0231 #### [facility] [address] Inserter Promotional Item: Rodo Fung MD Calcium [Mass/Vol] 9.9 mg/dL Normal 8.6-10.4 [facility] Comment on above: Performed By: #### 1 0231 #### [facility] [address] Inserter Promotional Item: Rodo Fung MD Chloride [Moles/Vol] 104 mmol/L Normal 98-110 [facility] Comment on above: Performed By: #### 1 0231 #### [facility] [address] Inserter Promotional Item: Rodo Fung MD CO2 [Moles/Vol] 26 mmol/L Normal 20-32 [facility] Comment on above: Performed By: #### 1 0231 #### [facility] [address] Inserter Promotional Item: Rodo Fung MD Creatinine [Mass/Vol] 1.10 mg/dL High 0.50-1.05 [facility] Comment on above: Result Comment: For patients >49 years of age, the reference limit for Creatinine is approximately 13% higher for people identified as -Estonian. Performed By: #### 1 0231 #### [facility], [address] [place] [address] Inserter Promotional Item: Rodo Fung MD eGFR NON-AFR. [place]ER 56 mL/min/1.73m2 Low > OR = 60 [facility] Comment on above: Performed By: #### 1 0231 #### [facility], [address] [place] [address] Inserter Promotional Item: Rodo Fung MD GFR/1.73 sq M predicted among blacks MDRD (S/P/Bld) [Vol rate/Area] 65 mL/min/{1.73_m2} Normal > OR = 60 [facility] Comment on above: Performed By: #### 1 0231 #### [facility], [address] [place] [address] Inserter Promotional Item: Rodo Fung MD Globulin (S) [Mass/Vol] 2.4 g/dL (calc) Normal 1.9-3.7 [facility] Comment on above: Performed By: #### 1 1 #### [facility], [address] [place] [address] Inserter Promotional Item: Rodo Fung MD Glucose [Mass/Vol] 197 mg/dL High 65-99 [facility] Comment on above: Result Comment: Fasting reference interval For someone without known diabetes, a glucose value >125 mg/dL indicates that they may have diabetes and this should be confirmed with a follow-up test. Performed By: #### 1 1 #### [facility], [address] [place] [address] Inserter Promotional Item: Rodo Fung MD Potassium [Moles/Vol] 4.1 mmol/L Normal 3.5-5.3 [facility] Comment on above: Performed By: #### 1 0231 #### [facility], [address] [place] [address] Inserter Promotional Item: Rodo Fung MD Protein [Mass/Vol] 7.0 g/dL Normal 6.1-8.1 [facility] Comment on above: Performed By: #### 1 1 #### [facility], [address] [place] [address] Inserter Promotional Item: Rodo Fung MD Sodium [Moles/Vol] 140 mmol/L Normal 135-146 [facility] Comment on above: Performed By: #### 1 0231 #### [facility], [address] [place] [address] Inserter Promotional Item: Rodo Fung MD Urea nitrogen [Mass/Vol] 26 mg/dL High 7-25 [facility] Comment on above: Performed By: #### 1 0231 #### [facility], [address] [place] [address] Inserter Promotional Item: Rodo Fung MD Urea nitrogen/Creatinine [Mass ratio] 24 mg/mg High 6-22 [facility] Comment on above: Performed By: #### 1 1 #### [facility] [address] Inserter Promotional Item: Rodo Fung MD [facility] 01-24-2020 Albumin [Mass/Vol] 4.6 g/dL Normal 3.6-5.1 [facility] Comment on above: Performed By: #### 4 96, 7600, 55410 #### [facility], [address] [place] [address] Inserter Promotional Item: Rodo Fung MD Albumin/Globulin [Mass ratio] 1.6 (calc) Normal 1.0-2.5 [facility] Comment on above: Performed By: #### 4 96, 7600, 45196 #### [facility], [address] [place] [address] Inserter Promotional Item: Rodo Fung MD ALP [Catalytic activity/Vol] 49 U/L Normal 37-153 [facility] Comment on above: Performed By: #### 4 96, 7600, 71320 #### [facility], [address] [place] [address] Inserter Promotional Item: Rodo Fung MD ALT [Catalytic activity/Vol] 48 U/L High 6-29 [facility] Comment on above: Performed By: #### 4 96, 7600, 98161 #### [facility], [address] [place] [address] Inserter Promotional Item: Rodo Fung MD AST [Catalytic activity/Vol] 44 U/L High 10-35 [facility] Comment on above: Performed By: #### 4 96, 7600, 94847 #### [facility], [address] [place] [address] Inserter Promotional Item: Rodo Fung MD Bilirubin [Mass/Vol] 0.7 mg/dL Normal 0.2-1.2 [facility] Comment on above: Performed By: #### 4 96, 7600, 34491 #### [facility], [address] [place] [address] Inserter Promotional Item: Rodo Fung MD Calcium [Mass/Vol] 10.0 mg/dL Normal 8.6-10.4 [facility] Comment on above: Performed By: #### 4 96, 7600, 47809 #### [facility], [address] [place] [address] Inserter Promotional Item: Rodo Fung MD Chloride [Moles/Vol] 105 mmol/L Normal 98-110 [facility] Comment on above: Performed By: #### 4 96, 0, 95270 #### [facility] [address] Inserter Promotional Item: Rodo Fung MD CO2 [Moles/Vol] 23 mmol/L Normal 20-32 [facility] Comment on above: Performed By: #### 4 96, 0, 52064 #### [facility] [address] Inserter Promotional Item: Rodo Fung MD Creatinine [Mass/Vol] 1.16 mg/dL High 0.50-1.05 [facility] Comment on above: Result Comment: For patients >49 years of age, the reference limit for Creatinine is approximately 13% higher for people identified as -Estonian. Performed By: #### 4 96, 7600, 30151 #### [facility], [address] [place] [address] Inserter Promotional Item: Rodo Fung MD eGFR NON-AFR. [place] 53 mL/min/1.73m2 Low > OR = 60 [facility] Comment on above: Performed By: #### 4 96, 0, 00829 #### [facility], [address] [place] [address] Inserter Promotional Item: Rodo Fung MD GFR/1.73 sq M predicted among blacks MDRD (S/P/Bld) [Vol rate/Area] 61 mL/min/{1.73_m2} Normal > OR = 60 [facility] Comment on above: Performed By: #### 4 96, 0, 48580 #### [facility], [address] [place] [address] Inserter Promotional Item: Rodo Fung MD Globulin (S) [Mass/Vol] 2.8 g/dL (calc) Normal 1.9-3.7 [facility] Comment on above: Performed By: #### 4 96, 7599, 17022 #### [facility], [address] [place] [address] Inserter Promotional Item: Rodo Fung MD Glucose [Mass/Vol] 165 mg/dL High 65-99 [facility] Comment on above: Result Comment: Fasting reference interval For someone without known diabetes, a glucose value >125 mg/dL indicates that they may have diabetes and this should be confirmed with a follow-up test. Performed By: #### 4 , 0, 13841 #### [facility], [address] [place] [address] Inserter Promotional Item: Rodo Fung MD Potassium [Moles/Vol] 4.5 mmol/L Normal 3.5-5.3 [facility] Comment on above: Performed By: #### 4 96, 7600, 03112 #### [facility], [address] [place] [address] Inserter Promotional Item: Rodo Fung MD Protein [Mass/Vol] 7.4 g/dL Normal 6.1-8.1 [facility] Comment on above: Performed By: #### 4 96, 0, 09042 #### [facility] [address] [place] [address] [place] , [address] [place] [address] Inserter Promotional Item: Rodo Fung MD Sodium [Moles/Vol] 140 mmol/L Normal 135-146 [facility] Comment on above: Performed By: #### 4 96, 7600, 17041 #### [facility] , [address] [place] [address] Inserter Promotional Item: Rodo Fung MD Urea nitrogen [Mass/Vol] 24 mg/dL Normal 7-25 [facility] Comment on above: Performed By: #### 4 96, 7600, 30491 #### [facility], [address] [place] [address] Inserter Promotional Item: Rodo Fung MD Urea nitrogen/Creatinine [Mass ratio] 21 mg/mg Normal 6-22 [facility] Comment on above: Performed By: #### 4 96, 7600, 34309 #### [facility], [address] [place] [address] Inserter Promotional Item: Rodo Fung MD HEMOGLOBIN A1con 01-24-2020 HbA1c [...] children. Performed By: #### 4 , 0, 50146 #### [facility] , [address] [place] [address] Inserter Promotional Item: Rodo Fung MD LIPID PANEL, STANDARDon 01-11 Cholesterol [Mass/Vol] 126 mg/dL Normal <200 [facility] Comment on above: Performed By: #### 4 96, 7600, 77434 #### [facility] , [address] [place] [address] Inserter Promotional Item: Rodo Fung MD Cholesterol in HDL [Mass/Vol] 44 mg/dL Low > OR = 50 [facility] Comment on above: Performed By: #### 4 , 7599, 96749 #### [facility] [address] Inserter Promotional Item: Rodo Fung MD Cholesterol in LDL [Mass/Vol] [...] LDL-C. Todd STRONG et al. STACI. 2013;310(19): 1594-7794 (http://education.[employer]faq/MIE777) Performed By: #### 4 , 7599, 02459 #### [facility] [address] Inserter Promotional Item: Rodo Fung MD Cholesterol.total/C holesterol in HDL [Mass ratio] 2.9 (calc) Normal <5.0 [facility] Comment on above: Performed By: #### 4 , 7599, 30855 #### [facility] Inserter Promotional Item: Rodo Fung MD NON HDL CHOLESTEROL 82 mg/dL (calc) Normal <130 [facility] Comment on above: Result Comment: For patients with diabetes plus 1 major ASCVD risk factor, treating to a non-HDL-C goal of <100 mg/dL (LDL-C of <70 mg/dL) is considered a therapeutic option. Performed By: #### 4 , 7599, 91195 #### [facility] Inserter Promotional Item: Rodo Fung MD Triglyceride [Mass/Vol] 190 mg/dL High <150 [facility] Comment on above: Performed By: #### 4 , 8850, 10708 #### [facility] [address], [address] [place] [address] Inserter Promotional Item: Rodo Fung MD Basic Metabolic Panlon 12-12 Anion gap [Moles/Vol] 14 mmol/L Normal 9-18 [facility] Comment on above: Performed By: #### S LACT #### [facility] [address] Calcium [Mass/Vol] 10.1 mg/dL Normal 8.5-10.2 [facility] Comment on above: Performed By: #### S LACT #### [facility] [address] [place] [address] Chloride [Moles/Vol] 102 mmol/L Normal 97-105 [facility] Comment on above: Performed By: #### S LACT #### [facility] [address] [place] [address] CO2 [Moles/Vol] 25 mmol/L Normal 22-30 [facility] Comment on above: Performed By: #### S LACT #### [facility] [address] [place] [id number] Creatinine [Mass/Vol] 1.02 mg/dL High 0.58-0.96 [facility] Comment on above: Performed By: #### S LACT #### [facility] [address] [place], [place] [address] eGFR- Amer. >60 Normal [facility] Comment on above: Performed By: #### S LACT #### [facility] [address] [place], [place] [address] GFR/1.73 sq M predicted among non-blacks MDRD (S/P/Bld) [Vol rate/Area] 56 . Normal [facility] Comment on above: Result Comment: eGFR [...] GFR. Performed By: #### S LACT #### [facility] [address] [place] [address] Glucose [Mass/Vol] 192 mg/dL High 74-99 [facility] Comment on above: Result Comment: The [place] Diabetes Association (ADA) provides guidance for cutoff [...] Standards of Medical Care in Diabetes 2016, [place] [employer]. Diabetes Care. 2016.39(Suppl 1). Performed By: #### S LACT #### [facility] [address] [place] [address] Potassium [Moles/Vol] 4.4 mmol/L Normal 3.7-5.1 [facility] Comment on above: Performed By: #### S LACT #### [facility] [address] [place] [address] Sodium [Moles/Vol] 141 mmol/L Normal 136-144 [facility] Comment on above: Performed By: #### S LACT #### [facility] [address] [place] [address] Urea nitrogen [Mass/Vol] 23 mg/dL High 7-21 [facility] Comment on above: Performed By: #### S LACT #### [facility] [address] [place] [address] CASE MANAGEMon 12-13-2019 CASE MANAGEM HNO ID: [id number] Author: Thais Zhang) SAIDA Jacques Service: ? Author Type: Registered Nurse Type: Care Mgt Progress Note Filed: 12/13/2019 4:42 PM Note Text: CARE MANAGEMENT PROGRESS NOTE SERVICE DATE: 12/13/2019 SERVICE TIME: 4:41 PM LOS: 4 days Admission Date: 12/08/2019 DISCHARGE ARRANGEMENT (list agency and phone number) Provider Name: [facility] and pharm CAREGIVER ASSESSMENT: HANDOFF COMMUNICATION: Handoff to: Primary Care Physician Primary Care Physician Name/Phone: Amy Mcginnis APRN, JOHN [phone] TRANSPORTATION ARRANGEMENTS: Spouse transporting patient home. ADDITIONAL CONTACT RESOURCES: Discharge Information Row Name Admission (Current) from 12/08/2019 in [facility] Home care, Pharmacy Start of Care 12/14/19 SIGNATURE: Thais Jacques RN PATIENT NAME: Patel Medina DATE: December 13, 2019 TIME: 4:40 PM PAGER/CONTACT #: [phone] [facility] CASE MANAGEM HNO ID: [id number] Author: Fany Vargas (Sw) Service: Case Management Author Type: Client Customer Manager Type: Care Mgt Progress Note Filed: 12/13/2019 4:25 PM Note Text: CARE MANAGEMENT PROGRESS NOTE SERVICE DATE: 12/13/2019 SERVICE TIME: 4:23 PM LOS: 4 days Needs Prior to Discharge: To Be Determined;Home Care Order CM spoke to patient bedside. Patient received her PICC line. Script sent over to [facility] and Pharmacy. They confirmed a SOC of tomorrow with delivery this evening. Patient and MD were notified. SIGNATURE: CRISTINO Ruiz PATIENT NAME: Patel Medina DATE: December 13, 2019 TIME: 4:22 PM PAGER/CONTACT #: [phone] Normal [facility] CBCon 12-13-2019 Absolute nRBC <0.01 Normal <0.01 [facility] ital Comment on above: Performed By: #### S LACT #### [facility] [address] [facility] [phone] Erythrocyte distribution width (RBC) [Ratio] 13.3 % Normal 11.5-15.0 [facility] Comment on above: Performed By: #### S LACT #### [facility] [address] [facility] [phone] Hematocrit (Bld) [Volume fraction] 37.1 % Normal 36.0-46.0 [facility] l Comment on above: Performed By: #### S LACT #### [facility] [address] [place] [address] Hemoglobin (Bld) [Mass/Vol] 11.7 g/dL Normal 11.5-15.5 [facility] Comment on above: Performed By: #### S LACT #### [facility] [address] [place] [address] MCH (RBC) [Entitic mass] 28.5 pG Normal 26.0-34.0 [facility] Comment on above: Performed By: #### S LACT #### [facility] [address] [place] [address] MCHC (RBC) [Mass/Vol] 31.5 g/dL Normal 30.5-36.0 [facility] Comment on above: Performed By: #### S LACT #### [facility] [address] [place] [address] MCV (RBC) [Entitic vol] 90.5 fL Normal 80.0-100.0 [facility] Comment on above: Performed By: #### S LACT #### [facility] [address] [place] [address] Platelet mean volume (Bld) [Entitic vol] 12.8 fL High 9.0-12.7 [facility] Comment on above: Performed By: #### S LACT #### [facility] [address] [place] [address] Platelets (Bld) [#/Vol] 236 10*3/uL Normal 150-400 [facility] Comment on above: Performed By: #### S LACT #### [facility] [address] [place] [address] RBC (Bld) [#/Vol] 4.10 10*6/uL Normal 3.90-5.20 [facility] Comment on above: Performed By: #### S LACT #### [facility] [address] [place] [address] WBC (Bld) [#/Vol] 8.98 10*3/uL Normal 3.70-11.00 [facility] Comment on above: Performed By: #### S LACT #### [facility] [address] [place] [address] CNCOon 12-13-2019 CNCO Letter Text Normal [facility] CONSULT PROGon 12-13-2019 CONSULT PROG HNO ID: [id number] Author: Skip English MD Service: Infectious Disease [...] Sepsis due to Escherichia coli (E. coli) ([facility]) (12/09/2019) CKD (chronic kidney disease) stage 3, GFR 30-59 ml/min ([facility]) (07/15/2016) Obstructive sleep apnea on [...] reviewed Imaging data: reviewed Skip English MD [phone] 12/13/2019 10:13 AM [facility] Magnesiumon 12-13-2019 Magnesium [Mass/Vol] 1.4 mg/dL Low 1.7-2.3 [facility] Comment on above: Performed By: #### S LACT #### [facility] [address] [facility] [phone] NURSING PROGon 12-13-2019 NURSING PROG HNO ID: [id number] Author: Tori Nguyễn Service: PICC Team Author Type: Registered Nurse Type: Nursing Progress Note Filed: 12/13/2019 3:07 PM Note Text: PATIENT EDUCATION TOPIC: PROCEDURE / SURGERY: Procedure/Surgery: peripherally inserted central catheter PATIENT NAME: Patel Medina PATIENT LOCATION: [place] [id number]- 2 READINESS TO LEARN COGNITIVE ABILITY: [...] None Electronically Signed By: Tori Nguyễn RN [facility] NUTRITIONon 12-13-2019 NUTRITION HNO ID: [id number] Author: Kathie Aguilera Service: Nutrition Therapy Author [...] December 13, 2019 TIME: 12:06 PM PAGER: [facility] PROCEDUREon 12-13-2019 PROCEDURE HNO ID: [id number] Author: Tori Fletcher (Rn) Gopi Service: PICC Team Author Type: Registered Nurse Type: Procedures Filed: 12/13/2019 3:18 PM Note Text: PICC NURSE INSERTION NOTE DATE OF PROCEDURE: December 13, 2019 TIME OF PROCEDURE: 1500 ORDERING PHYSICIAN: Enedina English MD INFORMED CONSENT: Obtained per hospital policy. INDICATION FOR LINE PLACEMENT: COPAT CONDITION OF LINE PLACEMENT: Sterile PRIMARY PROCEDURALIST: Danelle Martinez RN CASSANDRA ARCHITECT: Tori Nguyễn RN PRE-PROCEDURE REVIEW ALLERGIES Allergen [...] Completed Tori Nguyễn RN CATHETER PLACEMENT Brand: [employer] Lot: [id number] Number of Lumens: 1 Type of PICC: Power Injectable PICC Lumen Size: 4 [place]an PLACEMENT TECHNIQUE Lidocaine: Yes, Lidocaine 1% Volume [...] Patient Education Materials: Placed in chart [facility] Central Line Insertion checklist, attached to the Central Line-Associated Bloodstream Infection Prevention Policy, was utilized during this procedure. QUESTIONS or PROBLEMS: Call [phone] SIGNATURE: Tori Nguyễn RN PATIENT NAME: Patel Espinosacassi DATE: December 13, 2019 TIME: 3:08 PM PAGER[facility]CON[facility]CT [facility]: [facility] Anion gap [Moles/Vol] 15 mmol/L Normal 9-18 [facility] Comment on above: Performed By: #### B SULEIMAN MG1, CBC ####[facility] [address] [place] [address] Calcium [Mass/Vol] 9.9 mg/dL Normal 8.5-10.2 [facility] Comment on above: Performed By: #### B SULEIMAN MG1, CBC ####[facility] [address] [place] [address] Chloride [Moles/Vol] 100 mmol/L Normal 97-105 [facility] Comment on above: Performed By: #### B SULEIMAN MG1, CBC ####[facility] [address] [place] [address] CO2 [Moles/Vol] 24 mmol/L Normal 22-30 [facility] spital Comment on above: Performed By: #### B SULEIMAN MG1, CBC ####[facility] [address] [place] [address] Creatinine [Mass/Vol] 1.00 mg/dL High 0.58-0.96 [facility] Comment on above: Performed By: #### B SULEIMAN MG1, CBC ####[facility] [address] [place] [address] eGFR- Amer. >60 Normal [facility] Comment on above: Performed By: #### B SULEIMAN MG1, CBC ####[facility] [address] [place] [address] GFR/1.73 sq M predicted among non-blacks MDRD (S/P/Bld) [Vol rate/Area] 57 . Normal [facility] Comment on above: Result Comment: eGFR [...] Performed By: #### B MP, MG1, CBC ####[facility] [address] [place] [address] Glucose [Mass/Vol] 170 mg/dL High 74-99 [facility] Comment on above: Result Comment: The [place] Diabetes [employer] (ADA) provides guidance for cutoff [...] Standards of Medical Care in Diabetes 2016, [place] [employer]. Diabetes Care. 2016.39(Suppl 1). Performed By: #### B SULEIMAN, MG1, CBC ####[facility] [address] [place] [address] Potassium [Moles/Vol] 4.5 mmol/L Normal 3.7-5.1 [facility] Comment on above: Performed By: #### B SULEIMAN, MG1, CBC ####[facility] [address] [place] [address] Sodium [Moles/Vol] 139 mmol/L Normal 136-144 [facility] Comment on above: Performed By: #### B MP, MG1, CBC ####[facility] [address] [place] [address] Urea nitrogen [Mass/Vol] 20 mg/dL Normal 7-21 [facility] Comment on above: Performed By: #### B MP, MG1, CBC ####[facility] [address] [place] [address] CASE MANAGEMon 12-12-2019 CASE MANAGEM HNO ID: [id number] Author: Leonor Hathaway (Sw) Service: Care Management Author Type: Client Customer Manager Type: Care Mgt Progress Note Filed: 12/12/2019 3:28 PM Note Text: CARE MANAGEMENT PROGRESS NOTE SERVICE DATE: 12/12/2019 SERVICE TIME: 1:30PM LOS: 3 days [place] of Choice Given: Yes Level of Care Discussed: Home Care Financial Disclosure Provided: Yes Provider List: Home Care;Home Care Pharmacy Provider list within the patient's requested geographic area shared with the patient/family: Yes within: 30 miles of zip code: [address] Quality and resource use metrics shared with the patient that are relevant to the patient's goals of care and treatment preferences:: Yes Metrics: Discharge to Community Patient will be having PICC placed and need home IV atb. Patient chose [facility]. Referrals sent; awaiting responses. 3:20PM - [facility] Combo accepted referral. Patient informed. SIGNATURE: CRISTINO Patterson PATIENT NAME: Patel Medina DATE: December 12, 2019 TIME: 1:34 PM PAGER/CONTACT #: [phone] Normal [facility] CBCon 12-12-2019 Absolute nRBC <0.01 Normal <0.01 [facility] Comment on above: Performed By: #### B SULEIMAN MG1, CBC ####[facility] Nesayfsoqx5253 [address] Erythrocyte distribution width (RBC) [Ratio] 13.4 % Normal 11.5-15.0 [facility] Comment on above: Performed By: #### B SULEIMAN MG1, CBC ####[facility] Dwopavgwor8069 [address] Hematocrit (Bld) [Volume fraction] 34.9 % Low 36.0-46.0 [facility] Comment on above: Performed By: #### B SUELIMAN MG1, CBC ####[facility] [address] [place] [address] Hemoglobin (Bld) [Mass/Vol] 11.0 g/dL Low 11.5-15.5 [facility] Comment on above: Performed By: #### B SULEIMAN MG1, CBC ####[facility] [address] [place] [address] MCH (RBC) [Entitic mass] 28.6 pG Normal 26.0-34.0 [facility] Comment on above: Performed By: #### B SULEIMAN MG1, CBC ####[facility] [address] [place] [address] MCHC (RBC) [Mass/Vol] 31.5 g/dL Normal 30.5-36.0 [facility] Comment on above: Performed By: #### B SULEIMAN MG1, CBC ####[facility] [address] [place] [address] MCV (RBC) [Entitic vol] 90.9 fL Normal 80.0-100.0 [facility] Comment on above: Performed By: #### B SULEIMAN MG1, CBC ####[facility] [address]xe[address] [place] [address] Platelet mean volume (Bld) [Entitic vol] Unable to report Normal 9.0-12.7 [facility] Comment on above: Performed By: #### B SULEIMAN MG1, CBC ####[facility] [address]65[address] [place] [address] Platelets (Bld) [#/Vol] 213 10*3/uL Normal 150-400 [facility] Comment on above: Result Comment: No c lot detected. Performed By: #### B SULEIMAN MG1, CBC ####[facility] Johdcjozbf6[address] [place] [address] RBC (Bld) [#/Vol] 3.84 10*6/uL Low 3.90-5.20 [facility] Comment on above: Performed By: #### B SULEIMAN, MG1, CBC ####[facility] X[address]qm[address] [place] [address] WBC (Bld) [#/Vol] 8.87 10*3/uL Normal 3.70-11.00 [facility] Comment on above: Performed By: #### B MP, MG1, CBC ####[facility] [address] [place] [address] CONSULT PROGon 12-12-2019 CONSULT PROG HNO ID: [id number] Author: Skip English MD Service: Infectious Disease [...] Sepsis due to Escherichia coli (E. coli) ([facility]) (12/09/2019) CKD (chronic kidney disease) stage 3, GFR 30-59 ml/min ([facility]) (07/15/2016) Obstructive sleep apnea on [...] reviewed Imaging data: reviewed Skip English MD [phone] Normal [facility] Magnesiumon 12-12-2019 Magnesium [Mass/Vol] 1.6 mg/dL Low 1.7-2.3 [facility] Comment on above: Performed By: #### B MP, MG1, CBC ####[place] [phone] PROGRESSon 12-12-2019 PROGRESS HNO ID: [id number] Author: Yogi Roberts Jr. Service: Hospital Medicine Author Type: Physician Type: Progress Notes Filed: 12/12/2019 2:08 PM Note Text: DEPARTMENT OF HOSPITAL MEDICINE PROGRESS NOTE SERVICE DATE: 12/12/2019 SERVICE TIME: 2:03 PM Hospital Medicine/Primary Attending: Yogi Roberts Jr., MD NIGHT AND WEEKEND COVERAGE: Nights: Please contact pager [phone]. Subjective INTERVAL HPI: Patient reports that she [...] PTSD and Depression, who presented to the [place] ED on 12/08/19 with complaints of shakes, tremors, fever and chills for a couple of days. In the ED, temp 101.4F. Na 135, Cr 1.1, Mg 1.6, WBC 9.2. Lactate 5.74 - 2.68. UA showed negative leuks and nitrites. CXR showed NAD. The patient was transferred to [facility] for admission. She was given a dose [...] Sepsis due to Escherichia coli (E. coli) ([facility]) Active Problems: Complicated UTI (urinary tract infection) CKD (chronic kidney disease) stage 3, GFR 30-59 ml/min ([facility]) Obstructive sleep apnea on CPAP [...] Prophylaxis/Anticoagul ants 12/08/19 1430 pneumatic compression stockings (oh,nh) 12/08/19 1430 activity - mobilize patient ([place]) VTE Prophylaxis: VTE prophylaxis appropriate Disposition: Home Plan of care discussed with: Patient and RN SIGNATURE: Yogi Roberts Jr., MD PATIENT NAME: Patel Medina DATE: December 12, 2019 TIME: 2:04 PM [facility] 12-11-2019 [facility] HNO ID: [id number] Author: Irma Preston (Rt) Service: ? Author Type: Cardiology Specialist Type: Allied Health Filed: 12/11/2019 2:16 PM [...] RT December 11, 2019 2:15 PM Normal [facility] Basic Metabolic Panlon 12-10 Anion gap [Moles/Vol] 12 mmol/L Normal 9-18 [facility] Comment on above: Performed By: #### C BC, BMP, MG1 ####[facility] [address] [place] [address] Calcium [Mass/Vol] 9.2 mg/dL Normal 8.5-10.2 [facility] Comment on above: Performed By: #### C BC, BMP, MG1 ####[facility] Ifcomhkcst[address]83 [place] [address] Chloride [Moles/Vol] 104 mmol/L Normal 97-105 [facility] Comment on above: Performed By: #### C BC, BMP, MG1 ####[facility] [address]mp[address]us[address] [place] [address] CO2 [Moles/Vol] 25 mmol/L Normal 22-30 [facility] Comment on above: Performed By: #### C BC, BMP, MG1 ####[facility] [address]zrwuqp[address]248 [place] [address] Creatinine [Mass/Vol] 0.99 mg/dL High 0.58-0.96 [facility] Comment on above: Performed By: #### C BC, BMP, MG1 ####[facility] [address] [place] [address] eGFR- Amer. >60 Normal [facility] Comment on above: Performed By: #### An BC, BMP, MG1 ####[facility] [address]em[address] [place] [address] GFR/1.73 sq M predicted among non-blacks MDRD (S/P/Bld) [Vol rate/Area] 58 . Normal [facility] Comment on above: Result Comment: eGFR [...] Performed By: #### C ATUL GIBSON MG1 ####[facility] [address] [place] [address] Glucose [Mass/Vol] 160 mg/dL High 74-99 [facility] Comment on above: Result Comment: The [place] Diabetes Association (ADA) provides guidance for cutoff [...] Standards of Medical Care in Diabetes 2016, [place] [employer]. Diabetes Care. 2016.39(Suppl 1). Performed By: #### C ATUL GIBSON MG1 ####[facility] [address] [place] [address] Potassium [Moles/Vol] 4.8 mmol/L Normal 3.7-5.1 [facility] Comment on above: Performed By: #### C ATUL GIBSON MG1 ####[facility] [address] [place] [address] Sodium [Moles/Vol] 141 mmol/L Normal 136-144 [facility] Comment on above: Performed By: #### ATUL GUZMAN, MG1 ####[facility] [address] [place] [address] Urea nitrogen [Mass/Vol] 16 mg/dL Normal 7-21 [facility] Comment on above: Performed By: #### C ATUL GIBSON MG1 ####[facility] [address]23[address] [place] [phone] Blood Cultureon 12-11-2019 Bacteria identified Cx Nom (Bld) Culture Result - No growth 5 days Normal [facility] Comment on above: Performed By: #### C ATUL GIBSON MG1 #### [facility] [address] [place] [phone] #### PROCAL #### [place] [address] Bacteria identified Cx Nom (Bld) Culture Result - No growth 5 days Normal [facility] Comment on above: Performed By: #### C BC BMP, MG1 #### [facility] [address] [place] [phone] #### PROCAL #### [place] [address] CBCon 12-11-2019 Absolute nRBC <0.01 Normal <0.01 [facility] Comment on above: Performed By: #### C ARTHUR BMP, MG1 ####[facility] [address] [place], [place] [phone] Erythrocyte distribution width (RBC) [Ratio] 13.4 % Normal 11.5-15.0 [facility] Comment on above: Performed By: #### C ARTHUR BMP, MG1 ####[facility] [address] [place], [place] [phone] Hematocrit (Bld) [Volume fraction] 34.5 % Low 36.0-46.0 [facility] l Comment on above: Performed By: #### C ARTHUR BMP, MG1 ####[facility] [address] [place] [phone] Hemoglobin (Bld) [Mass/Vol] 10.7 g/dL Low 11.5-15.5 [facility] Comment on above: Performed By: #### C BC BMP, MG1 ####[facility] [address] [place] [phone] MCH (RBC) [Entitic mass] 28.7 pG Normal 26.0-34.0 [facility] Comment on above: Performed By: #### C BC BMP, MG1 ####[facility] Yjqosidnwl7950 [address] MCHC (RBC) [Mass/Vol] 31.0 g/dL Normal 30.5-36.0 [facility] Comment on above: Performed By: #### C BC BMP, MG1 ####[facility] Qbhbqpmmiu2616 [address]5[address] MCV (RBC) [Entitic vol] 92.5 fL Normal 80.0-100.0 [facility] Comment on above: Performed By: #### C ATUL GIBSON, MG1 ####[facility] Oyijcooffl8681 [address]5160 Platelet mean volume (Bld) [Entitic vol] Unable to report Normal 9.0-12.7 [facility] Comment on above: Performed By: #### C ATUL GIBSON, MG1 ####[facility] [address]xxbma4[address] [place] [address] Platelets (Bld) [#/Vol] 182 10*3/uL Normal 150-400 [facility] Comment on above: Result Comment: No c lot detected. Performed By: #### C ARTHUR BMP, MG1 ####[facility] Q[address]htzutpr7917 [place] [phone] RBC (Bld) [#/Vol] 3.73 10*6/uL Low 3.90-5.20 [facility] Comment on above: Performed By: #### C ARTHUR, ATUL, MG1 ####[facility] Qsixqzlkde2568 [address]5160 WBC (Bld) [#/Vol] 8.80 10*3/uL Normal 3.70-11.00 [facility] Comment on above: Performed By: #### C ARTHUR, BMP, MG1 ####[facility] Khdrqfvaoj7275 [address] CONSULT PROGon 12-11-2019 CONSULT PROG HNO ID: [id number] Author: Skip English MD Service: Infectious Disease [...] Sepsis due to Escherichia coli (E. coli) ([facility]) (12/09/2019) CKD (chronic kidney disease) stage 3, GFR 30-59 ml/min ([facility]) (07/15/2016) Obstructive sleep apnea on [...] reviewed Imaging data: reviewed Skip English MD [phone] 12/11/2019 8:00 PM Normal [facility] Magnesiumon 12-11-2019 Magnesium [Mass/Vol] 1.8 mg/dL Normal 1.7-2.3 [facility] Comment on above: Performed By: #### C BC, BMP, MG1 ####[facility] [address] [place], [place] [phone] PROGRESSon 12-11-2019 PROGRESS HNO ID: [id number] Author: Yogi Roberts Jr. Service: Hospital Medicine Author Type: Physician Type: Progress Notes Filed: 12/11/2019 4:54 PM Note Text: DEPARTMENT OF HOSPITAL MEDICINE PROGRESS NOTE SERVICE DATE: 12/11/2019 SERVICE TIME: 4:49 PM Hospital Medicine/Primary Attending: Yogi Roberts Jr., MD NIGHT AND WEEKEND COVERAGE: Nights: Please contact pager [phone]. Subjective INTERVAL HPI: Patient has no complaints [...] PTSD and Depression, who presented to the [place] ED on 12/08/19 with complaints of shakes, tremors, fever and chills for a couple of days. In the ED, temp 101.4F. Na 135, Cr 1.1, Mg 1.6, WBC 9.2. Lactate 5.74 - 2.68. UA showed negative leuks and nitrites. CXR showed NAD. The patient was transferred to [facility] for admission. She was given a dose [...] Sepsis due to Escherichia coli (E. coli) ([facility]) Active Problems: Complicated UTI (urinary tract infection) CKD (chronic kidney disease) stage 3, GFR 30-59 ml/min ([facility]) Obstructive sleep apnea on CPAP [...] Prophylaxis/Anticoagul ants 12/08/19 1430 pneumatic compression stockings (oh,oh) 12/08/19 1430 activity - mobilize patient (oh,nh) VTE Prophylaxis: VTE prophylaxis appropriate Disposition: Home Plan of care discussed with: Patient, RN and ID SIGNATURE: Yogi Roberts Jr., MD PATIENT NAME: Patel Medina DATE: December 10, 2019 TIME: 3:08 PM [facility] US KIDNEY/BLADDERon 12-11-19 US KIDNEY/BLADDER * [...] APPEARANCE OF KIDNEYS AND BLADDER. Hepatic steatosis Mine Safety Manager: PSCB Transcribe Date/Time: Dec 11 2019 2:20P Dictated by : ERNST BLANKENSHIP MD This examination was interpreted and the report reviewed and electronically signed by: ERNST BLANKENSHIP MD on Dec 11 2019 2:21PM EST [id number] Normal [facility] Basic Metabolic Panlon 12-09 Anion gap [Moles/Vol] 12 mmol/L Normal -18 [facility] Comment on above: Performed By: #### C BC BMP, MG1 ####[facility] [address] [place] [phone] Calcium [Mass/Vol] 8.3 mg/dL Low 8.5-10.2 [facility] Comment on above: Performed By: #### C BC, BMP, MG1 ####[facility] [address]tr[address] [place] [address] Chloride [Moles/Vol] 105 mmol/L Normal 97-105 [facility] Comment on above: Performed By: #### C BC, BMP, MG1 ####[facility] Jrvxybwvpt0113 [place] [address] CO2 [Moles/Vol] 22 mmol/L Normal 22-30 [facility] Comment on above: Performed By: #### C BC, BMP, MG1 ####[facility] Asf[address]mvryl2844 [place] [address] Creatinine [Mass/Vol] 0.91 mg/dL Normal 0.58-0.96 [facility] Comment on above: Performed By: #### C BC, BMP, MG1 ####[facility] [address]xccrantsd1041 [place] [address] eGFR- Amer. >60 Normal [facility] Comment on above: Performed By: #### C ARTHUR BMP, MG1 ####[facility] [address]zxmeq1472 [place] [phone] GFR/1.73 sq M predicted among non-blacks MDRD (S/P/Bld) [Vol rate/Area] mL/min/{1.73_m2} Normal [facility] Comment on above: Result Comment: eGFR [...] Performed By: #### C BC BMP, MG1 ####[facility] [address] [place] [address] Glucose [Mass/Vol] 188 mg/dL High 74-99 [facility] Comment on above: Result Comment: The [place] Diabetes Association (ADA) provides guidance for cutoff [...] Standards of Medical Care in Diabetes 2016, [place] [employer]. Diabetes Care. 2016.39(Suppl 1). Performed By: #### C BC, BMP, MG1 ####[facility] [address] [place] [address] Potassium [Moles/Vol] 4.1 mmol/L Normal 3.7-5.1 [facility] Comment on above: Performed By: #### C BC, BMP, MG1 ####[facility] [address] [place] [address] Sodium [Moles/Vol] 139 mmol/L Normal 136-144 [facility] Comment on above: Performed By: #### C BC, BMP, MG1 ####[facility] [address] [place] [address] Urea nitrogen [Mass/Vol] 19 mg/dL Normal 7-21 [facility] Comment on above: Performed By: #### C BC, BMP, MG1 ####[facility] [address] [place] [address] Blood Cultureon 12-10-2019 Bacteria identified Cx Nom (Bld) Culture Result - No growth 5 days Normal [facility] Comment on above: Performed By: #### C BC, BMP, MG1 #### [facility] [address] [place] [phone] #### PROCAL #### [facility] [address] [place] [address] Bacteria identified Cx Nom (Bld) Culture Result - Escherichia coli Refer to specimen collected on 12/09/2019 AT 0638 ([id number]) (NOTE) Positive result called to and read back by: Kina CINTRON [address] 12/11/19 Joseline0 Ariela Critically abnormal [facility] Comment on above: Performed By: #### S LACT #### [facility] [address] [facility] [phone] CASE MGT INIT ASSESon 2019 CASE MGT INIT [facility] HNO ID: [id number] Author: Leonor Hathaway (Sw) Service: Care Management Author Type: Client Customer Manager Type: Care Mgt Initial Assessment Filed: 12/10/2019 11:32 AM Note Text: CARE MANAGEMENT: ASSESSMENT AND DISCHARGE PLAN SERVICE DATE: December 10, 2019 SERVICE TIME: 11:00AM PRIMARY CARE PHYSICIAN: Amy Lunsford NP ADMISSION STATUS: Inpatient MEDICAL: BLUE CARD 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 Last discharge within 30 days: No Advance Directive: Current Advance Directive: None Catalyst Operator Attempted to Assist with AD Completion: Yes [...] Contact Information Primary Emergency Contact: Yessler,Amado Address: [address] [place] [address] Mobile Relation: None Supportive Patient Contact:: Yes Contact Resources: Family Family Name/Phone: Amado Baez [phone] Social Needs Food insecurity Worry: Not on [...] Completely I feel financially burdened by my zpo-ij-jxhhhq expenses for my prescription medication:: 0 - Disagree Completely Risk Score: 0 Patient is categorized as: Low risk < 2 Are you interested in bedside delivery of your medications? No Is Patient Psychosocially Complex?: No ASSESSMENT AND PLAN: Medical Needs: Psychosocial Needs: Psychosocial Needs: None FREEDOM OF CHOICE EXPLAINED: [place] of Choice Given: No Reason Not Given: [...] 10, 2019 TIME: 11:24 AM PAGER/CONTACT #: [phone] Normal [facility] CBCon 12-10-2019 Absolute nRBC <0.01 Normal <0.01 [facility] ital Comment on above: Performed By: #### C BC, BMP, MG1 ####[facility] [address] [place], [place] [phone] Erythrocyte distribution width (RBC) [Ratio] 13.6 % Normal 11.5-15.0 [facility] Comment on above: Performed By: #### C BC BMP, MG1 ####[facility] [address] [place] [address] Hematocrit (Bld) [Volume fraction] 34.5 % Low 36.0-46.0 [facility] Comment on above: Performed By: #### C BC, BMP, MG1 ####[facility] [address] [place] [address] Hemoglobin (Bld) [Mass/Vol] 11.0 g/dL Low 11.5-15.5 [facility] Comment on above: Performed By: #### C BC, BMP, MG1 ####[facility] [address] [place] [address] MCH (RBC) [Entitic mass] 28.9 pG Normal 26.0-34.0 [facility] Comment on above: Performed By: #### C BC BMP, MG1 ####[facility] [address] [place] [address] MCHC (RBC) [Mass/Vol] 31.9 g/dL Normal 30.5-36.0 [facility] Comment on above: Performed By: #### C ARTHUR, BMP, MG1 ####[facility] [address] [place] [address] MCV (RBC) [Entitic vol] 90.6 fL Normal 80.0-100.0 [facility] Comment on above: Performed By: #### C BC, BMP, MG1 ####[facility] [address] [place] [address] Platelet mean volume (Bld) [Entitic vol] Unable to report Normal 9.0-12.7 [facility] Comment on above: Performed By: #### C BC, BMP, MG1 ####[facility] [address] [place] [address] Platelets (Bld) [#/Vol] 166 10*3/uL Normal 150-400 [facility] Comment on above: Result Comment: No c lot detected. Performed By: #### C BC, BMP, MG1 ####[facility] [address] [place] [address] RBC (Bld) [#/Vol] 3.81 10*6/uL Low 3.90-5.20 [facility] Comment on above: Performed By: #### C ATUL GIBSON, MG1 ####[facility] [address] [place] [phone] WBC (Bld) [#/Vol] 8.95 10*3/uL Normal 3.70-11.00 [facility] Comment on above: Performed By: #### C ATUL GIBSON, MG1 ####[facility] [address] [place] [phone] CONSULT PROGon 12-10-2019 CONSULT PROG HNO ID: [id number] Author: Skip English MD Service: Infectious Disease Author Type: Physician Type: Consult Progress Note Filed: 12/10/2019 5:33 PM Note Text: INFECTIOUS DISEASE PROGRESS NOTE Patient Name: Patel Medina INTERVAL HISTORY: She feels overall improved. Still w headache for the past 3 weeks, ?migraine. ROS checked in details. All qs answered. Patient Active Hospital Problem List: Sepsis due to Escherichia coli (E. coli) ([facility]) (12/09/2019) CKD (chronic kidney disease) stage 3, GFR 30-59 ml/min ([facility]) (07/15/2016) Obstructive sleep apnea on [...] final until Authenticated by responsible provider. Normal [facility] Magnesiumon 12-10-2019 Magnesium [Mass/Vol] 2.2 mg/dL Normal 1.7-2.3 [facility] Comment on above: Performed By: #### C BC, BMP, MG1 ####[facility] [address] [place] [phone] NURSING PROGon 12-10-2019 NURSING PROG HNO ID: [id number] Author: Charmaine (Rn) SAIDA Baires Service: Nursing Author Type: Registered Nurse Type: Nursing Progress Note Filed: 12/10/2019 9:26 AM Note Text: Nursing Progress Note Patient Name: Patel Medina Patient Location: [place] [address]/[facility]- [facility] __ Daily Note: 0923: Lab called with blood culture results from site 1 in right hand taken on 12/09/19 @0638. Positive for Gram - bacilli. Paged hospitalist. This note was completed by: Charmaine Baires RN [facility] PROGRESSon 12-10-2019 PROGRESS HNO ID: [id number] Author: Yogi Roberts Jr. Service: Hospital Medicine Author Type: Physician Type: Progress Notes Filed: 12/10/2019 3:14 PM Note Text: DEPARTMENT OF HOSPITAL MEDICINE PROGRESS NOTE SERVICE DATE: 12/10/2019 SERVICE TIME: 3:10 PM Hospital Medicine/Primary Attending: Yogi Roberts Jr., MD NIGHT AND WEEKEND COVERAGE: Nights: Please contact pager [phone]. Subjective INTERVAL HPI: Patient reports that she [...] PTSD and Depression, who presented to the [place] ED on 12/08/19 with complaints of shakes, tremors, fever and chills for a couple of days. In the ED, temp 101.4F. Na 135, Cr 1.1, Mg 1.6, WBC 9.2. Lactate 5.74 - 2.68. UA showed negative leuks and nitrites. CXR showed NAD. The patient was transferred to [facility] for admission. She was given a dose [...] Sepsis due to Escherichia coli (E. coli) ([facility]) Active Problems: Complicated UTI (urinary tract infection) CKD (chronic kidney disease) stage 3, GFR 30-59 ml/min ([facility]) Obstructive sleep apnea on CPAP [...] Prophylaxis/Anticoagul ants 12/08/19 1430 pneumatic compression stockings ([place] 12/08/19 1430 activity - mobilize patient ([place] VTE Prophylaxis: VTE prophylaxis appropriate Disposition: Home Plan of care discussed with: Patient and RN SIGNATURE: Yogi Roberts Jr., MD PATIENT NAME: Patel Medina DATE: December 10, 2019 TIME: 3:08 PM Normal [facility] Basic Metabolic Panlon 12-08 Anion gap [Moles/Vol] 15 mmol/L Normal 9-18 [facility] Comment on above: Performed By: #### C ATUL GIBSON, MG1 #### [facility] [address] [place], [place] [phone] #### PROCAL #### [facility] [employer] [address] [place] [address] Calcium [Mass/Vol] 8.5 mg/dL Normal 8.5-10.2 [facility] Comment on above: Performed By: #### C ATUL GIBSON, MG1 #### [facility] [address] [place] [address] #### PROCAL #### [facility] [address] [place] [address] Chloride [Moles/Vol] 100 mmol/L Normal 97-105 [facility] Comment on above: Performed By: #### An BC BMP, MG1 #### [facility] [address] [place] [address] #### PROCAL #### [place] [address] [place] [phone] CO2 [Moles/Vol] 22 mmol/L Normal 22-30 [facility] Comment on above: Performed By: #### An BC BMP, MG1 #### [facility] [address] [place] [address] #### PROCAL #### [place] [address] Creatinine [Mass/Vol] 1.00 mg/dL High 0.58-0.96 [facility] Comment on above: Performed By: #### An BC BMP, MG1 #### [facility] [address] [place] [address] #### PROCAL #### [place] [address] eGFR- Amer. >60 Normal [facility] Comment on above: Performed By: #### An BC BMP, MG1 #### [facility] [address] [place] [address] #### PROCAL #### [place] [address] GFR/1.73 sq M predicted among non-blacks MDRD (S/P/Bld) [Vol rate/Area] 57 . Normal [facility] Comment on above: Result Comment: eGFR [...] By: #### C ARTHUR BMP, MG1 #### [facility] [address] [place] [address] #### PROCAL #### [place] [phone] Glucose [Mass/Vol] 172 mg/dL High 74-99 [facility] Comment on above: Result Comment: The [place] Diabetes Association (ADA) provides guidance for cutoff [...] Standards of Medical Care in Diabetes 2016, [place] [employer]. Diabetes Care. 2016.39(Suppl 1). Performed By: #### C ARTHUR BMP, MG1 #### [facility] [address] [place] [address] #### PROCAL #### [place] [phone] Potassium [Moles/Vol] 4.1 mmol/L Normal 3.7-5.1 [facility] Comment on above: Performed By: #### An GIBSON BMP, MG1 #### [facility] [address] [place] [address] #### PROCAL #### [facility] [place] [address] Sodium [Moles/Vol] 137 mmol/L Normal 136-144 [facility] Comment on above: Performed By: #### An BC, BMP, MG1 #### [facility] [address] [place] [address] #### PROCAL #### [place] [phone] Urea nitrogen [Mass/Vol] 19 mg/dL Normal 7-21 [facility] Comment on above: Performed By: #### C BC, BMP, MG1 #### [facility] [address] [place] [address] #### PROCAL #### [facility] [address] [place], [place] [phone] Blood Cultureon 12-09-2019 Bacteria identified Cx Nom (Bld) Sp. Request/Comment: - 13.5CC Additional Testing - Escherichia coli detected by microarray. Confirmation and susceptibility testing to follow. Negative for Acinetobacter spp. and Pseudomonas aeruginosa by microarray. --> ABNORMAL ALERT Culture Result - Escherichia coli (NOTE) Positive result called to and read back by: Fabian Baires RN [address] 12/10/19 0919 Lianna López ORGANISM: Escherichia coli METHOD: Minimum inhibitory concentration([employer]) Antibiotic Interp CLARA Status Ampicillin RESISTANT >=32 F Gentamicin SUSCEPTIBLE <=1 F Trimeth sulfameth SUSCEPTIBLE <=20 F Cefazolin RESISTANT F Ciprofloxacin SUSCEPTIBLE 1 F Cefepime SUSCEPTIBLE <=1 F Piperacillin/Tazobac SUSCEPTIBLE 8 F Ampicillin Sulbact RESISTANT >=32 F Ceftriaxone SUSCEPTIBLE <=1 F Meropenem SUSCEPTIBLE <=0.25 F Ertapenem SUSCEPTIBLE <=0.5 F Critically abnormal [facility] Comment on above: Performed By: #### S LACT #### [facility] [address] [place] [address] Bacteria identified Cx Nom (Bld) Sp. Request/Comment: - 17.0CC Culture Result - No growth 5 days Normal [facility] Comment on above: Performed By: #### C BC, BMP, MG1 #### [facility] [address] [place] [address] #### PROCAL #### [facility] [address] [place] [address] CBCon 12-09-2019 Absolute nRBC <0.01 Normal <0.01 [facility] Comment on above: Performed By: #### C BC, BMP, MG1 #### [facility] [address] [place] [address] #### PROCAL #### [facility] [address] [place] [phone] Erythrocyte distribution width (RBC) [Ratio] 13.5 % Normal 11.5-15.0 [facility] Comment on above: Performed By: #### ATUL GUZAMN, MG1 #### [facility] [address] [place] [address] #### PROCAL #### [place] [address] [place] [phone] Hematocrit (Bld) [Volume fraction] 40.4 % Normal 36.0-46.0 [facility] Comment on above: Performed By: #### C ATUL GIBSON, MG1 #### [facility] [address] [place] [address] #### PROCAL #### [place] [phone] Hemoglobin (Bld) [Mass/Vol] 12.5 g/dL Normal 11.5-15.5 [facility] Comment on above: Performed By: #### C ARTHUR BMP, MG1 #### [facility] [address] [place] [address] #### PROCAL #### [place] [phone] MCH (RBC) [Entitic mass] 28.5 pG Normal 26.0-34.0 [facility] Comment on above: Performed By: #### ATUL GUZMAN, MG1 #### [facility] [address] [place] [address] #### PROCAL #### [place] [phone] MCHC (RBC) [Mass/Vol] 30.9 g/dL Normal 30.5-36.0 [facility] Comment on above: Performed By: #### An GIBSON, BMP, MG1 #### [facility] [address] [place] [address] #### PROCAL #### [place] [phone] MCV (RBC) [Entitic vol] 92.0 fL Normal 80.0-100.0 [facility] Comment on above: Performed By: #### C BC BMP, MG1 #### [facility] [address] [place] [address] #### PROCAL #### [facility] [address] [place] [address] Platelet mean volume (Bld) [Entitic vol] Unable to report Normal 9.0-12.7 [facility] Comment on above: Performed By: #### C BC, BMP, MG1 #### [facility] [address] [place] [address] #### PROCAL #### [place] [phone] Platelets (Bld) [#/Vol] 167 10*3/uL Normal 150-400 [facility] Comment on above: Result Comment: No c lot detected. Performed By: #### C BC, BMP, MG1 #### [facility] [address] [place] [address] #### PROCAL #### [place] [phone] RBC (Bld) [#/Vol] 4.39 10*6/uL Normal 3.90-5.20 [facility] Comment on above: Performed By: #### C BC, BMP, MG1 #### [facility] [address] [place] [address] #### PROCAL #### [place] [address] [place] [phone] WBC (Bld) [#/Vol] 9.58 10*3/uL Normal 3.70-11.00 [facility] Comment on above: Performed By: #### C BC, BMP, MG1 #### [facility] [address] [place] [address] #### PROCAL #### [facility] [employer] [address] [place] [phone] CONSULTon 12-09-2019 CONSULT HNO ID: [id number] Author: Skip English MD Service: Infectious Disease [...] - Chronic pain 04/22/[address] Kimbrough ([employer] comp bilateral knee issues) - Essential hypertension [...] 09, 2019 TIME: 1:38 PM PAGER/CONTACT #: [phone] [facility] CT ABD/PEL WO IVCONon 2019 CT ABD/PEL WO IVCON * * *Final Report* * * DATE OF EXAM: Dec 09 2019 1:19PM [facility] - CT ABD/PEL WO IVCON / [...] Tissues: No acute abnormality. Lower thorax: Unremarkable. Services Advisor (topogram) images: Unremarkable. IMPRESSION: Marked hepatic steatosis. Otherwise unremarkable CT of the abdomen/pelvis without intra-abdominal source of infection identified. Mine Safety Manager: SUSAN Transcribe Date/Time: Dec 09 2019 1:47P Dictated by : RAMBO HERNÁNDEZ MD This examination was interpreted and the report reviewed and electronically signed by: RAMBO HERNÁNDEZ MD on Dec 09 2019 2:04PM EST [id number] [facility] Magnesiumon 12-09-2019 Magnesium [Mass/Vol] 2.0 mg/dL Normal 1.7-2.3 [facility] Comment on above: Performed By: #### C BC, BMP, MG1 #### [facility] [address] [facility] [phone] #### PROCAL #### [place] [address] NURSING PROGon 12-09-2019 NURSING PROG HNO ID: [id number] Author: Salome ZarateRn) SAIDA Gee Service: ? Author Type: Registered Nurse Type: Nursing Progress Note Filed: 12/09/2019 5:24 AM Note Text: Nursing Progress Note Patient Name: Patel Medina Patient Location: [facility]8/[facility] [id number] __ 0523 Rcvd blood culture results; sent page to hospitalist. This note was completed by: Salome Gee RN [facility] PLAN OF CAREon 12-09-2019 PLAN OF CARE HNO ID: [id number] Author: Noemy Hebert Service: Hospital Medicine Author [...] blood cx Follow AM labs Noemy Hebert APRN.MANAGER DATABASE 12/09/2019 5:37 AM Normal [facility] PROGRESSon 12-09-2019 PROGRESS HNO ID: [id number] Author: Gibson Walker Service: Hospital Medicine Author [...] kidney disease) stage 3, GFR 30-59 ml/min ([facility]) 07/15/2016 Assessment AND Plan Note: stable VTE Prophylaxis: SCD Plan of Care visit Complete: yes SIGNATURE: Gibson Walker MD Normal [facility] Procalcitoninon 12-09-2019 Procalcitonin 7.58 ng/mL High <0.09 [facility] Comment on above: Result Comment: For a guided interpretation of test results, please visit the Change in Procalcitonin Calculator, [email or web address]. Performed By: #### C BC, BMP, MG1 #### [facility] [address] [place] [phone] #### PROCAL #### [facility] [address] [place] [address] Sepsis Lactateon 12-09-2019 Sepsis Lactate 1.7 mmol/L Normal 0.5-2.0 [facility] Comment on above: Performed By: #### S LACT #### [facility] [address] [place] [phone] HISTORY PHYSICALon 0 HISTORY PHYSICAL HNO ID: [id number] Author: Gibson Walker Service: Hospital Medicine Author [...] Date - Arthritis of left knee 04/22/2016 [employer] comp issue - Arthritis of left knee 04/22/2016 [employer] comp issue - Carpal tunnel syndrome, bilateral 04/22/2016 - Carpal tunnel syndrome, bilateral 04/22/2016 - Cervical vertebral fusion 09/21/2017 - Chronic pain 04/22/[address] Kimbrough (Infini[employer] bilateral knee issues) - Essential hypertension 04/22/2016 - Hypertension - Obstructive sleep apnea syndrome 04/22/2016 - Psychiatric disorder - PTSD (post-traumatic stress disorder) 04/22/2016 - Severe episode of recurrent major depressive disorder, without psychotic features (HCC) 04/22/[address] Saucedo's office ([employer]). PAST SURGICAL HISTORY Procedure Laterality Date - [...] , Rfl: , 12/07/2019 at Unknown time Cnwif-0-RAH-EPA-Fish Oil (FISH OIL) 1,000 mg (120 mg-180 [...] kidney disease) stage 3, GFR 30-59 ml/min ([facility]) 07/15/2016 Assessment AND Plan Note: stable DVT prophylaxis: scd VTE calculator used: yes Code status: full Added to signout: yes Plan of Care visit Complete: yes SIGNATURE: Gibson Walker MD PATIENT NAME: Patel Medina DATE: December 08, 2019 TIME: 3:47 PM PAGER/CONTACT #: [phone] [facility] SARS CoV 2 RNA(COVID 19), [facility] 11-23-2019 SARS CoV 2 RNA NOT DETECTED Normal NOT DETECTED [facility] Comment on above: Result Comment: A Not [...] providers and patients using the following websites: https://www.[employer].com/home/Covid-19/HCP/NAAT/fact-sheet 2 https://www.[employer]home/Covid-19/Patients/NAAT/ fact-sheet2 This test has been authorized by the FDA under an Emergency Use Authorization (EUA) for use by authorized laboratories. Due to the current public health emergency, [facility] is receiving a high volume of samples [...] about COVID-19 can be found at the [facility] website: www.[employer]Covid19. Performed By: #### 4 [phone], [phone] #### [facility]-[address], [address] [place] [phone] Inserter Promotional Item: Rodo Fung MD MAMM DIG DIAG UNIon [...] by: Jermaine Washington MD 08/08/2019 12:19 PM DELIVERY MERCH[facility] Technologist: CD Dictated By: JERMAINE WASHINGTON MD Signed By: JERMAINE WASHINGTON MD Signed Out: 08/09/19 08:37:57 Normal [facility] MAMM DIGITAL SCRN BILATERALo n 07-27-2019 [...] by: Jermaine Washington MD 07/27/2019 10:53 AM DELIVERY [facility]CH[facility] ORIGINAL REPORT SCREENING BILATERAL DIGITAL MAMMOGRAM Clinical [...] by: Jermaine Washington MD 07/20/2019 9:11 AM DELIVERY MERCHANDISER Technologist: LW Dictated By: JERMAINE WASHINGTON MD [...] by: Jermaine Washington MD 07/20/2019 9:11 AM DELIVERY MERCHANDISER Technologist: LW Dictated By: JERMAINE WASHINGTON MD Signed By: JERMAINE WASHINGTON MD Signed Out: 07/21/19 11:00:08 Normal [facility] Vital Signs Date Time Vital Sign Value Performing Clinician Facility 02-17-2023 11:29-0400 Body height 165.1 cm [facility] 02-17-2023 11:29-0400 Body mass index (BMI) [Ratio] 36.53 kg/m2 [facility] 02-17-2023 11:29-0400 Body surface area Derived from formula 2.14 m2 [facility] 02-17-2023 11:29-0400 Body weight 99.57 kg [facility] 02-17-2023 11:29-0400 Diastolic blood pressure 80 mm[Hg] [facility] 02-17-2023 11:29-0400 Heart rate 72 /min [facility] 02-17-2023 11:29-0400 Systolic blood pressure 128 mm[Hg] [facility] 12-18-2021 11:55-0400 Body height 165.1 cm Jennie Garcia Other [facility] Other 12-18-2021 11:55-0400 Body mass index (BMI) [Ratio] 38.27 kg/m2 Jennie Garcia Other [facility] Other 12-18-2021 11:55-0400 Body temperature 96.8 [degF] Jennie Garcia Other [facility] Other 12-18-2021 11:55-0400 Body weight 104.33 kg Jennie Garcia Other [facility] Other 12-18-2021 11:55-0400 Diastolic blood pressure 77 mm[Hg] Jennie Garcia Other [facility] Other 12-18-2021 11:55-0400 Respiratory rate 16 /min Jennie Garcia Other [facility] Other 12-18-2021 11:55-0400 SaO2% (BldA) [Mass fraction] 99 % Jennie Garcia Other [facility] Other 12-18-2021 11:82-5683 Systolic blood pressure 121 mm[Hg] Jennie Garcia Other [facility] Other Encounters Encounter Date Encounter Type Care Provider Facility Start: 03-24-2023 End: 03-25-2023 ambulatory 837 NO FAMILY PHYSICIAN Facility:[facility] Start: 02-17-2023 [facility] Caro Alves rne Other [facility] Start: 01-13-2023 End: 01-14-2023 ambulatory Salome Espinoza PA-C Facility:[facility] Start: 09-08-2022 End: 09-08-2022 ambulatory JANUSZ SHAMMO Facility:[facility] Start: 08-05-2022 End: 08-06-2022 ambulatory JANUSZ SHAMMO Facility:[facility] Start: 07-07-2022 Encounter for genera l adult medical examination without abnormal findings JANUSZ SHAMMO [facility] Start: 07-05-2022 End: 07-06-2022 ambulatory JANUSZ SHAMMO Facility:[facility] Start: 07-05-2022 End: 07-06-2022 Encounter for general adult medical examination without abnormal findings JANUSZ SHAMMO Facility:[facility] Start: 05-18-2022 End: 05-19-[address] DOCTOR COLE Facility:[facility] Start: 04-28-2022 End: 04-29-2022 ambulatory JANUSZ SHAMMO Facility:[facility] Start: 12-18-2021 End: 12-18-2021 ambulatory Jennie Garcia Other [facility] Other Start: 12-18-2021 Office outpatient ne w 20 minutes Jennie Garcia [facility] Procedures Date Procedure Procedure Detail Performing Clinician Start: 02-17-2023 Nerve conduction laure dies 7-8 studies Caro Patel Payers Date Payer Category Payer Medicare 2022 Unknown 1965 Unknown [id number] 2.16.84 [id number] 1965 Unknown [id number] 2.16.84 [id number] 1965 Unknown [id number] 2.16.84 [id number] 1965 Unknown [id number] 2.16.84 [id number] 1965 Unknown [id number] 2.16.84 [id number] 1965 Unknown [id number] 2.16. [id number] 1965 Unknown [id number] 2.16.8 [id number] 1961 [facility] [id number] Medicare [id number] 2.1 [id number] Social History Date Type Detail Facility Unknown if ever smoked [facility] Other Sex Assigned At Sex Assigned At Bir th [facility] Other Evaluation note 12-18-2021 Note Date & [...] if no improvement of symptoms despite treatment. [facility] Other Summary Purpose Family History No Family [...] Records Found Hospital Course Note HNO ID: [id number] Author: Randee Roberts Jr. Service: Hospital Medicine [...] Sepsis due to Escherichia coli (E. coli) ([facility]) Active Problems: Complicated UTI (urinary tract infe (more content not included)... Additional Source Comments INFORMATION SOURCE (unrecogn ized section and content) DATE CREATED AUTHOR 01/03/2020 [facility] DATE CREATED AUTHOR AUTHOR'S ORGANIZ ATION 04/18/2020 [facility] DATE CREATED AUTHOR AUTHOR'S ORGANIZ ATION 07/03/2020 [facility] DATE CREATED AUTHOR AUTHOR'S ORGANIZ ATION 01/01/2022 [facility] DATE CREATED AUTHOR AUTHOR'S ORGANIZ ATION 09/13/2022 [facility] DATE CREATED AUTHOR AUTHOR'S ORGANIZ ATION 01/14/2023 [facility] DATE CREATED AUTHOR AUTHOR'S ORGANIZ ATION 03/29/2023 [facility] REASON FOR VISIT (unrecogniz ed section and [...] BE BASED ON THE PRIMARY CLINICAL RECORDS. [facility]. provides no warranty or guarantee of the accuracy or completeness of information in this document.
== END 2024-02-07 11:07 | disposition home or self-care (01) ==
LOC: RAD 11:08
PROVIDERS: PCP Nurse Practitioner; Visit Provider Nurse Practitioner
DX: M25.562 Pain in left knee (principal); M17.12 Unilateral primary osteoarthritis, left knee
CPT/HCPCS: 73564

== ENCOUNTER 2024-10-04 10:01 | Outpatient (OUT) | payer BC, MEDICARE, SELFPAY ==
[2024-10-04 10:23] LABS: Basophils Absolute Auto 0.1 10^3/uL (0.0-0.1); Basophils Percent Auto 1.2 % (0.2-2.0); Eosinophils Absolute Auto 0.4 10^3/uL (0.0-0.7); Eosinophils Percent Auto 5.3 % (0.9-7.0); Hematocrit 40.4 % (36.0-48.0); Hemoglobin 13.2 g/dL (12.0-16.0); Immature Granulocytes Abs Auto 0.02 10^3/uL (0.00-0.03); Immature Granulocytes Pct Auto 0.3 % (0.0-0.5); Lymphocytes Absolute Auto 2.8 10^3/uL (1.2-3.8); Lymphocytes Percent Auto 36.1 % (20.5-60.0); Mean Corpuscular HGB Conc 32.7 g/dL (29.9-35.2); Mean Corpuscular Hemoglobin 28.9 pg (26.7-34.0); Mean Corpuscular Volume 88.4 fL (81.0-99.0); Mean Platelet Volume 11.4 fL (9.5-13.5); Monocytes Absolute Auto 0.7 10^3/uL (0.3-0.8); Monocytes Percent Auto 8.3 % (1.7-12.0); Neutrophils Absolute Auto 3.8 10^3/uL (1.4-6.5); Neutrophils Percent Auto 48.8 % (43.0-75.0); Platelet Count 219 10^3/uL (150-450); Red Blood Count 4.57 10^6/uL (4.20-5.40); Red Cell Distribution Width 13.2 % (11.0-15.0); White Blood Count 7.8 10^3/uL (4.0-11.0)
[2024-10-04 11:06] LABS: Alanine Aminotransferase 58 U/L (14-59); Albumin Globulin Ratio 1.3; Albumin Level 3.7 g/dL (3.4-5.0); Alkaline Phosphatase 60 U/L (46-116); Anion Gap 14.1; Aspartate Amino Transferase 25 U/L (15-37); BUN Creatinine Ratio 17.5; Bilirubin Total 0.5 mg/dL (0.2-1.0); Calcium 9.4 mg/dL (8.5-10.1); Carbon Dioxide 27.1 mmol/L (21.0-32.0); Chloride 105 mmol/L (98-107); Chol HDL Ratio 2.3; Cholesterol 110 mg/dL (<=200); Estimated GFR (African America 55 (>=60 mL/min/1.73m^2); Estimated GFR (Non-African Ame 46 (>=60 mL/min/1.73m^2); Globulin 2.8 g/dL; Glucose 106 mg/dL (74-106); HDL Cholesterol 47 mg/dL (40-60); Potassium 4.2 mmol/L (3.5-5.1); Sodium 142 mmol/L (136-145); TSH W/ REFLEX FT4 2.322 uIU/mL (0.358-3.740); Total Protein 6.5 g/dL (6.4-8.2); Triglycerides 105 mg/dL (<=150)
[2024-10-04 12:04] LABS: Creatinine Urine Random 61.58 mg/dL (20.00-300.00); Microalbum Creatinine Ratio Ur 183.5 mg/g (0.0-29.9); Microalbumin Urine Random 11.3 mg/dL (<=30.0)
== END 2024-10-04 10:02 | disposition home or self-care (01) ==
LOC: LAB 10:06
PROVIDERS: PCP Nurse Practitioner; Visit Provider Nurse Practitioner
DX: R53.83 Other fatigue (principal); E11.649 Type 2 diabetes mellitus with hypoglycemia without coma; I10 Essential (primary) hypertension
CPT/HCPCS: 36415; 80053; 80061; 82043; 82306; 82570; 84443; 85025

== ENCOUNTER 2025-01-07 20:23 | Outpatient (REF) | payer BC, MEDICARE, SELFPAY ==
--- OUTSIDE RECORDS SUMMARY | 2025-01-03 10:00 | XMS_ITS ---
Author Organization [facility] vices Address [address] [place], [place] [id number] Care Team Providers Care Concrete Inspector Name Role Phone Cherise Candelaria Primary Care Provider Keturah Quinones Unavailable [phone] Allergies Allergen (clinical drug ingredient) Drug/Non Drug Allergy documented on EMR Reaction Allergy Type Onset Date Status amoxicillin Amoxicillin rash Drug Allergy Act kylie Diuretic swelling/sick Drug Allergy Act kylie ibuprofen Ibuprofen swelling Drug Allergy Active Motrin swelling Drug Allergy Active predniSONE anaphylaxis Drug Allergy Acti ve tetracycline Tetracycline HCl rash Drug Allergy Active Penicillin rash Drug Allergy Active Substance with sulfonamide structure and antibacterial mechanism of action (substance) Sulfa Antibiotics rash Drug Allergy Active Results Component Value Reference Range Notes POCT A1C Reviewed date:01/03/2025 02:04:09 PM Interpretation: Performing Lab: Notes/Report: Result 6.5 0-5.6 % Reason For Referral Reason calcaneal enthesopat hy.. worsening heel pain Diagnosis 1 Calcaneal spur of le ft foot (M77.32) Referral Organization Third Referring Provider First Name Keturah Referring Provider Last Name Stacie Referring Provider Speciality Family Med becky Referred Provider Tammi Owens Referred Provider Specialty Podiatry Referral Priority Routine REASON FOR VISIT A1C Check Medications Medication SIG (Take, Route, Frequency, Duration) Notes Start Date End Date Status Colchicine 0.6 MG 1 tablet Orally haseeb y for 5 days 12/13/2024 Active Diclofenac Sodium 3 % 1 application to w rist joints Externally Twice a day for 30 days 01/03/2025 Active Cinnamon 500 MG as directed Orally Active Multi For Her - as directed Orally Active Calcium + Vitamin D3 600-10 MG-MCG 4 tablet with a meal Orally Once a day Active hydrOXYzine Pamoate 25 MG TAKE 1 CAPSULE BY MOUTH EVERY 6 HOURS Orally four times a day as needed for 30 days Active Losartan Potassium 100 MG TAKE 1 TABLET BY MOUTH EVERY DAY FOR 90 DAYS for 90 Active metFORMIN HCl 500 MG 2 tablets Orally Tw ice a day for 30 days Active Oebcx-0-rqrw Ethyl Esters 1 GM 2 capsules Orally Twice a day for 30 days 11/03/2023 Active Atenolol 25 MG TAKE 1 TABLET BY BARRERA TH EVERY DAY FOR 90 DAYS for 90 Active Probiotic - as directed Orally Active Magnesium 250 MG 1 tablet with a meal Orally Once a day Active Potassium 610 MG 1 tablet Orally Once a day Active Atorvastatin Calcium 10 MG 1 tablet Oral ly Once a day for 90 days Active Melatonin 5 MG 1 tablet in the even ing Orally Once a day Active Vitamin D3 5000 UNIT/ML as directed Orally Active Vitamin C 1000 MG 1 tablet Orally Once a day Active Estradiol 4 MCG 1 _insert Vaginal Active Flaxseed Oil - as directed Act kylie B Complex - as directed Orally Active Social History Sex Assigned At : Social History Observation Description Sex Assigned At Female Problems Problem Type SNOMED Code ICD Code Onset Dates Problem Status W/U Status Risk Notes Problem Degenerative arthritis (M19.90) Active confirmed Vital Signs Temperature 98.5 degrees Fahrenheit 01/04/20 25 Weight 215.8 lbs 01/03/2025 Height 65 in 01/03/2025 BMI 35.91 kg/m2 01/03/2025 Blood pressure systolic 134 mm Hg 01/04/20 25 Blood pressure diastolic 80 mm Hg 025 Heart Rate 57 /min 01/03/2025 Respiratory Rate 16 /min 01/03/2025 Oximetry 95 % 01/03/2025 Weight-kg 97.89 kg 01/03/2025 Height-cm 165.1 cm 01/03/2025 Alexia Umaña 01/03/2025 01:57:00 PM EDT > Encounters Encounter Location Date Provider Diagnosis [facility] [address] [place] [address] 01/03/2025 Keturah Quinones Type 2 diabetes m ellitus with diabetic chronic kidney disease E11.22 ; Stage 3 chronic kidney disease N18.30 ; Essential hypertension I10 ; Calcaneal spur of left foot M77.32 ; Degenerative arthritis M19.90 ; Dietary counseling Z71.3 and Exercise counseling Z71.82 Assessments Encounter Date Diagnosis (ICD Code) Assessment Notes Treatment Notes Treatment Clinical Notes Section Notes 01/03/2025 Type 2 diabetes mellitus with diabetic chronic kidney disease (ICD-10 - E11.22) Last A1c was 6.1%, A1c today is 6.5% on metformin 500mg 2 tabs BID, If A1c progressively worsens will start pt on SGLT2 for to prevent ckd progression. Emphasized on diet and lifestyle modification. I will continue the same regimen with the following modifications. I recommend home blood sugar readings to be monitored frequently (daily fasting along with random (2 hours after meals). Pt was advised to log the reading with timings and to bring it on the next visit so we can adjust the dose of medications as needed. Pt was advised to inspect the feet daily. Patient was reminded to have yearly eye exam to look for diabetic retinopathy and yearly building maintenance custodian visit and PVU 01/03/2025 Stage 3 chronic kidney disease (ICD-10 - N18.30) recheck CMP if worsening will refer to nephrology, was referred to nephrology in the past but physician was not in pts network. 01/03/2025 Essential hypertension (ICD-10 - I10) Patient is currently on losartan 100mg and atenolol 25mg Pt was advised to take the medications daily as prescribed. Call the office if there is any side effects due to medications. Pt was advised to bring the BP log to the next appointment so we can adjust the medications as needed and PVU Life Style Modifications were discussed including: Reducing salt intake, regular exercise, reducing weight and avoiding smoking and alcohol intake. 01/03/2025 Calcaneal spur of left foot (ICD-10 - M77.32) X-ray of left foot impression: calcaneal enthesopathy. refer to specialist for management 01/03/2025 Degenerative arthritis (ICD-10 - M19.90) Pt declines PT at this time, topical Nsaids as well as home stretches at this time. pt cant tolerate oral Nsaids, she was advised if any allergy to topical nsaid to D/C meds and infrom clinic 01/03/2025 Dietary counseling (ICD-10 - Z71.3) Encoruaged eating a healthy, balanced diet and increasing activity level by engaging in exercise atleast 30 min x atleast 5 days a week. Educational material was provided and patient was encouraged to use the resources to find the best options for a balanced diet. 01/03/2025 Exercise counseling (ICD-10 - Z71.82) Plan Of Treatment Medication Medication Name Sig Start Date Stop Date Notes Diclofenac Sodium 3 % 1 application to w rist joints Externally Twice a day for 30 days 01/03/2025 Treatment Notes Assessment Notes Type 2 diabetes mellitus wit h diabetic chronic kidney disease Last A1c was 6.1%, A1c today is 6.5% on metformin 500mg 2 tabs BID, If A1c progressively worsens will start pt on SGLT2 for to prevent ckd progression. Emphasized on diet and lifestyle modification. I will continue the same regimen with the following modifications. I recommend home blood sugar readings to be monitored frequently (daily fasting along with random (2 hours after meals). Pt was advised to log the reading with timings and to bring it on the next visit so we can adjust the dose of medications as needed. Pt was advised to inspect the feet daily. Patient was reminded to have yearly eye exam to look for diabetic retinopathy and yearly building maintenance custodian visit and PVU Stage 3 chronic kidney disease recheck C MP if worsening will refer to nephrology, was referred to nephrology in the past but physician was not in pts network. Essential hypertension Patient is currently on losartan 100mg and atenolol 25mg Pt was advised to take the medications daily as prescribed. Call the office if there is any side effects due to medications. Pt was advised to bring the BP log to the next appointment so we can adjust the medications as needed and PVU Life Style Modifications were discussed including: Reducing salt intake, regular exercise, reducing weight and avoiding smoking and alcohol intake. Calcaneal spur of left foot X-ray of lef t foot impression: calcaneal enthesopathy. refer to specialist for management Degenerative arthritis Pt declines PT at this time, topical Nsaids as well as home stretches at this time. pt cant tolerate oral Nsaids, she was advised if any allergy to topical nsaid to D/C meds and infrom clinic Dietary counseling Encoruaged eating a healthy, balanced diet and increasing activity level by engaging in exercise atleast 30 min x atleast 5 days a week. Educational material was provided and patient was encouraged to use the resources to find the best options for a balanced diet. Pending Test Test Name Order Date COMPREHENSIVE METABOLIC PANEL WITH GFR 0 01/03/2025 Referrals Referral Date Details 01/03/2025 01/03/2025, calcanea l enthesopathy.. worsening heel pain, Tammi Owens Next Appt Details Follow Up: 3 Months, Reason: dm/ckd Provider Name:Julia Hernandez , 04/05/2025 11:45:00 AM, [address], [place], [id number], Progress Notes * Giovanny DAVE LDOB:[birth year] (59 yo F)Acc No.[id number]:01/03/2025 Progress Notes Patient: Giovanny OSEGUERA Provider: Renu Quinones MD :1965 A ge:59 Y S ex:Female Date:01/03/2025 Address:[address] [place], [place] [id number] Pcp:Cherise Candlearia Check In:01:48 PM EST Subjective: * Chief Complaints: * 1 . A1C Check. * HPI: I nterim History: The patient is a 59 yo f with a history of type 2 diabetes mellitus, here for a follow-up visit. The patient reports no new symptoms The patient is currently taking metformin 2000mg daily a nd has been adherent to the prescribed regimen. Last A1c was 6.1% which is controlled. The patient has not been checking blood glucose levels regularly. The patient has made no changes to their diet and exercise routine since the last visit. The patient reports weight gain due to poor dietary habits The patient denies symptoms of chest pain, shortness of breath. Pt last seen eye doctor this year and last foot exam was done today. HTN: complaint on home meds. no concerns today. * ROS: N egative except mentioned above in the HPI. * Medical History: T ype 2 diabetes mellitus, Hypertension, Hyperlipemia. * Surgical History: B reast L Surgery-removal of milk ducts , Knee Replacment Right , Neck surgery-has pins/plates , Cholecystectomy . * Hospitalization/Major Diagno stic Procedure: s ee surgical hx . * Family History: F ather: , diagnosed with Hypertension, Heart Disease, Diabetes. M other: , diagnosed with Hypertension, Heart Disease, Diabetes. P aternal Grand Father: . P aternal Grand Mother: . M aternal Grand Father: . M aternal Grand Mother: . * Medications: T aking Calcium + Vitamin D3 600-10 MG-MCG Tablet 4 tablet with a meal Orally Once a day , Taking Multi For Her - Capsule as directed Orally , Taking Cinnamon 500 MG Capsule as directed Orally , Taking Estradiol 4 MCG Insert 1 _insert Vaginal , Taking B Complex - Capsule as directed Orally , Taking Flaxseed Oil - Oil as directed , Taking Vitamin C 1000 MG Tablet Chewable 1 tablet Orally Once a day , Taking Vitamin D3 5000 UNIT/ML Liquid as directed Orally , Taking Probiotic - Capsule as directed Orally , Taking Potassium 610 MG Tablet 1 tablet Orally Once a day , Taking Magnesium 250 MG Tablet 1 tablet with a meal Orally Once a day , Taking Melatonin 5 MG Tablet 1 tablet in the evening Orally Once a day , Taking Atorvastatin Calcium 10 MG Tablet 1 tablet Orally Once a day , Taking metFORMIN HCl 500 MG Tablet 2 tablets Orally Twice a day , Taking Losartan Potassium 100 MG Tablet TAKE 1 TABLET BY MOUTH EVERY DAY FOR 90 DAYS , Taking Atenolol 25 MG Tablet TAKE 1 TABLET BY MOUTH EVERY DAY FOR 90 DAYS , Taking Znwjw-6-kmpa Ethyl Esters 1 GM Capsule 2 capsules Orally Twice a day , Taking hydrOXYzine Pamoate 25 MG Capsule TAKE 1 CAPSULE BY MOUTH EVERY 6 HOURS Orally four times a day as needed , Taking Colchicine 0.6 MG Tablet 1 tablet Orally daily , Medication List reviewed and reconciled with the patient * Allergies: T etracycline HCl: rash, Amoxicillin: rash, Sulfa Antibiotics: rash, Penicillin: rash, predniSONE: anaphylaxis, Motrin: swelling, Ibuprofen: swelling, Diuretic: swelling/sick. Objective: * Vitals: T emp:98.5F, Wt:215.8lbs, Ht: 65 in, BMI:35.91Index, BP:134/80mm Hg, HR:57/min, RR:16/min, Pain scale:61-10, Oxygen sat %:95%, Wt-k.89 kg, Ht-cm: 165.1 cm, Body Surface Area: 2.12. Alexia Umaña 01/03/2025 01:57:00 PM EDT >. * Examination: C QM Exceptions: Currently taking Aspirin: A spirin Use: N o G eneral appearance: alert, pleasant, well-nourished and in no acute distress. Head: normocephalic, atraumatic. Eyes: pupils equal, round, reactive to light. Heart: regular rate and rhythm without murmurs, gallops, clicks or rubs. Lungs: clear to auscultation bilaterally, with good air movement and no rales, rhonchi or wheezes. Psych: alert and oriented x 3, cooperative with exam, maintains good eye contact. Skin: No rashes. G eneral Examination: Foot exam: D ate 0 01/03/2025 S ensory and motor testing performed: s ensations and strength normal P edal pulse taking performed: 2 + V isual exam of foot performed: Y es Assessment: * Assessment: 1. T ype 2 diabetes mellitus with diabetic chronic kidney disease - E11.22 (Primary) 2 . S tage 3 chronic kidney disease - N18.30 3 . E ssential hypertension - I10 4 . C alcaneal spur of left foot - M77.32 5 . D egenerative arthritis - M19.90 6 . D ietary counseling - Z71.3 7 .?Exercise counseling - Z71.82 Plan: * Treatment: Value Reference Range R esult 6.5 HH 0-5.6 - % * Alexia Umaña 01/03/2025 02:03:56 PM EDT > . Notes: Last A1c was 6.1%, A1c today is 6.5% on metformin 500mg 2 tabs BID, If A1c progressively worsens will start pt on SGLT2 for to prevent ckd progression. Emphasized on diet and lifestyle modification. I will continue the same regimen with the following modifications. I recommend home blood sugar readings to be monitored frequently (daily fasting along with random (2 hours after meals). Pt was advised to log the reading with timings and to bring it on the next visit so we can adjust the dose of medications as needed. Pt was advised to inspect the feet daily. Patient was reminded to have yearly eye exam to look for diabetic retinopathy and yearly podiatristvisit and PVU ??2.?Stage 3 chronic kidney disease?LAB: COMPREHENSIVE METABOLIC PANEL WITH GFR Notes: recheck CMP if worsening will refer to nephrology, was referred to nephrology in the past but physician was not in pts network.??3.?Essential hypertension? Notes: Patient is currently on losartan 100mg and atenolol 25mg Pt was advised to take the medications daily as prescribed. Call the office if there is any side effects due to medications. Pt was advised to bring the BP log to the next appointment so we can adjust the medications as needed and PVU Life Style Modifications were discussed including: Reducing salt intake, regular exercise, reducingweight and avoiding smoking and alcohol intake. ??4.?Calcaneal spur of left foot? Notes: X-ray of left foot impression: calcaneal enthesopathy. refer to specialist for management ? Referral To:Tammi Owens??Podiatry ?Reason:calcaneal enthesopathy.. worsening heel pain 5.?Degenerative arthritis? Start Diclofenac Sodium Gel, 3 %, 1 application to wrist joints, Externally, Twice a day, 30 days, 30 Gram, Refills 1.?? Notes: Pt declines PT at this time, topical Nsaids as well as home stretches at this time. pt cant tolerate oral Nsaids, she was advised if any allergy to topical nsaid to D/C meds and infrom clinic??6.?Dietary counseling? Notes: Encoruaged eating a healthy, balanced diet and increasing activity level by engaging in exercise atleast 30 min x atleast 5 days a week. Educational material was provided and patient was encouraged to use the resources to find the best options for a balanced diet. ?? * Procedure Codes: 8 3036 GLYCATED HEMOGLOBIN TEST, Modifiers: QW , 3079F HTN DIAST BP = 80-89, 3044F DM HG A1C < 7, 3075F HTN SYST BP = 130 - 139 * Preventive Medicine: Counseling: C are goal follow-up plan: Nutrition/Dietary Counseling provided?Yes BMI management provided Y es * Follow Up: 3 Months (Reason: dm/ckd) Care Plan: * Problems: * Billing Information: * Visit Code: 41930 Office Visit Est 30-39 minutes. * Procedure Codes: 81534 GLYCATED HEMOGLOBIN TEST. Modifiers: QW 3079F HTN DIAST BP = 80-89. 3044F DM HG A1C < 7. 3075F HTN SYST BP = 130 - 139. * Sign off status: Completed true * Provider: Renu Quinones MD Date: 01/03/2025 Generated for Oren tatum/Robbie/Hardeepitting on: 01/07/2025 08:29 PM EDT History and Physical Notes * HPI (History of Present Illness) Category Sub-Category Detail Notes Category Not es Interim History The patient is a 59 yo f with a history of type 2 diabetes mellitus, here for a follow-up visit. The patient reports no new symptoms The patient is currently taking metformin 2000mg daily and has been adherent to the prescribed regimen. Last A1c was 6.1% which is controlled. The patient has not been checking blood glucose levels regularly. The patient has made no changes to their diet and exercise routine since the last visit. The patient reports weight gain due to poor dietary habits The patient denies symptoms of chest pain, shortness of breath. Pt last seen eye doctor this year and last foot exam was done today. HTN: complaint on home meds. no concerns today. Examination Category Sub-Category Detail Notes Category Not es General Examination Foot exam: Date: 01/03/2025 Sensory and motor testing performed:: se nsations and strength normal Pedal pulse taking performed:: 2+ Visual exam of foot performed:: Yes CQM Exceptions Currently taking Aspirin: Aspirin Use:: No General appearance: alert, pleasant, well-nourished and in no acute distress. Head: normocephalic, atraumatic. Eyes: pupils equal, round, reactive to light. Heart: regular rate and rhythm without murmurs, gallops, clicks or rubs. Lungs: clear to auscultation bilaterally, with good air movement and no rales, rhonchi or wheezes. Psych: alert and oriented x 3, cooperative with exam, maintains good eye contact. Skin: No rashes. Consultation Request Notes Referral Date Referring Provider Referred Provider Not es 01/03/2025 Keturah Quinones Jessica calcaneal enthesopathy.. worsening heel pain
--- OUTSIDE RECORDS SUMMARY | 2025-01-07 13:00 | XMS_ITS | Encounter Summary ---
Author Organization [facility] Address [address] [place] [address] Care Team Providers Care Customer Field Representative Name Role Phone Keturah Quinones MD Primary Care Provider [phone] Reason for Visit * Reason Comments Gynecologic Exam Encounter Details Date Type Department Care Team (Late st Contact Info) Description 01/07/2025 1:00 PM EDT Office Visit [facility] [address] [place] [address] Jaycee Hurley PA [address] [place], [place] [address] Well woman exam with routine gynecological exam Social History Tobacco Use Types Packs/Day Years Used Date Smoking Tobacco: Never Assessed Comments No Sex and Gender Information Value Date Recorded Sex Assigned at Not on file Legal Sex Female 12:16 PM EDT Gender Identity Not on file Sexual Orientation Not on file documented as of this encounter Last Filed Vital Signs Vital Sign Reading Time Taken Comments Blood Pressure 118/76 01/07/2025 1:15 PM EDT Pulse - - Temperature - - Respiratory Rate - - Oxygen Saturation - - Inhaled Oxygen Concentration - - Weight 93 kg (205 lb) 01/07/2025 1:15 PM EDT Height - - Body Mass Index 34.11 01/05/2024 2:09 PM EDT documented in this encounter Progress Notes * CECILIA Gee - 01/07/2025 1:00 PM EDT Reason for Appointment: Patient ID: Giovanny Dave is a 59 y.o. female who presents for Gynecologic Exam Patient presents today for Annual Exam. MEDICATIONS Current Outpatient Medications Medication Instructions Ascorbic Acid (vitamin C) 1000 MG tablet Every 24 hours atenolol (Tenormin) 25 MG tablet TAKE 1 TABLET BY MOUTH EVERY DAY FOR 90 DAYS atorvastatin (Lipitor) 10 MG tablet Every 24 hours Calcium Carb-Cholecalciferol (Calcium + Vitamin D3) 600-10 MG-MCG tablet Every 24 hours Cholecalciferol (Vitamin D-3) 5000 UNIT/ML liquid as directed Orally cinnamon 500 MG capsule as directed Orally colchicine 0.6 MG tablet Every 24 hours estradiol (Estrace) 0.1 MG/GM vaginal cream INSERT 2 (TWO) grams VAGINALLY AT BEDTIME for 2 (TWO) weeks, then at AT BEDTIME TWICE A WEEK estradiol (ESTRACE) 2 g, Vaginal, 2 times weekly losartan (Cozaar) 50 MG tablet TAKE 1 TABLET BY MOUTH EVERY DAY FOR 90 DAYS magnesium 250 MG tablet Every 24 hours melatonin 5 MG tablet Every 24 hours metFORMIN (Glucophage) 500 MG tablet TAKE 2 TABLETS BY MOUTH TWICE A DAY WITH A MEAL omega-3 (FISH OIL) 2 g, Oral, 2 times daily Potassium Gluconate 2.5 MEQ tablet 1 capsule, Oral, Daily RT ALLERGIES Allergies Allergen Reactions Meloxicam Anaphylaxis Mobic Nickel Rash Other Reaction(s): Inflammation Hx allergic reaction to surgical ron Penicillins Anaphylaxis and Rash Other Reaction(s): rash, itching, swelling Prednisone Anaphylaxis Other Reaction(s): rash, brusing, anaphylaxis Ibuprofen Swelling Eyes, and LAUREN leg/feet Nsaids Swelling Salicylates Swelling Tetracyclines & Related Valdecoxib Swelling Swelling in hands and arms Sulfa Antibiotics Rash Tetracycline Rash and Swelling Other Reaction(s): itching, swelling PROBLEMS Active Ambulatory Problems Diagnosis Date Noted No Active Ambulatory Problems Resolved Ambulatory Problems Diagnosis Date Noted No Resolved Ambulatory Problems Past Medical History: Diagnosis Date Visit for review of DEXA scan 01/11/2023 Visit for screening mammogram 01/11/2023 HISTORY PAST MEDICAL HISTORY SOCIAL HISTORY Past Medical History: Diagnosis Date Visit for review of DEXA scan 01/11/2023 low fracture risk Visit for screening mammogram 01/11/2023 negative Social History Tobacco Use Smoking status: Not on file Smokeless tobacco: Not on file Substance Use Topics Alcohol use: Not on file Drug use: Not on file FAMILY HISTORY Family History Problem Relation Name Age of Onset Polycystic ovary syndrome Daughter ADD / ADHD Daughter ADD / ADHD Son ODD Son SURGICAL HISTORY Past Surgical History: Procedure Laterality Date BREAST SURGERY Left milk duct removal CHOLECYSTECTOMY DILATION AND CURETTAGE OF UTERUS 03/24/2023 HYSTEROSCOPY W/ POLYPECTOMY 03/24/2023 with myosure NECK SURGERY TOTAL KNEE ARTHROPLASTY Right REVIEW OF SYSTEMS Review of Systems: Review of Systems Constitutional: Negative. HENT: Negative. Eyes: Negative. Respiratory: Negative. Cardiovascular: Negative. Gastrointestinal: Negative. Genitourinary: Negative. Musculoskeletal: Negative. Skin: Negative. Neurological: Negative. All other systems reviewed and are negative. Hematological: Negative. Endocrine: Negative. Allergic/Immunologic: Negative. OBJECTIVE Objective: Physical Exam Constitutional: Appearance: Normal appearance. She is well-developed. Genitourinary: Vulva normal. Right Adnexa: not tender and no mass present. Left Adnexa: not tender and no mass present. No cervical discharge. Breasts: Breasts are soft. Right: Normal. Left: Normal. HENT: Head: Normocephalic. Nose: Nose normal. Mouth/Throat: Mouth: Mucous membranes are moist. Cardiovascular: Rate and Rhythm: Normal rate and regular rhythm. Pulmonary: Effort: Pulmonary effort is normal. Breath sounds: Normal breath sounds. Abdominal: General: Bowel sounds are normal. There is no distension. Palpations: Abdomen is soft. Tenderness: There is no abdominal tenderness. There is no guarding or rebound. Musculoskeletal: General: No swelling. Normal range of motion. Cervical back: Normal range of motion. Right lower leg: No edema. Left lower leg: No edema. Neurological: General: No focal deficit present. Mental Status: She is alert and oriented to person, place, and time. Skin: General: Skin is warm and dry. Psychiatric: Mood and Affect: Mood normal. Behavior: Behavior normal. Vitals and nursing note reviewed. Exam conducted with a wood inspector present. Vitals: Estimated body mass index is 36.94 kg/m?? as calculated from the following: Height as of 01/05/24: 5' 5 . Weight as of 01/05/24: 222 lb. BP: No LMP recorded (lmp unknown). Patient is postmenopausal. ASSESSMENT & PLAN (Z01.419) Well woman exam with routine gynecological exam Plan: THIN PREP TIS PAP AND HR HPV DNA Annual: Patient presents today for an annual exam. Patient states she is doing well and has no complaints. Pap was obtained without difficulty and patient given mammogram/Dexa order was given to patient on 11/13/2024 to have scheduled/obtained. No orders of the defined types were placed in this encounter. Follow Up: Patient is to return in one year for annual unless needed otherwise. Documented by Brook Castrejon MA on behalf of: CECILIA Gee documented in this encounter Plan of Treatment Upcoming Encounters Date Type Department Care Team (Late st Contact Info) Description 01/13/2026 2:00 PM EDT Procedure Visit [facility] [address] [place] [address] Percy Mariee DO [address] [place] [address] Scheduled Orders Name Type Priority Associated Diagnoses Orde r Schedule THIN PREP TIS PAP AND HR HPV DNA Pathology and Cytology Routine Well woman exam with routine gynecological exam Ordered: 01/07/2025 documented as of this encounter Visit Diagnoses Diagnosis Well woman exam with routine gynecological exam Routine gynecological examination documented in this encounter Care Teams Customer Field Representative Relationship Specialty Start Date End Date Keturah Quinones MD [address] [facility], [facility] [address], [place] [address] PCP - General Family Medicine 01/07/25 documented as of this encounter
--- OUTSIDE RECORDS SUMMARY | 2025-01-07 20:29 | XMS_ITS | Patient Health Record ---
Author Organization [facility] [place] Address [address] [place] [address] Care Team Providers Care Passenger Coach Driver Name Role Phone Sohan Cowan NP Primary Care Provider Unavailab le Allergies Allergen (clinical drug ingredient) Drug/Non Drug Allergy documented on EMR Reaction Allergy Type Onset Date Status prednisone Prednisone rash, brusing, anaphylaxis Drug Allergy Active Non-steroidal anti-inflammatory agent (FN) NSAIDs swelling Drug Allergy Active Penicillin rash, itching, swelling Drug Allergy Active tetracycline Tetracycline itching, swelling Drug Allergy Active Reason For Referral No Information Medications Medication SIG (Take, Route, Frequency, Duration) Notes Start Date End Date Status Atenolol 25 MG 1 tablet Orally Once a day Active hydrOXYzine Pamoate 25 MG 2 capsule at b edtime as needed Orally Once a day Active Melatonin 5 MG 1 tablet in the even ing Orally Once a day Active Losartan Potassium 25 MG 1 tablet Orally Once a day Active Potassium 99 MG 1 tablet Orally BID Active metFORMIN HCl 1000 MG 1 tablet with a me al Orally BID Active Fish Oil 1200 MG 1 capsule Orally Onc e a day Active Magnesium 250 MG 1 tablet with a meal Orally BID Active Tylenol 325 MG 1 to 2 tablets Orall y every 4 hrs Active Social History Tobacco Use: Social History Observation Description Date Details (start date - stop date) Former Smoker NA - NA Tobacco Use/Smoking Question Answer Notes Patient is a former smoker Problems Problem Type SNOMED Code ICD Code Onset Dates Problem Status W/U Status Risk Notes Problem [id number] 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 Plan Of Treatment No Information Insurance Providers Payer Name Payer Address Payer Phone Subscriber Number Group Number Insured Name Patient Relationship to Insured Coverage Start Date Coverage End Date BCBS OUT OF STATE [address] [place] [address] [id number] Salomon Dave Spouse - patient is the spouse of the insured [place] [address] [place] [address] [phone] [id number] Giovanny Dave Self - patient is the insured Medical (General) History Medical History History ICD Code Diabetes E11.9 Essential hypertension I10 Anxiety F41.9 Depression F32.9 Arthritis M19.90 joint replacement Surgical History Surgery Date(Month/Year) laproscopic abdominal surgeries right knee replacement
--- OUTSIDE RECORDS SUMMARY | 2025-01-07 20:29 | XMS_ITS | Clinical Summary ---
Author Organization [facility] Address [address] [place] [address] Care Team Providers Care Home Restoration Service Supervisor Name Role Phone Herbiechaparrita Amy TWINE REELING MACHINE OPERATOR.BUSINESS CONSULT Primary Care Provider Skip English MD Unavailable Armando Bermudez MD, Bruce Martin Unavailable [phone] Skip English MD Unavailable Radha Zhu RN Unavailable Allergies Active Allergy Reactions Criticality Noted Date Comments Ibuprofen Swelling 04/22/2016 Eyes, and LAUREN leg/feet Valdecoxib Swelling 04/22/2016 Swelling in hands and arms Thiazides Other: See Comments 04/22/2016 Bruising and couldn't get out of bed. Nsaids (Non-Steroidal Anti-Inflammatory Drug) Swelling 01/04/2016 Penicillins Anaphylaxis 01/04/2016 Prednisone Anaphylaxis 09/01/2017 Salicylates Swelling 01/04/2016 Sulfa (Sulfonamide Antibiotics) Unknown 01/04/2016 Tetracycline Swelling 01/04/2016 Medications Potassium 99 mg tab Take 1 capsule by mouth once daily. Active Aspirin-Acetami nophen-Caffeine (EXCEDRIN MIGRAINE) 250-250-65 mg per tablet Take 3 tablets by mouth every 8 hours as needed for Pain. 12/14/2019 Active lisinopril (ZESTRIL, PRINIVIL) 20 mg tablet Take 1 tablet by mouth once daily. 30 tablet 5 07/15/2016 Active MAGNESIUM OXIDE/MAGNESIUM (MAGNESIUM, OXIDE/AA CHELATE, ORAL) Take 1 tablet by mouth once daily. 12/14/2019 Active atenolol (TENORMIN) 25 mg tablet Take 25 mg by mouth once daily. 11/14/2019 Active metFORMIN (GLUCOPHAGE) 500 mg tablet Take 500 mg by mouth once daily. 11/14/2019 Active cholecalciferol (VITAMIN D) 1,000 unit tab tablet Take 1,000 Units by mouth once daily. Active vitamin B complex (B COMPLEX 1 ORAL) Take 1 tablet by mouth once daily. 12/14/2019 Active [id number] -Fish Oil (FISH OIL) 1,000 mg (120 mg-180 mg) cap Take 2 g by mouth twice daily. Active MULTI-VITAMIN ORAL Take 1 tablet by mouth once daily. 12/14/2019 Active ascorbic acid, vitamin C, (VITAMIN C) 500 mg tablet Take 500 mg by mouth once daily. Active calcium/mag/vit meza D2/Zn/min (GLENN-MAG ZINC II ORAL) Take 1 tablet by mouth once daily. 12/14/2019 Active atorvastatin (LIPITOR) 10 mg tablet Take 10 mg by mouth once daily. Active turmeric (CURCUMIN MISC) Acti ve Active Problems Problem Noted Date Diagnosed Date Complicated UTI (urinary tract infection) 2019 Migraine headache without aura 12/10/2019 Sepsis due to Escherichia coli (E. coli) 020 Assessment & Plan (12/09/2019 9:15 AM EDT): Quinolone. Check cultures tomorrow. Likely 2 weeks of oral quinolone unless deeper infection found requiring longer abx course Obesity, Class II, BMI 35-39.9 12/09/2019 Obstructive sleep apnea on CPAP 12/08/2019 Assessment & Plan (12/09/2019 9:16 AM EDT): Patient reported blue lips upon awakening the am of admission - doing well on CPAP here without difficulty. Likely was sepsis related hypoperfusion. Patient instructed to have her CPAP machine officially checked by the supply company upon discharge CKD (chronic kidney disease) stage 3, GFR 30-59 ml/min 07/15/2016 Assessment & Plan (12/08/2019 2:21 PM EDT): stable Resolved Problems Problem Noted Date Diagnosed Date Resolved Date Hyponatremia 12/08/2019 12/09/2019 Assessment & Plan (12/08/2019 2:19 PM EDT): IV saline Lactic acidosis 12/08/2019 12/09/2019 Assessment & Plan (12/09/2019 9:16 AM EDT): From sepsis Cervical vertebral fusion 09/21/2017 Chronic pain 04/22/2016 12/08/2019 Overview (04/22/2016): Sees Dr. Kimbrough (worker's comp bilateral knee issues) Severe episode of recurrent major depressive disorder, without psychotic features 04/22/2016 Overview (04/22/2016): Sees Dr. Saucedo's office (worker's comp). PTSD (post-traumatic stress disorder) 04/22/2016 12/08/2019 Essential hypertension 04/22/201612/07 Carpal tunnel syndrome, bilateral 04/22/2016 12/08/2019 Arthritis of left knee 04/22/201612/07 Overview (04/22/2016): Worker's comp issue Obstructive sleep apnea syndrome 04/22/2016 12/08/2019 Immunizations Immunization Administration Dates Next Due influenza (IIV4) vaccine, ag e 6 mo - 64 yr, quadrivalent (AFLURIA, FLULAVAL, FLUZONE) 04/22/2016 Family History Medical History Relation Comments Diabetes Father Heart Father chf d 65 in 2001 Hypertension Father Cancer Maternal Grandmother lung Diabetes Mother Heart Mother chf Hypertension Mother leukemia [Other] Paternal Grandfather Relation Status Comments Father Maternal Grandmother Mother Paternal Grandfather Social History Tobacco Use Types Packs/Day Years Used Date Smoking Tobacco: Former Smokeless Tobacco: Never Tobacco Cessation:Counseling Given: Yes Alcohol Use Standard Drinks/Week Comments Yes 0 (1 standard drink = 0.6 oz pur e alcohol) rare (3-4 times a year) PHQ-2 Answer Date Recorded PHQ-2 score 6 09/21/2017 Area Deprivation Index Answer Date Matias rded National Score (1-100), lower number is lower ri sk Not on file 05/18/2020 State Score (1-10), lower number is lower risk N ot on file 05/18/2020 Data from: https://www.neighborhoodatlas.medicine.[facility].edu/. Last address used for calculation Not on file 05/18/2020 Comments No Sex and Gender Information Value Date Recorded Sex Assigned at Not on file Legal Sex Female 8:25 AM EST Gender Identity Female 01/24/2020 8:30 AM EDT Sexual Orientation Not on file Last Filed Vital Signs Vital Sign Reading Time Taken Comments Blood Pressure 138/56 01/30/2020 2:08 PM EDT Pulse 60 01/30/2020 2:08 PM EDT Temperature 36.7 C (98.1 F) 12/27/2019 10:30 AM EDT Respiratory Rate 18 12/27/2019 10:3 0 AM EDT Oxygen Saturation 98% 12/27/2019 10: 30 AM EDT Inhaled Oxygen Concentration - - Weight 103.7 kg (228 lb 9.6 oz) 01/30/2020 2:08 PM EDT Height 165.1 cm (5' 5 ) 01/30/2020 2:08 PM EDT Body Mass Index 38.04 01/30/2020 2:08 PM EDT Plan of Treatment Health Maintenance Due Date Last Done Comments Anxiety Screening 10/21/1981 Depression Screening 10/21/1981 HIV Screening 10/21/1981 Mammogram Screening 2003 DTaP,Tdap,Td Vaccine (1 - Tdap) 07/09/[address] Colonography 10/21/2008 Cologuard (FIT-DNA) 10/21/2008 Colonoscopy 10/21/2008 Colorectal Cancer Screening 10/21/2008 Fecal Occult Blood 10/21/2008 Sigmoidoscopy 10/21/2008 Cervical Cancer Screening 08/17/2013 08/17/2010 Pneumococcal Vaccine: 50+ (1 of 1 - PCV) 10/21/2013 Shingrix Vaccine (1 of 2) 10/21/2013 Lipid Screening 04/22/2021 04/22/2016 Diabetes Screening 12/12/2022 12/13/2019, 0 12/12/2019, 12/11/2019, Additional history exists Influenza Vaccine (#1) 2025 0, 04/13/2017, 04/22/2016, Additional history exists RSV Vaccine (1 - 1-dose 75+ series) 10/21/2038 Hepatitis C Screening Completed 04/22/2016 Procedures Procedure Name Priority Date/Time Associated Diagnosis Comments BASIC METABOLIC PANEL DONALDO 12/13/2019 5:21 AM EDT HEP C AB IA BLOOD Routine 04/22/2016 11: 57 AM EST Antibody response examination Need for hepatitis C screening test LIPID PANEL, FASTING Routine 04/22/2016 11:57 AM EST Screening for lipoid disorders from Last 3 Months or Most Recently Relevant to Health Maintenance Results * (ABNORMAL) BASIC METABOLIC PNL (12/13/2019 5:21 AM EDT) Glucose 192(H) 74 - 99 mg/dL 12/13/2019 6:06 AM [facility] Comment: The [place] Diabetes Association (ADA) provides guidance for cutoff [...] Standards of Medical Care in Diabetes 2016, [place] Diabetes Association. Diabetes Care. 2016.39(Suppl 1). BUN 23(H) 7 - 21 mg/dL 12/13/2019 6:06 AM [facility] Creatinine 1.02(H) 0.58 - 0.96 mg/dL 12/13/2019 6:06 AM [facility] Sodium 141 136 - 144 mmol/L 12/13/2019 6:06 AM [facility] Potassium 4.4 3.7 - 5.1 mmol/L 12/13/2019 6:06 AM [facility] Chloride 102 97 - 105 mmol/L 12/13/2019 6:06 AM [facility] CO2 25 22 - 30 mmol/L 12/13/2019 6:06 AM [facility] Anion Gap 14 9 - 18 mmol/L 12/13/2019 6:06 AM [facility] Calcium 10.1 8.5 - 10.2 mg/dL 12/13/2019 6:06 AM [facility] eGFR- >60 12/13/2019 6:06 AM [facility] eGFR-All Other Races 56 . 12/13/2019 6:06 AM [facility] Comment: eGFR (Estimated GFR) Units of measure: [...] eGFR may not accurately reflect actual GFR. Blood specimen (specimen) BLOOD SPECIMEN / Unknown 12/13/2019 5:21 AM EDT 12/13/2019 5:30 AM EDT Gibson Walker MD LABORATORY Final Res ult [facility] [address] [place] [address] [facility] [address] [place] [address] * LIPID PANEL BASIC (04/22/2016 11:57 AM EST) Triglyceride 110 30 - 149 mg/dL 04/22/2016 6:39 PM EST [facility] Cholesterol, Total 186 100 - 199 mg/dL 04/22/2016 6:39 PM EST [facility] HDL Cholesterol 57 >55 mg/dL 6 6:39 PM EST [facility] VLDL Cholesterol 22 6 - 40 mg/dL 04/22/2016 6:39 PM EST [facility] LDL Cholesterol, Calculated 107 60 - 129 mg/dL 04/22/2016 6:39 PM EST [facility] Fasting Time 12 hrs 04/22/2016 12:03 PM EST [facility] TC:HDL Ratio 3.26 1.00 - 5.00 04/22/2016 6:39 PM EST [facility] LDL:HDL Ratio 1.88 0.50 - 3.55 04/22/2016 6:39 PM EST [facility] Non HDL Cholesterol 129 90 - 159 mg/dL 04/22/2016 6:39 PM EST [facility] Blood specimen (specimen) BLOOD SPECIMEN / Unknown 04/22/2016 11:57 AM EST 04/22/2016 11:58 AM EST us Jaylin Griffiths MD LABORATORY Final Resul t [facility] [address] [place] [address] * HEP C AB IA BLOOD (04/22/2016 11:57 AM EST) Hep C Antibody IA Negative Negative 04/23/2016 11:29 AM EST [facility] Blood specimen (specimen) BLOOD SPECIMEN / Unknown 04/22/2016 11:57 AM EST 04/22/2016 11:58 AM EST us Jaylin Griffiths MD LABORATORY Final Resul t Performing Organization Address City/[facility]/ZIP Co de Phone Number [facility] [address] [place] [address] from Last 3 Months or Most Recently Relevant to Health Maintenance Insurance BLUE CARD PPO OOS MEDICARE [facility] [place] [address] [place] [address] CARD O OOS Member Subscriber Plan / Payer (Ef fective 2011-Present) Name:Giovanny Dave Relation to Subscriber:Spouse Name:Salomon Dave Date of :1964 (Home) Address: [address] [place] [id number] Payer ID:[id number] (NAIC) Type:PPO Address: [address] [place] [id number] MEDICARE Advance Directives * Full Code (Latest Code Status on File) Date Activated Date Inactivated Comments 12/14/2019 11:52 AM * Full Code Date Activated Date Inactivated Comments 12/08/2019 2:19 PM 12/13/2019 7:40 PM Question Answer Comments Full Code Order Discussed With: Patient Care Teams Home Restoration Service Supervisor Relationship Specialty Start Date End Date Amy Lunsford APRN.BUSINESS CONSULT [address] [place] [address] PCP - General Family Medicine 12/08/19 Sikp English MD [address] [place] [address] Home Care Provider Infectious Diseases 12/13/19 Yogi Roberts Jr., MD [address] [facility] [place] [address] Referring Internal Medicine 12/13/19 Skip English MD [address] [place] [address] Consulting Infectious Diseases 12/13/19 Radha Zhu RN [address] [place], [place] [id number] Operations Business Partner Post Acute Care 12/13/19
--- OUTSIDE RECORDS SUMMARY | 2025-01-07 20:29 | XMS_ITS | Patient Health Record ---
Author Organization [facility] Address [address] [place] [address] [place] [address] Care Team Providers Care Foil Spooler Name Role Phone AZAM CALVIN Unavailable [phone] Reason For Referral No Information Medications Medication SIG (Take, Route, Frequency, Duration) Notes Start Date End Date Status Topiramate 25 MG 2 tablets, 1 time pe r day, for 30 days Oral 1 DAY for 30 DYS 11/29/2016 Active traZODone HCl 100 MG 1 time per day Oral 1 DAY for 30 DYS 08/18/2016 Active metFORMIN HCl 500 MG TAKE 2 TABLETS BY M OUTH TWICE A DAY for 90 Active Atorvastatin Calcium 10 MG TAKE 1 TABLET BY MOUTH EVERY DAY for 90 Active Atenolol 25 MG TAKE 1 TABLET BY BARRERA TH EVERY DAY for 90 Active buPROPion HCl ER (XL) 300 MG 1 time per day Oral 1 DAY for 30 DYS 11/29/2016 Active Lisinopril 20 MG TAKE 1 TABLET BY BARRERA TH EVERY DAY for 90 Active Venlafaxine HCl ER 37.5 MG 1 time per da y Oral 1 DAY for 30 DYS 05/19/2016 Active Immunizations Vaccine Route Administration Date Status Comme nts Influenza, seasonal, injecta ble (split), for 3 yrs and up Unknown 04/13/2017 Administered Influenza, seasonal, injecta ble (split), for 3 yrs and up Unknown 03/19/2020 Administered Pneumococcal polysaccharide PPV23 Unknown 05/30/2021 Ad ministered Problems Problem Type SNOMED Code ICD Code Onset Dates Problem Status W/U Status Risk Notes Problem Liver disease (848492078) Abnormal liver function ([id number]) (K76.9) 2017 Active confirmed fatty liver on US dated 03/25/2018 Problem Anxiety state (183526842) Anxiety (YQH05745704) (F41.9) 2017 Active confirmed sees psychiatry Problem Essential hypertension (99229622) Benign essential hypertension (DMJ8909305) (I10) 2017 Active confirmed Problem Major depression, single episode (01043225) Depression (EYM70098410) (F32.9) 2017 Active confirmed sees psychiatry Problem Type II diabetes mellitus without complication (758255809) Diabetes mellitus type 2 (DKI91516261) (E11.9) 2018 Active confirmed Problem Fatty liver (690992625) Fatty liver (QXD802135932) (K76.0) 2017 Active confirmed fatty liver on US dated 03/25/2018 Problem Pure hyperglyceridemia (507986589) Hypertriglyceridemi a (ABJ929716602) (E78.1) 2017 Active confirmed Problem Obesity (279464383) Obesity (NXM219987357) (E66.9) 2017 Active confirmed Problem Obstructive sleep apnea syndrome (58655784) Obstructive sleep apnea (ZQP4901774210) (G47.33) 2017 Active confirmed Plan Of Treatment No Information Insurance Providers Payer Name Payer Address Payer Phone Subscriber Number Group Number Insured Name Patient Relationship to Insured Coverage Start Date Coverage End Date ANTHEM [address] [place] [address] [id number] MACKENZIE MEDINA Spouse - patient is the spouse of the insured [employer] [address] [place], [place] [address] [phone] PATEL MEDINA Self - patient is the insured Medical (General) History Surgical History Surgery Date(Month/Year) Cholecystectomy Knee Replacement right knee Tubal Ligation
--- OUTSIDE RECORDS SUMMARY | 2025-01-07 20:29 | XMS_ITS | Encounter Summary ---
Author Organization [facility] Address [address] [place] [address] Care Team Providers Care Pipe Manufacture Supervisor Name Role Phone Jaylin Griffiths MD Primary Care Provider [phone] Amy Lunsford APRN.[facility] Primary Care Provider Skip English MD Unavailable Armando Bermudez MD, Yogi Brooks Unavailable [phone] Skip English MD Unavailable Radha Zhu RN Unavailable Source Comments In the event this information is protected by the Federal Confidentiality of Alcohol and Drug AbusePatient Records regulations: The Federal rules restrict any use of the information to criminally investigate or prosecute any alcohol or drug abuse patient.[facility] Reason for Visit * Reason Comments HSAT Check In (Adult) Encounter Details Date Type Department Care Team (Late st Contact Info) Description 04/23/2016 Abstract Neurology [address] [place] [address] Main, Sleep Center [address] [id number] HSAT Check In (Adult) Social History Tobacco Use Types Packs/Day Years Used Date Smoking Tobacco: Former Alcohol Use Standard Drinks/Week Comments Yes 0 (1 standard drink = 0.6 oz pur e alcohol) rare (3-4 times a year) Comments No Sex and Gender Information Value Date Recorded Sex Assigned at Not on file Legal Sex Female 8:25 AM EST Gender Identity Female 01/24/2020 8:30 AM EDT Sexual Orientation Not on file documented as of this encounter Plan of Treatment Not on file documented as of this encounter Visit Diagnoses Not on filedocumented in this encounter Care Teams Pipe Manufacture Supervisor Relationship Specialty Start Date End Date Jaylin Griffiths MD PCP - General Internal Medicine 04/22/16 08/31/17 Amy Lunsford APRN.[facility] [address] [place] [address] PCP - General Family Medicine 12/08/19 Skip English MD [address] [place], [place] [id number] Home Care Provider Infectious Diseases 12/13/19 Yogi Roberts Jr., MD [address] [facility] [place] [address] Referring Internal Medicine 12/13/19 Skip English MD [address] [place] [address] Consulting Infectious Diseases 12/13/19 Radha Zhu, RN [address] [place] [address] Brand Development Manager Post Acute Care 12/13/19 documented as of this encounter
--- OUTSIDE RECORDS SUMMARY | 2025-01-07 20:29 | XMS_ITS | Encounter Summary ---
Author Organization [employer] [facility] Address [id number] [address] [place] [address] Care Team Providers Care Chip Silo Tender Name Role Phone Keturah Quinones MD Primary Care Provider [phone] Encounter Details Date Type Department Care Team (Latest Contact Info) Description 01/03/2025 Travel Social History Tobacco Use Types Packs/Day Years Used Date Smoking Tobacco: Never Assessed Comments Unknown Sex and Gender Information Value Date Recorded Sex Assigned at Not on file Legal Sex Female 2:18 PM EDT Gender Identity Not on file Sexual Orientation Not on file documented as of this encounter Plan of Treatment Not on file documented as of this encounter Visit Diagnoses Not on filedocumented in this encounter Care Teams Chip Silo Tender Relationship Specialty Start Date End Date Keturah Quinones MD [address] [place] [address] PCP - General Family Medicine 01/03/25 documented as of this encounter
--- OUTSIDE RECORDS SUMMARY | 2025-01-07 20:29 | XMS_ITS | Clinical Summary ---
Author Organization [facility] [employer] [facility] Address [id number] [address] [place] [address] Care Team Providers Care Fire Equipment Inspector Name Role Phone Keturah Quinones MD Primary Care Provider [phone] Encounters Date Type Department Care Team Description 01/03/2025 Travel 12/13/2024 3:08 PM EDT - 12/13/2024 11:59 PM EDT Hospital Encounter [facility] - Radiology [address] [place] [address] Multiple joint pain Discharge Disposition: Home 12/13/2024 2:55 PM EDT - 12/13/2024 3:07 PM EDT Hospital Encounter [facility] - Radiology [address] [place] [address] Multiple joint pain Discharge Disposition: Home 12/13/2024 2:50 PM EDT - 12/13/2024 2:54 PM EDT Hospital Encounter [facility] - Radiology [address] [place] [phone] Multiple joint pain Discharge Disposition: Home 12/13/2024 2:45 PM EDT - 12/13/2024 2:49 PM EDT Hospital Encounter [facility] - Radiology [address] [place] [address] Multiple joint pain Discharge Disposition: Home 12/13/2024 2:40 PM EDT - 12/13/2024 2:44 PM EDT Hospital Encounter [facility] - Radiology [address] [facility] [place] [phone] Multiple joint pain Discharge Disposition: Home 12/13/2024 Travel 12/13/2024 Orders Only INTERFACE-ONLY Cherise Quintero, PINKING MACHINE OPERATOR-STRUCTURAL STEEL ERECTION SUPERVISOR 12/13/2024 Orders Only INTERFACE-ONLY Cherise Quintero, PINKING MACHINE OPERATOR-STRUCTURAL STEEL ERECTION SUPERVISOR 12/13/2024 Orders Only INTERFACE-ONLY Cherise Quintero, PINKING MACHINE OPERATOR-STRUCTURAL STEEL ERECTION SUPERVISOR 12/13/2024 Orders Only INTERFACE-ONLY Cherise Quintero, PINKING MACHINE OPERATOR-STRUCTURAL STEEL ERECTION SUPERVISOR 12/13/2024 Orders Only INTERFACE-ONLY Cherise Quintero, PINKING MACHINE OPERATOR-STRUCTURAL STEEL ERECTION SUPERVISOR 12/13/2024 Orders Only INTERFACE-ONLY Cherise Quintero, PINKING MACHINE OPERATOR-STRUCTURAL STEEL ERECTION SUPERVISOR from Last 3 Months Social History Tobacco Use Types Packs/Day Years Used Date Smoking Tobacco: Never Assessed Comments Unknown Sex and Gender Information Value Date Recorded Sex Assigned at Not on file Legal Sex Female 2:18 PM EDT Gender Identity Not on file Sexual Orientation Not on file Plan of Treatment Health Maintenance Due Date Last Done Comments Depression Screening 1975 Tobacco Screening 1975 Adult BMI Screening 10/21/1981 DTaP,Tdap and Td Vaccines (1 - Tdap) 07/09/200806/14 Zoster (Shingles) Vaccine (1 of 2) 10/21/2013 Influenza Vaccine 02/11/2025 04/22/2016, , 07/08/2008 Pap Smear 01/04/2027 01/05/2024 Medical Devices Not on file Procedures Procedure Name Priority Date/Time Associated Diagnosis Comments COMPREHENSIVE METABOLIC PANEL Routine 01/03/2025 3:06 PM EDT Chronic kidney disease, stage 3 unspecified (CMS-HCC) XR HAND LT 2 VWS Routine 12/13/2024 3:28 PM EDT Multiple joint pain XR FOOT LT MIN 3 VWS Routine 12/13/2024 3:28 PM EDT Multiple joint pain XR HAND RT 2 VWS Routine 12/13/2024 3:27 PM EDT Multiple joint pain XR WRIST LT 2 VWS Routine 12/13/2024 3:2 7 PM EDT Multiple joint pain XR WRIST RT 2 VWS Routine 12/13/2024 3:2 6 PM EDT Multiple joint pain URIC ACID Routine 12/13/2024 3:05 PM EDT Pain in unspecified joint RHEUMATOID FACTOR Routine 12/13/2024 3:0 5 PM EDT Pain in unspecified joint LINA SCREEN W/ REFLEX Routine 12/13/2024 3:05 PM EDT Pain in unspecified joint ERYTHROCYTE SEDIMENTATION RATE (ESR) Routine 12/13/2024 3:05 PM EDT Pain in unspecified joint C-REACTIVE PROTEIN Routine 12/13/2024 3: 05 PM EDT Pain in unspecified joint EXTRA TUBES RED TOP Routine 12/13/2024 3 :02 PM EDT Pain in unspecified joint EXTRA TUBES Routine 12/13/2024 3:02 PM EDT Pain in unspecified joint from Last 3 Months Results * (ABNORMAL) Comprehensive metabolic panel (01/03/2025 3:06 PM EDT) SODIUM 139 134 - 146 mmol/L 01/03/2025 6:26 PM EDT [facility] POTASSIUM 4.3 3.5 - 5.0 mmol/L 01/03/2025 6:26 PM EDT [facility] CHLORIDE 103 98 - 109 mmol/L 01/03/2025 6:26 PM EDT [facility] CARBON DIOXIDE 25 22 - 32 mmol/L 01/03/2025 6:26 PM EDT [facility] ANION GAP 11 5 - 15 mmol/L 01/03/2025 6:26 PM EDT [facility] BLOOD UREA NITROGEN 19 5 - 27 mg/dL 01/03/2025 6:26 PM EDT [facility] CREATININE 1.02(H) 0.40 - 1.00 mg/dL 01/03/2025 6:26 PM EDT [facility] Comment:METHOD TRACEABLE TO IDHI STANDARD GLUCOSE 98 65 - 99 mg/dL 01/03/2025 6:26 PM EDT [facility] CALCIUM 10.2 8.5 - 10.5 mg/dL 01/03/2025 6:26 PM EDT [facility] TOTAL PROTEIN 7.4 6.0 - 8.0 g/dL 01/03/2025 6:26 PM EDT [facility] ALBUMIN 4.8 3.2 - 5.3 g/dL 01/03/2025 6:26 PM EDT [facility] ALKALINE PHOSPHATASE 56 39 - 130 U/L 01/03/2025 6:26 PM EDT [facility] AST 28 <=41 U/L 01/03/2025 6:26 PM EDT [facility] ALT 43(H) <=31 U/L 01/03/2025 6:26 PM EDT [facility] BILIRUBIN,TOTAL 1.0 0.3 - 1.2 mg/dL 01/03/2025 6:26 PM EDT [facility] EGFR Non-Race Dependent 63 >=60 ml/min/1.7 3sq.m 01/03/2025 6:26 PM EDT [facility] Comment: Reported eGFR is based on the CKD-EPI 2020 equation that does not use a race coefficient. Blood Venous blood / Unknown Venipuncture / Unknown 01/03/2025 3:06 PM EDT 01/03/2025 3:11 PM EDT us Keturah Quinones MD LAB BLOOD ORDERABLES Final Re sult [facility] [address] [place] [address], [place] [phone] * X-ray hand left 2 views (12/13/2024 3:28 PM EDT) Anatomical Region Laterality Modality Upper Extremities, MSK, Hand Left Com puted Radiography 12/18/2024 7:12 AM EDT Narrative 12/18/2024 7:13 AM EDT History: Pain Exam/Technique: Frontal and lateral views of the left hand were obtained. Comparison: None Findings: There are osteoarthritic changes in the first carpometacarpal joint. No other significant degenerative changes are seen. No erosive changes are identified. There is no evidence for an acute osseous abnormality. 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 Otherwise normal left hand. Finalized by Jorge Luis Wyatt MD on 12/18/2024 7:13 AM Procedure Note Jorge Luis Wyatt MD - 12/18/2024 History: Pain Exam/Technique: Frontal and lateral views of the left hand wereobtained. Comparison: None Findings: There are osteoarthritic changes in the first carpometacarpaljoint. No other significant degenerative changes are seen. No erosivechanges are identified. There is no evidence for an acute osseousabnormality. 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 Finalized by Jorge Luis Wyatt MD on 12/18/2024 7:13 AM us Keturah Quinones MD [facility] ORDERA BLES Final Result * X-ray foot left minimum 3 views (12/13/2024 3:28 PM EDT) Anatomical Region Laterality Modality Lower Extremities, MSK, Foot Left Com puted Radiography 12/18/2024 7:13 AM EDT Narrative 12/18/2024 7:14 AM EDT History: Pain Exam/Technique: 3 views of the left foot were obtained. Comparison: None Findings: There is an enthesophyte arising from the plantar surface of the calcaneus. No other significant degenerative changes are seen. There is no evidence for an acute osseous abnormality. IMPRESSION: Calcaneal enthesophyte. Otherwise normal left foot. Finalized by Jorge Luis Wyatt MD on 12/18/2024 7:14 AM Procedure Note Jorge Luis Wyatt MD - 12/18/2024 History: Pain Exam/Technique: 3 views of the left foot were obtained. Comparison: None Findings: There is an enthesophyte arising from the plantar surface ofthe calcaneus. No other significant degenerative changes are seen. Thereis no evidence for an acute osseous abnormality. IMPRESSION: Calcaneal enthesophyte. Otherwise normal left foot. Finalized by Jorge Luis Wyatt MD on 12/18/2024 7:14 AM us Keturah Quinones MD [facility] DIAGNOSTIC IMAGING ORDERA BLES Final Result * X-ray hand right 2 views (12/13/2024 3:27 PM EDT) Anatomical Region Laterality Modality Upper Extremities, MSK, Hand Right Com puted Radiography 12/18/2024 7:11 AM EDT Narrative 12/18/2024 7:12 AM EDT History: Pain Exam/Technique: Frontal and lateral views of the right hand were obtained. Comparison: None Findings: There are osteoarthritic changes in the first carpometacarpal joint. There is a small loose body adjacent to the second distal interphalangeal joint. No other significant degenerative changes are seen. There is no evidence for an acute osseous abnormality. IMPRESSION: Mild osteoarthritic changes. Otherwise normal right hand. Finalized by Jorge Luis Wyatt MD on 12/18/2024 7:12 AM Procedure Note Jorge Luis Wyatt MD - 12/18/2024 History: Pain Exam/Technique: Frontal and lateral views of the right hand wereobtained. Comparison: None Findings: There are osteoarthritic changes in the first carpometacarpaljoint. There is a small loose body adjacent to the second distalinterphalangeal joint. No other significant degenerative changes are seen.There is no evidence for an acute osseous abnormality. IMPRESSION: Mild osteoarthritic changes. Otherwise normal right hand. Finalized by Jorge Luis Wyatt MD on 12/18/2024 7:12 AM us Keturah Quinones MD [facility] DIAGNOSTIC IMAGING ORDERA BLES Final Result * X-ray wrist left 2 views (12/13/2024 3:27 PM EDT) Anatomical Region Laterality Modality MSK, Upper Extremities, Wrist Left Co mputed Radiography 12/18/2024 7:10 AM EDT Narrative 12/18/2024 7:11 AM EDT History: Pain Exam/Technique: 2 views of the left wrist were obtained. Comparison: None Findings: There are advanced osteoarthritic changes in the first carpal metacarpal joint. There is no evidence for an acute osseous abnormality. No erosive changes are seen. 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 Otherwise normal left wrist. Finalized by Jorge Luis Wyatt MD on 12/18/2024 7:11 AM Procedure Note Jorge Luis Wyatt MD - 12/18/2024 History: Pain Exam/Technique: 2 views of the left wrist were obtained. Comparison: None Findings: There are advanced osteoarthritic changes in the first carpalmetacarpal joint. There is no evidence for an acute osseous abnormality.No erosive changes are seen. 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 Finalized by Jorge Luis Wyatt MD on 12/18/2024 7:11 AM us Keturah Quinones MD [facility] DIAGNOSTIC IMAGING ORDERA BLES Final Result * X-ray wrist right 2 views (12/13/2024 3:26 PM EDT) Anatomical Region Laterality Modality MSK, Upper Extremities, Wrist Right Co mputed Radiography 12/18/2024 7:09 AM EDT Narrative 12/18/2024 7:10 AM EDT History: Pain Exam/Technique: Frontal and lateral views of the right wrist were obtained. Comparison: None Findings: There are mild osteoarthritic changes in the radiocarpal and first carpometacarpal joints. There is no evidence for an acute osseous abnormality. No erosive changes are seen. IMPRESSION: Mild osteoarthritic changes. Otherwise normal right wrist. Finalized by Jorge Luis Wyatt MD on 12/18/2024 7:10 AM Procedure Note Jorge Luis Wyatt MD - 12/18/2024 History: Pain Exam/Technique: Frontal and lateral views of the right wrist wereobtained. Comparison: None Findings: There are mild osteoarthritic changes in the radiocarpal andfirst carpometacarpal joints. There is no evidence for an acute osseousabnormality. No erosive changes are seen. IMPRESSION: Mild osteoarthritic changes. Otherwise normal right wrist. Finalized by Jorge Luis Wyatt MD on 12/18/2024 7:10 AM us Keturah Quinones MD [facility] ORDERA BLES Final Result * Erythrocyte Sedimentation Rate (ESR) (12/13/2024 3:05 PM EDT) ESR, Erythrocyte Sedimentation Rate 15 0 - 30 mm/h 12/13/2024 5:51 PM EDT [facility] Blood Venous blood / Unknown Venipuncture / Unknown 12/13/2024 3:05 PM EDT 12/13/2024 3:05 PM EDT us Keturah Quinones MD LAB BLOOD ORDERABLES Final Re sult [facility] [address] [place] [address], [place] [phone] * Rheumatoid factor (12/13/2024 3:05 PM EDT) RHEUMATOID FACTOR <10 <20 IU/mL 12/13/2024 9:16 PM EDT [facility] Blood Venous blood / Unknown Venipuncture / Unknown 12/13/2024 3:05 PM EDT 12/13/2024 3:05 PM EDT us Keturah Quinones MD LAB BLOOD ORDERABLES Final Re sult Performing Organization Address City/[facility]/ZIP Co de Phone Number [facility] [address] [place] [address], * C-reactive protein (12/13/2024 3:05 PM EDT) [facility] C REACTIVE PROTEIN 0.1 <=0.7 mg/dL 12/13/2024 9:16 PM EDT [facility] Blood Venous blood / Unknown Venipuncture / Unknown 12/13/2024 3:05 PM EDT 12/13/2024 3:05 PM EDT us Keturah Quinones MD LAB BLOOD ORDERABLES Final Re sult Performing Organization Address [facility]/ZIP Co de Phone Number [facility] [address] [place] [address], * LINA Screen w/ Reflex (12/13/2024 3:05 PM EDT) Pathologist [facility] LINA SCREEN W/REFLEX Negative Negative 12/13/2024 10:29 PM EDT [facility] Blood Venous blood / Unknown Venipuncture / Unknown 12/13/2024 3:05 PM EDT 12/13/2024 3:05 PM EDT Narrative [facility] - 12/13/2024 10:29 PM EDT Testing performed using multiplex flow immunoassay. Eleven difference antigens associated with systemic autoimmunie diseases (dsDNA, Sm, Sm/INFORMATION ASSURANCE MANAGER, INFORMATION ASSURANCE MANAGER, Chromatin, SSA, SSB, Alma-1, Sc170, Ribo P, Centromere B) are included in this sreening tests. us Keturah Quinones MD LAB BLOOD ORDERABLES Final Re sult Performing Organization Address City/[facility]/ZIP Co de Phone Number [facility] [address] [place] [address], * Uric acid (12/13/2024 3:05 PM EDT) URIC ACID 6.5 2.6 - 7.2 mg/dL 12/13/2024 9:16 PM EDT [facility] Blood Venous blood / Unknown Venipuncture / Unknown 12/13/2024 3:05 PM EDT 12/13/2024 3:05 PM EDT us Keturah Quinones MD LAB BLOOD ORDERABLES Final Re sult [facility] [address] [place] [address], [place] [phone] * Red Top (12/13/2024 3:02 PM EDT) Extra Tube Auto Resulted 12/13/2024 5:01 PM EDT [facility] Blood Venous blood / Unknown 12/13/2024 3:02 PM EDT 12/13/2024 3:05 PM EDT us Keturah Quinones MD LAB BLOOD ORDERABLES Final Re sult [facility] [address] [place] [address], [place] from Last 3 Months Insurance MEDICARE [facility] Care Teams Fire Equipment Inspector Relationship Specialty Start Date End Date Keturah Quinones MD [address] [facility] [place] [address] PCP - General Family Medicine 01/03/25
--- OUTSIDE RECORDS SUMMARY | 2025-01-07 20:29 | XMS_ITS | Patient Health Record ---
Author Organization [facility] vices Address [address] [place], [place] [id number] Care Team Providers Care Orthopedic Coder Name Role Phone Cherise Candelaria Primary Care Provider [phone] Keturah Quinones Unavailable [phone] Ina Edge Unavailable [phone] Harriett Brito Unavailable Julia Hernandez Unavailable [phone] Allergies Allergen (clinical drug ingredient) Drug/Non Drug [...] Value Reference Range Notes POCT A1C Reviewed date:05/15/2024 09:49:57 AM Interpretation: Performing Lab: Notes/Report: URIC ACID Reviewed date:12/13/2024 09:30:58 PM Interpretation: Performing Lab: Notes/Report: URIC ACID 6.5 2.6-7.2 mg/dL PERFORMED AT [address], [place] [address] RHEUMATOID FACTOR Reviewed date:12/13/2024 09:30:49 PM Interpretation: Performing Lab: Notes/Report: RHEUMATOID FACTOR <10 <20 IU/mL PERFORMED AT [address], [place] [address] ESR Reviewed date:12/13/2024 06:08:37 PM Interpretation: Performing Lab: Notes/Report: ESR, ERYTHROCYTE SEDIMENTATION RATE 15 0-30 mm/h PERFORMED AT [address],[place] [address] C REACTIVE PROTEIN Reviewed date:12/13/2024 09:30:53 PM Interpretation: Performing Lab: Notes/Report: C REACTIVE PROTEIN 0.1 <=0.7 mg/dL PERFORMED AT [address],[place] [address] LINA SCREEN WITH REFLEX Reviewed date:12/14/2024 07:16:57 AM Interpretation: Performing Lab: Notes/Report: LINA SCREEN W/REFLEX Negative Negative Testing performed using multiplex flow immunoassay. Eleven difference antigens associated with systemic autoimmunie diseases (dsDNA, Sm, Sm/AIRCRAFT CHARTER DISPATCHER, AIRCRAFT CHARTER DISPATCHER, Chromatin, SSA, SSB, Alma-1, Sc170, Ribo P, Centromere B) are included in this sreening tests. PERFORMED AT [address],[place] [address] POCT A1C Reviewed date:01/03/2025 02:04:09 PM Interpretation: Performing Lab: Notes/Report: Complete Blood Count Auto Di ff Reviewed date:10/04/2024 12:07:22 PM Interpretation: Performing Lab: Notes/Report: [facility] , White Blood Count 7.8 4.0-11.0 10 3/uL Red Blood Count 4.57 4.20-5.40 10 6/uL Hemoglobin 13.2 12.0-16.0 g/dL Hematocrit 40.4 36.0-48.0 % Mean Corpuscular Volume 88.4 81.0-99.0 fL Mean Corpuscular Hemoglobin 28.9 26.7-34.0 pg Mean Corpuscular HGB Conc 32.7 29.9-35.2 g/dL Red Cell Distribution Width 13.2 11.0-15.0 % Platelet Count 219 150-450 10 3/uL Mean Platelet Volume 11.4 9.5-13.5 fL Neutrophils Percent Auto 48.8 43.0-75.0 % Lymphocytes Percent Auto 36.1 20.5-60.0 % Monocytes Percent Auto 8.3 1.7-12.0 % Eosinophils Percent Auto 5.3 0.9-7.0 % Basophils Percent Auto 1.2 0.2-2.0 % Immature Granulocytes Pct Auto 0.3 0.0-0.5 % Neutrophils Absolute Auto 3.8 1.4-6.5 10 3/uL Lymphocytes Absolute Auto 2.8 1.2-3.8 10 3/uL Monocytes Absolute Auto 0.7 0.3-0.8 10 3/uL Eosinophils Absolute Auto 0.4 0.0-0.7 10 3/uL Basophils Absolute Auto 0.1 0.0-0.1 10 3/uL Immature Granulocytes Abs Auto 0.02 0.00-0.03 10 3/uL Performing Lab: see note ML - [facility] LB Comprehensive Metabolic Pane l Reviewed date:10/08/2024 08:18:03 AM Interpretation: Performing Lab: Notes/Report: [facility] , Sodium 142 136-145 mmol/L Potassium 4.2 3.5-5.1 mmol/L Chloride 105 98-107 mmol/L Carbon Dioxide 27.1 21.0-32.0 mmol/L Anion Gap 14.1 Glucose 106 74-106 mg/dL Blood Urea Nitrogen 21.0 7.0-18.0 mg/dL Creatinine 1.20 0.55-1.02 mg/dL Estimated GFR ( Michelle 55 >=60 mL/min/1.73m 2 Estimated GFR (Non- Kristen 46 >=60 mL/min/1.73m 2 BUN Creatinine Ratio 17.5 Calcium 9.4 8.5-10.1 mg/dL Bilirubin Total 0.5 0.2-1.0 mg/dL Aspartate Amino Transferase 25 15-37 U/L Alanine Aminotransferase 58 14-59 U/L Alkaline Phosphatase 60 46-116 U/L Total Protein 6.5 6.4-8.2 g/dL Albumin Level 3.7 3.4-5.0 g/dL Globulin 2.8 Albumin Globulin Ratio 1.3 Performing Lab: see note ML - [facility] LB Lipid Panel Reviewed date:10/04/2024 12:07:22 PM Interpretation: Performing Lab: Notes/Report: [facility] , Triglycerides 105 <=150 mg/dL Cholesterol 110 <=200 mg/dL HDL Cholesterol 47 40-60 mg/dL > or =60 mg/dl - LOW CARDIOVASCULAR RISK <40 mg/dl - HIGH CARDIOVASCULAR RISK LDL Cholesterol Calculated 42.0 <100 mg/dl OPTIMAL 100-129 mg/dl NEAR OR ABOVE OPTIMAL 130-159 mg/dl BORDERLINE HIGH 160-189 mg/dl HIGH >190 mg/dl VERY HIGH VLDL CHOLESTEROL 21.0 Chol HDL Ratio 2.3 3.3 - 4.4 LOW RISK 4.4 - 7.1 AVERAGE RISK 7.1 - 11.0 MODERATE RISK >11.0 HIGH RISK Performing Lab: see note - [facility] Microalbumin Creatinine Rati o Reviewed date:10/08/2024 08:20:41 AM Interpretation: Performing Lab: Notes/Report: [facility] , Microalbumin Urine Random 11.3 <=30.0 mg/dL Creatinine Urine Random 61.58 20.00-300.00 mg/d L Microalbum Creatinine Ratio Ur 183.5 0.0-29.9 mg/g NO MICROALBUMINURIA 0-29 MG/G CLINICAL MICROALBUMINURIA 30-300 MG/G MACROALBUMINURIA >300 MG/G Performing Lab: see note [facility] Vitamin D Reviewed date:10/04/2024 12:07:22 PM Interpretation: Performing Lab: Notes/Report: [facility] , Vitamin D 70.1 <20 ng/mL Vit D deficient 20-<30 ng/mL Vit D insufficient 30-100 ng/mL Vit D sufficient >100 ng/mL Potential Toxicity Performing Lab: see note [facility] TSH W/ REFLEX FT4 Reviewed date:10/04/2024 12:07:22 PM Interpretation: Performing Lab: Notes/Report: [facility] , TSH W/ REFLEX FT4 2.322 0.358-3.740 uIU/mL Performing Lab: see note - [facility] CBC no Diff (Hemogram) Reviewed date:02/05/2024 07:42:51 PM Interpretation: Performing Lab: Notes/Report: [facility] , White Blood Count 8.3 4.0-11.0 10 3/uL Red Blood Count 4.26 4.20-5.40 10 6/uL Hemoglobin 12.4 12.0-16.0 g/dL Hematocrit 37.8 36.0-48.0 % Mean Corpuscular Volume 88.7 81.0-99.0 fL Mean Corpuscular Hemoglobin 29.1 26.7-34.0 pg Mean Corpuscular HGB Conc 32.8 29.9-35.2 g/dL Red Cell Distribution Width 13.1 11.0-15.0 % Platelet Count 204 150-450 10 3/uL Mean Platelet Volume 12.2 9.5-13.5 fL Performing Lab: see note ML - [facility] LB COMPREHENSIVE METABOLIC PANE L Reviewed date:01/04/2025 10:17:34 AM Interpretation: Performing Lab: Notes/Report: Reported eGFR is based on the CKD-EPI 2020 equation that does not use a race coefficient. PERFORMED AT [facility] [address],[place] [address] SODIUM 139 134-146 mmol/L POTASSIUM 4.3 3.5-5.0 mmol/L CHLORIDE 103 98-109 mmol/L CARBON DIOXIDE 25 22-32 mmol/L ANION GAP 11 5-15 mmol/L BLOOD UREA NITROGEN 19 5-27 mg/dL CREATININE 1.02 0.40-1.00 mg/dL METHOD TRACE ABLE TO IDMS STANDARD GLUCOSE 98 65-99 mg/dL CALCIUM 10.2 8.5-10.5 mg/dL TOTAL PROTEIN 7.4 6.0-8.0 g/dL ALBUMIN 4.8 3.2-5.3 g/dL ALKALINE PHOSPHATASE 56 39-130 U/L AST 28 <=41 U/L BILIRUBIN,TOTAL 1.0 0.3-1.2 mg/dL ALT 43 <=31 U/L EGFR (CKD-EPI) NON-RACE DEPENDENT 63 >=60 ml/min/1.73sq.m HAND LT 2 VWS Reviewed date:12/18/2024 08:16:14 AM Interpretation: Performing Lab: Notes/Report: SEE RESULTS BELOW History: Pain WRIST RT 2 VWS Reviewed date:12/18/2024 08:16:58 AM Interpretation: Performing Lab: Notes/Report: SEE RESULTS BELOW History: Pain WRIST LT 2 VWS Reviewed date:12/18/2024 08:16:47 AM Interpretation: Performing Lab: Notes/Report: SEE RESULTS BELOW History: Pain HAND RT 2 VWS Reviewed date:12/18/2024 08:16:35 AM Interpretation: Performing Lab: Notes/Report: SEE RESULTS BELOW History: Pain FOOT LT MIN 3 VWS Reviewed date:12/18/2024 08:15:50 AM Interpretation: Performing Lab: Notes/Report: SEE RESULTS BELOW History: Pain POCT A1C Reviewed date:10/02/2024 01:37:57 PM Interpretation:6.1 Performing Lab: Notes/Report: VAGINAL PATHOGENS DNA PANEL Reviewed date:05/26/2024 09:51:26 PM Interpretation: Performing Lab: Notes/Report: TRICHOMONAS VAGINALIS DNA NEGATIVE NEGATIVE GARDNERELLA VAGINALIS DNA NEGATIVE NEGATIVE BRENNAN SPECIES DNA NEGATIVE NEGATIVE Methodology: DNA probe, nucleic acid hybridization test. UNLESS OTHERWISE INDICATED, ALL TESTING PERFORMED AT: [facility]. [address] [place] [address] TELEGRAPH MECHANIC: CANDI OLIVERA M.D. CLIA NUMBER [id number] CAP ACCREDITATION AUID [id number] Changes in testing location may be associated with reference range changes for a number of analytes. Please review reference intervals carefully. Urine Dip Reviewed date:05/24/2024 03:59:12 PM Interpretation: Performing Lab: Notes/Report: Bilirubin - Occult Blood - Glucose - Ketones - WBC - Nitrite - Ph 6.0 Protein - Specific Melvin 1.010 Color yellow Appearance clear Glycohemoglobin A1C Reviewed date:02/05/2024 08:30:14 PM Interpretation: Performing Lab: Notes/Report: [facility] , Glycohemoglobin A1C 6.7 4.5-6.2 % ADA RECOMMENDED LIMIT 4.0 - 6.0 ADA THERAPEUTIC TARGET < 7.0 ACTION SUGGESTED > 7.0 Estimated Average Glucose 146 Performing Lab: see note ML - [facility] LB Comprehensive Metabolic Pane l Reviewed date:02/05/2024 08:30:30 PM Interpretation: Performing Lab: Notes/Report: [facility] , Sodium 141 136-145 mmol/L Potassium 4.0 3.5-5.1 mmol/L Chloride 105 98-107 mmol/L Carbon Dioxide 27.0 21.0-32.0 mmol/L Anion Gap 13.0 Glucose 128 74-106 mg/dL Blood Urea Nitrogen 19.0 7.0-18.0 mg/dL Creatinine 1.12 0.55-1.02 mg/dL Estimated GFR ( Michelle >60 >=60 Estimated GFR (Non- Kristen 50 >=60 BUN Creatinine Ratio 17.0 Calcium 9.3 8.5-10.1 mg/dL Bilirubin Total 0.9 0.2-1.0 mg/dL Aspartate Amino Transferase 32 15-37 U/L Alanine Aminotransferase 60 14-59 U/L Alkaline Phosphatase 67 46-116 U/L Total Protein 6.7 6.4-8.2 g/dL Albumin Level 3.7 3.4-5.0 g/dL Globulin 3.0 Albumin Globulin Ratio 1.2 Performing Lab: see note ML - [facility] LB Lipid Panel Reviewed date:02/05/2024 07:42:51 PM Interpretation: Performing Lab: Notes/Report: [facility] , Triglycerides 139 <=150 mg/dL Cholesterol 127 <=200 mg/dL HDL Cholesterol 59 40-60 mg/dL > or =60 mg/dl - LOW CARDIOVASCULAR RISK <40 mg/dl - HIGH CARDIOVASCULAR RISK LDL Cholesterol Calculated 40.2 <100 mg/dl OPTIMAL 100-129 mg/dl NEAR OR ABOVE OPTIMAL 130-159 mg/dl BORDERLINE HIGH 160-189 mg/dl HIGH >190 mg/dl VERY HIGH VLDL CHOLESTEROL 27.8 Chol HDL Ratio 2.2 3.3 - 4.4 LOW RISK 4.4 - 7.1 AVERAGE RISK 7.1 - 11.0 MODERATE RISK >11.0 HIGH RISK Performing Lab: see note ML - [facility] Reason For Referral Reason eval and treat Diagnosis 1 Knee pain, chronic, left (M25.562) Referral Organization [facility] Referring Provider First Name Cherise Referring Provider Last Name Bari Referring Provider Speciality Nurse Prac luizioner Referred Provider [facility] Oscar n Referred Provider Specialty Orthopedics General Notes Saundra Perez 04/2024 09:16:11 AM >{{TOFIRSTNAME}} [facility] is [facility] following up on multiple outstanding orders and/or referrals that were ordered by your provider. Please call our office at so we can _update our records., Saundra Perez 03/12/2024 08:48:47 AM >No response from patient, closing referral per protocol Referral Priority Routine Reason eval and treat Diagnosis 1 Lesion of lip (K13.0 ) Referral Organization [facility] Referring Provider First Name Cherise Referring Provider Last Name Bari Referring Provider Speciality Nurse Prac titioner Referred Provider [facility] Katia fin Referred Provider Specialty Dermatology General Notes Saundra Perez 04/2024 09:16:02 AM >{{TOFIRSTNAME}} This is [facility] following up on multiple outstanding orders and/or referrals that were ordered by your provider. Please call our office at so we can _update our records., Saundra Perez 03/12/2024 08:48:38 AM >No response from patient, closing referral per protocol Referral Priority Routine Reason Referring for evalua tion for CKD, current creatinine 1.12, GFR 50, NIDDM, mother was on hemodialysis, father on peritoneal dialysis. Thank you Diagnosis 1 Stage 3 chronic kidn ey disease (N18.30) Referral Organization [facility] Referring Provider First Name Ina Referring Provider Last Name Kely Referring Provider Speciality Nurse Melvi jonas Referred Provider Nakia Canela Nephrol dee Referred Provider Specialty Nephrology General Notes SebastianNayany 06/01 12:29:22 PM >{ {TOFIRSTNAME}} This is [facility] following up on an outstanding referral that was ordered by your provider. Please call our office at , so we can _update our records., Soraya Gem 06/12/2024 09:35:22 AM >no response from patient with appt date, closing per protocol. Referral Priority Routine Reason calcaneal enthesopat hy.. worsening heel pain Diagnosis 1 Calcaneal spur of le ft foot (M77.32) Referral Organization [facility] Referring Provider First Name Keturah Referring Provider Last Name Stacie Referring Provider Speciality Family Med becky Referred Provider Tammi Owens Referred Provider Specialty Podiatry Referral Priority Routine Medications Medication SIG (Take, Route, Frequency, Duration) Notes Start Date End Date Status Vitamin D3 5000 UNIT/ML as directed Orally Active Colchicine 0.6 MG 1 tablet Orally haseeb y for 5 days 12/13/2024 Active Vitamin C 1000 MG 1 tablet Orally Once a day Active hydrOXYzine Pamoate 25 MG TAKE 1 CAPSULE BY MOUTH EVERY 6 HOURS Orally four times a day as needed for 30 days Active Probiotic - as directed Orally Active Estradiol 4 MCG 1 _insert Vaginal Active Losartan Potassium 100 MG TAKE 1 TABLET BY MOUTH EVERY DAY FOR 90 DAYS for 90 Active Cinnamon 500 MG as directed Orally Active metFORMIN HCl 500 MG 2 tablets Orally Tw ice a day for 30 days Active Flaxseed Oil - as directed Act kylie Dkais-8-ltdr Ethyl Esters 1 GM 2 capsules Orally Twice a day for 30 days 11/03/2023 Active B Complex - as directed Orally Active Atenolol 25 MG TAKE 1 TABLET BY BARRERA TH EVERY DAY FOR 90 DAYS for 90 Active Magnesium 250 MG 1 tablet with a meal Orally Once a day Active Potassium 610 MG 1 tablet Orally Once a day Active Diclofenac Sodium 3 % 1 application to w rist joints Externally Twice a day for 30 days 01/03/2025 Active Multi For Her - as directed Orally Active Atorvastatin Calcium 10 MG 1 tablet Oral ly Once a day for 90 days Active Calcium + Vitamin D3 600-10 MG-MCG 4 tablet with a meal Orally Once a day Active Melatonin 5 MG 1 tablet in the even ing Orally Once a day Active Immunizations Vaccine Route Administration Date Status Comme nts *Wcfwqqulr-Amwvxllyz-Kuqec te Unknown 03/19/2023 Administered *MMR-VFC Unknown 10/25/2024 Administered *Pneumococcal polysaccharide PMM46-Rjotlkh Unknown 05/30/2021 Administered *Tdap (Adacel)-Private IM Intramuscular 06/28/2022 Adminis tered COVID-19 (Pfizer)-Private Unknown 09/01/2020 Administer ed COVID-19 (Pfizer)-Private Unknown 09/23/2020 Administer ed COVID-19 (Pfizer)-Private Unknown 04/19/2021 Administer ed Zoster (shingles), recombinant, sub-unit, IM Unknown 05/14/2021 Administered Zoster (shingles), recombinant, sub-unit, IM Unknown 07/21/2021 Administered Social History Tobacco Use: Social History Observation Description Date Details (start date - stop date) Former Smoker 10/21/1980 - 02/12/2000 Sex Assigned At : Social History Observation Description Sex Assigned At Female Tobacco Use/Smoking Question Answer Notes Tobacco use: former smoker patient enter ed data When did you start smoking? 10/21/1980 p atient entered data When did you stop smoking? 02/12/2000 zarina castanon entered data How long has it been since you last smoked? > 10 years patient entered data CAGE-AID Questionnaire (2018 Edition) Question Answer Notes Have you ever felt that you ought to cut down on your drinking or drug use? No patient entered data Have people annoyed you by c riticizing your drinking or drug use? No patient entered data Have you ever felt bad or gu ilty about your drinking or drug use? No patient entered data Have you ever had a drink or used drugs first thing in the morning to steady your nerves or to get rid of a hangover? No patient entered data CAGE-AID Score 0 Interpretation Negative PRAPARE Question Answer Notes Date Completed/Updated: 10/02/2024 melinda nt entered data What is your current housing situation? I have housing patient entered data Are you worried about losing your housing? No patient entered data What is the highest level of school that you have finished? More than high school patient entered data What is your current work situation? Otherwise unemployed but not seeking work (ex. 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 Check all that apply I do not have problems meeting my needs Has lack of transportation k ept you from medical appointments, meetings, work or from getting things needed for daily living? No How often do you see or talk to people that you care about and feel close to? (For example: talking to friends on the phone, visiting friends or family, going to mormonism or club meetings) More than 5 times a week patient entered data How stressed are you? Stress is when someone feels tense, nervous, anxious, or can't sleep at night because their mind is troubled Somewhat patient entered data In the past year have you sp ent more than 2 nights in a row in a [facility]cc, long-term, group home center, or juvenile correctional facility? No patient entered data Are you a refugee? No patient en tered data What country are you from? [place] zarina castanon entered data Do you feel physically and emotionally safe where you currently live? Yes patient entered data In the past year, have you b een afraid of your partner or ex-partner? No patient entered data PRAPARE Score: 2 Problems Problem Type SNOMED Code ICD Code Onset Dates Problem Status W/U Status Risk Notes Problem 33908233 Type 2 diabetes mellitus with diabetic chronic kidney disease (E11.22) Active confirmed Problem 174051976 Mixed hyperlipidemia (E78.2) Active confirmed Problem 60862059 Essential hypertension (I10) Active confirmed Problem 804282061 Chronic kidney disease, stage 3a (N18.31) Active confirmed Problem Obese class II (620428887645973 ) BMI 35.0-35.9,adult (Z68.35) Active confirmed Problem Chronic kidney disease stage 3 (disorder) (747017867) Stage 3 chronic kidney disease (N18.30) Active confirmed Problem Mixed anxiety and depressive disorder (166946199) Depression with anxiety (F41.8) Active confirmed Problem Degenerative arthritis (220231064) Degenerative arthritis (M19.90) Active confirmed Problem 31372843 Obstructive slee p apnea (G47.33) Active confirmed Problem Maxillary sinusitis (57524619) Maxillary sinusitis (J32.0) Active confirmed Problem Hypothyroid (42617164) Hypothyroid (E03.9) Active confirmed Problem 583604267 Neuropathy (G62.9) Active confirmed Problem Hypoglycemia due to type 2 diabetes mellitus (disorder) (890866526040537 ) Type 2 diabetes mellitus with hypoglycemia (E11.649) Active confirmed Problem Body mass index 40+ - severely obese (099506911) BMI 50.0-59.9, adult (Z68.43) Active confirmed Vital Signs Heart Rate 57 /min 01/03/2025 Kari Umaña 01/03/2025 01:57:00 PM EDT > Temperature 98.5 degrees Fahrenheit 01/03/2025 Alexia Mcneil 01/03/2025 01:57:00 PM EDT > Respiratory Rate 16 /min 01/03/2025 Alexia Umaña 01/03/2025 01:57:00 PM EDT > Height-cm 165.1 cm 01/03/2025 Kari Umaña 01/03/2025 01:57:00 PM EDT > Blood pressure diastolic 80 mm Hg 01/03/2025 Alexia Edwards 01/03/2025 01:57:00 PM EDT > Oximetry 95 % 01/03/2025 Kari Umaña 01/03/2025 01:57:00 PM EDT > Weight-kg 97.89 kg 01/03/2025 Kari Umaña la 01/03/2025 01:57:00 PM EDT > Height 65 in 01/03/2025 LeeroyKari surekha 01/03/2025 01:57:00 PM EDT > Blood pressure systolic 134 mm Hg 01/03/2025 Alexia Mcneil 01/03/2025 01:57:00 PM EDT > Weight 215.8 lbs 01/03/2025 [place] [facility] 01/03/2025 01:57:00 PM EDT > BMI 35.91 kg/m2 01/03/2025 ChadkandisKari surekha 01/03/2025 01:57:00 PM EDT > Encounters Encounter Location Date Provider Diagnosis [address] [place], [place] [id number] 02/07/2024 Cherise Candelaria Mixed hyperlipidemia E78.2 ; Type 2 diabetes mellitus with diabetic chronic kidney disease E11.22 ; Knee pain, chronic, left M25.562 and Lesion of lip K13.0 [address] [place], [place] [id number] 05/15/2024 Ina Edge Type 2 diabetes lee ann itus with diabetic chronic kidney disease E11.22 ; Stage 3 chronic kidney disease N18.30 ; Medication refill Z76.0 and Acute bronchitis J20.9 [address] [place], [place] [id number] 05/24/2024 Ina Edge Vaginal itching N89. [address] [place] [id number] 10/02/2024 Cherise Candelaria Type 2 diabetes lee ann itus with hypoglycemia E11.649 ; Depression with anxiety F41.8 ; Medication refill Z76.0 ; Essential hypertension I10 ; Fatigue R53.83 ; Dietary counseling Z71.3 ; Exercise counseling Z71.82 and BMI 35.0-35.9,adult Z68.[address] [place] [id number] 12/13/2024 Keturah Quinones Type 2 diabetes lee ann itus with diabetic chronic kidney disease E11.22 and Joint pain M25.[address] [place] [phone] 01/03/2025 Keturah Stacie Type 2 diabetes lee ann itus with diabetic chronic kidney disease E11.22 ; Stage 3 chronic kidney disease N18.30 ; Essential hypertension I10 ; Calcaneal spur of left foot M77.32 ; Degenerative arthritis M19.90 ; Dietary counseling Z71.3 and Exercise counseling Z71.[address] [place], [place] [id number] 02/21/[facility]24 [facility] Mixed hyperlipidemia E78.[address] [place], [place] [id number] 02/29/2024 [facility] [address] [place], [place] [id number] 03/09/2024 [facility] [address] [place], [place] [id number] 03/16/2024 [facility] [address] [place], [place] [id number] 03/26/2024 [facility] [address] [place], [place] [id number] 03/27/2024 [facility] [address] [place], [place] [id number] 05/21/2024 Ina Weininger [address] [place], [place] [id number] 05/26/2024 Ina Weininger [address] [place], [place] [id number] 05/28/2024 Ina Weininger [address] [place], [place] [id number] 05/29/2024 Ina Weininger [address] [place], [place] [id number] 05/29/2024 Ina Tayloringer Essential hypertensi on [address] [id number] [facility], [place] [id number] 10/03/2024 [facility] [place] [address] [place] [address] 10/08/2024 [facility] [address] [place], [place] [id number] 11/21/2024 [facility] Depression with anxi ety F41.[address] [place], [place] [id number] 12/13/2024 Keturah Stacie [address] [place], [place] [id number] 12/13/2024 Keturah Stacie Joint pain M25.50 [address] [place] [id number] 12/18/2024 Keturah Stacie Joint pain M25.50 [address] [place] [id number] 01/04/2025 Keturah Stacie [address] [place] [address] [place] [address] 01/04/2025 Keturah Stacie Degenerative arthrit is M19.90 Assessments Encounter Date Diagnosis (ICD Code) Assessment Notes Treatment Notes Treatment Clinical Notes Section Notes 02/07/2024 Type 2 diabetes mellitus with diabetic chronic kidney disease (ICD-10 - E11.22) stable at this time continue same regimen 02/07/2024 Mixed hyperlipidemia (ICD-10 - E78.2) 02/21/2024 Mixed hyperlipidemia (ICD-10 - E78.2) 05/15/2024 Type 2 diabetes mellitus with diabetic chronic kidney disease (ICD-10 - E11.22) Renal profile on 02/01/24: 19/1., LDL 40.2. Currently on Losartan 100 mg and Atorvastatin 10 mg daily. 05/15/2024 Stage 3 chronic kidney disease (ICD-10 - N18.30) 05/24/2024 Vaginal itching (ICD-10 - N89.8) Discussed that she does not have bacteria in urine, will test for BV and brennan. Discussed that if vaginal pathogens panel is negative that would advise for her to f/u with Dr. Mariee, agreeable to treatment plan. 05/29/2024 Essential hypertension (ICD-10 - I10) 10/02/2024 Depression with anxiety (ICD-10 - F41.8) denies wanting any antidepressants reports that she crowe sbeen on them in the past and does not want denies any SI 10/02/2024 Type 2 diabetes mellitus with hypoglycemia (ICD-10 - E11.649) 11/21/2024 Depression with anxiety (ICD-10 - F41.8) 12/13/2024 Type 2 diabetes mellitus with diabetic chronic kidney disease (ICD-10 - E11.22) recheck A1c after 3 months 12/13/2024 Joint pain (ICD-10 - M25.50) Patient has a known allergy to NSAIDs. She was advised to take colchicine as prescribed and to call the clinic or go to the ER if she experiences any side effects. 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 01/04/2025 Degenerative arthritis (ICD-10 - M19.90) 01/03/2025 Essential hypertension (ICD-10 - I10) Patient [...] weight and avoiding smoking and alcohol intake. 10/02/2024 Medication refill (ICD-10 - Z76.0) 02/07/2024 Knee pain, chronic, left (ICD-10 - M25.562) RICE therapy 05/15/2024 Medication refill (ICD-10 - Z76.0) 05/15/2024 Acute bronchitis (ICD-10 - J20.9) 02/07/2024 Lesion of lip (ICD-10 - K13.0) appears benign- looks like popped blood vessel from biting lip, however since pt reports that it has been there for months, will send to derm. 10/02/2024 Essential hypertension (ICD-10 - I10) 01/03/2025 Calcaneal spur of left foot (ICD-10 - M77.32) X-ray of left foot impression: calcaneal enthesopathy. refer to specialist for management 01/03/2025 Degenerative arthritis (ICD-10 - M19.90) Pt declines PT at this time, topical Nsaids as well as home stretches at this time. pt cant tolerate oral Nsaids, she was advised if any allergy to topical nsaid to D/C meds and infrom clinic 10/02/2024 Fatigue (ICD-10 - R53.83) 10/02/2024 Dietary counseling (ICD-10 - Z71.3) 10/02/2024 Exercise counseling (ICD-10 - Z71.82) 01/03/2025 Dietary counseling (ICD-10 - Z71.3) Encoruaged eating a healthy, balanced diet and increasing activity level by engaging in exercise atleast 30 min x atleast 5 days a week. Educational material was provided and patient was encouraged to use the resources to find the best options for a balanced diet. 10/02/2024 BMI 35.0-35.9,adult (ICD-10 - Z68.35) 01/03/2025 Exercise counseling (ICD-10 - Z71.82) Plan Of Treatment Pending Test Test Name Order Date COMPREHENSIVE METABOLIC PANEL WITH GFR 0 01/03/2025 C REACTIVE PROTEIN (INFLAMMATORY) 2024 Next Appt Details Provider Name:Julia Hernandez , 04/05/2025 11:45:00 AM, [address] [place], [place], [id number], Insurance Providers Payer Name Payer Address Payer Phone Subscriber Number Group Number Insured Name Patient Relationship to Insured Coverage Start Date Coverage End Date [employer] [address] [place], [place] [id number] Salomon Dave Spouse - patient is the spouse of the insured 5 Medicare Secondary NGS PPS [address] [place], [place] [id number] JolieJorge Luisin Self - patient is the insured 1 Medical (General) History Medical History History ICD Code Type 2 diabetes mellitus E11.9 Hypertension I10 Hyperlipemia E78.5 Surgical History Surgery Date(Month/Year) Breast L Surgery-removal of milk ducts Knee Replacment Right Neck surgery-has pins/plates Cholecystectomy Hospitalization History Reason Date(Month/Year) see surgical hx
--- OUTSIDE RECORDS SUMMARY | 2025-01-07 20:29 | XMS_ITS | Encounter Summary ---
Author Organization [facility] Address [address] [place] [address] Care Team Providers Care Speeder Worker Name Role Phone Keturah Quinones MD Primary Care Provider [phone] Reason for Visit * Reason Comments Med Refill Encounter Details Date Type Department Care Team (Late Contact Info) Description 11/13/2024 Refill [facility] [address] [place] [phone] Percy Mariee DO [address], [place] [address] Vaginal atrophy Social History Tobacco Use Types Packs/Day Years Used Date Smoking Tobacco: Never Assessed Comments No Sex and Gender Information Value Date Recorded Sex Assigned at Not on file Legal Sex Female 12:16 PM EDT Gender Identity Not on file Sexual Orientation Not on file documented as of this encounter Plan of Treatment Upcoming Encounters Date Type Department Care Team (Late Contact Info) Description 01/13/2026 2:00 PM EDT Procedure Visit [facility] [address] [place] [phone] Percy Mariee DO [address], [place] [id number] documented as of this encounter Visit Diagnoses Diagnosis Vaginal atrophy Postmenopausal atrophic vaginitis documented in this encounter Care Teams Speeder Worker Relationship Specialty Start Date End Date Keturah Quinones MD [address], [facility], [facility] [place] [address] PCP - General Family Medicine 01/07/25 documented as of this encounter
--- OUTSIDE RECORDS SUMMARY | 2025-01-07 20:29 | XMS_ITS | Encounter Summary ---
Author Organization [facility] Address [address] [place] [address] Care Team Providers Care Twisting Machine Operator Name Role Phone Keturah Quinones MD Primary Care Provider [phone] Encounter Details Date Type Department Care Team (Late st Contact Info) Description 01/31/2024 Clinisync Result Encounter [facility] External Department Unsolicited Jaycee Hurley PA [address] [facility] [facility] [address] [place], [facility] Social History Tobacco Use Types Packs/Day Years [...] Description 01/13/2026 2:00 PM EDT Procedure Visit [facility] [address] [place] [phone] Percy Mariee DO [address] [place], [facility] documented as of this encounter Procedures Procedure Name Priority Date/Time Associated Diagnosis Comments MM TOMOSYNTHESIS SCREENING BI 01/31/2024 12:26 PM EDT documented in this encounter Results * MM TOMOSYNTHESIS SCREENING BI (01/31/2024 12:26 PM EDT) Anatomical Region Laterality Modality Other 01/31/2024 12:2 6 PM EDT Narrative 01/31/2024 12:27 PM EDT The [address] [address] Mammography Report Signed Patient: GIOVANNY DAVE MR#: [id number] : 1965 Acct:[id number] Age/Sex: 58 / F ADM Date: 01/31/24 Loc: MAMMO Attending Dr: Jaycee Hurley Ordering Physician: Jaycee Hurley Results: Date of Service: 01/31/24 Follow Up: Procedure(s): MM tomosynthesis screening BI Accession Number(s): [id number] cc: Jaycee Hurley; Physician,Non-Staff M.DHiginio Patient Name: GIOVANNY DAVE MR#: [id number] : 1965 Exam Date: 01/31/2024 Ordering Doctor: CECILIA Hurley . RADIOLOGY REPORT PROCEDURE: MM TOMOSYNTHESIS SCREENING BI COMPARISON: MG MAMM LT DIAG W CAD, 06/25/2020. MM TOMOSYNTHESIS SCREENING BI, 01/11/2023. INDICATIONS: Screening Calculator Name NCI Breast Cancer Risk Assessment Tool 5 Year Breast Cancer Risk 1.40% Lifetime Breast Cancer Risk 7.20% Personal Breast Cancer No Personal Ovarian Cancer No Treatments None Family Cancers Grandmother-maternal with lung cancer at age 78; Grandfather-paternal with leukemia cancer at age 87. LOCATION: The [facility] BREAST COMPOSITION: There are scattered areas of fibroglandular density. FINDINGS: DIAGNOSTIC CATEGORY 2--BENIGN FINDING. NO CHANGE FROM COMPARISON. Scattered benign-appearing nodules are present. Scattered benign-appearing calcifications are present. Scattered benign-appearing lymph nodes are present. RIGHT BREAST: No significant suspicious finding. LEFT BREAST: No significant suspicious finding. RECOMMENDATIONS: ROUTINE MAMMOGRAM AND CLINICAL EVALUATION IN 12 MONTHS. PLEASE NOTE: A NORMAL MAMMOGRAM DOES NOT EXCLUDE THE POSSIBILITY OF BREAST CANCER. A CLINICALLY SUSPICIOUS PALPABLE LUMP SHOULD BE BIOPSIED. Dictated by: Jorge Luis Foster MD on 01/31/2024 at 12:12 Approved by: Jorge Luis Foster MD on 01/31/2024 at 12:26 Dictated By: Jorge Luis Foster M.D. Signed By: 01/31/24 1227 DD/ 1226 TD/TT: Toll Line Repairer: Procedure Note Radiology, Radiologist, MD - 01/31/2024 The [place] [id number] Mammography Report Signed Patient: GIOVANNY DAVEMR#: [id number] : 1965Acct:[id number] Age/Sex: 58 / FADM Date: 01/31/24 Loc: MAMMO Attending Dr: Jaycee Hurley Ordering Physician: Jaycee HurleyResults: Date of Service: 01/31/24Follow Up: Procedure(s): MM tomosynthesis screening BI Accession Number(s): [id number] cc: Jaycee Hurley; Physician,Non-Staff M.DHiginio Patient Name: GIOVANNY DAVE MR#: [id number] : 1965 Exam Date: 01/31/2024 Ordering Doctor: CECILIA Hurley . RADIOLOGY REPORT PROCEDURE: MM TOMOSYNTHESIS SCREENING BI COMPARISON: MG MAMM LT DIAG W CAD, 06/25/2020. MM TOMOSYNTHESISSCREENING BI, 01/11/2023. INDICATIONS: Screening Calculator Name NCI Breast Cancer Risk Assessment Tool 5 Year Breast Cancer Risk 1.40% Lifetime Breast Cancer Risk 7.20% Personal Breast Cancer No Personal Ovarian Cancer No Treatments None Family Cancers Grandmother-maternal with lung cancer at age 78; Grandfather-paternal with leukemia cancer at age 87. LOCATION: The [facility] BREAST COMPOSITION: There are scattered areas of fibroglandulardensity. FINDINGS: DIAGNOSTIC CATEGORY 2--BENIGN FINDING. NO CHANGE FROM COMPARISON. Scattered benign-appearing nodules are present. Scatteredbenign-appearing calcifications are present. Scattered benign-appearing lymph nodes are present. RIGHT BREAST: No significant suspicious finding. LEFT BREAST: No significant suspicious finding. RECOMMENDATIONS: ROUTINE MAMMOGRAM AND CLINICAL EVALUATION IN 12 MONTHS. PLEASE NOTE: A NORMAL MAMMOGRAM DOES NOT EXCLUDE THE POSSIBILITY OFBREAST CANCER. A CLINICALLY SUSPICIOUS PALPABLE LUMP SHOULD BE BIOPSIED. Dictated by: Jorge Luis Foster MD on 01/31/2024 at 12:12 Approved by: Jorge Luis Foster MD on 01/31/2024 at 12:26 Dictated By: Jorge Luis Foster M.D. Signed By:01/31/24 1227 DD/ 1226 TD/TT: Toll Line Repairer: us [facility]e [facility] Final Result documented in this encounter Visit Diagnoses Not on filedocumented in this encounter Care Teams Twisting Machine Operator Relationship Specialty Start Date End Date Keturah Quinones MD [address] [facility], [facility], [place] [address] PCP - General Family Medicine 01/07/25 documented as of this encounter
--- OUTSIDE RECORDS SUMMARY | 2025-01-07 20:29 | XMS_ITS | Clinical Summary ---
Author Organization [facility] Address [address] [place] [address] Care Team Providers Care Organizational Development Consultant Name Role Phone Keturah Quinones MD Primary Care Provider [phone] Allergies Active Allergy Reactions Criticality Noted Date Comments Ibuprofen Swelling 04/22/2016 Eyes, and LAUREN leg/feet Meloxicam Anaphylaxis High 07/25/2010 Mobic Nickel Rash High 09/12/2008 Other Reaction(s): Inflammation Hx allergic reaction to surgical ron Nsaids Swelling 01/04/2016 Penicillins Anaphylaxis,Rash High 01/04/2016 Other Reaction(s): rash, itching, swelling Prednisone Anaphylaxis High 06/21/2017 Other Reaction(s): rash, brusing, anaphylaxis Salicylates Swelling 01/04/2016 Sulfa Antibiotics Rash Low 01/03/2023 Tetracycline Rash,Swelling Low 01/04/2016 Other Reaction(s): itching, swelling Tetracyclines & Related 06/21/2017 Valdecoxib Swelling 04/22/2016 Swelling in hands and arms Medications magnesium 250 MG tablet 1 (one) time each day at the same time. Active melatonin 5 MG tablet 1 (one) time each day at the same time. Active metFORMIN (Glucophage) 500 MG tablet TAKE 2 TABLETS BY MOUTH TWICE A DAY WITH A MEAL Active omega-3 (fish oil) 1000 MG capsule Take 2 g by mouth in the morning and 2 g in the evening. Active Potassium Gluconate 2.5 MEQ tablet Take 1 capsule by mouth in the morning. Active losartan (Cozaar) 50 MG tablet TAKE 1 TABLET BY MOUTH EVERY DAY FOR 90 DAYS 3 Active atorvastatin (Lipitor) 10 MG tablet 1 (one) time each day at the same time. Active atenolol (Tenormin) 25 MG tablet TAKE 1 TABLET BY MOUTH EVERY DAY FOR 90 DAYS Active Cholecalciferol (Vitamin D-3) 5000 UNIT/ML liquid as directed Orally Active Ascorbic Acid (vitamin C) 1000 MG tablet 1 (one) time each day at the same time. Active estradiol (Estrace) 0.1 MG/GM vaginal creamIndication s:Vaginal atrophy INSERT 2 (TWO) grams VAGINALLY AT BEDTIME for 2 (TWO) weeks, then at AT BEDTIME TWICE A WEEK 42.5 g 11 5 Active estradiol (Estrace) 0.1 MG/GM vaginal creamIndication s:Vaginal atrophy Insert 2 g into the vagina 2 (two) times a week 42.5 g 3 5 Active Calcium Carb-Cholecalci ferol (Calcium + Vitamin D3) 600-10 MG-MCG tablet 1 (one) time each day at the same time Active cinnamon 500 MG capsule as directed Orally Active colchicine 0.6 MG tablet 1 (one) time each day at the same time 5 Active fluconazole (Diflucan) 150 MG tabletIndicatio ns:Yeast infection Take 1 tablet (150 mg) by mouth 1 (one) time for 1 dose This is a 1 time dose, take single tablet by mouth. 1 tablet 1 5 01/08/20 25 Active Encounters Date Type Department Care Team Description 01/07/2025 1:00 PM EDT [place] [address] Jaycee Hurley PA Well woman exam with routine gynecological exam 01/07/2025 [place] [address] Brook Castrejon MA 01/07/2025 Bamboo [place] [address] Jaycee Hurley PA 11/13/2024 [place] [phone] Jaycee Hurley PA 11/13/2024 Refill [facility] [address] [place] [address] Percy Mariee DO Vaginal atrophy from Last 3 Months Family History Medical History Relation Name Comments ADD / ADHD Daughter Polycystic ovary syndrome Daughter ADD / ADHD Son ODD Son Relation Name Status Comments Daughter Alive Son Alive Social History Tobacco Use Types Packs/Day Years Used Date Smoking Tobacco: Never Assessed Comments No Sex and Gender Information Value Date Recorded Sex Assigned at Not on file Legal Sex Female 12:16 PM EDT Gender Identity Not on file Sexual Orientation Not on file Last Filed Vital Signs Vital Sign Reading Time Taken Comments Blood Pressure 118/76 01/07/2025 1:15 PM EDT Pulse - - Temperature - - Respiratory Rate - - Oxygen Saturation - - Inhaled Oxygen Concentration - - Weight 93 kg (205 lb) 01/07/2025 1:15 PM EDT Height 165.1 cm (5' 5 ) 01/05/2024 2:09 PM EDT Body Mass Index 34.11 01/05/2024 2:09 PM EDT Plan of Treatment Upcoming Encounters Date Type Department Care Team (Late st Contact Info) Description 01/13/2026 2:00 PM EDT Procedure Visit [facility] [address] [place] [phone] Percy Mariee DO [address] [facility] [place] [address] Health Maintenance Due Date Last Done Comments CT Colonography 1965 Colonoscopy 1965 Colorectal Cancer Screening 1965 FIT-DNA 1965 FIT 1965 FOBT 1965 Sigmoidoscopy 1965 Mammogram 01/30/2025 01/31/2024, 11/18/2003 Influenza Vaccine (#1) 2025 3, 05/14/2021, 03/19/2020, Additional history exists Cervical Cancer Screening 01/04/2029 HPV/Cotest 01/04/2029 Pap Smear 01/04/2029 01/05/2024, 01/03/2023 Procedures Procedure Name Priority Date/Time Associated Diagnosis Comments MM TOMOSYNTHESIS SCREENING BI 01/31/2024 12:26 PM EDT PAP SMEAR Routine 01/05/2024 12:00 AM EDT from Last 3 Months or Most Recently Relevant to Health Maintenance Results * MM TOMOSYNTHESIS SCREENING BI (01/31/2024 12:26 PM EDT) Anatomical Region Laterality Modality Other 01/31/2024 12:2 6 PM EDT Narrative 01/31/2024 12:27 [place] [address] Mammography Report Signed Patient: GIOVANNY DAVE MR#: [id number] : 1965 Acct:[id number] Age/Sex: 58 / F ADM Date: 01/31/24 Loc: MAMMO Attending Dr: Jaycee Hurley Ordering Physician: Jaycee Hurley Results: Date of Service: 01/31/24 Follow Up: Procedure(s): MM tomosynthesis screening BI Accession Number(s): [id number] cc: Jaycee Hurley; Physician,Non-Staff M.D. Patient Name: GIOVANNY DAVE MR#: [id number] : 1965 Exam Date: 01/31/2024 Ordering Doctor: [...] leukemia cancer at age 85. LOCATION: The [facility] BREAST COMPOSITION: There are scattered areas of [...] Signed By: 01/31/24 1227 DD/ 1226 TD/TT: Service Attendant Cafeteria: Procedure Note Radiology, Radiologist, MD - 01/31/2024 [place] [address] Mammography Report Signed Patient: GIOVANNY DAVEMR#: [id number] : 1965Acct:[id number] Age/Sex: 58 / FADM Date: 01/31/24 Loc: MAMMO Attending Dr: Jaycee Hurley Ordering Physician: Jaycee HurleyResults: Date of Service: 01/31/24Follow Up: Procedure(s): MM tomosynthesis screening BI Accession Number(s): [id number] cc: Jaycee Hurley; Physician,Non-Staff Geoff Patient Name: GIOVANNY DAVE MR#: [id number] : 1965 Exam Date: 01/31/2024 Ordering Doctor: [...] leukemia cancer at age 85. LOCATION: The [facility] BREAST COMPOSITION: There are scattered areas of [...] M.D. Signed By:01/31/24 1227 DD/ 1226 TD/TT: Service Attendant Cafeteria: us Jay[facility]e [facility] Final Result * Pap Smear (01/05/2024 12:00 AM EDT) Swab Cervical swab / Unknown us Jaycee [facility] ORDERABLES Final Re sult EXTERNAL LAB from Last 3 Months or Most Recently Relevant to Health Maintenance Insurance MEDICARE [facility] Care Teams Organizational Development Consultant Relationship Specialty Start Date End Date Keturah Quinones MD [address] [facility], [facility], [place] [address] PCP - General Family Medicine 01/07/25
--- OUTSIDE RECORDS SUMMARY | 2025-01-07 20:29 | XMS_ITS | Encounter Summary ---
Author Organization [facility] Address [address] [place] [address] Care Team Providers Care Resident Services Coordinator Name Role Phone Keturah Quinones MD Primary Care Provider [phone] Encounter Details Date Type Department Care Team (Late Contact Info) Description 01/19/2024 Orders Only [facility] [address] [facility] [place] [phone] Brook Castrejon MA [address] [facility] [place] [address] Social History Tobacco Use Types Packs/Day Years [...] Description 01/13/2026 2:00 PM EDT Procedure Visit [facility] [address] [place] [phone] Percy Mariee DO [address] [facility] [address] [place], [place] [id number] documented as of this encounter Procedures Procedure Name Priority Date/Time Associated Diagnosis Comments PAP SMEAR Routine 01/05/2024 12:00 AM EDT documented in this encounter Results * Pap Smear (01/05/2024 12:00 AM EDT) Swab Cervical swab / Unknown us Jaycee [facility] ORDERABLES Final Re sult EXTERNAL LAB documented in this encounter Visit Diagnoses Not on filedocumented in this encounter Care Teams Resident Services Coordinator Relationship Specialty Start Date End Date Keturah Quinones MD [address] [facility], [facility], [place] [address] PCP - General Family Medicine 01/07/25 documented as of this encounter
--- OUTSIDE RECORDS SUMMARY | 2025-01-07 20:29 | XMS_ITS | Encounter Summary ---
Author Organization [facility] Address [address] [place] [address] Care Team Providers Care Forge Shop Supervisor Name Role Phone Keturah Quinones MD Primary Care Provider [phone] Encounter Details Date Type Department Care Team (Late Contact Info) Description 01/07/2025 Bamboo flowsheet [facility] [address] [place] [address] Jaycee Hurley PA [address] [facility] [address] [place], [facility] Social History Tobacco Use Types Packs/Day Years [...] EDT Procedure Visit [facility] [address] [place] [address] Percy Mariee DO [address] [facility] [address] [place], [facility] documented as of this encounter Visit Diagnoses Not on filedocumented in this encounter Care Teams Forge Shop Supervisor Relationship Specialty Start Date End Date Keturah Quinones MD [address], [place] [address] PCP - General Family Medicine 01/07/25 documented as of this encounter
--- OUTSIDE RECORDS SUMMARY | 2025-01-07 20:29 | XMS_ITS | Encounter Summary ---
Author Organization [facility] Address [address] [place] [address] Care Team Providers Care Bindery Machine Setter/Set Up Operator Name Role Phone HerbiechaparritaAmy APRN.CNP Primary Care Provider Skip English MD Unavailable Armando Bermudez MD, Bruce Martin Unavailable [phone] Skip English MD Unavailable Radha Zhu RN Unavailable Source Comments In the event this information is protected by the Federal Confidentiality of Alcohol and Drug AbusePatient Records regulations: The Federal rules restrict any use of the information to criminally investigate or prosecute any alcohol or drug abuse patient.[facility] Reason for Visit * Reason Comments Radio Gen RMP Encounter Details Date Type Department Care Team (Late st Contact Info) Description 12/08/2019 Radiology Radiology [address] [place] [address] (Historical), Emergency Radio Gen RMP Social History Tobacco Use Types Packs/Day Years Used Date Smoking Tobacco: Former Smokeless Tobacco: Never Alcohol Use Standard Drinks/Week Comments Yes 0 (1 standard drink = 0.6 oz pur e alcohol) rare (3-4 times a year) PHQ-2 Answer Date Recorded PHQ-2 score 6 09/21/2017 Comments No Sex and Gender Information Value Date Recorded Sex Assigned at Not on file Legal Sex Female 8:25 AM EST Gender Identity Female 01/24/2020 8:30 AM EDT Sexual Orientation Not on file COVID-19 Exposure Response Date Recorded In the last month, have you been in contact with someone who was confirmed or suspected to have Coronavirus / COVID-19? No / Unsure 12/08/2019 8:10 AM EDT documented as of this encounter Plan of Treatment Not on file documented as of this encounter Visit Diagnoses Not on filedocumented in this encounter Care Teams Bindery Machine Setter/Set Up Operator Relationship Specialty Start Date End Date Amy Lunsford APRN.FREIGHT TEAM ASSOCIATE [address] [place] [address] PCP - General Family Medicine 12/08/19 Skip English MD [address] [place] [address] Home Care Provider Infectious Diseases 12/13/19 Yogi Roberts Jr., MD [address] [place] [address] Referring Internal Medicine 12/13/19 Skip English MD [address] [place] [address] Consulting Infectious Diseases 12/13/19 Radha Zhu, RN [address] [place], [place] [id number] Red Lead Burner Post Acute Care 12/13/19 documented as of this encounter
--- OUTSIDE RECORDS SUMMARY | 2025-01-07 20:29 | XMS_ITS | Encounter Summary ---
Author Organization [facility] Address [address] [place] [address] Care Team Providers Care Veneer Stapler Name Role Phone Keturah Quinones MD Primary Care Provider [phone] Encounter Details Date Type Department Care Team (Late st Contact Info) Description 03/17/2023 Clinisync Result Encounter [facility] External Department Unsolicited Wenceslao Mariee DO [address] [place] [id number] Social History Tobacco Use Types Packs/Day Years [...] 01/13/2026 2:00 PM EDT Procedure Visit [facility] [address] [place] [phone] Wenceslao Mariee DO [address] [place] [address] documented as of this encounter Procedures Procedure Name Priority Date/Time Associated Diagnosis Comments ECG 12-LEAD 03/17/2023 8:47 AM EDT documented in this encounter Results * ECG 12-LEAD (03/17/2023 8:47 AM EDT) Anatomical Region Laterality Modality Other 03/17/2023 8:47 AM EDT Narrative 03/17/2023 8:47 AM EDT [place] [id number] Electrocardiograph Report Signed Patient: GIOVANNY DAVE MR#: [id number] : 1965 Acct:[id number] Age/Sex: 57 / F ADM Date: 03/17/23 Loc: PST Attending Dr: Wenceslao Mariee D.O. Ordering Physician: Wenceslao Mariee D.O. Date of Service: 03/17/23 Procedure(s): ECG 12 lead Accession Number(s): [id number] cc: [facility] Test Date: 2023-03-17 Pat Name: GIOVANNY DAVE Department: Room: - Gender: Female Telecommunications Linesworker: : 1965 Requested By: WENCESLAO MARIEE Order Number: [id number] Reading MD: WATSON OLIVER Measurements Intervals [place] Rate: 55 P: 42 DE: 206 QRS: -20 QRSD: 120 T: 5 QT: 447 QTc: 431 Interpretive Statements SINUS BRADYCARDIA MODERATE INTRAVENTRICULAR CONDUCTION DELAY [110+ ms QRS DURATION] No previous ECG available for comparison Electronically Signed On 03-18-2023 7:01:05 EDT by WATSON OLIVER Dictated By: Watson Oliver D.O. Signed By: 03/18/23 0701 DD/ 0847 TD/TT: Accounts Manager: Procedure Note Radiology, Radiologist, MD - 03/18/2023 [facility] [place] [id number] Electrocardiograph Report Signed Patient: GIOVANNY DAVEMR#: [id number] : 1965Acct:[id number] Age/Sex: 57 / FADM Date: 03/17/23 Loc: PST Attending Dr: Wenceslao Mariee D.O. Ordering Physician: Wenceslao Mariee D.O. Date of Service: 03/17/23 Procedure(s): ECG 12 lead Accession Number(s): [id number] cc: [facility] Test Date: 2023-03-17 Pat Name: GIOVANNY DAVE Department: Room: - Gender: Female Telecommunications Linesworker: : 1965 Requested By: WENCESLAO MARIEE Order Number: [id number] Reading MD: WATSON OLIVER Measurements Intervals [place] Rate: 55 P: 42 DE: 206 QRS: -20 QRSD: 120 T: 5 QT: 447 QTc: 431 Interpretive Statements SINUS BRADYCARDIA MODERATE INTRAVENTRICULAR CONDUCTION DELAY [110+ ms QRS DURATION] No previous ECG available for comparison Electronically Signed On 03-18-2023 7:01:05 EDT by WATSON OLIVER Dictated By: Watson Oliver D.O. Signed By:03/18/23 0701 DD/ 0847 TD/TT: Accounts Manager: us Wenceslao Mariee DO [facility] Final Result documented in this encounter Visit Diagnoses Not on filedocumented in this encounter Care Teams Veneer Stapler Relationship Specialty Start Date End Date Keturah Quinones MD [address] [place] [address] PCP - General Family Medicine 01/07/25 documented as of this encounter
--- OUTSIDE RECORDS SUMMARY | 2025-01-07 20:29 | XMS_ITS | Encounter Summary ---
Author Organization [facility] Address [address] [place] [address] Care Team Providers Care Message Clerk Name Role Phone Keturah Quinones MD Primary Care Provider [phone] Encounter Details Date Type Department Care Team (Late Contact Info) Description 01/07/2025 Telephone [facility] [address] [place] [place] [address] Brook Castrejon MA [address] [place] [address] Social History Tobacco Use Types Packs/Day Years Used Date Smoking Tobacco: Never Assessed Comments No Sex and Gender Information Value Date Recorded Sex Assigned at Not on file Legal Sex Female 12:16 PM EDT Gender Identity Not on file Sexual Orientation Not on file documented as of this encounter Miscellaneous Notes * Telephone Encounter - Brook Castrejon MA - 01/07/2025 1:36 PM EDT Per Jaycee Hurley to send in Diflucan for yeast infection and pt has a refill on estrace. documented in this encounter Plan of Treatment Upcoming Encounters Date Type Department Care Team (Late st Contact Info) Description 01/13/2026 2:00 PM EDT Procedure Visit [facility] [address] [place] [address] Percy Mariee DO [address] [place] [address] documented as of this encounter Visit Diagnoses Diagnosis Yeast infection Vaginal atrophy Postmenopausal atrophic vaginitis documented in this encounter Care Teams Message Clerk Relationship Specialty Start Date End Date Keturah Quinones MD [address], [facility], [place] [address] PCP - General Family Medicine 01/07/25 documented as of this encounter
--- OUTSIDE RECORDS SUMMARY | 2025-01-07 20:29 | XMS_ITS | Clinical Summary ---
Author Organization [facility] Address [address] [place] [address] Phone Care Team Providers Care Arts Education Teacher Name Role Phone Osman Gilman MD Primary Care Provider [phone] Social History Tobacco Use Types Packs/Day Years Used Date Smoking Tobacco: Never Assessed Comments Unknown Sex and Gender Information Value Date Recorded Sex Assigned at Not on file Legal Sex Female 5:35 AM EST Gender Identity Not on file Sexual Orientation Not on file Plan of Treatment Not on file Care Teams Arts Education Teacher Relationship Specialty Start Date End Date Osman Gilman MD [address] [place] [address] PCP - General 10/18/05
--- OUTSIDE RECORDS SUMMARY | 2025-01-07 20:30 | XMS_ITS | CCD ---
Author Organization [facility] Care Team Providers Care Commercial Decorator Name Role Phone Jennie Garcia Unavailable SHAMMO, [...] Primary Care Unavailable SHAMMO, JANUSZ Consulting Unavailable Salome Espinoza PA-C Referring Unava ranjan Izquierdo DPM, Demetri Aquino Attending Unavailab Caro Silver Primary Care Physician UnavaCaro Camp Unavailable Unavailable NO FAMILY PHYSICIAN, 837 Primary Care Unavail able PERCY MARIEE Attending Unavailable Unavailable Primary Care Provider Unavailabl e STACIE, TANA C Referring Unavailable STACIE, ATNA C Referring Unavailable STACIE, TANA C Referring Unavailable STACIE, TANA C Primary Care Unavailable Stacie Tana SMITH Primary Care Provider Allergies Allergy Classification Reported Allergen(s) Allergy Type Date of Onset Reaction(s) Facility (1 source) Glucosamine Drug Allergy [facility] Other (2 sources) Penicillin; Translations: [Penicillin] Drug Allergy [facility] Repository (2 sources) predniSONE; Translations: [predniSONE] Drug Allergy [facility] (1 source) Sulfonamides (Antibiotic) Drug allergy (disorder) [facility] (2 sources) Tetracycline; Translations: [tetracycline] Drug Allergy [facility] (1 source) valdecoxib Drug Allergy [facility] (5 sources) NSAIDs; Translations: [NSAIDs] Propensity to adverse reactions to drug (disorder) 01-04-20 16 Swelling [facility] Repository (4 sources) Penicillins Allergy to substance (disorder) 01-04-20 16 Anaphylaxis, Rash [facility] (1 source) Tetracyclines Allergy to substance (disorder) [facility] (1 source) Trenbolone; Translations: [prednisone] Drug Allergy [facility] (3 sources) Ibuprofen Drug Allergy 04-22-20 16 Swelling [facility] (3 sources) meloxicam Drug Allergy 07-25-19 11 Anaphylaxis [facility] (3 sources) nickel sulfate Drug Allergy 09-13-19 09 Rash [facility] (3 sources) Prednisone Propensity to adverse reactions 06-21-19 18 Anaphylaxis [facility] (3 sources) Salicylic Acid Drug Allergy 01-04-20 16 Swelling [facility] (3 sources) Sulfonamides (Antibiotic) Propensity to adverse reactions 01-04-20 23 Rash [facility] (3 sources) Tetracycline Drug Allergy 01-04-20 16 Rash, Swelling [facility] (3 sources) valdecoxib Drug Allergy 04-22-20 16 Swelling [facility] (2 sources) Tetracycline (class of antibiotic) Propensity to adverse reactions 06-21-19 18 [facility] Medications Current Medications Medication Drug Class(es) Dates Sig (Normalized) Sig (Original) ascorbic acid 1000 mg oral tablet (3 sources) Vitamin C Ascorbic Acid (vitamin C) 1000 MG tablet 1 (one) time each day at the same time. Active atenolol 25 mg oral tablet (5 sources) beta-Adrenergic Pati take 1 tablet by mouth once daily atenolol (Tenormin) 25 MG tablet TAKE 1 TABLET BY MOUTH EVERY DAY FOR 90 DAYS Active atorvastatin 10 mg oral tablet (5 sources) HMG-CoA Reductase Inhibitor atorvastatin (Lipitor) 10 MG tablet 1 (one) time each day at the same time. Active take 1 tablet by mouth once haseeb y atorvastatin 20 mg tablet take 1 tablet (20 mg) by oral route once daily calcium carbonate 600 mg / cholecalciferol 0.01 mg oral tablet (2 sources) Vitamin D Calcium Carb-Cho lecalciferol (Calcium + Vitamin D3) 600-10 MG-MCG tablet 1 (one) time each day at the same time Active Cholecalciferol (Vitamin D-3) 5000 UNIT/ML liquid (3 sources) Cholecalciferol (Vitamin D-3) 5000 UNIT/ML liquid as directed Orally Active cinnamon bark 500 mg oral capsule (2 sources) cinnamon 500 MG capsule as directed Orally Active colchicine 0.6 mg oral tablet (2 sources) Start: 12-14-19 25 colchicine 0.6 MG tablet 1 (one) time each day at the same time 12/13/2024 Active docosahexaenoic acid 120 mg / eicosapentaenoic acid 180 mg oral capsule (3 sources) take 1 capsule by mouth in the morning omega-3 (fish oil) 1000 MG capsule Take 2 g by mouth in the morning and 2 g in the evening. Active estradiol 0.1 mg/ml vaginal cream (6 sources) Estrogen Start: 11-16-19 25 estradiol (Estrace) 0.1 MG/GM vaginal cream Indications: Vaginal atrophy Insert 2 g into the vagina 2 (two) times a week 42.5 g 3 11/15/2024 Active Start: 11-14-2024 estradiol (Est race) 0.1 MG/GM vaginal cream Indications: Vaginal atrophy INSERT 2 (TWO) grams VAGINALLY AT BEDTIME for 2 (TWO) weeks, then at AT BEDTIME TWICE A WEEK 42.5 g 11 11/14/2024 Active lisinopril 20 mg oral tablet (1 source) Angiotensin Converting Enzyme Inhibitor Lisinopril 20 MG Oral for 90 Days Active losartan potassium 50 mg oral tablet (4 sources) Angiotensin 2 Receptor Pati Start: 11-10-2022 take 1 tablet by mouth once daily losartan (Cozaar) 50 MG tablet TAKE 1 TABLET BY MOUTH EVERY DAY FOR 90 DAYS 11/10/2022 Active take 1 tablet by mouth once haseeb y losartan 100 mg tablet take 1 tablet (100 mg) by oral route once daily Magnesium (3 sources) magnesium 250 MG tablet 1 (one) time each day at the same time. Active melatonin 5 mg oral tablet (4 sources) melatonin 5 MG t ablet 1 (one) time each day at the same time. Active metFORMIN hydrochloride 500 mg oral tablet (5 sources) Biguanide take 2 tablets by mouth twice daily at mealtime metFORMIN (Glucophage) 500 MG tablet TAKE 2 TABLETS BY MOUTH TWICE A DAY WITH A MEAL Active metFORMIN HCl 50 0 MG Oral for 90 Days Active potassium gluconate 2.6 meq oral tablet (4 sources) take 1 capsule by mo uth in the morning Potassium Gluconate 2.5 MEQ tablet Take 1 capsule by mouth in the morning. Active take 1 tablet by mouth once haseeb y potassium gluconate 595 mg (99 mg) tablet take 1 tablet by oral route daily Completed/Discontinued Medications Medication Drug Class(es) Dates Sig (Normalized) Sig (Original) Fish Oils (1 source) take 1 capsule by mouth once daily Fish Oil 360 mg-1,200 mg capsule take 1 capsule by oral route daily hydrOXYzine hydrochloride 25 mg oral tablet (1 source) Antihistamine take 1 tablet by mouth three times daily hydroxyzine HCl 25 mg tablet take 1 tablet (25 mg) by oral route 3 times per day magnesium gluconate 550 mg oral tablet (1 source) take 1 tablet by mouth once daily magnesium gluconate 30 mg (550 mg) tablet take 1 tablet by oral route daily Problems Active Problems Problem Classification Problem Date Documented Da te Episodic/Chronic Chronic kidney disease (1 source) Chronic kidney disease; Translations: [Chronic kidney disease, stage 3 unspecified] Onset: 01-03-2025 Diabetes mellitus without complication (4 sources) Type [...] of skin sensation Onset: 02-17-2023 Episodic Other non-traumatic joint disorders (1 source) Pain in unspecified joint; Translations: [Pain in unspecified joint] Onset: 12-13-2024 Episodic Other screening for suspected conditions (not [...] Test Name Value Interpretation Reference Range Facility COMPREHENSIVE METABOLIC PANE [facility] 01-03-2025 Albumin [Mass/Vol] 4.8 g/dL Normal 3.2-5.3 [facility] Comment on above: Performed By: #### U VICKIE #### [facility] ([facility]) [address] [place] [address] VIR ALP [Catalytic activity/Vol] 56 U/L Normal 39-130 [facility] Comment on above: Performed By: #### U VICKIE #### [facility] ([facility]) [address] [place] [address] VIR ALT [Catalytic activity/Vol] 43 U/L High <=31 [facility] Comment on above: Performed By: #### U VICKIE #### [facility] ([facility]) [address] [place] [address] VIR Anion gap [Moles/Vol] 11 mmol/L Normal 5-15 [facility] Comment on above: Performed By: #### U VICKIE #### [facility] ([facility]) [address] [place] [address] VIR AST [Catalytic activity/Vol] 28 U/L Normal <=41 [facility] Comment on above: Performed By: #### U VICKIE #### [facility] ([facility]) [address] [place] [address] VIR Bilirubin [Mass/Vol] 1.0 mg/dL Normal 0.3-1.2 [facility] Comment on above: Performed By: #### U VICKIE #### [facility] ([facility]) [address] [place] [address] VIR Calcium [Mass/Vol] 10.2 mg/dL Normal 8.5-10.5 [facility] Comment on above: Performed By: #### U VICKIE #### [facility] ([facility]) [address] [place] [address] VIR Chloride [Moles/Vol] 103 mmol/L Normal 98-109 [facility] Comment on above: Performed By: #### U VICKIE #### [facility] ([facility]) [address] [place] [address] VIR CO2 [Moles/Vol] 25 mmol/L Normal 22-32 [facility] Comment on above: Performed By: #### U VICKIE #### [facility] ([facility]) [address] [place] [address] VIR Creatinine [Mass/Vol] 1.02 mg/dL High 0.40-1.00 [facility] Comment on above: Result Comment: METH OD TRACEABLE TO IDMS STANDARD Performed By: #### U VICKIE #### [facility] ([facility]) [address] [place] [address] VIR GFR/1.73 sq M.predicted among non-blacks MDRD (S/P/Bld) [Vol rate/Area] 63 mL/min/{1.73_m2} Normal >=60 [facility] Comment on above: Result Comment: Repo rted eGFR is based on the CKD-EPI 2020 equation that does not use a race coefficient. Performed By: #### U VICKIE #### [facility] ([facility]) [address] [place] [address] VIR Glucose [Mass/Vol] 98 mg/dL Normal 65-99 [facility] Comment on above: Performed By: #### U VICKIE #### [facility] ([facility]) [address] [place] [address] VIR Potassium [Moles/Vol] 4.3 mmol/L Normal 3.5-5.0 [facility] Comment on above: Performed By: #### U VICKIE #### [facility] ([facility]) [address] [place] [address] VIR Protein [Mass/Vol] 7.4 g/dL Normal 6.0-8.0 [facility] Comment on above: Performed By: #### U VICKIE #### [facility] ([facility]) [address] [place] [address] VIR Sodium [Moles/Vol] 139 mmol/L Normal 134-146 [facility] Comment on above: Performed By: #### U VICKIE #### [facility] ([facility]) [address] [place] [address] VIR Urea nitrogen [Mass/Vol] 19 mg/dL Normal 5-27 [facility] Comment on above: Performed By: #### U VICKIE #### [facility] ([facility]) [address] [place] [address] VIR XR FOOT LT MIN 3 VWSon 12-18 XR FOOT LT MIN 3 VWS XR FOOT LT MIN 3 VWS History: Pain Exam/Technique: 3 views of the left foot were obtained. Comparison: None Findings: There is an enthesophyte arising from the plantar surface of the calcaneus. No other significant degenerative changes are seen. There is no evidence for an acute osseous abnormality. IMPRESSION: Calcaneal enthesophyte. Otherwise normal left foot. Finalized by Jorge Luis Wyatt MD on 12/18/2024 7:14 AM Normal [facility] XR HAND LT 2 VWSon XR HAND LT 2 VWS XR HAND LT 2 VWS History: Pain Exam/Technique: Frontal and lateral views [...] Luis Wyatt MD on 12/18/2024 7:13 AM Normal [facility] XR HAND RT 2 VWSon 5 XR HAND RT 2 VWS XR HAND RT 2 VWS History: Pain Exam/Technique: Frontal and lateral views [...] Luis Wyatt MD on 12/18/2024 7:12 AM Normal [facility] XR WRIST LT 2 VWSon 12-19-19 25 XR WRIST LT 2 VWS XR WRIST LT 2 VWS History: Pain Exam/Technique: 2 views of the left wrist were obtained. Comparison: None Findings: There are advanced osteoarthritic changes in the first carpal metacarpal joint. There is no evidence for an acute osseous abnormality. No erosive changes are seen. 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 Otherwise normal left wrist. Finalized by Jorge Luis Wyatt MD on 12/18/2024 7:11 AM Normal [facility] XR WRIST RT 2 VWSon 12-19-19 25 XR WRIST RT 2 VWS XR WRIST RT 2 VWS History: Pain Exam/Technique: Frontal and lateral views of the right wrist were obtained. Comparison: None Findings: There are mild osteoarthritic changes in the radiocarpal and first carpometacarpal joints. There is no evidence for an acute osseous abnormality. No erosive changes are seen. IMPRESSION: Mild osteoarthritic changes. Otherwise normal right wrist. Finalized by Jorge Luis Wyatt MD on 12/18/2024 7:10 AM Normal [facility] LINA SCREEN W/ REFLEXon 12-13 LINA SCREEN W/REFLEX Negative Normal Negative [facility] Comment on above: Order Comment: Testi ng performed using multiplex flow immunoassay. Eleven difference antigens associated with systemic autoimmunie diseases (dsDNA, Sm, Sm/POSTAL SERVICE WINDOW CLERK, POSTAL SERVICE WINDOW CLERK, Chromatin, SSA, SSB, Alma-1, Sc170, Ribo P, Centromere B) are included in this sreening tests. Performed By: #### A NA #### [facility] ([facility]) [address] [place] [address] VIR C-REACTIVE PROTEINon 025 C REACTIVE PROTEIN 0.1 mg/dL Normal <=0.7 [facility] Comment on above: Performed By: #### C RP #### [facility] ([facility]) [address] [place] [address] VIR ERYTHROCYTE SEDIMENTATION RA TE (ESR)on 12-13-2024 ESR, ERYTHROCYTE SEDIMENTATION RATE 15 mm/h Normal 0-30 [facility] Comment on above: Performed By: #### E SR #### [facility] ([facility]) [address] [place] [address] VIR RHEUMATOID FACTORon 12-14-19 25 RHEUMATOID FACTOR <^10 Normal <20 [facility] Comment on above: Performed By: #### R F #### [facility] ([facility]) [address] [place] [address] VIR URIC ACIDon 12-13-2024 Urate [Mass/Vol] 6.5 mg/dL Normal 2.6-7.2 [facility] Comment on above: Performed By: #### U VICKIE #### [facility] ([facility]) [address] [place] [address] VIR SURGICAL PATH REPORTon 03-28 SURGICAL PATH REPORT [facility] Department of Pathology [address] [place] [phone] Name: PATEL MEDINA : 1965 [facility] [id number] Number: Gender Female Haylee HOYOS ABELINO : n: Admit 57 years Attending PERCY MARIEE Age: Provider: Ordering PERCY MARIEE Provider: Consulti Surgical Pathology Report ng: ACCESSION: COLLECTED DATE/TIME: RECEIVED DATE/TIME: PATHOLOGIST: [id number] 03/24/2023 08:06 EDT 03/24/2023 12:54 EDT ZULEMA SMITH, LINA MCCLELLAND Final Diagnosis Report for [facility], [place] ENDOMETRIUM, CURETTAGE: - MINUTE FRAGMENT OF INACTIVE ENDOMETRIUM. - NEGATIVE FOR MALIGNANCY OR HYPERPLASIA. COMMENT: The tissue is scanty. Multiple deeper sections have been examined. Clinical correlation is recommended. LINA POOLE PATHOLOGIST (Electronic Signature) Date Verified 03/28/2023 SB Clinical Data PRE-OP DIAGNOSIS: Not specified POST-OP DIAGNOSIS: Amenorrhea PROCEDURES: D and C, Hysteroscopy, MyoSure SPECIMEN: Endometrial curettings VISIT #[id number] / Surgical outpatient Gross Description Labeled endometrial curettings. Received in formalin on a plastic collection apparatus are multiple irregular pink white feathery segments of soft tissue. The specimen is filtered and has a filtrate aggregate dimension of 1.4 x 0.5 x 0.3 cm. The specimen is entirely submitted in one cassette. MP/glenn 03/24/2023 ____ ____ Print 03/28/2023 10:00 EDT Number: Date/Time: [facility] Department of Pathology [address] [place] [id number] Name: PATEL MEDINA : 1965 [facility] [id number] Number: Gender Female Haylee HOYOS [place] : n: Admit 57 years Attending PERCY MARIEE Age: Provider: Ordering PERCY MARIEE Provider: Annamarie Surgical Pathology Report ng: ACCESSION: COLLECTED DATE/TIME: RECEIVED DATE/TIME: PATHOLOGIST: [id number] 03/24/2023 08:06 EDT 03/24/2023 12:54 EDT ZULEMA SMITH, LINA MCCLELLAND Gross Description Tissue pathology report for: [facility], [address] [place] [address]; PATHOLOGY SERVICES PROVIDED BY [employer] [facility] (CLIA #[id number]) in cooperation with [facility] at [address] [place] [address] (CLIA #[id number]) Microscopic Diagnosis The final diagnosis is based on a microscopic exam of financial services representative sections. Codes CPT CODE: 13601 ____ ____ Print 03/28/2023 10:00 EDT Number: Date/Time: [facility] Comment on above: Performed By: #### [id number] #### [facility] [address] [place] [address] Patient Support Representative: Todd Xiong MD No Panel Informationon 02-17 Tobacco smoking status Former Smoker Invalid Interpretation Code [facility] Podiatry Office/Clinic Noteo n 01-13-2023 Podiatry Office/Clinic [...] remember. Patient relates that they have tried bkst-lhb-ilfricw pain relievers, padding, and modification of shoe [...] October. Was seeing Annmarie Espinoza At the [facility] reconstruction Pedro. Was referred here for possible nerve entrapment. [...] around. Patient relates that they have tried Vqib-slw-Jwitlmw pain relievers and shoe gear modification to no avail. Patient relates that this has begun to hinder their lifestyle and activity levels including those at work, and wishes to have something done about the problem. No trauma or incident remembered. Failed months of conservative modalities both provider directed and vyzw-oya-oiydqbs. Review of Systems Constitutional Head Nose Mouth [...] bilateral. Protective sensation intact as measured with Edmeston Renzo monofilament. Gross motor intact bilateral. Positive [...] Diabetic pe (more content not included)... Normal [facility] Provider Letteron 01-13-2023 Provider Letter Salome Espinoza PA-C [address] [place] [address], [place] [address] Re: Patel Medina Date of Visit: 01/13/2023 Dear Salome Espinoza PA-C, [facility] [address] [place] [address] [place], [phone] Fax: [phone] Date: 01/13/2023 13:08:23 Dear Alexis MILLER, Salome [...] EDT - (01/13/2023) Office Visit Note Normal [facility] XR Foot 3 Views Bilateralon [...] Electronically Signed in Other Vendor System) Normal [facility] CULTURE THROATon 09-11-2022 CULTURE THROAT [...] Trimethoprim/Sulfameth oxazole <=20 S F Normal [facility] Comment on above: Performed By: #### T HRTCX #### [facility] [address] [place] [address] Dr. Augustine Blackwood RESPIRATORY PANEL PLUSon Adenovirus Not detected Normal NOT DETECTED [facility] Comment on above: Performed By: #### L IPID, CMP #### [facility] [address] [place] [address] Dr. Augustine Jeff. Parapertusis Not detected Normal NOT DETECTED [facility] Comment on above: Performed By: #### L IPID, CMP #### [facility] [address] [place] [address] Dr. Augustine Jeff. Pertussis Not detected Normal NOT DETECTED [facility] Comment on above: Performed By: #### L IPID, CMP #### [facility] [address] [place] [address] Dr. Augustine Blackwood Chlamydia Pneumoniae Not detected Normal NOT DETECTED [facility] Comment on above: Performed By: #### L IPID, CMP #### [facility] [address] [place] [address] Dr. Augustine Blackwood Coronavirus 229E Not detected Normal NOT DETECTED [facility] Comment on above: Performed By: #### L IPID, CMP #### [facility] [address] [place] [address] Dr. Augustine Blackwood Coronavirus HKU1 Not detected Normal NOT DETECTED [facility] Comment on above: Performed By: #### L IPID, CMP #### [facility] [address] [place] [address] Dr. Augustine Blackwood Coronavirus NL63 Not detected Normal NOT DETECTED [facility] Comment on above: Performed By: #### L IPID, CMP #### [facility] [address] [place] [address] Dr. Augustine Blackwood Coronavirus OC43 Not detected Normal NOT DETECTED [facility] Comment on above: Performed By: #### L IPID, CMP #### [facility] [address] [place] [address] Dr. Augustine Blackwood Influenza A H1 Not detected Normal NOT DETECTED [facility] Comment on above: Performed By: #### L IPID, CMP #### [facility] [address] [place] [address] Dr. Augustine Blackwood Influenza A H1 2009 Not detected Normal NOT DETECTED [facility] Comment on above: Performed By: #### L IPID, CMP #### [facility] [address] [place] [address] Dr. Augustine Blackwood Influenza A H3 Not detected Normal NOT DETECTED [facility] Comment on above: Performed By: #### L IPID, CMP #### [facility] [address] [place] [address] Dr. Augustine Blackwood Influenza B Not detected Normal NOT DETECTED [facility] Comment on above: Performed By: #### L IPID, CMP #### [facility] [address] [place] [address] Dr. Augustine Blackwood Metapneumovirus Not detected Normal NOT DETECTED [facility] Comment on above: Performed By: #### L IPID, CMP #### [facility] [address] [address] [address] Augustine Paceoplas. Pneumoniae Not detected Normal NOT DETECTED [facility] Comment on above: Performed By: #### L IPID, CMP #### [facility] [address] [address] [address] Augustine Blackwood Parainfluenza 1 Not detected Normal NOT DETECTED [facility] Comment on above: Performed By: #### L IPID, CMP #### [facility] [address] [address] [address] Augustine Blackwood Parainfluenza 2 Not detected Normal NOT DETECTED [facility] Comment on above: Performed By: #### L IPID, CMP #### [facility] [address] [place] [address] Dr. Augustine Blackwood Parainfluenza 3 Not detected Normal NOT DETECTED [facility] Comment on above: Performed By: #### L IPID, CMP #### [facility] [address] [place] [address] Dr. Augustine Blackwood Parainfluenza 4 Not detected Normal NOT DETECTED [facility] Comment on above: Performed By: #### L IPID, CMP #### [facility] [address] [place] [address] Dr. Augustine Blackwood Rhino/Enterovirus Not detected Normal NOT DETECTED [facility] Comment on above: Performed By: #### L IPID, CMP #### [facility] [address] [address] [address] Augustine Blackwood RP2 Header 1 RESPIRATORY PANEL: VIRUSES Normal [facility] Comment on above: Performed By: #### L IPID, CMP #### [facility] [address] [place] [address] Dr. Augustine Blackwood RP2 Header 2 RESPIRATORY PANEL: BACTERIA Normal [facility] Comment on above: Performed By: #### L IPID, CMP #### [facility] [address] [address] [address] Augustine Blackwood RSV Not detected Normal NOT DETECTED [facility] Comment on above: Performed By: #### L IPID, CMP #### [facility] [address] [place] [address] Dr. Augustine Blackwood SARS-CoV-2 (COVID-19) RNA BETH+probe Ql (Unsp spec) Not detected Normal NOT DETECTED [facility] Comment on above: Performed By: #### L IPID, CMP #### [facility] [address] [place] [address] Dr. Augustine Blackwood GLYCOHEMOGLOBIN A1Con 2022 ADA RECOMMENDATION SEE BELOW Normal [facility] Comment on above: Result Comment: ADA RECOMMENDED LIMIT 4.0 - 6.0 ADA THERAPEUTIC TARGET < 7.0 ACTION SUGGESTED > 7.0 Performed By: #### L IPID, CMP #### [facility] [address] [place] [address] Dr. Augustine Blackwood Glucose [Mass/Vol] 146 mg/dL Normal [facility] Comment on above: Performed By: #### L IPID, CMP #### [facility] [address] [place] [address] Dr. Augustine Blackwood HbA1c (Bld) [Mass fraction] 6.7 % Critically high 4.5-6.2 [facility] Comment on above: Performed By: #### L IPID, CMP #### [facility] [address] [place] [address] Dr. Augustine Blackwood LIPID PROFILEon 08-05-2022 CHOL-HDL RATIO NORM SEE BELOW Normal [facility] Comment on above: Result Comment: 3.3 - 4.4 LOW RISK 4.4 - 7.1 AVERAGE RISK 7.1 - 11.0 MODERATE RISK >11.0 HIGH RISK Performed By: #### L IPID, CMP #### [facility] [address] [place] [address] Dr. Augustine Blackwood Cholesterol [Mass/Vol] 137 mg/dL Normal <=200 [facility] Comment on above: Performed By: #### L IPID, CMP #### [facility] [address] [place] [address] Dr. Augustine Blackwood Cholesterol in HDL [Mass/Vol] 48 mg/dL Normal 40-60 [facility] Comment on above: Performed By: #### L IPID, CMP #### [facility] [address] [address] [address] Augustine Blackwood Cholesterol in LDL [Mass/Vol] 55.4 mg/dL Normal [facility] Comment on above: Performed By: #### L IPID, CMP #### [facility] [address] [address] [address] Augustine Blackwood Cholesterol.total/C holesterol in HDL [Mass ratio] 2.9 {ratio} Normal [facility] Comment on above: Performed By: #### L IPID, CMP #### [facility] [address] [address] [address] Augustine Blackwood HDL NORMAL > or = 60 mg/dl - LO W CARDIOVASCULAR RISK <40 mg/dl - HIGH CARDIOVASCULAR RISK Normal [facility] Comment on above: Performed By: #### L IPID, CMP #### [facility] [address] [address] [address] Augustine Blackwood LDL CALC NORMAL SEE BELOW Normal [facility] Comment on above: Result Comment: <100 mg/dl OPTIMAL 100 - 129 mg/dl NEAR OR ABOVE OPTIMAL 130 - 159 mg/dl BORDERLINE HIGH 160 - 189 mg/dl HIGH >190 mg/dl VERY HIGH Performed By: #### L IPID, CMP #### [facility] [address] [address] [address] Augustine Blackwood Triglyceride [Mass/Vol] 168 mg/dL Critically high <=150 [facility] Comment on above: Performed By: #### L IPID, CMP #### [facility] [address] [address] [address] Augustine Blackwood VLDL CALC 33.6 mg/dL Normal [facility] Comment on above: Performed By: #### L IPID, CMP #### [facility] [address] [address] [address] Augustine Blackwood MICROALBUMIN, RAND URon 02-2 mALB 11.3 mg/L Normal <=30.0 [facility] Comment on above: Performed By: #### L IPID, CMP #### [facility] [address] [place] [address] Dr. Augustine Blackwood PROF 14(COMP METB)on 023 Albumin [Mass/Vol] 4.0 g/dL Normal 3.4-5.0 [facility] Comment on above: Performed By: #### L IPID, CMP #### [facility] [address] [place] [address] Dr. Augustine Blackwood Albumin/Globulin [Mass ratio] 1.3 {ratio} Normal [facility] Comment on above: Performed By: #### L IPID, CMP #### [facility] [address] [place] [address] Dr. Augustine Blackwood ALP [Catalytic activity/Vol] 57 U/L Normal 46-116 [facility] Comment on above: Performed By: #### L IPID, CMP #### [facility] [address] [place] [address] Dr. Augustine Blackwood ALT [Catalytic activity/Vol] 55 U/L Normal 14-59 [facility] Comment on above: Performed By: #### L IPID, CMP #### [facility] [address] [place] [address] Dr. Augustine Blackwood Anion gap [Moles/Vol] 12.3 mmol/L Normal [facility] Comment on above: Performed By: #### L IPID, CMP #### [facility] [address] [place] [address] Dr. Augustine Blackwood AST [Catalytic activity/Vol] 33 U/L Normal 15-37 [facility] Comment on above: Performed By: #### L IPID, CMP #### [facility] [address] [place] [address] Dr. Augustine Blackwood Bilirubin [Mass/Vol] 0.6 mg/dL Normal 0.2-1.0 [facility] Comment on above: Performed By: #### L IPID, CMP #### [facility] [address] [place] [address] Dr. Augustine Blackwood Calcium [Mass/Vol] 9.5 mg/dL Normal 8.5-10.1 [facility] Comment on above: Performed By: #### L IPID, CMP #### [facility] [address] [address] [address] Augustine Blackwood Chloride [Moles/Vol] 103 mmol/L Normal 98-107 [facility] Comment on above: Performed By: #### L IPID, CMP #### [facility] [address] [address] [address] Augustine Blackwood CO2 [Moles/Vol] 27.0 mmol/L Normal 21.0-32.0 [facility] Comment on above: Performed By: #### L IPID, CMP #### [facility] [address] [place] [address] Dr. Augustine Blackwood Creatinine [Mass/Vol] 1.02 mg/dL Normal 0.55-1.02 [facility] Comment on above: Performed By: #### L IPID, CMP #### [facility] [address] [place] [address] Dr. Augustine Blackwood EGFR-AF CONGOLESE >60 Normal >=60 [facility] Comment on above: Performed By: #### L IPID, CMP #### [facility] [address] [place] [address] Dr. Augustine Blackwood EGFR-NON AF CONGOLESE 56 mL/min/1.73m2 Critically low >=60 [facility] Comment on above: Performed By: #### L IPID, CMP #### [facility] [address] [place] [address] Dr. Augustine Blackwood Globulin (S) [Mass/Vol] 3.2 g/dL Normal [facility] Comment on above: Performed By: #### L IPID, CMP #### [facility] [address] [place] [address] Dr. Augustine Blackwood Glucose [Mass/Vol] 130 mg/dL Critically high 74-[address] [facility] Comment on above: Performed By: #### L IPID, CMP #### [facility] [address] [place] [address] Dr. Augustine Blackwood Potassium [Moles/Vol] 4.3 mmol/L Normal 3.5-5.1 [facility] Comment on above: Performed By: #### L IPID, CMP #### [facility] [address] [place] [address] Dr. Augustine Blackwood Protein [Mass/Vol] 7.2 g/dL Normal 6.4-8.2 [facility] Comment on above: Performed By: #### L IPID, CMP #### [facility] [address] [place] [address] Dr. Augustine Blackwood Sodium [Moles/Vol] 138 mmol/L Normal 136-145 [facility] Comment on above: Performed By: #### L IPID, CMP #### [facility] [address] [place] [address] Dr. Augustine Blackwood Urea nitrogen [Mass/Vol] 22.0 mg/dL Critically high 7.0-18.0 [facility] Comment on above: Performed By: #### L IPID, CMP #### [facility] [address] [place] [address] Dr. Augustine Blackwood Urea nitrogen/Creatinine [Mass ratio] 21.6 mg/mg Normal [facility] Comment on above: Performed By: #### L IPID, CMP #### [facility] [address] [place] [address] Dr. Augustine Blackwood HEMOGRAM AND PLATELon 2022 Hematocrit (Bld) [Volume fraction] 37.5 % Normal 36.0-48.0 [facility] Comment on above: Performed By: #### H H #### [facility] [address] [place] [address] Dr. Augustine Blackwood Hemoglobin (Bld) [Mass/Vol] 12.9 g/dL Normal 12.0-16.0 [facility] Comment on above: Performed By: #### H H #### [facility] [address] [place] [address] Dr. Augustine Blackwood MCH (RBC) [Entitic mass] 29.0 pg Normal 26.7-34.0 [facility] Comment on above: Performed By: #### H H #### [facility] [address] [place] [address] Dr. Augustine Blackwood MCHC (RBC) [Mass/Vol] 34.4 g/dL Normal 29.9-35.2 [facility] Comment on above: Performed By: #### H H #### [facility] [address] [place] [address] Dr. Augustine Blackwood MCV (RBC) [Entitic vol] 84.3 fL Normal 81.0-99.0 [facility] Comment on above: Performed By: #### H H #### [facility] [address] [place] [address] Dr. Augustine Blackwood PLT 190 103/ul Normal 150-450 [facility] Comment on above: Performed By: #### H H #### [facility] [address] [place] [address] Dr. Augustine Blackwood RBC 4.45 106/ul Normal 4.20-5.40 [facility] Comment on above: Performed By: #### H H #### [facility] [address] [place] [address] Dr. Augustine Blackwood WBC 7.3 103/ul Normal 4.0-11.0 [facility] Comment on above: Performed By: #### H H #### [facility] [address] [place] [address] Dr. Augustine Blackwood TSHon 07-05-2022 TSH 1.837 uIU/mL Normal 0.358-3.740 [facility] Comment on above: Performed By: #### L IPID, CMP #### [facility] [address] [place] [address] Dr. Augustine Blackwood VITAMIN B12on 07-05-2022 Cobalamin (Vitamin B12) [Mass/Vol] 877.0 pg/mL Normal 193.0-986.0 [facility] Comment on above: Performed By: #### V ITB12, VITAD #### [facility] [address] [place] [address] Dr. Augustine Blackwood VITAMIN D 25 OHon 07-05-2022 VIT D 25-OH 79.2 ng/mL Normal [facility] Comment on above: Performed By: #### V ITB12, VITAD #### [facility] [address] [place] [address] Dr. Augustine Blackwood VIT D RANGES SEE BELOW Normal [facility] Comment on above: Result Comment: <20 ng/mL Vit D deficient 20 - <30 ng/mL Vit D insufficient 30 - 100 ng/mL Vit D sufficient >100 ng/mL Potential Toxicity Performed By: #### V ITB12, VITAD #### [facility] [address] [place] [address] Dr. Augustine Blackwood CBC AUTO DIFFon 05-18-2022 BASO # 0.1 103/ul Normal 0.0-0.1 [facility] Comment on above: Performed By: #### C BC #### [facility] [address] [place] [address] Dr. Augustine Blackwood Basophils/100 WBC (Bld) 1.2 % Normal 0.2-2.0 [facility] Comment on above: Performed By: #### C BC #### [facility] [address] [place] [address] Dr. Augustine Blackwood EO # 0.4 103/ul Normal 0.0-0.7 [facility] Comment on above: Performed By: #### C BC #### [facility] [address] [place] [address] Dr. Augustine Blackwood Eosinophils/100 WBC (Bld) 5.2 % Normal 0.9-7.0 [facility] Comment on above: Performed By: #### C BC #### [facility] [address] [place] [address] Dr. Augustine Blackwood Erythrocyte distribution width (RBC) [Ratio] 13.3 % Normal 11.0-15.0 [facility] Comment on above: Performed By: #### C BC #### [facility] [address] [place] [address] Dr. Augustine Blackwood Hematocrit (Bld) [Volume fraction] 38.7 % Normal 36.0-48.0 [facility] Comment on above: Performed By: #### C BC #### [facility] [address] [address] [address] Augustine Blackwood Hemoglobin (Bld) [Mass/Vol] 12.9 g/dL Normal 12.0-16.0 [facility] Comment on above: Performed By: #### C BC #### [facility] [address] [address] [address] Augustine Blackwood IG # 0.02 10e3/ul Normal 0.00-0.03 [facility] Comment on above: Performed By: #### C BC #### [facility] [address] [place] [address] Dr. Augustine Blackwood IG % 0.2 % Normal 0.0-0.5 [facility] Comment on above: Performed By: #### C BC #### [facility] [address] [place] [address] Dr. Augustine Blackwood LYMPH # 2.8 103/ul Normal 1.2-3.8 [facility] Comment on above: Performed By: #### C BC #### [facility] [address] [place] [address] Dr. Augustine Blackwood Lymphocytes/100 WBC (Bld) 32.7 % Normal 20.5-60.0 [facility] Comment on above: Performed By: #### C BC #### [facility] [address] [place] [address] Dr. Augustine Blackwood MANUAL DIFF REQ NO Normal [facility] Comment on above: Performed By: #### C BC #### [facility] [address] [place] [address] Dr. Augustine Blackwood MCH (RBC) [Entitic mass] 28.7 pg Normal 26.7-34.0 [facility] Comment on above: Performed By: #### C BC #### [facility] [address] [place] [address] Dr. Augustine Blackwood MCHC (RBC) [Mass/Vol] 33.3 g/dL Normal 29.9-35.2 [facility] Comment on above: Performed By: #### C BC #### [facility] [address] [address] [address] Augustine Blackwodo MCV (RBC) [Entitic vol] 86.2 fL Normal 81.0-99.0 [facility] Comment on above: Performed By: #### C BC #### [facility] [address] [address] [address] Augustine Blackwood MONO # 0.8 103/ul Normal 0.3-0.8 [facility] Comment on above: Performed By: #### C BC #### [facility] [address] [place] [address] Dr. Augustine Blackwood Monocytes/100 WBC (Bld) 8.9 % Normal 1.7-12.0 [facility] Comment on above: Performed By: #### C BC #### [facility] [address] [place] [address] Dr. Augustine Blackwood NEUT # 4.3 103/ul Normal 1.4-6.5 [facility] Comment on above: Performed By: #### C BC #### [facility] [address] [place] [address] Dr. Augustine Blackwood Neutrophils/100 WBC (Bld) 51.8 % Normal 43.0-75.0 [facility] Comment on above: Performed By: #### C BC #### [facility] [address] [place] [address] Dr. Augustine Blackwood Platelet mean volume (Bld) [Entitic vol] 11.8 fL Normal 9.5-13.5 [facility] Comment on above: Performed By: #### C BC #### [facility] [address] [place] [address] Dr. Augustine Blackwood PLT 217 103/ul Normal 150-450 [facility] Comment on above: Performed By: #### C BC #### [facility] [address] [place] [address] Dr. Augustine Blackwood RBC 4.49 106/ul Normal 4.20-5.40 [facility] Comment on above: Performed By: #### C BC #### [facility] [address] [address] [address] Augustine Blackwood WBC 8.4 103/ul Normal 4.0-11.0 [facility] Comment on above: Performed By: #### C BC #### [facility] [address] [place] [address] Dr. Augustine Blackwood GLYCOHEMOGLOBIN A1Con 2021 ADA RECOMMENDATION SEE BELOW Normal [facility] Comment on above: Result Comment: ADA RECOMMENDED LIMIT 4.0 - 6.0 ADA THERAPEUTIC TARGET < 7.0 ACTION SUGGESTED > 7.0 Performed By: #### A 1C #### [facility] [address] [place] [address] Dr. Augustine Blackwood Glucose [Mass/Vol] 154 mg/dL Normal [facility] Comment on above: Performed By: #### A 1C #### [facility] [address] [place] [address] Dr. Augustine Blackwood HbA1c (Bld) [Mass fraction] 7.0 % Critically high 4.5-6.2 [facility] Comment on above: Performed By: #### A 1C #### [facility] [address] [place] [address] Dr. Augustine Blackwood LIPID PROFILEon 04-28-2022 CHOL-HDL RATIO NORM SEE BELOW Normal [facility] Comment on above: Result Comment: 3.3 - 4.4 LOW RISK 4.4 - 7.1 AVERAGE RISK 7.1 - 11.0 MODERATE RISK >11.0 HIGH RISK Performed By: #### C MP, LIPID #### [facility] [address] [place] [address] Dr. Augustine Blackwood Cholesterol [Mass/Vol] 139 mg/dL Normal <=200 [facility] Comment on above: Performed By: #### C MP, LIPID #### [facility] [address] [place] [address] Dr. Augustine Blackwood Cholesterol in HDL [Mass/Vol] 56 mg/dL Normal 40-60 [facility] Comment on above: Performed By: #### C MP, LIPID #### [facility] [address] [place] [address] Dr. Augustine Blackwood Cholesterol in LDL [Mass/Vol] 56.2 mg/dL Normal [facility] Comment on above: Performed By: #### C MP, LIPID #### [facility] [address] [address] [address] Augustine Blackwood Cholesterol.total/C holesterol in HDL [Mass ratio] 2.5 {ratio} Normal [facility] Comment on above: Performed By: #### C MP, LIPID #### [facility] [address] [address] [address] Augustine Blackwood HDL NORMAL > or = 60 mg/dl - LO W CARDIOVASCULAR RISK <40 mg/dl - HIGH CARDIOVASCULAR RISK Normal [facility] Comment on above: Performed By: #### C MP, LIPID #### [facility] [address] [address] [address] Augustine Blackwood LDL CALC NORMAL SEE BELOW Normal [facility] Comment on above: Result Comment: <100 mg/dl OPTIMAL 100 - 129 mg/dl NEAR OR ABOVE OPTIMAL 130 - 159 mg/dl BORDERLINE HIGH 160 - 189 mg/dl HIGH >190 mg/dl VERY HIGH Performed By: #### C MP, LIPID #### [facility] [address] [address] [address] Augustine Blackwood Triglyceride [Mass/Vol] 134 mg/dL Normal <=150 [facility] Comment on above: Performed By: #### C MP, LIPID #### [facility] [address] [place] [address] Dr. Augustine Blackwood VLDL CALC 26.8 mg/dL Normal [facility] Comment on above: Performed By: #### C MP, LIPID #### [facility] [address] [address] [address] Augustine Blackwood PROF 14(COMP METB)on 022 Albumin [Mass/Vol] 4.0 g/dL Normal 3.4-5.0 [facility] Comment on above: Performed By: #### C MP, LIPID #### [facility] [address] [place] [address] Dr. Augustine Blackwood Albumin/Globulin [Mass ratio] 1.1 {ratio} Normal [facility] Comment on above: Performed By: #### C MP, LIPID #### [facility] [address] [address] [address] Augustine Blackwood ALP [Catalytic activity/Vol] 55 U/L Normal 46-116 [facility] Comment on above: Performed By: #### C MP, LIPID #### [facility] [address] [address] [address] Augustine Blackwood ALT [Catalytic activity/Vol] 49 U/L Normal 14-59 [facility] Comment on above: Performed By: #### C MP, LIPID #### [facility] [address] [address] [address] Augustine Blackwood Anion gap [Moles/Vol] 10.9 mmol/L Normal [facility] Comment on above: Performed By: #### C MP, LIPID #### [facility] [address] [place] [address] Dr. Augustine Blackwood AST [Catalytic activity/Vol] 25 U/L Normal 15-37 [facility] Comment on above: Performed By: #### C MP, LIPID #### [facility] [address] [address] [address] Augustine Blackwood Bilirubin [Mass/Vol] 0.7 mg/dL Normal 0.2-1.0 [facility] Comment on above: Performed By: #### C MP, LIPID #### [facility] [address] [address] [address] Augustine Blackwood Calcium [Mass/Vol] 9.5 mg/dL Normal 8.5-10.1 [facility] Comment on above: Performed By: #### C MP, LIPID #### [facility] [address] [address] [address] Augustine Blackwood Chloride [Moles/Vol] 102 mmol/L Normal 98-107 [facility] Comment on above: Performed By: #### C MP, LIPID #### [facility] [address] [address] [address] Augustine Blackwood CO2 [Moles/Vol] 30.2 mmol/L Normal 21.0-32.0 [facility] Comment on above: Performed By: #### C MP, LIPID #### [facility] [address] [address] [address] Augustine Blackwood Creatinine [Mass/Vol] 1.02 mg/dL Normal 0.55-1.02 [facility] Comment on above: Performed By: #### C MP, LIPID #### [facility] [address] [address] [address] Augustine Blackwood EGFR-AF CONGOLESE 60 mL/min/1.73m2 Normal >=60 [facility] Comment on above: Performed By: #### C MP, LIPID #### [facility] [address] [address] [address] Augustine Blackwood EGFR-NON AF CONGOLESE 56 mL/min/1.73m2 Critically low >=60 [facility] Comment on above: Performed By: #### C MP, LIPID #### [facility] [address] [address] [address] Augustine Blackwood Globulin (S) [Mass/Vol] 3.5 g/dL Normal [facility] Comment on above: Performed By: #### C MP, LIPID #### [facility] [address] [address] [address] Augustine Blackwood Glucose [Mass/Vol] 143 mg/dL Critically high 74-106 [facility] Comment on above: Performed By: #### C MP, LIPID #### [facility] [address] [address] [address] Augustine Blackwood Potassium [Moles/Vol] 4.1 mmol/L Normal 3.5-5.1 [facility] Comment on above: Performed By: #### C MP, LIPID #### [facility] [address] [address] [address] Augustine Blackwood Protein [Mass/Vol] 7.5 g/dL Normal 6.4-8.2 [facility] Comment on above: Performed By: #### C MP, LIPID #### [facility] [address] [address] [address] Augustine Blackwood Sodium [Moles/Vol] 139 mmol/L Normal 136-145 [facility] Comment on above: Performed By: #### C MP, LIPID #### [facility] [address] [place], [place] [address] Dr. Augustine Blackwood Urea nitrogen [Mass/Vol] 24.0 mg/dL Critically high 7.0-18.0 [facility] Comment on above: Performed By: #### C MP, LIPID #### [facility] [address] [place], [place] [address] Dr. Augustine Blackwood Urea nitrogen/Creatinine [Mass ratio] 23.5 mg/mg Normal [facility] Comment on above: Performed By: #### C MP, LIPID #### [facility] [address] [place], [place] [address] Dr. Augustine Blackwood XR toe LT 4th digiton 2021 XR toe LT 4th digit [facility] [place] [address] XRay Report Signed Patient: Patel Medina MR#: [id number] : 1965 Acct:[id number] Age/Sex: 56 / F ADM Date: 12/18/21 Loc: [facility] Room: Type: [facility] Attending Dr: Jennie Garica [employer] Copies to: Jennie Garcia NP Ordering Provider: [...] Choi Jr., D.OHiginio12/18/2021 12:14 PM Dictation Location: [place] [address] Transcribed By: [facility] 12/18/21 1214 Dictated By: Prosper Choi Jr, DO 12/18/21 1210 Signed By: 12/18/21 1214 [facility] XR toe LT 4th digit [facility] [employer] Other XR toe LT 4th digit [facility] [place] [employer] Other XR toe LT 4th digit 1111 [facility] [employer] Other XR toe [place] 4th [place] [address] [place] [employer] Other XR toe LT 4th digit XRay Report Nort [employer] Other XR toe LT 4th digit Signed [employer] Other XR toe LT 4th digit Patient: Jorge Luis Medina in L MR#: [id number] [employer] Other XR toe LT 4th digit 061 [employer] Other XR toe LT 4th digit : 1965 Acct:[id number] [employer] Other XR toe LT 4th digit Age/Sex: 56 / F ADM Date: 12/18/21 [employer] Other XR toe LT 4th digit Loc: XDUCLY Room: Type: REG CLI [employer] Other XR toe LT 4th digit Attending Dr: Jennie Garcia NP [employer] Other XR toe LT 4th digit Copies to: Alfreda Garcia NP [employer] Other XR toe LT 4th digit Ordering Provider: Jennie Garcia NP [employer] Other XR toe LT 4th digit Date of Service: 12/18/21 [employer] Other XR toe LT 4th digit XR/XR toe LT 4th digit: M79.675 [employer] Other XR toe LT 4th digit LEFT fourth TOE - - 3 views [employer] Other XR toe LT 4th digit CLINICAL HISTORY: Patient dropped can on to her left fourth toe one week ago now with pain and [employer] Other XR toe LT 4th digit swelling. [employer] Other XR toe LT 4th digit COMPARISON: None [employer] Other XR toe LT 4th digit FINDINGS: [employer] Other XR toe LT 4th digit Soft tissue swelling fourth digit. No radiopaque foreign body. No acute bony process. Minimal [employer] Other XR toe LT 4th digit degenerative changes of the bony erosions. [employer] Other XR toe LT 4th digit XR/XR toe LT 4th digit [employer] Other XR toe LT 4th digit IMPRESSION: [facility] [employer] Other XR toe LT 4th digit SOFT TISSUE SWELLING WITHOUT ACUTE BONY PROCESS. [employer] Other XR toe LT 4th digit Impression dictated by: Prosper Choi Jr., D.OHiginio12/18/2021 12:14 PM [employer] Other XR toe LT 4th digit Dictation Location: [place] [address] [employer] Other XR toe LT 4th digit Transcribed By: PWS 12/18/21 1214 [employer] Other XR toe LT 4th digit Dictated By: Prosper Choi Jr, DO 12/18/21 1210 [employer] Other XR toe LT 4th digit Signed By: [employer] Other XR toe LT 4th digit 12/18/21 1214 No rt [employer] Other MAMM DIG DIAG UNIon 06-25-19 21 MAMM DIG DIAG UNI DIAGNOSTIC [...] 3: Probably benign Electronically signed by: Jermaine Uriostegui MD 06/25/2020 2:52 PM [employer]ENS[employer] SCIENTIST Workstation: [id number] Technologist: CD Dictated By: JERMAINE URIOSTEGUI MD Signed By: JERMAINE URIOSTEGUI MD Signed Out: 06/25/20 15:52:23 Normal [facility] ALBUMIN, RANDOM URINE W/CREA TININEon 04-18-2020 ALBUMIN, URINE 12.0 mg/dL Normal See Note: [email or web address] Comment on above: Result Comment: Refe rence Range: Reference Range Not established Performed By: #### 1 0231, 6399, 496, 6517, 7600 #### [facility], [address] [place] [phone] Patient Support Representative: Rodo Fung MD ALBUMIN/CREATININE RATIO, RANDOM URINE [...] 0231, 6399, 496, 6517, 7600 #### [facility], [address] [place] [phone] Patient Support Representative: Rodo Fung MD Creatinine (U) [Mass/Vol] 136 mg/dL Normal 20-275 [facility] Comment on above: Performed By: #### 1 0231, 6399, 496, 6517, 7600 #### [facility], [address] [place] [address] Patient Support Representative: Rodo Fung MD CBC (INCLUDES DIFF/PLT)on Basophils (Bld) [#/Vol] 0.091 10*3/uL Normal 0-200 [facility] Comment on above: Performed By: #### 1 0231, 6399, 496, 6517, 7600 #### [facility] [address] [address] , [address] [place] [address] Patient Support Representative: Rodo Fung MD Basophils/100 WBC (Bld) 1.2 % Normal [facility] Comment on above: Performed By: #### 1 0231, 6399, 496, 6517, 7600 #### [facility] [place] [address] [address] , [address] [place] [address] Patient Support Representative: Rodo Fung MD Eosinophils (Bld) [#/Vol] 0.395 10*3/uL Normal 15-500 [facility] Comment on above: Performed By: #### 1 0231, 6399, 496, 6517, 7600 #### [facility] [address] [address] , [address] [place] [address] Patient Support Representative: Rodo Fung MD Eosinophils/100 WBC (Bld) 5.2 % Normal [facility] Comment on above: Performed By: #### 1 0231, 6399, 496, 6517, 7600 #### [facility] [address] [address] , [address] [place] [address] Patient Support Representative: Rodo Fung MD Erythrocyte distribution width (RBC) [Ratio] 13.3 % Normal 11.0-15.0 [facility] Comment on above: Performed By: #### 1 0231, 6399, 496, 6517, 7600 #### [facility] [address] [address] , [address] [place] [address] Patient Support Representative: Rodo Fung MD Hematocrit (Bld) [Volume fraction] 40.0 % Normal 35.0-45.0 [facility] Comment on above: Performed By: #### 1 0231, 6399, 496, 6517, 7600 #### [facility] [address] [address] , [address] [place] [address] Patient Support Representative: Rodo Fung MD Hemoglobin (Bld) [Mass/Vol] 13.2 g/dL Normal 11.7-15.5 [facility] Comment on above: Performed By: #### 1 0231, 6399, 496, 6517, 7600 #### [facility] , [address] [place] [address] Patient Support Representative: Rodo Fung MD Lymphocytes (Bld) [#/Vol] 2.379 10*3/uL Normal 850-3900 [facility] Comment on above: Performed By: #### 1 0231, 6399, 496, 6517, 7600 #### [facility] [address] [address] , [address] [place] [address] Patient Support Representative: Rodo Fung MD Lymphocytes/100 WBC (Bld) 31.3 % Normal [facility] Comment on above: Performed By: #### 1 0231, 6399, 496, 6517, 7600 #### [facility] [address] [address] , [address] [place] [address] Patient Support Representative: Rodo Fung MD MCH (RBC) [Entitic mass] 29.3 pg Normal 27.0-33.0 [facility] Comment on above: Performed By: #### 1 0231, 6399, 496, 6517, 7600 #### [facility] [address] [address] [place] [address] Patient Support Representative: Rodo Fung MD MCHC (RBC) [Mass/Vol] 33.0 g/dL Normal 32.0-36.0 [facility] Comment on above: Performed By: #### 1 0231, 6399, 496, 6517, 7600 #### [facility] [address], [address] [place] [address] Patient Support Representative: Rodo Fung MD MCV (RBC) [Entitic vol] 88.9 fL Normal 80.0-100.0 [facility] Comment on above: Performed By: #### 1 0231, 6399, 496, 6517, 7600 #### [facility] [address], [address] [place] [address] Patient Support Representative: Rodo Fung MD Monocytes (Bld) [#/Vol] 0.654 10*3/uL Normal 200-950 [facility] Comment on above: Performed By: #### 1 0231, 6399, 496, 6517, 7600 #### [facility] [address], [address] [place] [address] Patient Support Representative: Rodo Fung MD Monocytes/100 WBC (Bld) 8.6 % Normal [facility] Comment on above: Performed By: #### 1 0231, 6399, 496, 6517, 7600 #### [facility] [address], [address] [place] [address] Patient Support Representative: Rodo Fung MD Neutrophils (Bld) [#/Vol] 4.081 10*3/uL Normal 6262-2840 [facility] Comment on above: Performed By: #### 1 0231, 6399, 496, 6517, 7600 #### [facility] [address], [address] [place] [address] Patient Support Representative: Rodo Fung MD Neutrophils/100 WBC (Bld) 53.7 % Normal [facility] Comment on above: Performed By: #### 1 0231, 6399, 496, 6517, 7600 #### [facility] [address], [address] [place] [address] Patient Support Representative: Rodo Fung MD Platelet mean volume (Bld) [Entitic vol] 12.8 fL High 7.5-12.5 [facility] Comment on above: Performed By: #### 1 0231, 6399, 496, 6517, 7600 #### [facility] [address], [address] [place] [address] Patient Support Representative: Rodo Fung MD Platelets (Bld) [#/Vol] 214 10*3/uL Normal 140-400 [facility] Comment on above: Performed By: #### 1 0231, 6399, 496, 6517, 7600 #### [facility], [address] [place] [address] Patient Support Representative: Rodo Fung MD RBC (Bld) [#/Vol] 4.50 10*6/uL Normal 3.80-5.10 [facility] Comment on above: Performed By: #### 1 0231, 6399, 496, 6517, 7600 #### [facility] [address] [address] , [address] [place] [address] Patient Support Representative: Rodo Fung MD WBC (Bld) [#/Vol] 7.6 10*3/uL Normal 3.8-10.8 [facility] Comment on above: Performed By: #### 1 0231, 6399, 496, 6517, 7600 #### [facility] , [address] [place] [address] Patient Support Representative: Rodo Fung MD [facility] 04-18-2020 Albumin [Mass/Vol] 4.8 g/dL Normal 3.6-5.1 [facility] Comment on above: Performed By: #### 1 0231, 6399, 496, 6517, 7600 #### [facility], [address] [place] [address] Patient Support Representative: Rodo Fung MD Albumin/Globulin [Mass ratio] 1.8 (calc) Normal 1.0-2.5 [facility] Comment on above: Performed By: #### 1 0231, 6399, 496, 6517, 7600 #### [facility] [address] [address] , [address] [place] [address] Patient Support Representative: Rodo Fung MD ALP [Catalytic activity/Vol] 54 U/L Normal 37-153 [facility] Comment on above: Performed By: #### 1 0231, 6399, 496, 6517, 7600 #### [facility] [address] [address] , [address] [place] [address] Patient Support Representative: Rodo Fung MD ALT [Catalytic activity/Vol] 35 U/L High 6-29 [facility] Comment on above: Performed By: #### 1 0231, 6399, 496, 6517, 7600 #### [facility] [address] Patient Support Representative: Rodo Fung MD AST [Catalytic activity/Vol] 26 U/L Normal 10-35 [facility] Comment on above: Performed By: #### 1 0231, 6399, 496, 6517, 7600 #### [facility] [address] Patient Support Representative: Rodo Fung MD Bilirubin [Mass/Vol] 0.6 mg/dL Normal 0.2-1.2 [facility] Comment on above: Performed By: #### 1 0231, 6399, 496, 6517, 7600 #### [facility] [address] Patient Support Representative: Rodo Fung MD Calcium [Mass/Vol] 10.0 mg/dL Normal 8.6-10.4 [facility] Comment on above: Performed By: #### 1 0231, 6399, 496, 6517, 7600 #### [facility] [address] Patient Support Representative: Rodo Fung MD Chloride [Moles/Vol] 105 mmol/L Normal 98-110 [facility] Comment on above: Performed By: #### 1 0231, 6399, 496, 6517, 7600 #### [facility] [address] Patient Support Representative: Rodo Fung MD CO2 [Moles/Vol] 26 mmol/L Normal 20-32 [facility] Comment on above: Performed By: #### 1 0231, 6399, 496, 6517, 7600 #### [facility] [address] Patient Support Representative: Rodo Fung MD Creatinine [Mass/Vol] 1.06 mg/dL High 0.50-1.05 [facility] Comment on above: Result Comment: For patients >49 years of age, the reference limit for Creatinine is approximately 13% higher for people identified as -Macedonian. Performed By: #### 1 0231, 63, 49, 6517, 7600 #### [facility], [address] [place] [address] Patient Support Representative: Rodo Fung MD eGFR NON-AFR. CONGOLESE 59 mL/min/1.73m2 Low > OR = 60 [facility] Comment on above: Performed By: #### 1 1, 63, 49, 6517, 7600 #### [facility], [address] [place] [address] Patient Support Representative: Rodo Fung MD GFR/1.73 sq M predicted among blacks MDRD (S/P/Bld) [Vol rate/Area] 68 mL/min/{1.73_m2} Normal > OR = 60 [facility] Comment on above: Performed By: #### 1 230, 51, 49, 65, 7600 #### [facility], [address] [place] [address] Patient Support Representative: Rodo Fung MD Globulin (S) [Mass/Vol] 2.6 g/dL (calc) Normal 1.9-3.7 [facility] Comment on above: Performed By: #### 1 230, 63, 49, 6517, 7600 #### [facility], [address] [place] [address] Patient Support Representative: Rodo Fung MD Glucose [Mass/Vol] 128 mg/dL High 65-99 [facility] Comment on above: Result Comment: Fasting reference interval For someone without known diabetes, a glucose value >125 mg/dL indicates that they may have diabetes and this should be confirmed with a follow-up test. Performed By: #### 1 0231, 63, 49, 6517, 7600 #### [facility], [address] [place] [address] Patient Support Representative: Rodo Fung MD Potassium [Moles/Vol] 4.5 mmol/L Normal 3.5-5.3 [facility] Comment on above: Performed By: #### 1 0231, 6399, 496, 6517, 7600 #### [facility], [address] [place] [address] Patient Support Representative: Rodo Fung MD Protein [Mass/Vol] 7.4 g/dL Normal 6.1-8.1 [facility] Comment on above: Performed By: #### 1 0231, 6399, 496, 6517, 7600 #### [facility], [address] [place] [address] Patient Support Representative: Rodo Fung MD Sodium [Moles/Vol] 140 mmol/L Normal 135-146 [facility] Comment on above: Performed By: #### 1 0231, 6399, 496, 6517, 7600 #### [facility], [address] [place] [address] Patient Support Representative: Rodo Fung MD Urea nitrogen [Mass/Vol] 24 mg/dL Normal 7-25 [facility] Comment on above: Performed By: #### 1 0231, 6399, 496, 6517, 7600 #### [facility], [address] [place] [address] Patient Support Representative: Rodo Fung MD Urea nitrogen/Creatinine [Mass ratio] 23 mg/mg High 6-22 [facility] Comment on above: Performed By: #### 1 0231, 6399, 496, 6517, 7600 #### [facility], [address] [place] [address] Patient Support Representative: Rodo Fung MD HEMOGLOBIN A1con 04-18-2020 HbA1c [...] 0231, 6399, 496, 6517, 7600 #### [facility], [address] [place] [address] Patient Support Representative: Rodo Fung MD LIPID PANEL, [facility] 11-0 Cholesterol [Mass/Vol] 141 mg/dL Normal <200 [facility] Comment on above: Performed By: #### 1 0231, 6399, 496, 6517, 7600 #### [facility], [address] [place] [address] Patient Support Representative: Rodo Fung MD Cholesterol in HDL [Mass/Vol] 53 mg/dL Normal > OR = 50 [facility] Comment on above: Performed By: #### 1 0231, 6399, 496, 6517, 7600 #### [facility], [address] [place] [address] Patient Support Representative: Rodo Fung MD Cholesterol in LDL [Mass/Vol] 62 mg/dL (calc) Normal [facility] Comment on above: Result Comment: Refe rence range: <100 Desirable range <100 mg/dL for primary prevention; <70 mg/dL for patients with CHD or diabetic patients with > or = 2 CHD risk factors. LDL-C is now calculated using the Todd-Rashida calculation, which is a validated novel method providing better accuracy than the Friedewald equation in the estimation of LDL-C. Todd STRONG et al. STACI. 2013;310(19): 6808-0699 (http://education.[employer].SaveUp/faq/POF832) Performed By: #### 1 0231, 6399, 496, 6517, 7600 #### [facility], [address] [place], [place] [phone] Patient Support Representative: Rodo Fung MD Cholesterol.total/C holesterol in HDL [Mass ratio] 2.7 (calc) Normal <5.0 [facility] Comment on above: Performed By: #### 1 0231, 6399, 496, 6517, 7600 #### [facility] [address] Patient Support Representative: Rodo Fung MD NON HDL CHOLESTEROL 88 mg/dL (calc) Normal <130 [facility] Comment on above: Result Comment: For patients with diabetes plus 1 major ASCVD risk factor, treating to a non-HDL-C goal of <100 mg/dL (LDL-C of <70 mg/dL) is considered a therapeutic option. Performed By: #### 1 0231, 6399, 496, 6517, 7600 #### [facility], [address] [place] [address] Patient Support Representative: Rodo Fung MD Triglyceride [Mass/Vol] 182 mg/dL High <150 [facility] Comment on above: Performed By: #### 1 023, 6399, 496, 6517, 3860 #### [facility] [address] Patient Support Representative: Rodo Fung MD TSHon 04-18-2020 TSH Qn 2.17 m[IU]/L Normal 0.40-4.50 [facility] Comment on above: Performed By: #### 1 023, 6399, 496, 6517, 6290 #### [facility] [address] Patient Support Representative: Rodo Fung MD COMPREHENSIVE METABOLIC PANE [facility] 03-20-2020 Albumin [Mass/Vol] 4.6 g/dL Normal 3.6-5.1 [facility] Comment on above: Performed By: #### 1 023 #### [facility] [address] Patient Support Representative: Rodo Fung MD Albumin/Globulin [Mass ratio] 1.9 (calc) Normal 1.0-2.5 [facility] Comment on above: Performed By: #### 1 023 #### [facility] [address] Patient Support Representative: Rodo Fung MD ALP [Catalytic activity/Vol] 63 U/L Normal 37-153 [facility] Comment on above: Performed By: #### 1 0231 #### [facility], [address] [place] [address] Patient Support Representative: Rodo Fung MD ALT [Catalytic activity/Vol] 36 U/L High 6-29 [facility] Comment on above: Performed By: #### 1 0231 #### [facility] [address] Patient Support Representative: Rodo Fung MD AST [Catalytic activity/Vol] 27 U/L Normal 10-35 [facility] Comment on above: Performed By: #### 1 1 #### [facility] [address] Patient Support Representative: Rodo Fung MD Bilirubin [Mass/Vol] 0.6 mg/dL Normal 0.2-1.2 [facility] Comment on above: Performed By: #### 1 0231 #### [facility] [address] Patient Support Representative: Rodo Fung MD Calcium [Mass/Vol] 9.9 mg/dL Normal 8.6-10.4 [facility] Comment on above: Performed By: #### 1 0231 #### [facility] [address] Patient Support Representative: Rodo Fung MD Chloride [Moles/Vol] 104 mmol/L Normal 98-110 [facility] Comment on above: Performed By: #### 1 0231 #### [facility] [address] Patient Support Representative: Rodo Fung MD CO2 [Moles/Vol] 26 mmol/L Normal 20-32 [facility] Comment on above: Performed By: #### 1 0231 #### [facility] [address] Patient Support Representative: Rodo Fung MD Creatinine [Mass/Vol] 1.10 mg/dL High 0.50-1.05 [facility] Comment on above: Result Comment: For patients >49 years of age, the reference limit for Creatinine is approximately 13% higher for people identified as -Macedonian. Performed By: #### 1 1 #### [facility], [address] [place] [address] Patient Support Representative: Rodo Fung MD eGFR NON-AFR. CONGOLESE 56 mL/min/1.73m2 Low > OR = 60 [facility] Comment on above: Performed By: #### 1 1 #### [facility], [address] [place] [address] Patient Support Representative: Rodo Fung MD GFR/1.73 sq M predicted among blacks MDRD (S/P/Bld) [Vol rate/Area] 65 mL/min/{1.73_m2} Normal > OR = 60 [facility] Comment on above: Performed By: #### 1 1 #### [facility], [address] [place] [address] Patient Support Representative: Rodo Fung MD Globulin (S) [Mass/Vol] 2.4 g/dL (calc) Normal 1.9-3.7 [facility] Comment on above: Performed By: #### 1 1 #### [facility], [address] [place] [address] Patient Support Representative: Rodo Fung MD Glucose [Mass/Vol] 197 mg/dL High 65-99 [facility] Comment on above: Result Comment: Fasting reference interval For someone without known diabetes, a glucose value >125 mg/dL indicates that they may have diabetes and this should be confirmed with a follow-up test. Performed By: #### 1 1 #### [facility], [address] [place] [address] Patient Support Representative: Rodo Fung MD Potassium [Moles/Vol] 4.1 mmol/L Normal 3.5-5.3 [facility] Comment on above: Performed By: #### 1 1 #### [facility], [address] [place] [address] Patient Support Representative: Rodo Fung MD Protein [Mass/Vol] 7.0 g/dL Normal 6.1-8.1 [facility] Comment on above: Performed By: #### 1 0231 #### [facility], [address] [place] [address] Patient Support Representative: Rodo Fung MD Sodium [Moles/Vol] 140 mmol/L Normal 135-146 [facility] Comment on above: Performed By: #### 1 0231 #### [facility], [address] [place] [address] Patient Support Representative: Rodo Fung MD Urea nitrogen [Mass/Vol] 26 mg/dL High 7-25 [facility] Comment on above: Performed By: #### 1 1 #### [facility] [address] Patient Support Representative: Rodo Fung MD Urea nitrogen/Creatinine [Mass ratio] 24 mg/mg High 6- [facility] Comment on above: Performed By: #### 1 1 #### [facility] [address] Patient Support Representative: Rodo Fung MD [facility] 01-24-2020 Albumin [Mass/Vol] 4.6 g/dL Normal 3.6-5.1 [facility] Comment on above: Performed By: #### 4 96, 7600, 88454 #### [facility], [address] [place] [address] Patient Support Representative: Rodo Fung MD Albumin/Globulin [Mass ratio] 1.6 (calc) Normal 1.0-2.5 [facility] Comment on above: Performed By: #### 4 96, 7600, 86181 #### [facility], [address] [place] [address] Patient Support Representative: Rodo Fung MD ALP [Catalytic activity/Vol] 49 U/L Normal 37-153 [facility] Comment on above: Performed By: #### 4 96, 7600, 09696 #### [facility], [address] [place] [address] Patient Support Representative: Rodo Fung MD ALT [Catalytic activity/Vol] 48 U/L High 6-29 [facility] Comment on above: Performed By: #### 4 96, 7600, 46769 #### [facility] [address] Patient Support Representative: Rodo Fung MD AST [Catalytic activity/Vol] 44 U/L High 10-35 [facility] Comment on above: Performed By: #### 4 96, 7600, 82292 #### [facility], [address] [place] [address] Patient Support Representative: Rodo Fung MD Bilirubin [Mass/Vol] 0.7 mg/dL Normal 0.2-1.2 [facility] Comment on above: Performed By: #### 4 96, 7600, 76016 #### [facility], [address] [place] [address] Patient Support Representative: oRdo Fung MD Calcium [Mass/Vol] 10.0 mg/dL Normal 8.6-10.4 [facility] Comment on above: Performed By: #### 4 96, 0, 25648 #### [facility] [address] Patient Support Representative: Rodo Fung MD Chloride [Moles/Vol] 105 mmol/L Normal 98-110 [facility] Comment on above: Performed By: #### 4 96, 7600, 38817 #### [facility] [address] Patient Support Representative: Rodo Fung MD CO2 [Moles/Vol] 23 mmol/L Normal 20-32 [facility] Comment on above: Performed By: #### 4 96, 7600, 32404 #### [facility] [address] Patient Support Representative: Rodo Fung MD Creatinine [Mass/Vol] 1.16 mg/dL High 0.50-1.05 [facility] Comment on above: Result Comment: For patients >49 years of age, the reference limit for Creatinine is approximately 13% higher for people identified as -Macedonian. Performed By: #### 4 96, 0, 45499 #### [facility], [address] [place] [address] Patient Support Representative: Rodo Fung MD eGFR NON-AFR. CONGOLESE 53 mL/min/1.73m2 Low > OR = 60 [facility] Comment on above: Performed By: #### 4 96, 7600, 97785 #### [facility], [address] [place] [address] Patient Support Representative: Rodo Fung MD GFR/1.73 sq M predicted among blacks MDRD (S/P/Bld) [Vol rate/Area] 61 mL/min/{1.73_m2} Normal > OR = 60 [facility] Comment on above: Performed By: #### 4 96, 0, 64142 #### [facility]-[address], [address] [place] [address] Patient Support Representative: Rodo Fung MD Globulin (S) [Mass/Vol] 2.8 g/dL (calc) Normal 1.9-3.7 [facility] Comment on above: Performed By: #### 4 , 7599, 89252 #### [facility]-[address], [address] [place] [address] Patient Support Representative: Rodo Fung MD Glucose [Mass/Vol] 165 mg/dL High 65-99 [facility] Comment on above: Result Comment: Fasting reference interval For someone without known diabetes, a glucose value >125 mg/dL indicates that they may have diabetes and this should be confirmed with a follow-up test. Performed By: #### 4 96, 7600, 46730 #### [facility]-[address], [address] [place] [address] Patient Support Representative: Rodo Fung MD Potassium [Moles/Vol] 4.5 mmol/L Normal 3.5-5.3 [facility] Comment on above: Performed By: #### 4 96, 7600, 69193 #### [facility] , [address] [place] [address] Patient Support Representative: Rodo Fung MD Protein [Mass/Vol] 7.4 g/dL Normal 6.1-8.1 [facility] Comment on above: Performed By: #### 4 , 0, 68336 #### [facility]-[address], [address] [place] [address] Patient Support Representative: Rodo Fung MD Sodium [Moles/Vol] 140 mmol/L Normal 135-146 [facility] Comment on above: Performed By: #### 4 96, 7600, 05781 #### [facility]-[address], [address] [place] [address] Patient Support Representative: Rodo Fung MD Urea nitrogen [Mass/Vol] 24 mg/dL Normal 7-25 [facility] Comment on above: Performed By: #### 4 , 0, 58232 #### [facility]-[address], [address] [place] [address] Patient Support Representative: Rodo Fung MD Urea nitrogen/Creatinine [Mass ratio] 21 mg/mg Normal 6-22 [facility] Comment on above: Performed By: #### 4 , 0, 30963 #### [facility]-[address], [address] [place] [address] Patient Support Representative: Rodo Fung MD HEMOGLOBIN A1con 01-24-2020 HbA1c [...] diabetes for children. Performed By: #### 4 96, 7600, 89431 #### [facility]-[address], [address] [place] [address] Patient Support Representative: Rodo Fung MD LIPID PANEL, STANDARDon 01-11 Cholesterol [Mass/Vol] 126 mg/dL Normal <200 [facility] Comment on above: Performed By: #### 4 , 0, 17598 #### [facility], [address] [place] [address] Patient Support Representative: Rodo Fung MD Cholesterol in HDL [Mass/Vol] 44 mg/dL Low > OR = 50 [facility] Comment on above: Performed By: #### 4 , 0, 95478 #### [facility], [address] [place] [address] Patient Support Representative: Rodo Fung MD Cholesterol in LDL [Mass/Vol] [...] LDL-C. Todd STRONG et al. STACI. 2013;310(19): 1679-7402 (http://education.[employer].SaveUp/faq/PQC587) Performed By: #### 4 , 7599, 92567 #### [facility] [address] Patient Support Representative: Rodo Fung MD Cholesterol.total/C holesterol in HDL [Mass ratio] 2.9 (calc) Normal <5.0 [facility] Comment on above: Performed By: #### 4 , 0, 08127 #### [facility]-[address], [address] [place] [address] Patient Support Representative: Rodo Fung MD NON HDL CHOLESTEROL 82 mg/dL (calc) Normal <130 [facility] Comment on above: Result Comment: For patients with diabetes plus 1 major ASCVD risk factor, treating to a non-HDL-C goal of <100 mg/dL (LDL-C of <70 mg/dL) is considered a therapeutic option. Performed By: #### 4 , 0, 40028 #### [facility] [place] [address] Patient Support Representative: Rodo Fung MD Triglyceride [Mass/Vol] 190 mg/dL High <150 [facility] Comment on above: Performed By: #### 4 96, 7600, 70943 #### [facility] [address], [address] [place] [address] Patient Support Representative: Rodo Fung MD Basic Metabolic Panlon 12-12 Anion gap [Moles/Vol] 14 mmol/L Normal 9-18 [facility] Comment on above: Performed By: #### S LACT #### [facility] [address] [place] [address] Calcium [Mass/Vol] 10.1 mg/dL Normal 8.5-10.2 [facility] Comment on above: Performed By: #### S LACT #### [facility] [address] [place] [address] Chloride [Moles/Vol] 102 mmol/L Normal 97-105 [facility] Comment on above: Performed By: #### S LACT #### [facility] [address] [place] [address] CO2 [Moles/Vol] 25 mmol/L Normal 22-30 [facility] Comment on above: Performed By: #### S LACT #### [facility] [address] [place] [address] Creatinine [Mass/Vol] 1.02 mg/dL High 0.58-0.96 [facility] Comment on above: Performed By: #### S LACT #### [facility] [address] [place] [address] eGFR- Amer. >60 Normal [facility] Comment on above: Performed By: #### S LACT #### [facility] [address] [place] [address] GFR/1.73 sq M predicted among non-blacks MDRD (S/P/Bld) [Vol rate/Area] 56 . Normal [facility] Comment on above: Result Comment: eGFR [...] GFR. Performed By: #### S LACT #### [facility] [address] Glucose [Mass/Vol] 192 mg/dL High 74-99 [facility] Comment on above: Result Comment: The [place] Diabetes Association (ADA) provides guidance for cutoff [...] Standards of Medical Care in Diabetes 2016, [place] [employer] Association. Diabetes Care. 2016.39(Suppl 1). Performed By: #### S LACT #### [facility] [address] [place] [id number] Potassium [Moles/Vol] 4.4 mmol/L Normal 3.7-5.1 [facility] Comment on above: Performed By: #### S LACT #### [facility] [address] [place], [place] [phone] Sodium [Moles/Vol] 141 mmol/L Normal 136-144 [facility] Comment on above: Performed By: #### S LACT #### [facility] [address] Urea nitrogen [Mass/Vol] 23 mg/dL High 7-21 [facility] Comment on above: Performed By: #### S LACT #### [facility] [address] [place] [address] CASE MANAGEMon 12-13-2019 CASE MANAGEM HNO ID: [id number] Author: Thais Zhang) SAIDA Jacques Service: ? Author Type: Registered Nurse Type: Care Mgt Progress Note Filed: 12/13/2019 4:42 PM Note Text: CARE MANAGEMENT PROGRESS NOTE SERVICE DATE: 12/13/2019 SERVICE TIME: 4:41 PM LOS: 4 days Admission Date: 12/08/2019 DISCHARGE ARRANGEMENT (list agency and phone number) Provider Name: [facility] and [facility] pharm CAREGIVER ASSESSMENT: HANDOFF COMMUNICATION: Handoff to: Primary Care Physician Primary Care Physician Name/Phone: Amy Mcginnis APRN, [facility] [phone] TRANSPORTATION ARRANGEMENTS: Spouse transporting patient home. ADDITIONAL CONTACT RESOURCES: Discharge Information Row Name Admission (Current) from 12/08/2019 in [facility] Home care, Pharmacy Start of Care 12/14/19 SIGNATURE: Thais Jacques RN PATIENT NAME: Patel Medina DATE: December 13, 2019 TIME: 4:40 PM PAGER/CONTACT #: [phone] [facility] CASE MANAGEM HNO ID: [id number] Author: Fany Vargas (Sw) Service: Case Management Author Type: Policy Loan Calculator Type: Care Mgt Progress Note Filed: 12/13/2019 4:25 PM Note Text: CARE MANAGEMENT PROGRESS NOTE SERVICE DATE: 12/13/2019 SERVICE TIME: 4:23 PM LOS: 4 days Needs Prior to Discharge: To Be Determined;Home Care Order CM spoke to patient bedside. Patient received her PICC line. Script sent over to [facility] and Pharmacy. They confirmed a SOC of tomorrow with delivery this evening. Patient and MD were notified. SIGNATURE: CRISTINO Ruiz PATIENT NAME: Patel Gannbritney DATE: December 13, 2019 TIME: 4:22 PM PAGER/CONTACT #: [phone] [facility] CBCon 12-13-2019 Absolute nRBC <0.01 Normal <0.01 [facility] ital Comment on above: Performed By: #### S LACT #### [facility] 1000 [facility] [phone] Erythrocyte distribution width (RBC) [Ratio] 13.3 % Normal 11.5-15.0 [facility] Comment on above: Performed By: #### S LACT #### [facility] [address] [place] [address] Hematocrit (Bld) [Volume fraction] 37.1 % Normal 36.0-46.0 [facility] Comment on above: Performed By: #### S LACT #### [facility] [address] [place] [address] Hemoglobin (Bld) [Mass/Vol] 11.7 g/dL Normal 11.5-15.5 [facility] Comment on above: Performed By: #### S LACT #### [facility] [address] [place] [address] MCH (RBC) [Entitic mass] 28.5 pG Normal 26.0-34.0 [facility] Comment on above: Performed By: #### S LACT #### [facility] [address] [place] [address] MCHC (RBC) [Mass/Vol] 31.5 g/dL Normal 30.5-36.0 [facility] Comment on above: Performed By: #### S LACT #### [facility] [address] [place] [address] MCV (RBC) [Entitic vol] 90.5 fL Normal 80.0-100.0 [facility] Comment on above: Performed By: #### S LACT #### [facility] [address] [place] [address] Platelet mean volume (Bld) [Entitic vol] 12.8 fL High 9.0-12.7 [facility] Comment on above: Performed By: #### S LACT #### [facility] [address] [place] [address] Platelets (Bld) [#/Vol] 236 10*3/uL Normal 150-400 [facility] Comment on above: Performed By: #### S LACT #### [facility] [address] [place] [address] RBC (Bld) [#/Vol] 4.10 10*6/uL Normal 3.90-5.20 [facility] Comment on above: Performed By: #### S LACT #### [facility] [address] [place] [address] WBC (Bld) [#/Vol] 8.98 10*3/uL Normal 3.70-11.00 [facility] Comment on above: Performed By: #### S LACT #### [facility] 1000 [facility] [phone] CNCOon 12-13-2019 CNCO Letter Text Normal [facility] CONSULT PROGon 12-13-2019 CONSULT PROG HNO ID: [id number] Author: Skip English MD Service: Infectious Disease [...] Sepsis due to Escherichia coli (E. coli) ([facility]) (12/09/2019) CKD (chronic kidney disease) stage 3, GFR 30-59 ml/min ([facility]) (07/15/2016) Obstructive sleep apnea on CPAP (12/08/2019) [...] reviewed Imaging data: reviewed Skip English MD [phone] 12/13/2019 10:[address] [facility] Magnesiumon 12-13-2019 Magnesium [Mass/Vol] 1.4 mg/dL Low 1.7-2.3 [facility] Comment on above: Performed By: #### S LACT #### [facility] 1000 [facility] [phone] NURSING PROGon 12-13-2019 NURSING PROG HNO ID: [id number] Author: Tori Zhang) Gopi Service: PICC Team Author Type: Registered Nurse Type: Nursing Progress Note Filed: 12/13/2019 3:07 PM Note Text: PATIENT EDUCATION TOPIC: PROCEDURE / SURGERY: Procedure/Surgery: peripherally inserted central catheter PATIENT NAME: Patel Medina PATIENT LOCATION: [place] [address] [id number] READINESS TO LEARN COGNITIVE ABILITY: Alert and [...] None Electronically Signed By: Tori Nguyễn RN [facility] NUTRITIONon 12-13-2019 NUTRITION HNO ID: [id number] Author: Kathie Yap Service: Nutrition Therapy Author Type: Registered Dietitian [...] wasting: No Weight Change: Stable SIGNATURE: Kathie Yap RD, RHYS PATIENT NAME: Patel Medina DATE: December 13, 2019 TIME: 12:06 PM PAGER: [facility] PROCEDUREon 12-13-2019 PROCEDURE HNO ID: [id number] Author: Tori Nguyễn Service: PICC Team Author Type: Registered Nurse Type: Procedures Filed: 12/13/2019 3:18 PM Note Text: PICC NURSE INSERTION NOTE DATE OF PROCEDURE: December 13, 2019 TIME OF PROCEDURE: 1500 ORDERING PHYSICIAN: Enedina English MD INFORMED CONSENT: Obtained per hospital policy. INDICATION FOR LINE PLACEMENT: COPAT CONDITION OF LINE PLACEMENT: Sterile PRIMARY PROCEDURALIST: Danelle Martinez RN RESIDENTIAL SUPPORT SPECIALIST: Tori Nguyễn RN PRE-PROCEDURE REVIEW ALLERGIES Allergen [...] Completed Tori Nguyễn RN CATHETER PLACEMENT Brand: BARD Lot: [id number] Number of Lumens: 1 Type of PICC: Power Injectable PICC Lumen Size: 4 Thai PLACEMENT TECHNIQUE Lidocaine: Yes, Lidocaine 1% Volume [...] Patient Education Materials: Placed in chart [facility] Central Line Insertion checklist, attached to the Central Line-Associated Bloodstream Infection Prevention Policy, was utilized during this procedure. QUESTIONS or PROBLEMS: Call [phone] SIGNATURE: Tori Nguyễn RN PATIENT NAME: Patel Medina DATE: December 13, 2019 TIME: 3:08 PM PAGER/CONTACT PHONE: [facility] Basic Metabolic Panlon 12-11 Anion gap [Moles/Vol] 15 mmol/L Normal 9-18 [facility] Comment on above: Performed By: #### B SULEIMAN MG1, CBC ####[facility] [address] [place] [address] Calcium [Mass/Vol] 9.9 mg/dL Normal 8.5-10.2 [facility] Comment on above: Performed By: #### B SULEIMAN MG1, CBC ####[facility] [address] [place] [address] Chloride [Moles/Vol] 100 mmol/L Normal 97-105 [facility] Comment on above: Performed By: #### B SULEIMAN, MG1, CBC ####[facility] [address] [place] [address] CO2 [Moles/Vol] 24 mmol/L Normal 22-30 [facility] sp[facility] Comment on above: Performed By: #### B SULEIMAN, MG1, CBC ####[facility] [address] [place] [address] Creatinine [Mass/Vol] 1.00 mg/dL High 0.58-0.96 [facility] Comment on above: Performed By: #### B SULEIMAN, MG1, CBC ####[facility] [address] [place] [address] eGFR- Amer. >60 Normal [facility] Comment on above: Performed By: #### B MP, MG1, CBC ####[facility] [address] [place] [id number] GFR/1.73 sq M predicted among non-blacks MDRD (S/P/Bld) [Vol rate/Area] 57 . Normal [facility] Comment on above: Result Comment: eGFR [...] reflect actual GFR. Performed By: #### B SULEIMAN, MG1, CBC ####[facility] [address] [place] [address] Glucose [Mass/Vol] 170 mg/dL High 74-99 [facility] Comment on above: Result Comment: The [place] Diabetes Association (ADA) provides guidance for cutoff [...] Standards of Medical Care in Diabetes 2016, [place] [employer]. Diabetes Care. 2016.39(Suppl 1). Performed By: #### B SULEIMAN MG1, CBC ####[facility] [address] [place] [address] Potassium [Moles/Vol] 4.5 mmol/L Normal 3.7-5.1 [facility] Comment on above: Performed By: #### B SULEIMAN MG1, CBC ####[facility] R[address]mt3684 [address] Sodium [Moles/Vol] 139 mmol/L Normal 136-144 [facility] Comment on above: Performed By: #### B MP, MG1, CBC ####[facility] [address] Urea nitrogen [Mass/Vol] 20 mg/dL Normal 7-21 [facility] Comment on above: Performed By: #### B MP, MG1, CBC ####[facility] [address] CASE MANAGEMon 12-12-2019 CASE MANAGEM HNO ID: [id number] Author: Leonor Hathaway (Sw) Service: Care Management Author Type: Policy Loan Calculator Type: Care Mgt Progress Note Filed: 12/12/2019 3:28 PM Note Text: CARE MANAGEMENT PROGRESS NOTE SERVICE DATE: 12/12/2019 SERVICE TIME: 1:30PM LOS: 3 days [place] of Choice Given: Yes Level of Care Discussed: Home Care Financial Disclosure Provided: Yes Provider List: Home Care;Home Care Pharmacy Provider list within the patient's requested geographic area shared with the patient/family: Yes within: 30 miles of zip code: [address] Quality and resource use metrics shared with the patient that are relevant to the patient's goals of care and treatment preferences:: Yes Metrics: Discharge to Community Patient will be having PICC placed and need home IV atb. Patient chose [facility] and [facility]. Referrals sent; awaiting responses. 3:20PM - [facility] Combo accepted referral. Patient informed. SIGNATURE: CRISTINO Patterson PATIENT NAME: Patel Gannbritney DATE: December 12, 2019 TIME: 1:34 PM PAGER/CONTACT #: [phone] Normal [facility] CBCon 12-12-2019 Absolute nRBC <0.01 Normal <0.01 [facility] ital Comment on above: Performed By: #### B SULEIMAN MG1, CBC ####[facility] A[address]ql1222 [address] Erythrocyte distribution width (RBC) [Ratio] 13.4 % Normal 11.5-15.0 [facility] Comment on above: Performed By: #### B SULEIMAN MG1, CBC ####[facility] [address] [place] [address] Hematocrit (Bld) [Volume fraction] 34.9 % Low 36.0-46.0 [facility] l Comment on above: Performed By: #### B SULEIMAN MG1, CBC ####[facility] [address] [place] [address] Hemoglobin (Bld) [Mass/Vol] 11.0 g/dL Low 11.5-15.5 [facility] Comment on above: Performed By: #### B SULEIMAN MG1, CBC ####[facility] [address] [place] [address] MCH (RBC) [Entitic mass] 28.6 pG Normal 26.0-34.0 [facility] Comment on above: Performed By: #### B SULEIMAN MG1, CBC ####[facility] [address] [place] [address] MCHC (RBC) [Mass/Vol] 31.5 g/dL Normal 30.5-36.0 [facility] Comment on above: Performed By: #### B SULEIMAN MG1, CBC ####[facility] [address] [place] [address] MCV (RBC) [Entitic vol] 90.9 fL Normal 80.0-100.0 [facility] Comment on above: Performed By: #### B SULEIMAN MG1, CBC ####[facility] [address] [place] [address] Platelet mean volume (Bld) [Entitic vol] Unable to report Normal 9.0-12.7 [facility] Comment on above: Performed By: #### B SULEIMAN MG1, CBC ####[facility] [address] [place] [address] Platelets (Bld) [#/Vol] 213 10*3/uL Normal 150-400 [facility] Comment on above: Result Comment: No c lot detected. Performed By: #### B SULEIMAN MG1, CBC ####[facility] [address] [place] [address] RBC (Bld) [#/Vol] 3.84 10*6/uL Low 3.90-5.20 [facility] Comment on above: Performed By: #### B SULEIMAN MG1, CBC ####[facility] [address] [place] [address] WBC (Bld) [#/Vol] 8.87 10*3/uL Normal 3.70-11.00 [facility] Comment on above: Performed By: #### B SULEIMAN MG1, CBC ####[facility] [address] [place] [address] CONSULT PROGon 12-12-2019 CONSULT PROG HNO ID: [id number] Author: Skip English MD Service: Infectious Disease [...] Sepsis due to Escherichia coli (E. coli) ([facility]) (12/09/2019) CKD (chronic kidney disease) stage 3, GFR 30-59 ml/min ([facility]) (07/15/2016) Obstructive sleep apnea on CPAP (12/08/2019) [...] reviewed Imaging data: reviewed Skip English MD [phone] [facility] 12-12-2019 Magnesium [Mass/Vol] 1.6 mg/dL Low 1.7-2.3 [facility] Comment on above: Performed By: #### B MP, MG1, CBC ####[facility] [address] [place] [phone] PROGRESSon 12-12-2019 PROGRESS HNO ID: [id number] Author: Yogi Roberts Jr. Service: Hospital Medicine Author Type: Physician Type: Progress Notes Filed: 12/12/2019 2:08 PM Note Text: DEPARTMENT OF HOSPITAL MEDICINE PROGRESS NOTE SERVICE DATE: 12/12/2019 SERVICE TIME: 2:03 PM Hospital Medicine/Primary Attending: Yogi Roberts Jr., MD NIGHT AND WEEKEND COVERAGE: Nights: Please contact pager [phone]. Subjective INTERVAL HPI: Patient reports that she [...] PTSD and Depression, who presented to the [facility] on 12/08/19 with complaints of shakes, tremors, fever and chills for a couple of days. In the ED, temp 101.4F. Na 135, Cr 1.1, Mg 1.6, WBC 9.2. Lactate 5.74 - 2.68. UA showed negative leuks and nitrites. CXR showed NAD. The patient was transferred to [facility] for admission. She was given a [...] Sepsis due to Escherichia coli (E. coli) ([facility]) Active Problems: Complicated UTI (urinary tract infection) CKD (chronic kidney disease) stage 3, GFR 30-59 ml/min ([facility]) Obstructive sleep apnea on CPAP Migraine headache [...] Prophylaxis/Anticoagul ants 12/08/19 1430 pneumatic compression stockings (tx,il) 12/08/19 1430 activity - mobilize patient ([place]) VTE Prophylaxis: VTE prophylaxis appropriate Disposition: Home Plan of care discussed with: Patient and RN SIGNATURE: Yogi Roberts Jr., MD PATIENT NAME: Patel Medina DATE: December 12, 2019 TIME: 2:[address] [facility] ALLIED HEALTHon 12-11-2019 ALLIED HEALTH HNO ID: [id number] Author: Irma Preston (Rt) Service: ? Author Type: Director Outpatient Services Type: Allied Health Filed: 12/11/2019 2:16 PM [...] PERIPHERAL IV DATA: Not applicable SIGNED BY: RT Kary December 11, 2019 2:15 PM Normal [facility] Basic Metabolic Panlon 12-10 Anion gap [Moles/Vol] 12 mmol/L Normal 9-18 [facility] Comment on above: Performed By: #### C ARTHUR BMP, MG1 ####[facility] [address] [place] [address] Calcium [Mass/Vol] 9.2 mg/dL Normal 8.5-10.2 [facility] Comment on above: Performed By: #### An GIBSON BMP, MG1 ####[facility] [address] [place] [address] Chloride [Moles/Vol] 104 mmol/L Normal 97-105 [facility] Comment on above: Performed By: #### An GIBSON BMP, MG1 ####[facility] [address] [place] [address] CO2 [Moles/Vol] 25 mmol/L Normal 22-30 [facility] spital Comment on above: Performed By: #### C ARTHUR BMP, MG1 ####[facility] [address] [place] [address] Creatinine [Mass/Vol] 0.99 mg/dL High 0.58-0.96 [facility] Comment on above: Performed By: #### An GIBSON BMP, MG1 ####[facility] [address] [place] [phone] eGFR- Amer. >60 Normal [facility] Comment on above: Performed By: #### ATUL GUZMAN, MG1 ####[facility] [address] [place] [id number] GFR/1.73 sq M predicted among non-blacks MDRD (S/P/Bld) [Vol rate/Area] 58 . Normal [facility] Comment on above: Result Comment: eGFR [...] Performed By: #### C ATUL GIBSON MG1 ####[facility] [address] [place] [address] Glucose [Mass/Vol] 160 mg/dL High 74-99 [facility] Comment on above: Result Comment: The [place] Diabetes Association (ADA) provides guidance for cutoff [...] Standards of Medical Care in Diabetes 2016, [place] [employer]. Diabetes Care. 2016.39(Suppl 1). Performed By: #### C ATUL GIBSON, MG1 ####[facility] [address] [place] [address] Potassium [Moles/Vol] 4.8 mmol/L Normal 3.7-5.1 [facility] Comment on above: Performed By: #### C ATUL GIBSON, MG1 ####[facility] [address] [place] [phone] Sodium [Moles/Vol] 141 mmol/L Normal 136-144 [facility] Comment on above: Performed By: #### C ATUL GIBSON MG1 ####[facility] [address] [place] [phone] Urea nitrogen [Mass/Vol] 16 mg/dL Normal 7-21 [facility] Comment on above: Performed By: #### C ATUL GIBSON MG1 ####[facility] [address] [place] [address] Blood Cultureon 12-11-2019 Bacteria identified Cx Nom (Bld) Culture Result - No growth 5 days Normal [facility] Comment on above: Performed By: #### C BC BMP, MG1 #### [facility] [address] [place], [place] [id number] #### PROCAL #### [place] [phone] Bacteria identified Cx Nom (Bld) Culture Result - No growth 5 days Normal [facility] Comment on above: Performed By: #### C ARTHUR BMP, MG1 #### [facility] [address] [place] [address] #### PROCAL #### [place] [address] CBCon 12-11-2019 Absolute nRBC <0.01 Normal <0.01 [facility] Comment on above: Performed By: #### C ATUL GIBSON, MG1 ####[facility] [address] [place] [address] Erythrocyte distribution width (RBC) [Ratio] 13.4 % Normal 11.5-15.0 [facility] Comment on above: Performed By: #### C ATUL GIBSON, MG1 ####[address] Hematocrit (Bld) [Volume fraction] 34.5 % Low 36.0-46.0 [facility] Comment on above: Performed By: #### C ATUL GIBSON, MG1 ####[facility] [address] [place], [place] [phone] Hemoglobin (Bld) [Mass/Vol] 10.7 g/dL Low 11.5-15.5 [facility] Comment on above: Performed By: #### C BC BMP, MG1 ####[facility] [address] [place], [place] [phone] MCH (RBC) [Entitic mass] 28.7 pG Normal 26.0-34.0 [facility] Comment on above: Performed By: #### An GIBSON BMP, MG1 ####[facility] [address] [place] [address] MCHC (RBC) [Mass/Vol] 31.0 g/dL Normal 30.5-36.0 [facility] Comment on above: Performed By: #### C ATUL GIBSON, MG1 ####[facility] [address] [place] [address] MCV (RBC) [Entitic vol] 92.5 fL Normal 80.0-100.0 [facility] Comment on above: Performed By: #### C ATUL GIBSON, MG1 ####[facility] [address] [place] [address] Platelet mean volume (Bld) [Entitic vol] Unable to report Normal 9.0-12.7 [facility] Comment on above: Performed By: #### C ATUL GIBSON, MG1 ####[facility] [address] [place] [address] Platelets (Bld) [#/Vol] 182 10*3/uL Normal 150-400 [facility] Comment on above: Result Comment: No c lot detected. Performed By: #### C ARTHUR, BMP, MG1 ####[facility] [address]vbw[address] [place] [address] RBC (Bld) [#/Vol] 3.73 10*6/uL Low 3.90-5.20 [facility] Comment on above: Performed By: #### C ARTHUR, BMP, MG1 ####[facility] [address] [place] [address] WBC (Bld) [#/Vol] 8.80 10*3/uL Normal 3.70-11.00 [facility] Comment on above: Performed By: #### C ARTHUR, BMP, MG1 ####[facility] [address] [place] [address] CONSULT PROGon 12-11-2019 CONSULT PROG HNO ID: [id number] Author: Skip English MD Service: Infectious Disease [...] Sepsis due to Escherichia coli (E. coli) ([facility]) (12/09/2019) CKD (chronic kidney disease) stage 3, GFR 30-59 ml/min ([facility]) (07/15/2016) Obstructive sleep apnea on CPAP (12/08/2019) [...] reviewed Imaging data: reviewed Skip English MD [phone] 12/11/2019 8:00 PM Normal [facility] Magnesiumon 12-11-2019 Magnesium [Mass/Vol] 1.8 mg/dL Normal 1.7-2.3 [facility] Comment on above: Performed By: #### C BC, BMP, MG1 ####[facility] [address] [place], [place] [phone] PROGRESSon 12-11-2019 PROGRESS HNO ID: [id number] Author: Yogi Roberts Jr. Service: Hospital Medicine Author Type: Physician Type: Progress Notes Filed: 12/11/2019 4:54 PM Note Text: DEPARTMENT OF HOSPITAL MEDICINE PROGRESS NOTE SERVICE DATE: 12/11/2019 SERVICE TIME: 4:49 PM Hospital Medicine/Primary Attending: Yogi Roberts Jr., MD NIGHT AND WEEKEND COVERAGE: Nights: Please contact pager [phone]. Subjective INTERVAL HPI: Patient has no complaints [...] PTSD and Depression, who presented to the [facility] on 12/08/19 with complaints of shakes, tremors, fever and chills for a couple of days. In the ED, temp 101.4F. Na 135, Cr 1.1, Mg 1.6, WBC 9.2. Lactate 5.74 - 2.68. UA showed negative leuks and nitrites. CXR showed NAD. The patient was transferred to [facility] for admission. She was given a [...] Sepsis due to Escherichia coli (E. coli) ([facility]) Active Problems: Complicated UTI (urinary tract infection) CKD (chronic kidney disease) stage 3, GFR 30-59 ml/min ([facility]) Obstructive sleep apnea on CPAP Migraine headache [...] Prophylaxis/Anticoagul ants 12/08/19 1430 pneumatic compression stockings (tx,oh) 12/08/19 1430 activity - mobilize patient (tx,il) VTE Prophylaxis: VTE prophylaxis appropriate Disposition: Home Plan of care discussed with: Patient, RN and ID SIGNATURE: Yogi Roberts Jr., MD PATIENT NAME: Patel Medina DATE: December 10, 2019 TIME: 3:[address] [facility] US KIDNEY/BLADDERon 12-11-19 US KIDNEY/BLADDER * [...] APPEARANCE OF KIDNEYS AND BLADDER. Hepatic steatosis Bible Worker: SUSAN Transcribe Date/Time: Dec 11 2019 2:20P Dictated by : ERNTS BLANKENSHIP MD This examination was interpreted and the report reviewed and electronically signed by: ERNST BLANKENSHIP MD on Dec 11 2019 2:21PM EST [id number] Normal [facility] Basic Metabolic Panlon 12-09 Anion gap [Moles/Vol] 12 mmol/L Normal 9-18 [facility] Comment on above: Performed By: #### C BC BMP, MG1 ####[facility] [address] [place] [address] Calcium [Mass/Vol] 8.3 mg/dL Low 8.5-10.2 [facility] Comment on above: Performed By: #### C BC, BMP, MG1 ####[facility] [address] [place] [address] Chloride [Moles/Vol] 105 mmol/L Normal 97-105 [facility] Comment on above: Performed By: #### An BC, BMP, MG1 ####[facility] [address] [place] [address] CO2 [Moles/Vol] 22 mmol/L Normal 22-30 [facility] Comment on above: Performed By: #### C BC, BMP, MG1 ####[facility] [address] [place] [address] Creatinine [Mass/Vol] 0.91 mg/dL Normal 0.58-0.96 [facility] Comment on above: Performed By: #### C BC, BMP, MG1 ####[facility] [address]ts[address] [place] [address] eGFR- Amer. >60 Normal [facility] Comment on above: Performed By: #### An BC BMP, MG1 ####[facility] [address] [place] [id number] GFR/1.73 sq M predicted among non-blacks MDRD (S/P/Bld) [Vol rate/Area] mL/min/{1.73_m2} [facility] Comment on above: Result Comment: eGFR [...] Performed By: #### C ATUL GIBSON MG1 ####[facility] [address] [place] [address] Glucose [Mass/Vol] 188 mg/dL High 74-99 [facility] Comment on above: Result Comment: The [place] Diabetes Association (ADA) provides guidance for cutoff [...] Standards of Medical Care in Diabetes 2016, [place] [employer]. Diabetes Care. 2016.39(Suppl 1). Performed By: #### C ATUL GIBSON, MG1 ####[facility] [address] [place] [address] Potassium [Moles/Vol] 4.1 mmol/L Normal 3.7-5.1 [facility] Comment on above: Performed By: #### C ATUL GIBSON, MG1 ####[facility] [address] [place] [address] Sodium [Moles/Vol] 139 mmol/L Normal 136-144 [facility] Comment on above: Performed By: #### C ATUL GIBSON, MG1 ####[facility] [address] [place] [address] Urea nitrogen [Mass/Vol] 19 mg/dL Normal 7-21 [facility] Comment on above: Performed By: #### C ATUL GIBSON, MG1 ####[facility] [address] [place] [address] Blood Cultureon 12-10-2019 Bacteria identified Cx Nom (Bld) Culture Result - No growth 5 days Normal [facility] Comment on above: Performed By: #### C BC, BMP, MG1 #### [facility] [address] [facility] [phone] #### PROCAL #### [facility] [address] [place] [address] Bacteria identified Cx Nom (Bld) Culture Result - Escherichia coli Refer to specimen collected on 12/09/2019 AT 0638 ([id number]) (NOTE) Positive result called to and read back by: Kina CINTRON [address] 12/11/19 Duane Titus Critically abnormal [facility] Comment on above: Performed By: #### S LACT #### [facility] [address] [facility] [phone] CASE MGT INIT ASSESon 2019 CASE MGT INIT ASS HNO ID: [id number] Author: Leonor Hathaway ([place]) Service: Care Management Author Type: Policy Loan Calculator Type: Care Mgt Initial Assessment Filed: 12/10/2019 11:32 AM Note Text: CARE MANAGEMENT: ASSESSMENT AND DISCHARGE PLAN SERVICE DATE: December 10, 2019 SERVICE TIME: 11:00AM PRIMARY CARE PHYSICIAN: Amy Lunsford NP ADMISSION STATUS: Inpatient MEDICAL: BLUE CARD 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 Last discharge within 30 days: No Advance Directive: Current Advance Directive: None Electrician Control Equipment Attempted to Assist with AD Completion: Yes [...] Extended Emergency Contact Information Primary Emergency Contact: Amado Medina Address: [address] [place] [address] Mobile Relation: None Supportive Patient Contact:: Yes Contact Resources: Family Family Name/Phone: Amado Baez [phone] Social Needs Food insecurity Worry: Not on [...] Completely I feel financially burdened by my tot-cq-silygg expenses for my prescription medication:: 0 - Disagree Completely Risk Score: 0 Patient is categorized as: Low risk < 2 Are you interested in bedside delivery of your medications? No Is Patient Psychosocially Complex?: No ASSESSMENT AND PLAN: Medical Needs: Psychosocial Needs: Psychosocial Needs: None FREEDOM OF CHOICE EXPLAINED: [place] of Choice Given: No Reason Not Given: [...] 10, 2019 TIME: 11:24 AM PAGER/CONTACT #: [phone] Normal [facility] CBCon 12-10-2019 Absolute nRBC <0.01 Normal <0.01 [facility] Comment on above: Performed By: #### C ARTHUR, ATUL, MG1 ####[facility] [address] [place] [address] Erythrocyte distribution width (RBC) [Ratio] 13.6 % Normal 11.5-15.0 [facility] Comment on above: Performed By: #### C BC, BMP, MG1 ####[facility] [address] [place] [address] Hematocrit (Bld) [Volume fraction] 34.5 % Low 36.0-46.0 [facility] l Comment on above: Performed By: #### C ARTHUR, BMP, MG1 ####[facility] [address] [place] [address] Hemoglobin (Bld) [Mass/Vol] 11.0 g/dL Low 11.5-15.5 [facility] Comment on above: Performed By: #### C ARTHUR, BMP, MG1 ####[facility] [address] [place] [address] MCH (RBC) [Entitic mass] 28.9 pG Normal 26.0-34.0 [facility] Comment on above: Performed By: #### C ARTHUR, BMP, MG1 ####[facility] [address] [place] [address] MCHC (RBC) [Mass/Vol] 31.9 g/dL Normal 30.5-36.0 [facility] Comment on above: Performed By: #### C ARTHUR, BMP, MG1 ####[facility] [address] [place] [address] MCV (RBC) [Entitic vol] 90.6 fL Normal 80.0-100.0 [facility] Comment on above: Performed By: #### C ARTHUR, BMP, MG1 ####[facility] [address] [place] [address] Platelet mean volume (Bld) [Entitic vol] Unable to report Normal 9.0-12.7 [facility] Comment on above: Performed By: #### C ARTHUR, BMP, MG1 ####[facility] [address] [place], [place] [id number] Platelets (Bld) [#/Vol] 166 10*3/uL Normal 150-400 [facility] Comment on above: Result Comment: No c lot detected. Performed By: #### C BC, BMP, MG1 ####[facility] Uelq[address]pxwp2777 [address] RBC (Bld) [#/Vol] 3.81 10*6/uL Low 3.90-5.20 [facility] Comment on above: Performed By: #### C BC, BMP, MG1 ####[facility] [address]fr[address]ow8564 [address] WBC (Bld) [#/Vol] 8.95 10*3/uL Normal 3.70-11.00 [facility] Comment on above: Performed By: #### C BC, BMP, MG1 ####[facility] Nrv[address]ueldsz5316 [address] CONSULT PROGon 12-10-2019 CONSULT PROG HNO ID: [id number] Author: Skip English MD Service: Infectious Disease Author Type: Physician Type: Consult Progress Note Filed: 12/10/2019 5:33 PM Note Text: INFECTIOUS DISEASE PROGRESS NOTE Patient Name: Patel Medina INTERVAL HISTORY: She feels overall improved. Still w headache for the past 3 weeks, ?migraine. ROS checked in details. All qs answered. Patient Active Hospital Problem List: Sepsis due to Escherichia coli (E. coli) ([facility]) (12/09/2019) CKD (chronic kidney disease) stage 3, GFR 30-59 ml/min ([facility]) (07/15/2016) Obstructive sleep apnea on CPAP (12/08/2019) [...] final until Authenticated by responsible provider. Normal [facility] Magnesiumon 12-10-2019 Magnesium [Mass/Vol] 2.2 mg/dL Normal 1.7-2.3 [facility] Comment on above: Performed By: #### C BC, BMP, MG1 ####[facility] [address]21[address]5160 NURSING PROGon 12-10-2019 NURSING PROG HNO ID: [id number] Author: Charmaine (Rn) Dequan RN Service: Nursing Author Type: Registered Nurse Type: Nursing Progress Note Filed: 12/10/2019 9:26 AM Note Text: Nursing Progress Note Patient Name: Patel Medina Patient Location: [facility] __ Daily Note: 0923: Lab called with blood culture results from site 1 in right hand taken on 12/09/19 @0638. Positive for Gram - bacilli. Paged hospitalist. This note was completed by: Charmaine Baires RN Normal [facility] PROGRESSon 12-10-2019 PROGRESS HNO ID: [id number] Author: Yogi Roberts Jr. Service: Hospital Medicine Author Type: Physician Type: Progress Notes Filed: 12/10/2019 3:14 PM Note Text: DEPARTMENT OF HOSPITAL MEDICINE PROGRESS NOTE SERVICE DATE: 12/10/2019 SERVICE TIME: 3:10 PM Hospital Medicine/Primary Attending: Yogi Roberts Jr., MD NIGHT AND WEEKEND COVERAGE: Nights: Please contact pager [phone]. Subjective INTERVAL HPI: Patient reports that she [...] PTSD and Depression, who presented to the [facility] on 12/08/19 with complaints of shakes, tremors, fever and chills for a couple of days. In the ED, temp 101.4F. Na 135, Cr 1.1, Mg 1.6, WBC 9.2. Lactate 5.74 - 2.68. UA showed negative leuks and nitrites. CXR showed NAD. The patient was transferred to [facility] for admission. She was given a [...] Sepsis due to Escherichia coli (E. coli) ([facility]) Active Problems: Complicated UTI (urinary tract infection) CKD (chronic kidney disease) stage 3, GFR 30-59 ml/min ([facility]) Obstructive sleep apnea on CPAP Migraine headache [...] Prophylaxis/Anticoagul ants 12/08/19 1430 pneumatic compression stockings ([place], [place]) 12/08/19 1430 activity - mobilize patient ([place]) VTE Prophylaxis: VTE prophylaxis appropriate Disposition: Home Plan of care discussed with: Patient and RN SIGNATURE: Yogi Roberts Jr., MD PATIENT NAME: Patel Medina DATE: December 10, 2019 TIME: 3:08 PM Normal [facility] Basic Metabolic Panlon 12-08 Anion gap [Moles/Vol] 15 mmol/L Normal 02-28 [facility] Comment on above: Performed By: #### C BC, BMP, MG1 #### [facility] [address] [facility] [phone] #### PROCAL #### [facility] [address] [place] [address] Calcium [Mass/Vol] 8.5 mg/dL Normal 8.5-10.2 [facility] Comment on above: Performed By: #### C BC, BMP, MG1 #### [facility] [address] [place] [address] #### PROCAL #### [place] [address] [place] [address] Chloride [Moles/Vol] 100 mmol/L Normal 97-105 [facility] Comment on above: Performed By: #### C BC, BMP, MG1 #### [facility] [address] [place] [address] #### PROCAL #### [place] [address] CO2 [Moles/Vol] 22 mmol/L Normal 22-30 [facility] Comment on above: Performed By: #### An BC, BMP, MG1 #### [facility] [address] [place] [address] #### PROCAL #### [place] [address] Creatinine [Mass/Vol] 1.00 mg/dL High 0.58-0.96 [facility] Comment on above: Performed By: #### An BC, BMP, MG1 #### [facility] [address] [place] [address] #### PROCAL #### [place] [phone] eGFR- Amer. >60 Normal [facility] Comment on above: Performed By: #### An BC, BMP, MG1 #### [facility] [address] [place] [address] #### PROCAL #### [place] [phone] GFR/1.73 sq M predicted among non-blacks MDRD (S/P/Bld) [Vol rate/Area] 57 . Normal [facility] Comment on above: Result Comment: eGFR [...] actual GFR. Performed By: #### C ATUL GIBSON, MG1 #### [facility] [address] [place] [address] #### PROCAL #### [place] [address] [place] [address] Glucose [Mass/Vol] 172 mg/dL High 74-99 [facility] Comment on above: Result Comment: The [place] Diabetes Association (ADA) provides guidance for cutoff [...] Standards of Medical Care in Diabetes 2016, [place] [employer]. Diabetes Care. 2016.39(Suppl 1). Performed By: #### C ATUL GIBSON, MG1 #### [facility] [address] [place] [address] #### PROCAL #### [place] [phone] Potassium [Moles/Vol] 4.1 mmol/L Normal 3.7-5.1 [facility] Comment on above: Performed By: #### C ATUL GIBSON, MG1 #### [facility] [address] [place] [address] #### PROCAL #### [facility] [address] [place] [address] Sodium [Moles/Vol] 137 mmol/L Normal 136-144 [facility] Comment on above: Performed By: #### C ATUL GIBSON, MG1 #### [facility] [address] [place] [address] #### PROCAL #### [place] [phone] Urea nitrogen [Mass/Vol] 19 mg/dL Normal 7-21 [facility] Comment on above: Performed By: #### C BC, BMP, MG1 #### [facility] [address] [place] [address] #### PROCAL #### [phone] Blood Cultureon 12-09-2019 Bacteria identified Cx Nom (Bld) Sp. Request/Comment: - 13.5CC Additional Testing - Escherichia coli detected by microarray. Confirmation and susceptibility testing to follow. Negative for Acinetobacter spp. and Pseudomonas aeruginosa by microarray. --> ABNORMAL ALERT Culture Result - Escherichia coli (NOTE) Positive result called to and read back by: Fabian Baires RN [address] 12/10/19 0919 Lianna López ORGANISM: Escherichia coli METHOD: Minimum inhibitory concentration([employer]) Antibiotic Interp CLARA Status Ampicillin RESISTANT >=32 F Gentamicin SUSCEPTIBLE <=1 F Trimeth sulfameth SUSCEPTIBLE <=20 F Cefazolin RESISTANT F Ciprofloxacin SUSCEPTIBLE 1 F Cefepime SUSCEPTIBLE <=1 F Piperacillin/Tazobac SUSCEPTIBLE 8 F Ampicillin Sulbact RESISTANT >=32 F Ceftriaxone SUSCEPTIBLE <=1 F Meropenem SUSCEPTIBLE <=0.25 F Ertapenem SUSCEPTIBLE <=0.5 F Critically abnormal [facility] Comment on above: Performed By: #### S LACT #### [facility] [address] [place] [address] Bacteria identified Cx Nom (Bld) Sp. Request/Comment: - 17.0CC Culture Result - No growth 5 days Normal [facility] Comment on above: Performed By: #### C BC, BMP, MG1 #### [facility] [address] [place] [address] #### PROCAL #### [place] [phone] CBCon 12-09-2019 Absolute nRBC <0.01 Normal <0.01 [facility] Comment on above: Performed By: #### C BC, BMP, MG1 #### [facility] [address] [place] [address] #### PROCAL #### [place] [phone] Erythrocyte distribution width (RBC) [Ratio] 13.5 % Normal 11.5-15.0 [facility] Comment on above: Performed By: #### C BC, BMP, MG1 #### [facility] [address] [place] [address] #### PROCAL #### [place] [phone] Hematocrit (Bld) [Volume fraction] 40.4 % Normal 36.0-46.0 [facility] l Comment on above: Performed By: #### C BC, BMP, MG1 #### [facility] [address] [place] [address] #### PROCAL #### [place] [phone] Hemoglobin (Bld) [Mass/Vol] 12.5 g/dL Normal 11.5-15.5 [facility] Comment on above: Performed By: #### C BC, BMP, MG1 #### [facility] [address] [place] [address] #### PROCAL #### [place] [phone] MCH (RBC) [Entitic mass] 28.5 pG Normal 26.0-34.0 [facility] Comment on above: Performed By: #### C BC, BMP, MG1 #### [facility] [address] [place] [address] #### PROCAL #### [phone] MCHC (RBC) [Mass/Vol] 30.9 g/dL Normal 30.5-36.0 [facility] Comment on above: Performed By: #### C BC, BMP, MG1 #### [facility] [address] [place] [address] #### PROCAL #### [facility] [address] [place] [address] MCV (RBC) [Entitic vol] 92.0 fL Normal 80.0-100.0 [facility] Comment on above: Performed By: #### C BC, BMP, MG1 #### [facility] [address] [place] [address] #### PROCAL #### [place] [id number] [place] [phone] Platelet mean volume (Bld) [Entitic vol] Unable to report Normal 9.0-12.7 [facility] Comment on above: Performed By: #### C BC, BMP, MG1 #### [place] [address] #### PROCAL #### [place] [phone] Platelets (Bld) [#/Vol] 167 10*3/uL Normal 150-400 [facility] Comment on above: Result Comment: No c lot detected. Performed By: #### C BC, BMP, MG1 #### [facility] [address] [place] [address] #### PROCAL #### [place] [address] [place] [phone] RBC (Bld) [#/Vol] 4.39 10*6/uL Normal 3.90-5.20 [facility] Comment on above: Performed By: #### C BC, BMP, MG1 #### [facility] [address] [place] [address] #### PROCAL #### [place] [address] [place] [address] WBC (Bld) [#/Vol] 9.58 10*3/uL Normal 3.70-11.00 [facility] Comment on above: Performed By: #### C BC, BMP, MG1 #### [facility] [address] [facility] [phone] #### PROCAL #### [facility] [address] [place] [place] [address] CONSULTon 12-09-2019 CONSULT HNO ID: [id number] Author: Skip English MD Service: Infectious Disease [...] - Chronic pain 04/22/[address] Kimbrough (worker's comp bilateral knee issues) - Essential hypertension [...] 09, 2019 TIME: 1:38 PM PAGER/CONTACT #: [phone] [facility] CT ABD/PEL WO IVCONon 2019 CT ABD/PEL WO IVCON * * *Final Report* * * DATE OF EXAM: Dec 09 2019 1:19PM [facility] 0531 - CT ABD/PEL WO IVCON / [...] Tissues: No acute abnormality. Lower thorax: Unremarkable. Welder Experimental (topogram) images: Unremarkable. IMPRESSION: Marked hepatic steatosis. Otherwise unremarkable CT of the abdomen/pelvis without intra-abdominal source of infection identified. Bible Worker: SUSAN Transcribe Date/Time: Dec 09 2019 1:47P Dictated by : RAMBO HERNÁNDEZ MD This examination was interpreted and the report reviewed and electronically signed by: RAMBO HERNÁNDEZ MD on Dec 09 2019 2:04PM EST [id number] [facility] Magnesiumon 12-09-2019 Magnesium [Mass/Vol] 2.0 mg/dL Normal 1.7-2.3 [facility] Comment on above: Performed By: #### C BC, BMP, MG1 #### [facility] [address] [place] [phone] #### PROCAL #### [place] [address] NURSING PROGon 12-09-2019 NURSING PROG HNO ID: [id number] Author: Salome (Rn) SAIDA Gee Service: ? Author Type: Registered Nurse Type: Nursing Progress Note Filed: 12/09/2019 5:24 AM Note Text: Nursing Progress Note Patient Name: Patel Medina Patient Location: [place] [id number]- 1 __ 0523 Rcvd blood culture results; sent page to hospitalist. This note was completed by: Salome Gee RN [facility] PLAN OF CAREon 12-09-2019 PLAN OF CARE HNO ID: [id number] Author: Noemy Heebrt Service: Hospital Medicine Author Type: Nurse Practitioner [...] blood cx Follow AM labs Noemy Hebert APRN.CNP 12/09/2019 5:37 AM Normal [facility] PROGRESSon 12-09-2019 PROGRESS HNO ID: [id number] Author: Gibson Walker Service: Hospital Medicine Author [...] kidney disease) stage 3, GFR 30-59 ml/min ([facility]) 07/15/2016 Assessment AND Plan Note: stable VTE Prophylaxis: SCD Plan of Care visit Complete: yes SIGNATURE: Gibson Walker MD [facility] Procalcitoninon 12-09-2019 Procalcitonin 7.58 ng/mL High <0.09 [facility] Comment on above: Result Comment: For a guided interpretation of test results, please visit the Change in Procalcitonin Calculator, [email or web address]. Performed By: #### C BC, BMP, MG1 #### [facility] [address] #### PROCAL #### [facility] [address] [place] [address] Sepsis Lactateon 12-09-2019 Sepsis Lactate 1.7 mmol/L Normal 0.5-2.0 [facility]ca Comment on above: Performed By: #### S LACT #### [facility] [address] HISTORY PHYSICALon 0 HISTORY PHYSICAL HNO ID: [id number] Author: Gibson Walker Service: Hospital Medicine Author [...] Date - Arthritis of left knee 04/22/2016 Workerecomoms comp issue - Arthritis of left knee 04/22/2016 Workerecomoms comp issue - Carpal tunnel syndrome, bilateral 04/22/2016 - Carpal tunnel syndrome, bilateral 04/22/2016 - Cervical vertebral fusion 09/21/2017 - Chronic pain 04/22/[address] Kimborugh ([employer] bilateral knee issues) - Essential hypertension 04/22/2016 - Hypertension - Obstructive sleep apnea syndrome 04/22/2016 - Psychiatric disorder - PTSD (post-traumatic stress disorder) 04/22/2016 - Severe episode of recurrent major depressive disorder, without psychotic features (HCC) 04/22/[address] Saucedo's office ([employer]). PAST SURGICAL HISTORY Procedure Laterality Date - [...] , Rfl: , 12/07/2019 at Unknown time Dfnzu-7-[id number]-EPA-Fish Oil (FISH OIL) 1,000 mg (120 mg-180 [...] kidney disease) stage 3, GFR 30-59 ml/min ([facility]) 07/15/2016 Assessment AND Plan Note: stable DVT prophylaxis: scd VTE calculator used: yes Code status: full Added to signout: yes Plan of Care visit Complete: yes SIGNATURE: Gibson Walker MD PATIENT NAME: Patel Medina DATE: December 08, 2019 TIME: 3:47 PM PAGER/CONTACT #: [phone] [facility] SARS CoV 2 RNA(COVID 19), [facility] 11-23-2019 SARS CoV 2 RNA NOT DETECTED Normal NOT DETECTED [facility] Comment on above: Result Comment: A Not [...] providers and patients using the following websites: https://www.[employer].SaveUp/home/Covid-19/HCP/NAAT/fact-sheet 2 https://www.[employer].com/home/Covid-19/Patients/NAAT/ fact-sheet2 This test has been authorized by the FDA under an Emergency Use Authorization (EUA) for use by authorized laboratories. Due to the current public health emergency, [facility] is receiving a high volume of samples [...] about COVID-19 can be found at the [facility] website: www.[employer].SaveUp/Covid19. Performed By: #### [phone] [id number] #### [email or web address], [address] [place] [id number] Patient Support Representative: Rodo Fung MD MAMM DIG DIAG UNIon [...] 3: Probably benign Electronically signed by: Jermaine Uriostegui MD 08/08/2019 12:19 PM FORENSIC SCIENTIST Technologist: CD Dictated By: JERMAINE URIOSTEGUI MD Signed By: JERMAINE URIOSTEGUI MD Signed Out: 08/09/19 08:37:57 Normal [facility] MAMM DIGITAL SCRN BILATERALo n 07-27-2019 MAMM [...] Mammograms For Comparison Electronically signed by: Jermaine Uriostegui MD 07/27/2019 10:53 AM FORENSIC SCIENTIST ORIGINAL REPORT SCREENING BILATERAL DIGITAL MAMMOGRAM Clinical [...] Mammograms For Comparison Electronically signed by: Jermaine Uriostegui MD 07/20/2019 9:11 AM FORENSIC SCIENTIST Technologist: LW Dictated By: JERMAINE URIOSTEGUI MD Signed By: JERMAINE URIOSTEGUI MD Signed Out: 07/27/19 11:53:22 SCREENING BILATERAL [...] Mammograms For Comparison Electronically signed by: Jermaine Uriostegui MD 07/20/2019 9:11 AM FORENSIC SCIENTIST Technologist: LW Dictated By: JERMAINE URIOSTEGUI MD Signed By: JERMAINE URIOSTEGUI MD Signed Out: 07/21/19 11:00:08 Normal [facility] Vital Signs Date Time Vital Sign Value Performing Clinician Facility 01-07-2025 13:15-0400 Body mass index (BMI) [Ratio] 34.11 kg/m2 Jaycee BROOKS Work Phone: [facility] 01-07-2025 13:150400 Body weight 92.99 kg Jaycee BROOKS Work Phone: [facility] 01-07-2025 13:15-0400 Diastolic blood pressure 76 mm[Hg] Jaycee BROOKS Work Phone: [facility] 01-07-2025 13:15-0400 Systolic blood pressure 118 mm[Hg] Jaycee BROOKS Work Phone: [facility] 02-17-2023 11:29-0400 Body height 165.1 cm [facility] 02-17-2023 11:29-0400 Body mass index (BMI) [Ratio] 36.53 kg/m2 [facility] 02-17-2023 11:29-0400 Body surface area Derived from formula 2.14 m2 [facility] 02-17-2023 11:29-0400 Body weight 99.57 kg [facility] 02-17-2023 11:29-0400 Diastolic blood pressure 80 mm[Hg] [facility] 02-17-2023 11:29-0400 Heart rate 72 /min [facility] 02-17-2023 11:29-0400 Systolic blood pressure 128 mm[Hg] [facility] 12-18-2021 11:55-0400 Body height 165.1 cm Jennie Garcia Other [facility] Other 12-18-2021 11:55-0400 Body mass index (BMI) [Ratio] 38.27 kg/m2 Jennie Garcia Other [facility] Other 12-18-2021 11:55-0400 Body temperature 96.8 [degF] Jennie Garcia Other [facility] Other 12-18-2021 11:55-0400 Body weight 104.33 kg Jennie Garcia Other [facility] Other 12-18-2021 11:55-0400 Diastolic blood pressure 77 mm[Hg] Jennie Garcia Other [facility] Other 12-18-2021 11:55-0400 Respiratory rate 16 /min Jennie Garcia Other [facility] Other 12-18-2021 11:55-0400 SaO2% (BldA) [Mass fraction] 99 % Jennie Garcia Other [facility] Other 12-18-2021 11:55-0400 Systolic blood pressure 121 mm[Hg] Jennie Garcia Other [facility] Other Encounters Encounter Date Encounter Type Care Provider Facility Start: 01-07-2025 End: 01-07-2025 Bamboo flowsheet Jaycee BROOKS Work Phone: [facility] Start: 01-07-2025 End: 01-07-2025 Bamboo flowsheet Jaycee BROOKS Work Phone: [facility] Start: 01-07-2025 End: 01-07-2025 Patient encounter procedure Jaycee BROOKS Work Phone: [facility] Start: 01-07-2025 End: 01-07-2025 Periodic preventive med est patient 40-64yrs Jaycee BROOKS Work Phone: [facility] Comment on above: Well woman exam with routine gynecological exam [facility]: [facility]: 12-13-2024 End: 12-13-2024 ambulatory TANA QUINONES [facility] Start: 12-13-2024 End: 12-13-2024 Orders Only Cherise Candelaria MODERATE NEEDS TEACHER-BATH MIXER Work Phone: [facility] Start: 03-24-2023 End: 03-25-2023 ambulatory 837 NO FAMILY PHYSICIAN Facility:[facility] Start: 02-17-2023 Split Srvc Caro Alves rne Other [facility] Start: 01-13-2023 End: 01-14-2023 ambulatory Salome Espinoza PA-C Facility:[facility] Start: 09-08-2022 End: 09-08-2022 ambulatory JANUSZ SHAMMO Facility:[facility] Start: 08-05-2022 End: 08-06-2022 ambulatory JANUSZ SHAMMO Facility:[facility] Start: 07-07-2022 Encounter for genera l adult medical examination without abnormal findings JANUSZ SHAMMO [facility] Start: 07-05-2022 End: 07-06-2022 ambulatory JANUSZ SHAMMO Facility:[facility] Start: 07-05-2022 End: 07-06-2022 Encounter for general adult medical examination without abnormal findings JANUSZ SHAMMO Facility:[facility] Start: 05-18-2022 End: 05-19-[address] DOCTOR COLE Facility:[facility] Start: 04-28-2022 End: 04-29-2022 ambulatory JANUSZ SHAMMO Facility:[facility] Start: 12-18-2021 End: 12-18-2021 ambulatory Jennie Garcia Other [facility] Other Start: 12-18-2021 Office outpatient ne w 20 minutes Jennie Garcia [facility] Procedures Date Procedure Procedure Detail Performing Clinician Start: 01-31-2024 Mammography Jaycee BROOKS Work Phone: Start: 01-05-2024 Microscopic observat ion [Identifier] in Cervix by Cyto stain Cherise Candelaria MODERATE NEEDS TEACHER-BATH M[employer]ER Work Phone: Start: 02-17-2023 Nerve conduction laure dies 7-8 studies Caro Patel Plan of Treatment Date Care Activity Detail Author Start: 01-04-2029 Screening for malign ant neoplasm of cervix [facility] Start: 01-13-2026 End: 01-13-2026 Patient encounter procedure 01/13/2026 2:00 PM EDT Procedure Visit ERIC VITALE [address] [place] [place] [phone] Percy Mariee DO [address] [place], [place] [id number] [facility] [place] [facility] Start: 02-11-[address] [facility] Start: 01-30-2025 Screening for malign ant neoplasm of breast Mammogram [facility] Start: 01-07-2025 End: 01-07-2025 Patient encounter procedure 01/07/2025 1:00 PM EDT Office Visit ERIC VITALE [address] [place] [phone] Jaycee Hurley PA [address] [place] [address] Arrived ERIC VITALE Comment on above: Arrived Start: 10-08-2024 End: 12-13-2025 CBC W Auto Differential panel - Blood CBC auto differential Lab Routine Expected: 10/08/2024, Expires: 12/13/2025 [employer] Work Phone: Comment on above: Expected: 10/08/2024 , Expires: 12/13/2025 Start: 10-08-2024 End: 12-13-2025 Comprehensive metabolic 2000 panel - Serum or Plasma Comprehensive metabolic panel Lab Routine Expected: 10/08/2024, Expires: 12/13/2025 [employer] Work Phone: Comment on above: Expected: 10/08/2024 , Expires: 12/13/2025 Start: 10-08-2024 End: 12-13-2025 Lipid 1996 panel - Serum or Plasma Lipid profile Lab Routine Expected: 10/08/2024, Expires: 12/13/2025 [employer] Work Phone: Comment on above: Expected: 10/08/2024 , Expires: 12/13/2025 Start: 10-08-2024 End: 12-13-2025 Microalbumin - Albumin: Creatinine Urine Ratio Microalbumin - Albumin: Creatinine Urine Ratio Lab Routine Expected: 10/08/2024, Expires: 12/13/2025 [employer] Work Phone: Comment on above: Expected: 10/08/2024 , Expires: 12/13/2025 Start: 10-08-2024 End: 12-13-2025 TSH with Reflex TSH with Reflex Lab Routine Expected: 10/08/2024, Expires: 12/13/2025 [employer] Work Phone: Comment on above: Expected: 10/08/2024 , Expires: 12/13/2025 Start: 10-08-2024 End: 12-13-2025 Vitamin D 25 hydroxy Vitamin D 25 hydroxy Lab Routine Expected: 10/08/2024, Expires: 12/13/2025 [employer] Work Phone: Comment on above: Expected: 10/08/2024 , Expires: 12/13/2025 Start: 10-21-2013 Administration of varicella zoster vaccine Zoster (Shingles) Vaccine (1 of 2) [facility] Start: 10-21-1984 Screening for malign ant neoplasm of cervix Pap Smear [facility] Start: 10-21-1982 DTaP,Tdap and Td Vaccines (1 - Tdap) DTaP,Tdap and Td Vaccines (1 - Tdap) [facility] Start: 10-21-1981 Adult BMI Screening Adult BMI Screen ing [facility] Start: 1975 Depression Screening Depression Scre ening [facility] Start: 1975 Tobacco Screening Tobacco Screening [facility] Start: 1965 Screening for malign ant neoplasm of colon [facility] [employer] THIN PREP TIS PAP AN D HR HPV DNA THIN PREP TIS PAP AND HR HPV DNA Pathology and Cytology Routine Well woman exam with routine gynecological exam Ordered: 01/07/2025 [employer] Work Phone: Comment on above: Ordered: 01/07/2025 Immunizations Immunization Date Immunization Notes Care Provider Renetta ruiz 03-19-2023 influenza virus vaccine, unspecified formulation Jaycee BROOKS Work Phone: [facility] 04-22-2016 influenza virus vaccine, unspecified formulation Cherise McdermottNeal MODERATE NEEDS TEACHER-BATH MIXER Work Phone: [facility] Payers Date Payer Category Payer Unknown 2022 [facility] [id number] 2021 Medicare 2011 Medicare [id number] 1 1963 Unknown [id number] 9.2 1963 Unknown [id number] [id number] 9.2 1963 Unknown [id number] 2.0.1.208792.3.57 9.259 1963 Unknown [id number] 2.0.1.832523.3.57 9.259 1963 Unknown [id number] 2.840.1.253662.3.57 9.2 1963 Unknown [id number] 2.16840.1.250047.3.57 9.2.196 1963 Unknown [id number] 2.16.840.1.610967.3.57 9.2.159 1963 Unknown [id number] 2.16.840.1.065736.3.57 9.2.1286 1963 Unknown [id number] 2.16.840.1.690953.3.57 9.2.1286 1963 Unknown [id number] 2.16.840.1.914858.3.57 9.2.1286 1963 Unknown [id number] 2.16.840.1.612534.3.57 9.2.1286 1963 Unknown [id number] 2.16.840.1.089963.3.57 9.2.1286 1963 Unknown [id number] 2.16.840.1.268640.3.57 9.2.1286 1963 Unknown [id number] 2.16.840.1.328308.3.57 9.2.1286 1959 [facility] [id number] Social History Date Type Detail Facility Unknown if ever smoked [facility] [employer] Other Sex Assigned At Member [employer] [facility] [employer] Other Tobacco smoking status [facility] Tobacco smoking consumption unknown [facility] Start: 1965 Sex assigned at Not on file [facility] Start: 12-13-2024 Sex Female (finding) [facility] History of Present illness Narrative 01-07-2025 CECILIA Gee - 01/07/2025 1:00 PM EDT Note Date & Type Note Facility 01-07-2025 History of Presen t illness Narrative Reason for Appointment: Patient ID: Patel Medina is a 59 y.o. female who presents [...] SYSTEMS Review of Systems: Review of Systems All other systems reviewed and are negative. OBJECTIVE Objective: Physical Exam Constitutional: Appearance: Normal appearance. She is well-developed. Genitourinary: Vulva normal. Cardiovascular: Rate and Rhythm: Normal rate and regular rhythm. Pulmonary: Effort: Pulmonary effort is normal. Breath sounds: Normal breath sounds. Abdominal: General: Bowel sounds are normal. There is no distension. Palpations: Abdomen is soft. Tenderness: There is no abdominal tenderness. There is no guarding or rebound. Musculoskeletal: General: No swelling. Normal range of motion. Right lower leg: No edema. Left lower leg: No edema. Neurological: Mental Status: She is alert and oriented to person, place, and time. Skin: General: Skin is warm and dry. Psychiatric: Mood and Affect: Mood normal. Behavior: Behavior normal. Vitals and nursing note reviewed. Exam conducted with a wellness nurse present. Vitals: Estimated body mass index is 36.94 kg/m as calculated from the following: Height as [...] of: CECILIA Gee documented in this encounter [facility] Evaluation note 12-18-2021 Note Date & Type [...] if no improvement of symptoms despite treatment. [facility] [employer] Other Evaluation note Note Date & Type Note Facility Evaluation note Diagnosis Well woman exam with routine gynecological exam Routine gynecological examination documented in this encounter [facility] Instructions Note Date & Type Note Facility Instructions Not on filedocumented in this en counter [facility] Summary Purpose Family History No Family History [...] Records Found Hospital Course Note HNO ID: [id number] Author: Randee Roberts Jr. Service: Hospital Medicine [...] Sepsis due to Escherichia coli (E. coli) ([facility]) Active Problems: Complicated UTI (urinary tract infe (more content not included)... Additional Source Comments INFORMATION SOURCE (unrecogn ized section and content) DATE CREATED AUTHOR 01/03/2020 [facility] DATE CREATED AUTHOR AUTHOR'S ORGANIZ ATION 04/18/2020 [facility] DATE CREATED AUTHOR AUTHOR'S ORGANIZ ATION 07/03/2020 [facility] DATE CREATED AUTHOR AUTHOR'S ORGANIZ ATION 01/01/2022 [facility] DATE CREATED AUTHOR AUTHOR'S ORGANIZ ATION 09/13/2022 [facility] DATE CREATED AUTHOR AUTHOR'S ORGANIZ ATION 01/14/2023 [facility] DATE CREATED AUTHOR AUTHOR'S ORGANIZ ATION 03/29/2023 [facility] DATE CREATED AUTHOR AUTHOR'S ORGANIZ ATION 01/05/2025 [facility] REASON FOR VISIT (unrecogniz ed section and content) Reason Comments Gynecologic Exam Care Teams (unrecognized sec tion and content) Commercial Decorator Relationship Specialty Start Date End Date Tana Quinones MD [address], [place], [place] [phone] PCP - General Family Medicine 01/07/25 Commercial Decorator Relationship Specialty Start Date End Date Tana Quinones MD [address] [place] [address] PCP - General Family Medicine 01/07/25 FOR RECORDS PERTAINING TO PATIENTS WHO ARE [...] BE BASED ON THE PRIMARY CLINICAL RECORDS. [facility] [employer] [facility]. provides no warranty or guarantee of the accuracy or completeness of information in this document.
[2025-01-10 17:08] LABS: Age Gdln ACOG Testing Note (.); IGP, Aptima HPV, rfx 16/18,45 Note (.)
== END 2025-01-07 20:24 | disposition home or self-care (01) ==
LOC: LAB 20:23
PROVIDERS: PCP Nurse Practitioner; Visit Provider Physician Assistant
DX: Z01.419 Encounter for gynecological examination (general) (routine) without abnormal findings (principal)
CPT/HCPCS: 87624; 88175